=== PATIENT | female | born 1975 | race Caucasian/White ===

== ENCOUNTER 2022-10-21 07:23 | Outpatient (OUT) | payer BC, SELFPAY ==
--- NOTE | 2022-10-21 07:26 | MM_ITS ---
Patient: FATMATA SCHULTZ Exam Date: 10/21/2022 : 1975 Gender:F Ordering : DIANELYS Soto . Admission #: [id number] Family : Non-Staff Physician Order #: [id number] CLICK HERE TO VIEW EXAM RADIOLOGY REPORT PROCEDURE: MM TOMOSYNTHESIS SCREENING BI COMPARISON: MG STEREO CORE NDL W CLIP LT, 07/26/2020. INDICATIONS: Screening Calculator Name NCI Breast Cancer Risk Assessment Tool 5 Year Breast Cancer Risk 2.00% Lifetime Breast Cancer Risk 14.30% Personal Breast Cancer No Personal Ovarian Cancer No Treatments None Family Cancers None LOCATION: [facility] BREAST COMPOSITION: Heterogeneously dense,which may obscure small masses. FINDINGS: DIAGNOSTIC CATEGORY 2--BENIGN FINDING. NO CHANGE FROM COMPARISON. Scattered benign-appearing calcifications are present. This exam includes additional mammographic views for implant evaluation and shows no visible implant abnormality. RIGHT BREAST: No significant suspicious finding. LEFT BREAST: No significant suspicious finding. RECOMMENDATIONS: ROUTINE MAMMOGRAM AND CLINICAL EVALUATION IN 12 MONTHS. PLEASE NOTE: A NORMAL MAMMOGRAM DOES NOT EXCLUDE THE POSSIBILITY OF BREAST CANCER. A CLINICALLY SUSPICIOUS PALPABLE LUMP SHOULD BE BIOPSIED. Dictated by: El Whitfield MD on 10/21/2022 at 08:54 Approved by: El Whitfield MD on 10/21/2022 at 08:55
== END 2022-10-21 07:24 | disposition home or self-care (01) ==
LOC: MAMMO 07:23
PROVIDERS: Visit Provider Physician Assistant
DX: Z12.31 Encounter for screening mammogram for malignant neoplasm of breast (principal)
CPT/HCPCS: 77063; 77067

== ENCOUNTER 2023-01-16 07:39 | Outpatient (OUT) | payer BC, SELFPAY ==
[2023-01-16 08:12] LABS: Alanine Aminotransferase 21 U/L (14-59); Albumin Globulin Ratio 1.2; Albumin Level 3.7 g/dL (3.4-5.0); Alkaline Phosphatase 61 U/L (46-116); Anion Gap 12.8; Aspartate Amino Transferase 15 U/L (15-37); BUN Creatinine Ratio 24.6; Bilirubin Total 0.4 mg/dL (0.2-1.0); Calcium 8.5 mg/dL (8.5-10.1); Carbon Dioxide 26.4 mmol/L (21.0-32.0); Chloride 103 mmol/L (98-107); Chol HDL Ratio 3.1; Cholesterol 178 mg/dL (<=200); Estimated GFR (African America >60 (>=60); Estimated GFR (Non-African Ame >60 (>=60); Glucose 106 mg/dL (74-106); HDL Cholesterol 58 mg/dL (40-60); LDL Cholesterol Calculated 107.8 mg/dL; Potassium 4.2 mmol/L (3.5-5.1); Sodium 138 mmol/L (136-145); Total Protein 6.7 g/dL (6.4-8.2); Triglycerides 61 mg/dL (<=150); VLDL CHOLESTEROL 12.2 mg/dL
[2023-01-16 08:15] LABS: Basophils Percent Auto 0.8 % (0.2-2.0); Eosinophils Absolute Auto 0.2 10^3/uL (0.0-0.7); Eosinophils Percent Auto 3.5 % (0.9-7.0); Hematocrit 38.4 % (36.0-48.0); Hemoglobin 12.8 g/dL (12.0-16.0); Immature Granulocytes Abs Auto 0.01 10^3/uL (0.00-0.03); Immature Granulocytes Pct Auto 0.2 % (0.0-0.5); Lymphocytes Absolute Auto 1.8 10^3/uL (1.2-3.8); Lymphocytes Percent Auto 35.6 % (20.5-60.0); Mean Corpuscular HGB Conc 33.3 g/dL (29.9-35.2); Mean Corpuscular Volume 89.9 fL (81.0-99.0); Mean Platelet Volume 9.3 fL (9.5-13.5); Monocytes Absolute Auto 0.4 10^3/uL (0.3-0.8); Neutrophils Absolute Auto 2.7 10^3/uL (1.4-6.5); Neutrophils Percent Auto 52.9 % (43.0-75.0); Platelet Count 347 10^3/uL (150-450); Red Blood Count 4.27 10^6/uL (4.20-5.40); Red Cell Distribution Width 12.5 % (11.0-15.0); White Blood Count 5.2 10^3/uL (4.0-11.0)
[2023-01-16 08:54] LABS: Estimated Average Glucose 108 mg/dL; Glycohemoglobin A1C 5.4 % (4.5-6.2)
== END 2023-01-16 07:40 | disposition home or self-care (01) ==
LOC: LAB 07:39
PROVIDERS: Visit Provider Internal Medicine
DX: Z00.00 Encounter for general adult medical examination without abnormal findings (principal)
CPT/HCPCS: 36415; 80053; 80061; 83036; 84443; 85025

== ENCOUNTER 2023-03-12 11:34 | Outpatient (OUT) | payer BC, SELFPAY | END 2023-03-12 11:35 | disposition home or self-care (01) | LOC: PST 11:34 | PROVIDERS: Visit Provider Surgery | DX: Z01.818 Encounter for other preprocedural examination (principal); Z12.11 Encounter for screening for malignant neoplasm of colon ==

== ENCOUNTER 2023-03-19 06:53 | Day surgery (SDC) | payer BC, SELFPAY ==
--- NOTE | 2023-03-19 | OP_ITS ---
OPERATION DATE: 03/19/2023 PREOPERATIVE DIAGNOSIS: Colorectal screening. POSTOPERATIVE DIAGNOSIS: Normal colonoscopy to cecum. PROCEDURE: Colonoscopy to cecum. SURGEON: Claudy Schmitz M.D. ANESTHESIA: Monitored anesthesia care. ESTIMATED BLOOD LOSS: Zero. INDICATIONS AND CONSENT: Patient is a 47-year-old female presents for colorectal screening. Indications, risks, benefits, alternatives of proceeding with colonoscopy were explained extensively to the patient, including the risks of bleeding, colon perforation or anesthetic complications. All of her questions were answered. Informed consent was obtained. PROCEDURE: Patient brought to the operating room, placed in the left lateral decubitus position. Monitored anesthesia care was provided. Rectal exam was performed which showed no masses or blood. The scope was inserted into the anal canal. Under direct visualization was advanced. It was advanced to the cecum where cecal markings were clearly identified. Upon withdrawal of the scope, mucosal surfaces were carefully examined. There was noted to be a good prep. There were no mass lesions or polyps. No inflammatory changes or ulcerations. No significant diverticulosis. The scope was retroflexed in the anal canal. There was no significant hemorrhoidal disease. Scope was then withdrawn. Patient tolerated procedure well, was sent to recovery room in good condition. Follow up screening colonoscopy should be in 10 years. CC: Patient?s family physician ROULA
[2023-03-19 07:12] VITALS: BMI 29.1
[2023-03-19 07:13] LABS: HCG Qualitative NEGATIVE (NEGATIVE)
[2023-03-19 07:21] VITALS: BP 101/65; PULSE 79; RESP 16; TEMP 35.8; O2SAT 99
[2023-03-19] MEDS: LACTATED RINGER'S SOLUTION 1,000 ML 50 ML IV (07:23)
[2023-03-19 08:23] VITALS: BP 116/86; PULSE 80; RESP 16; O2SAT 99
[2023-03-19 08:41] VITALS: BP 126/69; PULSE 68; RESP 16; O2SAT 96
[2023-03-19 08:53] VITALS: BP 109/80; PULSE 77; RESP 16; O2SAT 100
== END 2023-03-19 08:53 | disposition home or self-care (01) ==
PROVIDERS: PCP Internal Medicine; Visit Provider Surgery
PROC: (CPT 811; principal; 2023-03-19 07:55)
DX: Z12.11 Encounter for screening for malignant neoplasm of colon (principal); N39.46 Mixed incontinence; E66.3 Overweight; Z68.29 Body mass index [BMI] 29.0-29.9, adult; F33.9 Major depressive disorder, recurrent, unspecified; Z98.51 Tubal ligation status
CPT/HCPCS: 45378; 36415; 84703; J2704

== ENCOUNTER 2023-07-15 21:14 | Outpatient (REF) | payer BC, SELFPAY ==
[2023-07-20 11:07] LABS: Age Gdln ACOG Testing Note (.); HPV Aptima Negative (Negative); IGP, Aptima HPV, rfx 16/18,45 Note (.)
== END 2023-07-15 21:15 | disposition home or self-care (01) ==
LOC: LAB 21:14
PROVIDERS: PCP Family Medicine; Visit Provider Physician Assistant
DX: Z01.419 Encounter for gynecological examination (general) (routine) without abnormal findings (principal)
CPT/HCPCS: 87624; G0145

== ENCOUNTER 2023-12-16 10:10 | Outpatient (OUT) | payer BC, SELFPAY ==
--- NOTE | 2023-12-16 | XR_ITS ---
The [address] [address] Patient Name: FATMATA SCHULTZ MRN: [id number] date: 1975 Sex: F Assigned Patient Location: Current Patient Location: Accession/Order Number: [id number] Exam Date: 12/16/2023 10:15 Report Date: 12/17/2023 07:15 At the request of: LADONNA MONAE Procedure: XR ankle CHANI min 3V EXAMINATION: XR ankle CHANI min 3V HISTORY: BILATERAL ANKLE PAIN COMPARISON: No relevant comparison available. FINDINGS: RIGHT FINDINGS: BONES: 3 mm corticated calcific density identified along the inferior medial malleolus, remote injury is favored. No acute fracture or dislocation. SOFT TISSUES: Negative. No visible soft tissue swelling. OTHER: Negative. LEFT FINDINGS: BONES: Corticated calcific density inferior to the lateral malleolus, a remote injury is favored SOFT TISSUES: Negative. No visible soft tissue swelling. OTHER: Negative. XR/XR ankle CHANI min 3V IMPRESSION: No acute abnormality of the ankles Electronically authenticated by: LUZ YANES Date: 12/17/2023 07:15
--- OUTSIDE RECORDS SUMMARY | 2023-12-16 10:24 | XMS_ITS | CCD ---
Author Organization [facility] Care Team Providers Care Sales Assistant Displays Name Role Phone Vicente Baum Primary Care Provider DARION HAND Admitting Unavailab DARION Jarvis Attending Unavailab VICENTE Napoles Primary Care Unavailable Harper Banda Unavailable BAUTISTA, DR ONOFRE Admitting Unavailable BALL, DR ONOFRE Attending Unavailable BALL, DR ONOFRE Consulting Unavailable BALL, DR ONOFRE Primary Care Unavailable FRAZANA, DR LUZ Dyer Attending Unavailable BALL, DR ONOFRE Primary Care Unavailable FARZANA, DR LUZ Dyer Consulting Unavailable FARZANA, DR LUZ Dyer Admitting Unavailable FARZANA, DR LUZ Dyer Admitting Unavailable BAUTISTA, DR ONOFRE Primary Care Unavailable WEST, DR LUZ Dyer Attending Unavailable WEST, DR LUZ Dyer Consulting Unavailable BALL, DR ONOFRE Primary Care Unavailable MOI, HARPER Admitting Unavailable CALVMIKE, HARPER Attending Unavailable BALL, DR ONOFRE Primary Care Unavailable MIRACLE ., CECI Consulting Unavailable MIRACLE ., CECI Admitting Unavailable MIRACLE ., CECI Attending Unavailable Vicente Baum Unavailable VICENTE BAUM Primary Care Physician Claudy SCHMITZ Attending Unavailable BAUTISTA, VICENTE Referring Unavailable Claudy SCHMITZ Attending Unavailable MIRACLE, CECI Attending Unavailable MIRACLE, CECI Attending Unavailable Allergies Allergy Classification Reported Allergen(s) Allergy Type Date of Onset Reaction(s) Facility (1 source) No Known Medication Allergies; Translations: [No Known Medication Allergies] Propensity to adverse reactions (disorder) [facility] Repository Medications Current Medications Medication Drug Class(es) Dates Sig (Normalized) Sig (Original) acetaminophen 325 mg / oxyCODONE hydrochloride 5 mg oral tablet (2 sources) Opioid Agonist Start: 12-09-2018 End: 12-14-2018 take 1 tablet by mouth every six hours as needed for pain, then take 1 tablet by mouth as needed for pain oxyCODONE-acetami nophen (PERCOCET) 5-325 MG per tablet Indications: Post-op pain Take 1 tablet by mouth every 6 hours as needed for Pain for up to 5 days. Intended supply: 5 days. Take lowest dose possible to manage pain 20 tablet 0 12/09/2018 12/14/2018 Active Start: 12-09-2018 End: 12-09-2018 oxyCODONE-acetaminophen (PER COCET) 5-325 MG per tablet 1 tablet calcium chloride 0.0014 meq/ml / potassium chloride 0.004 meq/ml / sodium chloride 0.103 meq/ml / sodium lactate 0.028 meq/ml injectable solution (1 source) Start: 12-09-2018 lactated ringers infusion cephalexin 500 mg oral capsule (1 source) Cephalosporin Antibacterial Start: 12-09-2018 End: 12-14-2018 take 1 capsule by mouth three times daily cephALEXin (KEFLEX) 500 MG capsule Take 1 capsule by mouth 3 times daily for 5 days 15 capsule 0 12/09/2018 12/14/2018 Active cyclobenzaprine hydrochloride 5 mg oral tablet (1 source) Muscle Relaxant Start: 10-28-2023 Cyclobenzaprine Active 0 PO Daily at bedtime 60 30 October 28, 2023 12:00am 5-10mg orally daily at bedtime; 2 ml fentaNYL 0.05 mg/ml injection (2 sources) Opioid Agonist Start: 12-09-2018 fentaNYL (SUBLIMAZE) injection 50 mcg Start: 12-09-2018 fentaNYL (SUBL IMAZE) injection 25 mcg FLUoxetine 20 mg oral capsule (6 sources) Serotonin Reuptake Inhibitor Start: 07-30-2023 take 1 capsule by mouth once daily Fluoxetine Active 0 .ROUTE .COMPLEX 90 July 30, 2023 2:31pm TAKE 1 CAPSULE BY MOUTH EVERY DAY FOR 90 DAYS Start: 07-30-2023 End: 07-30-2023 take 20 mg by mouth once daily Fluoxetine Discontinued 20 MG PO Daily July 30, 2023 12:00am July 30, 2023 2:31pm Start: 01-14-2023 take 1 capsule by mo [facility] once daily FLUoxetine 20 mg Cap 20 mg = 1 cap(s), Oral, Daily, Refills(s) 0 Start Date: 02/03/23 Status: Ordered 1 ml hydrALAZINE hydrochloride 20 mg/ml injection (1 source) Arteriolar Vasodilator Start: 12-09-2018 hydrALAZINE (APRESOLINE) injection 5 mg 1 ml HYDROmorphone hydrochloride 1 mg/ml cartridge (2 sources) Opioid Agonist Start: 12-09-2018 HYDROmorphone (DILAUDID) injection 0.25 mg Start: 12-09-2018 HYDROmorphone (DILAUDID) injection 0.5 mg 0.5 ml meperidine hydrochloride 50 mg/ml injection (1 source) Opioid Agonist Start: 12-09-2018 meperidine (DE MEROL) injection SOLN 12.5 mg 2 ml metoclopramide 5 mg/ml prefilled syringe (1 source) Dopamine-2 Receptor Antagonist Start: 12-09-2018 End: 12-09-2018 metoclopramide (REGLAN) injection 10 mg 2 ml midazolam 1 mg/ml injection (1 source) Benzodiazepine Start: 12-09-2018 End: 12-09-2018 midazolam (VERSED) injection 2 mg MIRENA IUD - this medication is not being screened (3 sources) Start: 02-15-2013 MIRENA IUD - t his medication is not being screened MIRENA IUD - this medication is not being screened( ) Active -Hx Entry for 0 *Reorder from [email or web address] for eRx and Interaction Alerts* Feb, Not-Taking 2 ml ondansetron 2 mg/ml injection (1 source) Serotonin-3 Receptor Antagonist Start: 12-09-2018 End: 12-09-2018 ondansetron (ZOFRAN) injection 4 mg 3 ml sodium chloride 9 mg/ml injection (3 sources) Start: 12-09-2018 sodium chlorid e flush 0.9 % injection 10 mL Start: 12-09-2018 0.9 % sodium c hloride infusion Start: 12-09-2018 sodium chlorid e flush 0.9 % injection 10 mL Completed/Discontinued Medications Medication Drug Class(es) Dates Sig (Normalized) Sig (Original) acetaminophen 325 mg / HYDROcodone bitartrate 5 mg oral tablet (1 source) Opioid Agonist Start: 07-12-2018 End: 12-01-2018 take 1 tablet by mouth every six hours as needed for pain HYDROcodone-acetam inophen (NORCO) 5-325 MG per tablet TAKE 1 TABLET BY MOUTH EVERY 6 HOURS NEEDED FOR PAIN 0 07/12/2018 12/01/2018 Discontinued (Therapy completed) azithromycin 250 mg oral tablet (1 source) Macrolide Antimicrobial Start: 09-29-2018 End: 12-01-2018 azithromycin (ZITHROMAX) 250 MG tablet TAKE 2 TABLETS BY MOUTH TODAY, THEN TAKE 1 TABLET DAILY FOR 4 DAYS 0 09/29/2018 12/01/2018 Discontinued (Therapy completed) 24 hr buPROPion hydrochloride 150 mg extended release oral tablet (5 sources) Aminoketone Start: 10-28-2023 End: 10-28-2023 take 1 tablet by mouth once daily Bupropion Hcl (Wellbutrin Xl) 150 mg tablet extended release 24 hr Discontinued 150 MG PO Daily October 28, 2023 12:00am October 28, 2023 3:17pm take 1 tablet by david th every twenty-four hours Wellbutrin XL 150 MG 1 tablet in the morning Orally Once a day Not-Taking ciprofloxacin 500 mg oral tablet (1 source) Quinolone Antimicrobial Start: 09-08-2018 End: 12-01-2018 take 1 tablet by mouth once daily ciprofloxacin (CIPRO) 500 MG tablet TAKE 1 TABLET BY MOUTH THE DAY BEFORE YOUR PROCEDURE THEN 1 TABLET AFTER YOUR PROCEDURE 0 09/08/2018 12/01/2018 Discontinued (Therapy completed) methylPREDNISolone (1 source) Corticosteroid Start: 09-29-2018 End: 12-01-2018 methylPREDNISolone (MEDROL DOSEPACK) 4 MG tablet TAKE 6 TABLETS ON DAY 1 DIRECTED ON PACKAGE AND DECREASE BY 1 TAB EACH DAY FOR A TOTAL OF 6 DAYS 0 09/29/2018 12/01/2018 Discontinued (Therapy completed) metroNIDAZOLE 500 mg oral tablet (4 sources) Nitroimidazole Antimicrobial Start: 10-28-2023 End: 10-28-2023 take 500 mg by mouth twice daily Metronidazole Discontinued 500 MG PO Twice daily October 28, 2023 12:00am October 28, 2023 3:17pm Start: 04-16-2019 take 1 tablet by david th twice daily metroNIDAZOLE 500MG metroNIDAZOLE 500MG, 1 (one) Tablet two times daily # 14, 04/16/2019, No Refill. Active Oral two times daily for 7 *Pick strength-form from [email or web address] for eRX* Apr, Not-Taking triamcinolone acetonide 40 mg/ml injectable suspension (4 sources) Corticosteroid Start: 06-27-2021 Kenalog-40 Jun, 40 mg Start: 06-27-2021 Kenalog -40 mg Jun, 40 mg Problems Active Problems Problem Classification Problem Date Documented Date Episodic/Chronic Genitourinary symptoms and ill-defined conditions (2 sources) Genuine stress incontinence; Translations: [Urge incontinence of urine] 10-15-2018 Chronic Immunizations and screening for infectious disease (1 source) Encounter for screening for human papillomavirus (HPV); Translations: [ENC SCREENING HUMAN PAPILLOMAVIRUS] Onset: 07-19-2022 Episodic Mood disorders (8 sources) Seasonal affective disorder; Translations: [Other recurrent depressive disorders] Chronic Other diseases of bladder and urethra (1 source) 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 Episodic Other nervous system disorders (1 source) Postoperative pain ; Translations: [Post-op pain] Episodic Other nutritional; endocrine; and metabolic disorders (2 sources) Overweight; Translations: [Overweight] Episodic Other nutritional; endocrine; and metabolic disorders (2 sources) Overweight; Translations: [Overweight] 02-03-2023 Episodic Other nutritional; endocrine; and metabolic disorders (1 source) Overweight in adulthood with body mass index of 25 or more but less than 30 02-11-2023 Episodic Other screening for suspected conditions (not mental disorders or infectious disease) (7 sources) Encounter for screening for malignant neoplasm of cervix; Translations: [Encounter for screening mammogram for malignant neoplasm of breast] Onset: 07-11-2022 Episodic Residual codes; unclassified (1 source) Insomnia; Translations: [Insomnia, unspecified] 10-28-2023 Episodic Residual codes; unclassified (1 source) Insomnia, unspecified; Translations: [Insomnia, unspecified] 10-28-2023 Episodic Unclassified (1 source) Finding of sensation of bladder 10-15-2018 Unclassified (1 source) Patient encounter status 02-11-2023 Past or Other Problems Problem Classification Problem Date Documented Da te Episodic/Chronic Other connective tissue disease (1 source) Lateral epicondylitis, left elbow Onset: 06-27-2021 Resolved: 06-27-2021 Episodic Other non-traumatic joint disorders (1 source) Pain in left elbow Onset: 06-27-2021 Resolved: 06-27-2021 Episodic Other non-traumatic joint disorders (4 sources) Pain in left shoulder; Translations: [PAIN IN LEFT SHOULDER] Onset: 08-10-2021 Episodic Results Test Name Value Interpretation Reference Range Facility Outside Colonoscopyon 2022 Outside Colonoscopy [id number]#1.00T IFF Normal [facility] Reminderson 03-20-2023 Reminders - From: Dolores Lee LPN To: [facility] - Clinical; Sent: 03/20/2023 08:53:50 EST Show up: 02/17/2033 07:00:00 EST Subject: colonoscopy recall Due Date/Time: 03/19/2033 07:00:00 EST Reminder/Recall Patient due for screening colonoscopy 03/19/2033. Normal [facility] Lab Reportson 03-19-2023 Lab Reports [id number]#1.00T IFF [facility] Insurance Correspondenceon 1 04-27-2022 Insurance Correspondence [id number]#1.00 TIFF [facility] Consent for Procedure/Surger yon 02-12-2023 Consent for Procedure/Surgery [id number]#1.00 TIFF [facility] Facesheeton 02-12-2023 Facesheet [id number]#1.00 TIFF [facility] Ambulatory Visit Summaryon 1 04-13-2022 Ambulatory Visit Summary GABRIELA ROSE :1975 Visit Date:02/11/2023 Ambulatory Visit Instructions Your Diagnosis Screening for malignant neoplasm of colon Your Care Team Attending Physician - LEONOR COLON, Claudy De Anda Primary Care Physician - VICENTE BAUM DO Referring Physician - VICENTE BAUM DO This Is Your Medications List Contact prescribing physician if questions or concerns fluoxetine (FLUoxetine 20 mg Cap) Procedures Performed Cystourethroscopy with dilation of urethral stricture (09/30/2018), section, section, Tonsillectomy, Tubal ligation. Discharge Vitals Heart Rate (Peripheral) 70 Respiratory Rate 16 Blood Pressure 124/80 Height 165.1 cm Height 65 in Weight 80.2 kg Weight 176.44 lb BMI 29.42 Medications What How Much When Instructions Unchanged fluoxetine (FLUoxetine 20 mg Cap) 1 Capsules By Mouth Every day Contact prescribing physician if questions or concerns Allergies No Known Allergies No Known Medication Allergies Problems Ongoing - Any problem that you are currently receiving treatment for. BMI 29.0-29.9,adult Feeling of incomplete bladder emptying Other post-traumatic urethral stricture, female Overweight Screening for malignant neoplasm of colon Seasonal affective disorder Stress incontinence Urge incontinence Patient Survey You may receive a survey via text or e-mail asking about your office visit. Please share your experience with us by completing your survey. We appreciate your feedback and thank you for choosing us for your care. Normal [facility] Physician Referralon 023 Physician Referral [id number] IFF Normal [facility] PAP ACOG PANEL 2: 30 to 65on 07-18-2022 . . Normal [facility] Comment on above: Result Comment: Perf ormed at: WB Performed By: #### [id number] #### [facility] [address] [address] [address] Chloe Wells Age Gdln ACOG Testing 30-65 Normal [facility] Comment on above: Performed By: #### [id number] #### [facility] [address] [address] [address] Chloe Wells DIAGNOSIS: Comment Normal [facility] Comment on above: Result Comment: NEGA TIVE FOR INTRAEPITHELIAL LESION OR MALIGNANCY. Performed at: WB Performed By: #### [id number] #### [facility] [address] [address] [address] Chloe Wells HPV Aptima Positive Abnormal Negative [facility] Comment on above: Result Comment: This nucleic acid amplification test detects fourteen high-risk HPV types (16,18,31,33,35,39,45,51,52,56,58,59,66,68) without differentiation. Performed at: =G Performed By: #### 4 [id number] #### [facility] [address] [address] [address] Chloe Wells HPV Genotype [address] [facility] Comment on above: Performed By: #### 4 [id number] #### [facility] [address] [address] [address] Chloe Wells HPV Genotype 18,45 Negative Normal Negative [facility] Comment on above: Performed By: #### 4 [id number] #### [facility] [address] [address] [address] Chloe Wells HPV Genotype Reflex Comment Normal [facility] Comment on above: Result Comment: Kira galicia, see HPV Genotype results. Performed at: WB Performed By: #### [id number] #### [facility] [address] [address] [address] Chloe Wells Methodology: Comment Normal [facility] Comment on above: Result Comment: This liquid based ThinPrep(R) pap test was screened with the use of an image guided system. Performed at: WB Performed By: #### [id number] #### [facility] [address] [place] [address] Dr. Chloe Wells Note: Comment Normal [facility] Comment on above: Result Comment: The Pap smear is a screening test designed to aid in the detection of premalignant and malignant conditions of the uterine cervix. It is not a diagnostic procedure and should not be used as the sole means of detecting cervical cancer. Both false-positive and false-negative reports do occur. . Performed at: WB Performed By: #### [id number] #### [facility] [address] [place] [address] Dr. Chloe Wells Performed by: Comment Normal [facility] Comment on above: Result Comment: Rozina Benitez, Predictive Maintenance Specialist (ASCP) Performed at: WB Performed By: #### 4 [id number] #### [facility] [address] [address] [address] Chloe Wells Specimen adequacy: Comment Normal [facility] Comment on above: Result Comment: Sati sfactory for evaluation. Endocervical and/or squamous metaplastic cells (endocervical component) are present. Performed at: WB Performed By: #### [id number] #### [facility] [address] [place] [address] Dr. Chloe Wells CBC AUTO DIFFon 12-19-2021 BASO # 0.0 103/ul Normal 0.0-0.1 [facility] Comment on above: Performed By: #### C BC #### [facility] [address] [place] [address] Dr. Chloe Wells Basophils/100 WBC (Bld) 0.3 % Normal 0.2-2.0 [facility] Comment on above: Performed By: #### C BC #### [facility] [address] [place] [address] Dr. Chloe Wells EO # 0.2 103/ul Normal 0.0-0.7 [facility] Comment on above: Performed By: #### C BC #### [facility] [address] [place] [address] Dr. Chloe Wells Eosinophils/100 WBC (Bld) 2.9 % Normal 0.9-7.0 [facility] Comment on above: Performed By: #### C BC #### [facility] [address] [place] [address] Dr. Chloe Wells Erythrocyte distribution width (RBC) [Ratio] 12.4 % Normal 11.0-15.0 [facility] Comment on above: Performed By: #### C BC #### [facility] [address] [place] [address] Dr. Chloe Wells Hematocrit (Bld) [Volume fraction] 38.8 % Normal 36.0-48.0 [facility] Comment on above: Performed By: #### C BC #### [facility] [address] [place] [address] Dr. Chloe Wells Hemoglobin (Bld) [Mass/Vol] 13.0 g/dL Normal 12.0-16.0 [facility] Comment on above: Performed By: #### C BC #### [facility] [address] [place] [address] Dr. Chloe Wells IG # 0.01 10e3/ul Normal 0.00-0.03 [facility] Comment on above: Performed By: #### C BC #### [facility] [address] [place] [address] Dr. Chloe Wells IG % 0.2 % Normal 0.0-0.5 [facility] Comment on above: Performed By: #### C BC #### [facility] [address] [place] [address] Dr. Chloe Wells LYMPH # 2.0 103/ul Normal 1.2-3.8 [facility] Comment on above: Performed By: #### C BC #### [facility] [address] [place] [address] Dr. Chloe Wells Lymphocytes/100 WBC (Bld) 33.4 % Normal 20.5-60.0 [facility] Comment on above: Performed By: #### C BC #### [facility] [address] [place] [address] Dr. Chloe Wells MANUAL DIFF REQ NO Normal [facility] Comment on above: Performed By: #### C BC #### [facility] [address] [place] [address] Dr. Chloe Wells MCH (RBC) [Entitic mass] 30.2 pg Normal 26.7-34.0 [facility] Comment on above: Performed By: #### C BC #### [facility] [address] [place] [address] Dr. Chloe Wells MCHC (RBC) [Mass/Vol] 33.5 g/dL Normal 29.9-35.2 [facility] Comment on above: Performed By: #### C BC #### [facility] [address] [place] [address] Dr. Chleo Wells MCV (RBC) [Entitic vol] 90.0 fL Normal 81.0-99.0 [facility] Comment on above: Performed By: #### C BC #### [facility] [address] [place] [address] Dr. Chloe Wells MONO # 0.5 103/ul Normal 0.3-0.8 [facility] Comment on above: Performed By: #### C BC #### [facility] [address] [place] [address] Dr. Chloe Wells Monocytes/100 WBC (Bld) 8.0 % Normal 1.7-12.0 [facility] Comment on above: Performed By: #### C BC #### [facility] [address] [place] [address] Dr. Chloe Wells NEUT # 3.2 103/ul Normal 1.4-6.5 [facility] Comment on above: Performed By: #### C BC #### [facility] [address] [place] [address] Dr. Chloe Wells Neutrophils/100 WBC (Bld) 55.2 % Normal 43.0-75.0 [facility] Comment on above: Performed By: #### C BC #### [facility] [address] [place] [address] Dr. Chloe Wells Platelet mean volume (Bld) [Entitic vol] 8.9 fL Critically low 9.5-13.5 [facility] Comment on above: Performed By: #### C BC #### [facility] [address] [place] [address] Dr. Chloe Wells PLT 327 103/ul Normal 150-450 [facility] Comment on above: Performed By: #### C BC #### [facility] [address] [place] [address] Dr. Chloe Wells RBC 4.31 106/ul Normal 4.20-5.40 [facility] Comment on above: Performed By: #### C BC #### [facility] [address] [place] [address] Dr. Chloe Wells WBC 5.9 103/ul Normal 4.0-11.0 [facility] Comment on above: Performed By: #### C BC #### [facility] [address] [place] [address] Dr. Chloe Wells GLYCOHEMOGLOBIN A1Con 2021 ADA RECOMMENDATION SEE BELOW Normal [facility] Comment on above: Result Comment: ADA RECOMMENDED LIMIT 4.0 - 6.0 ADA THERAPEUTIC TARGET < 7.0 ACTION SUGGESTED > 7.0 Performed By: #### A 1C #### [facility] [address] [place] [address] Dr. Chloe Wells Glucose [Mass/Vol] 105 mg/dL Normal [facility] Comment on above: Performed By: #### A 1C #### [facility] [address] [address] [address] Chloe Wells HbA1c (Bld) [Mass fraction] 5.3 % Normal 4.5-6.2 [facility] Comment on above: Performed By: #### A 1C #### [facility] [address] [address] [address] Chloe Wells LIPID PROFILEon 12-19-2021 CHOL-HDL RATIO NORM SEE BELOW Normal [facility] Comment on above: Result Comment: 3.3 - 4.4 LOW RISK 4.4 - 7.1 AVERAGE RISK 7.1 - 11.0 MODERATE RISK >11.0 HIGH RISK Performed By: #### C MP, TSH, LIPID #### [facility] [address] [address] [address] Chloe Wells Cholesterol [Mass/Vol] 171 mg/dL Normal <=200 [facility] Comment on above: Performed By: #### C MP, TSH, LIPID #### [facility] [address] [address] [address] Chloe Wells Cholesterol in HDL [Mass/Vol] 63 mg/dL Critically high 40-60 [facility] Comment on above: Performed By: #### C MP, TSH, LIPID #### [facility] [address] [address] [address] Chloe Wells Cholesterol in LDL [Mass/Vol] 99.2 mg/dL Normal [facility] Comment on above: Performed By: #### C MP, TSH, LIPID #### [facility] [address] [address] [address] Chloe Wells Cholesterol.total/Ch olesterol in HDL [Mass ratio] 2.7 {ratio} Normal [facility] Comment on above: Performed By: #### C MP, TSH, LIPID #### [facility] [address] [address] [address] Chloe Wells HDL NORMAL > or = 60 mg/dl - LO W CARDIOVASCULAR RISK <40 mg/dl - HIGH CARDIOVASCULAR RISK Normal [facility] Comment on above: Performed By: #### C MP, TSH, LIPID #### [facility] [address] [address] [address] Chloe Wells LDL CALC NORMAL SEE BELOW Normal [facility] Comment on above: Result Comment: <100 mg/dl OPTIMAL 100 - 129 mg/dl NEAR OR ABOVE OPTIMAL 130 - 159 mg/dl BORDERLINE HIGH 160 - 189 mg/dl HIGH >190 mg/dl VERY HIGH Performed By: #### C MP, TSH, LIPID #### [facility] [address] [address] [address] Chloe Wells Triglyceride [Mass/Vol] 44 mg/dL Normal <=150 [facility] Comment on above: Performed By: #### C MP, TSH, LIPID #### [facility] [address] [address] [address] Chloe Wells VLDL CALC 8.8 mg/dL Normal [facility] Comment on above: Performed By: #### C MP, TSH, LIPID #### [facility] [address] [address] [address] Chloe Wells PROF 14(COMP METB)on 022 Albumin [Mass/Vol] 3.8 g/dL Normal 3.4-5.0 [facility] Comment on above: Performed By: #### C MP, TSH, LIPID #### [facility] [address] [address] [address] Chloe Wells Albumin/Globulin [Mass ratio] 1.3 {ratio} Normal [facility] Comment on above: Performed By: #### C MP, TSH, LIPID #### [facility] [address] [address] [address] Chloe Wells ALP [Catalytic activity/Vol] 54 U/L Normal 46-116 [facility] Comment on above: Performed By: #### C MP, TSH, LIPID #### [facility] [address] [address] [address] Chloe Wells ALT [Catalytic activity/Vol] 20 U/L Normal 14-59 [facility] Comment on above: Performed By: #### C MP, TSH, LIPID #### [facility] [address] [address] [address] Chloe Wells Anion gap [Moles/Vol] 9.9 mmol/L Normal [facility] Comment on above: Performed By: #### C MP, TSH, LIPID #### [facility] [address] [address] [address] Chloe Wells AST [Catalytic activity/Vol] 14 U/L Critically low 15-37 [facility] Comment on above: Performed By: #### C MP, TSH, LIPID #### [facility] [address] [address] [address] Chloe Wells Bilirubin [Mass/Vol] 0.6 mg/dL Normal 0.2-1.0 [facility] Comment on above: Performed By: #### C MP, TSH, LIPID #### [facility] [address] [address] [address] Chloe Wells Calcium [Mass/Vol] 8.5 mg/dL Normal 8.5-10.1 [facility] Comment on above: Performed By: #### C MP, TSH, LIPID #### [facility] [address] [address] [address] Chloe Wells Chloride [Moles/Vol] 104 mmol/L Normal 98-107 [facility] Comment on above: Performed By: #### C MP, TSH, LIPID #### [facility] [address] [address] [address] Chloe Wells CO2 [Moles/Vol] 27.3 mmol/L Normal 21.0-32.0 [facility] Comment on above: Performed By: #### C MP, TSH, LIPID #### [facility] [address] [address] [address] Chloe Wells Creatinine [Mass/Vol] 0.74 mg/dL Normal 0.55-1.02 [facility] Comment on above: Performed By: #### C MP, TSH, LIPID #### [facility] [address] [address] [address] Chloe Wells EGFR-AF CHADIAN >60 Normal >=60 [facility] Comment on above: Performed By: #### C MP, TSH, LIPID #### [facility] [address] [place] [address] Dr. Chloe Wells EGFR-NON AF CHADIAN >60 Normal >=60 [facility] Comment on above: Performed By: #### C MP, TSH, LIPID #### [facility] [address] [place] [address] Dr. Chloe Wells Globulin (S) [Mass/Vol] 2.9 g/dL Normal [facility] Comment on above: Performed By: #### C MP, TSH, LIPID #### [facility] [address] [place] [address] Dr. Chloe Wells Glucose [Mass/Vol] 110 mg/dL Critically high 74-106 [facility] Comment on above: Performed By: #### C MP, TSH, LIPID #### [facility] [address] [place] [address] Dr. Chloe Wells Potassium [Moles/Vol] 4.2 mmol/L Normal 3.5-5.1 [facility] Comment on above: Performed By: #### C MP, TSH, LIPID #### [facility] [address] [place] [address] Dr. Chloe Wells Protein [Mass/Vol] 6.7 g/dL Normal 6.4-8.2 [facility] Comment on above: Performed By: #### C MP, TSH, LIPID #### [facility] [address] [place] [address] Dr. Chloe Wells Sodium [Moles/Vol] 137 mmol/L Normal 136-145 [facility] Comment on above: Performed By: #### C MP, TSH, LIPID #### [facility] [address] [place] [address] Dr. Chloe Wells Urea nitrogen [Mass/Vol] 18.0 mg/dL Normal 7.0-18.0 [facility] Comment on above: Performed By: #### C MP, TSH, LIPID #### [facility] [address] [place] [address] Dr. Chloe Wells Urea nitrogen/Creatinine [Mass ratio] 24.3 mg/mg Normal [facility] Comment on above: Performed By: #### C MP, TSH, LIPID #### [facility] [address] [place], [place] [address] Dr. Chloe Wells TSHon 12-19-2021 TSH 1.733 uIU/mL Normal 0.358-3.740 [facility] Comment on above: Performed By: #### C MP, TSH, LIPID #### [facility] [address] [place], [place] [address] Dr. Chloe Wells SURGICAL PATH REPORTon 07-[address] [facility] Department of Pathology [address] [place] [id number] Name: GABRIELA ROSE : 1975 Financial [id number] Number: Gender: Female Location: [facility] Admit 45 years Attending JAMAL SWAN Age: Provider: Ordering MICHAEL HERNÁNDEZ Provider: Consulting: Surgical Pathology Report ACCESSION: COLLECTED DATE/TIME: RECEIVED DATE/TIME: PATHOLOGIST: [id number] 07/26/2020 11:13 EDT 07/26/2020 14:42 EDT KENDELL COLON, BRANT WEBER Final Diagnosis Report for [facility] [place], [place] LEFT BREAST, UPPER OUTER QUADRANT, MICROCALCIFICATIONS, STEREOTACTIC BIOPSY: - FIBROCYSTIC CHANGE AND ADENOSIS WITH ASSOCIATED MICROCALCIFICATIONS. - NEGATIVE FOR MALIGNANCY. COMMENT: Multiple deeper sections are examined. Intradepartmental consultation obtained by Cole Whyte M.D. with diagnostic concurrence. Fixative Information: Time of Removal: 11:13 a.m. Time Fixation Added: 11:24 a.m. Fixative: Formalin Time to Fixation: 11 minutes Duration of Fixation: 30.75 hours BRANT RDZ PATHOLOGIST (Electronic Signature) Date Verified 07/31/2020 TS Clinical Data PRE-OP DIAGNOSIS: Not specified POST-OP DIAGNOSIS: Breast microcalcifications PROCEDURES: Stereotactic breast biopsy SPECIMEN: Left breast upper outer quad microcalcifications / outpatient services ____ Print Date07/31/2020 14:04 EDT Number: Time: [facility] Department of Pathology [address] [place] [id number] Name: GABRIELA ROSE : 1975 [facility] [id number] Number: Gender: Female Location: [facility] Admit 45 years Attending JAMAL SWAN Age: Provider: Ordering MICHAEL HERNÁNDEZ Provider: Consulting: Surgical Pathology Report ACCESSION: COLLECTED DATE/TIME: RECEIVED DATE/TIME: PATHOLOGIST: [id number] 07/26/2020 11:13 EDT 07/26/2020 14:42 EDT KENDELL COLON, BRANT WEBER Gross Description Labeled left breast UOQ calcifications. Received in formalin in a collection apparatus are multiple cylindrical segments of pink white to yellow soft tissue. These measure in aggregate 2.4 x 1.7 x 0.6 cm. The specimen is entirely submitted in two cassettes. Specimen surgically removed at 11:13 and placed in formalin at 11:24. This case will be processed on the large tissue processor. MP:saul 07/26/2020 Tissue pathology report for: [facility], [address] [place] [address]; PATHOLOGY SERVICES PROVIDED BY [facility] (CLIA #[id number]) in cooperation with [facility] at [address] [place] [id number] (CLIA #[id number]) Codes CPT CODE: 65571 ____ Print Date07/31/2020 14:04 EDT Number: Time: Normal [facility] Comment on above: Performed By: #### [id number] #### [facility] [address] [place] [address] Optical Instrument Inspector: Jim Treadwell MD OPERATIVE REPORTon 9 OPERATIVE REPORT [address] [address] OPERATIVE REPORT PATIENT NAME: GABRIELA ROSE : 1975 MED REC NO: [id number] ROOM: ACCOUNT NO: [id number] ADMIT DATE: 12/09/2018 PROVIDER: Darion Hand DATE OF PROCEDURE: 12/09/2018 PREOPERATIVE DIAGNOSIS: 22-mm forehead mass. POSTOPERATIVE DIAGNOSIS: 22-mm forehead mass. PROCEDURE: Excision 25-mm subgaleal forehead lipoma. SURGEON: Darion Hand MD ANESTHESIA: General. INDICATIONS: A 43-year-old with an enlarging mass just below the central hairline. She was scheduled for removal. FINDINGS: This was a subgaleal lipoma with no component of it superficial to the galea. DESCRIPTION OF PROCEDURE: With the patient supine, general anesthesia was induced via posterior pharyngeal LMA intubation. The patient's face was prepped and draped in sterile fashion, injected 0.5% Marcaine, 1:200,000 epinephrine local. After appropriate prep and drape, transverse incision overlying the central 70% of this mass was performed with dissection carried down through skin, subcutaneous tissue, and galea. The mass was identified, circumferentially dissected, and removed off the periosteum. Multilayer closure using 4-0 Monocryl was performed, including intracuticular 4-0 Monocryl closure and Steri-Strip application. Estimated blood loss was 5 mL. There was no complication. Needle and sponge counts correct. DARION HAND JERMAINE/[id number] Doc#: [id number] CC: Normal [facility] Surgical Pathologyon 019 Surgical Pathology (NOTE) [id number] [facility] CONS[facility]ING PATHOLOGISTS [facility] ANATOMIC PATHOLOGY [address] [place] [id number] SURGICAL PATHOLOGY CONSULTATION Patient Name: GABRIELA ROSE [facility] Rec: [id number] Path Number: [id number] Collected: 12/09/2018 Received: 12/09/2018 Reported: 12/10/2018 13:49 -- Diagnosis -- FOREHEAD, SUBGALEAL MASS, EXCISION: - BENIGN LIPOMA. Nino Guzman, Electronically Signed Out sls/12/10/2018 Clinical Information Pre-op Diagnosis: MASS FOREHEAD Operative Findings: FOREHEAD SUBGALEAL MASS Operation Performed: HEAD LESION EXCISION MASS FOREHEAD Source of Specimen 1: FOREHEAD SUBGALEAL MASS Gross Description GABRIELA ROSE, MASS FOREHEAD Two fibrofatty fragments 1.3 x 0.5 x 0.3 cm. and 1.3 x 0.8 x 0.4 cm. Intact. 1cs dw Microscopic Description The specimen consists of benign, mature adipose tissue with a component of fibrous tissue around its periphery, consistent with a benign lipoma. Normal [facility] Comment on above: Performed By: #### P PPVDP #### [employer] [address] [place] [address] Supervisor Rework: Chris Michaels MD Vital Signs Date Time Vital Sign Value Performing Clinician Facility 10-28-2023 15:18040 Body height 165.1 cm [facility] 10-28-2023 15:18-0400 Body mass index (BMI) [Ratio] 29.1 kg/m2 [facility] 10-28-2023 15:18040 Body weight 79.49 kg [facility] 10-28-2023 15:18-0400 Diastolic blood pressure 86 mm[Hg] [facility] 10-28-2023 15:18-0400 Heart rate 78 /min [facility] 10-28-2023 15:18-0400 Respiratory rate 12 /min [facility] 10-28-2023 15:18-0400 Systolic blood pressure 124 mm[Hg] [facility] 02-11-2023 14:18-0500 Blood Pressure Location Claudy NILL [facility] [place] 02-11-2023 14:18-0500 Diastolic blood pressure 80 mm[Hg] Claudy NILL [facility] [place] 02-11-2023 14:18-0500 Heart rate 70 /min Claudy NILL [facility] [place] 02-11-2023 14:18-0500 Respiratory rate 16 /min Claudy NILL [facility] [place] 02-11-2023 14:18-0500 Systolic blood pressure 124 mm[Hg] Claudy NILL [facility] [place] 01-14-2023 14:30-0400 Body height 165.1 cm Vicente Ball [facility] [employer] Other 01-14-2023 14:30-0400 Body mass index (BMI) [Ratio] 29.88 kg/m2 Vicente Ball [facility] [employer] Other 01-14-2023 14:30-0400 Body weight 81.47 kg Vicente Ball Other [employer] Other 01-14-2023 14:30-0400 Diastolic blood pressure 79 mm[Hg] Vicente Ball Other [employer] Other 01-14-2023 14:30-0400 Respiratory rate 12 /min Vicente Ball [facility] [employer] Other 01-14-2023 14:30-0400 Systolic blood pressure 111 mm[Hg] Vicente Ball [facility] [employer] Other 06-27-2021 14:00-0400 Body height 165.1 cm Harper Banda Other [employer] Other 06-27-2021 14:00-0400 Body mass index (BMI) [Ratio] 26.62 kg/m2 Harper Banda Other [employer] Other 06-27-2021 14:00-0400 Body weight 72.58 kg Harper Banda Other [employer] Other 12-09-2018 08:41-0400 Body Temperature 97.3 [degF] Darion [employer] [place] 12-09-2018 08:41-0400 BP Diastolic 76 mm[Hg] Darion [employer] [place] 12-09-2018 08:41-0400 BP Systolic 117 mm[Hg] Darion [employer] [place] 12-09-2018 08:41-0400 Pulse (Heart Rate) 72 /min Darion [place] 12-09-2018 08:41-0400 Pulse Oximetry 99 % Darion [employer] [place] 12-09-2018 08:41-0400 Respiratory Rate 14 /min Darion [employer] 12-09-2018 06:14-0400 BMI (Body Mass Index) 30.35 kg/m2 Darion [employer] [place] 12-09-2018 06:14-0400 Body weight 82.72 kg Darion [employer] [place] 12-09-2018 06:14-0400 Height 165.1 cm [place] Encounters Encounter Date Encounter Type Care Provider Facility Start: 10-28-2023 End: 10-28-2023 ambulatory [facility] Work Phone: Start: 10-28-2023 End: 10-28-2023 Patient encounter procedure [facility] Work Phone: Start: 08-14-2023 End: 08-14-2023 ambulatory CECI RAUSCH Not Available Start: 07-30-2023 Non-patient / Non-visit [facility] Work Phone: Start: 07-15-2023 End: 07-15-2023 ambulatory CECI RAUSCH Not Available Start: 03-19-2023 End: 03-20-2023 ambulatory Claudy R SANDROL Facility:CD:[id number] Start: 02-11-2023 End: 02-12-2023 ambulatory Claudy R NILL Facility: [facility] Start: 02-11-2023 End: 02-11-2023 Patient encounter procedure Claudy R SANDROL [facility] Start: 02-05-2023 End: 02-05-2023 ambulatory Vicente Baum [facility] [employer] Other Start: 02-05-2023 Telephone encounter Vicente CHAO [facility] Start: 01-17-2023 End: 01-17-2023 ambulatory Vicente Baum [facility] [employer] Other Start: 01-17-2023 Telephone encounter [facility]ente [facility] Start: 01-16-2023 ambulatory Claudy SANDROKeith Facility:[facility] Start: 01-14-2023 End: 01-14-2023 ambulatory Vicente Baum [facility] [employer] Other Start: 01-14-2023 Encounter for genera l adult medical examination without abnormal findings Vicente Baum [facility] Start: 01-14-2023 Periodic preventive med est patient 40-64yrs Vicente Baum [facility] Start: 07-11-2022 End: 07-11-[address] VICENTE BAUM Facility:[facility] Start: 06-28-[address] LUZ Tello y:[facility] Start: 12-23-2021 Encounter for genera l adult medical examination without abnormal findings DR VICENTE BAUM [facility] Start: 12-19-2021 End: 12-20-[address] VICENTE BAUM Facility:[facility] Start: 12-19-2021 End: 12-20-2021 Encounter for general adult medical examination without abnormal findings DR VICENTE BAUM Facility:[facility] Start: 10-18-2021 End: 04-26-[address] LUZ YANES Facility:[facility] Start: 08-10-2021 End: 08-25-[address] VICENTE BAUM Facility:[facility] Start: 06-27-2021 End: 06-27-2021 ambulatory Harper Banda [facility] [employer] Other Start: 06-27-2021 Office outpatient ne w 30 minutes Harper Banda [facility] Start: 12-09-2018 End: 12-09-2018 Patient encounter procedure DARION HAND [facility] Start: 12-09-2018 End: 12-09-2018 Subsequent hospital visit by physician Darion Hand Work Phone: [facility] [place] Comment on above: Post-op pain (Primar y Dx) Procedures Date Procedure Procedure Detail Performing Clinician Start: 12-09-2018 DISCHARGE PATIENT DARION HAND Start: 12-09-2018 Level iv surg pathol ogy gross&microscopic exam DARION HAND Start: 12-09-2018 Continuous pulse oximetry DARION HAND Start: 12-09-2018 BEDREST DARION De Anda Start: 12-09-2018 ENCOURAGE DEEP BREAT GISELE AND COUGHING DARION HAND Start: 12-09-2018 INITIATE OXYGEN THER APY PROTOCOL DARION HAND Start: 12-09-2018 NOTIFY PHYSICIAN (SPECIFY) DARION HAND Start: 12-09-2018 NURSING COMMUNICATION C ARIEL HAND Start: 12-09-2018 VITAL SIGNS DARION De Anda Start: 12-09-2018 Gluc bld gluc mntr d ev cleared fda spec home use DARION HAND Start: 12-09-2018 Urine test visual color cmprsn meths DARION HAND Start: 12-09-2018 VITAL SIGNS DARION De Anda Start: 09-30-2018 Cystourethroscopy wi th dilation of urethral stricture Claudy SCHMITZ section Claudy Parker Ligation of fallopian tube Chelsie tsai LEONOR Tonsillectomy Claudy JOKeith Plan of Treatment Date Care Activity Detail Author Start: 12-16-2018 End: 12-16-2018 Office Visit 12/16/2018 Office Visit Plastic Surgery Darion Hand MD [address] [id number] [facility] Start: 12-06-2018 Influenza vaccination Flu vaccine (# 1) [place], [place] Start: 2016 Diabetes screen Diabetes screen [place], [place] Start: 2016 Lipid screen Lipid screen [place], [place] Start: 1997 Cervical cancer screen Cervical canc er screen [place], [place] Start: 06-09-1995 DTaP/Tdap/Td vaccine (1 - Tdap) DTaP/Tdap/Td vaccine (1 - Tdap) [place], [place] Start: 06-09-1991 HIV screen HIV screen [place], [place] End: 12-09-2018 Blood glucose - POCT Blood glucose - POCT Point of Care Testing Routine One Time for 1 Occurrences starting 12/09/2018 until 12/09/2018 [place], [place] Comment on above: One Time for 1 Occur rences starting 12/09/2018 until 12/09/2018 Initiate Oxygen Ther apy Protocol Initiate Oxygen Therapy Protocol Respiratory Care Routine Daily until discontinued starting 12/09/2018 [place], [place] Comment on above: Daily until disconti nued starting 12/09/2018 Phase I & II - meter ed glucose Phase I & II - metered glucose Point of Care Testing Routine As Needed until discontinued starting 12/09/2018 [place], [place] Comment on above: As Needed until disc ontinued starting 12/09/2018 End: 12-09-2018 , urine POCT , urine POCT Point of Care Testing Routine One Time for 1 Occurrences starting 12/09/2018 until 12/09/2018 [place], [place] Comment on above: One Time for 1 Occur rences starting 12/09/2018 until 12/09/2018 Surgical Pathology Surgical Path ology Lab Routine ONE TIME for 1 Occurrences starting 12/09/2018 [facility] [place] Comment on above: ONE TIME for 1 Occur rences starting 12/09/2018 Immunizations Immunization Date Immunization Notes Care Provider Jorge ch 01-05-2023 influenza virus vaccine, unspecified formulation Claudy JOKeith [facility] [place] 01-26-2021 SARS-CoV-2 (COVID-19 ) mRNA-1273 vaccine Claudy JOL [facility] [place] 05-10-2020 SARS-CoV-2 (COVID-19 ) mRNA-1273 vaccine Claudy JOL [facility] [place] 04-11-2020 SARS-CoV-2 (COVID-19 ) mRNA-1273 vaccine Claudy SCHMITZ [facility] [place] Payers Date Payer Category Payer Unknown [id number] 2019 Unknown [id number] 2018 Unknown [employer] [address] xxxxxxxxx 2018-Present [phone] [address] [place] [address] xxxxxxxxx [id number] 2018 Unknown [id number] 1975 Unknown [id number] 1975 Unknown [id number] 1975 Unknown [id number] 1975 Unknown [id number] 1975 Unknown [id number] 1975 Unknown [id number] 1975 Unknown [id number] 1975 Unknown [id number] 1975 Unknown [id number] 1975 Unknown [id number] 1958 Self-pay [id number] Social History Date Type Detail Facility Start: 12-09-2018 End: 02-11-2023 Tobacco smoking status NHIS Never smoker [facility] [place] Start: 12-09-2018 Alcohol intake Yes [facility] Start: 12-01-2018 Alcohol Comment weekend [email or web address] Sex Assigned At Not on file Mixgar Tobacco smoking status Never [facility] Start: 1975 Sex Assigned At Female F [facility] Functional Status Date Assessment Result Facility 02-11-2023 Functional Status N/A [facility] Clinical Notes 06-27-2021 to 02-11-2023 Note Date & Type Note Facility 02-11-2023 Note Chief Complaint consultation for screening colonoscopy HPI Staff 47 year old female presents on consultation from Dr. Baum for screening colonoscopy. Denies abdominal or rectal pain. No rectal bleeding or change in bowel habits. Denies nausea or vomiting. No unexplained weight loss. Never had colonoscopy in the past. No known family history of colon cancer. History of Present Illness 47 yo female referred for colorectal screening; denies change in bms or blood in stools; no abdominal complaints; denies asa or NSAID use, no SBE prophylaxis; abdominal operations significant for tubal ligation and x 2; no previous colonoscopy; no fmhx of GI malignancy or IBD; no tobacco use. Review of Systems PHQ Score Initial Depression Screen Score: 0 ROS - Provider Constitutional: no fever, no sweats, no weight loss. Eyes: no glasses, no blurred vision, no visual loss. ENMT: no dentures, no hoarseness, no swallowing difficulties, no hearing loss, no ear infection(s), no nose bleeds. Cardiovascular: normal blood pressure, no chest pain, regular heartbeat, no heart murmur. Respiratory: no shortness of breath, no cough, no asthma, no wheezing. Gastrointestinal: no nausea, no vomiting, no diarrhea, no constipation, no blood in stool, no change in bowel habits, no abdominal pain, no hepatitis. Genitourinary: no kidney stones, no urine infection, no dysuria. Musculoskeletal: no pain, no weakness. Skin: no changing moles, no rash, no skin lumps. Neurologic: no seizures, no epilepsy, no headache. Psychiatric: no emotional or psychiatric problem. Heme/Lymph: no bleeding problems, no anemia, no blood clots, no transfusions. Allergy/Immunologic: no swollen lymph nodes/glands, no IV drug abuse. Other: Additional ROS info: Except as noted in the above Review of Systems and in the History of Present Illness, all other systems have been reviewed and are negative or noncontributory. Physical Exam Vitals & Measurements HR: 70(Peripheral) RR: 16 BP: 124/80 HT: 65 in HT: 165.1 cm WT: 80.2 kg WT: 176.44 lb BMI: 29.42 HEENT: normal conjunctiva, sclera clear, no scleral icterus, EOM intact, PERRLA, oral mucosa moist without lesions. Neck: trachea midline, no mass, symmetric, no thyromegaly or nodules, no adenopathy Respiratory: lungs CTA, respirations non labored. Cardiovascular: regular rate and rhythm, no murmur, no pedal edema or varicosities. Gastrointestinal: soft, non distended, no tenderness, no masses, no palpable hernias, diastasis recti no, no hepatosplenomegaly; normal bs Lymphatic: no cervical adenopathy, no axillary adenopathy, no inguinal adenopathy. Musculoskeletal: normal gait, digits and nails without infection, nodes, cyanosis, clubbing. Skin: no rashes, no lesions, no ulcers, no subcutaneous nodules, induration. Psychiatric/Neuro: oriented to time, place, person, judgement normal, affect appropriate for age, insight intact, no focal deficits. Tests: review of old records completed , Discussed surgical options, risks, and possible complications with patient. Assessment/Plan 1. Screening for malignant neoplasm of colon (Z12.11: Encounter for screening for malignant neoplasm of colon) plan colonoscopy under anesthesia, informed consent obtained. Follow-up No qualifying data available Problem List/Past Medical History Ongoing BMI 29.0-29.9,adult Feeling of incomplete bladder emptying Other post-traumatic urethral stricture, female Overweight Screening for malignant neoplasm of colon Seasonal affective disorder Stress incontinence Urge incontinence Historical No qualifying data Procedure/Surgical History Cystourethroscopy with dilation of urethral stricture (09/30/2018), section, section, Tonsillectomy, Tubal ligation. Medications FLUoxetine 20 mg Cap, 20 mg= 1 cap(s), Oral, Daily Allergies No Known Allergies No Known Medication Allergies Social History Alcohol - Low Risk, 11/10/2018 Current, 1-2 times per week, 02/11/2023 Substance Abuse - Denies Substance Abuse, 02/11/2023 Tobacco - Denies Tobacco Use, 11/10/2018 Never (less than 100 in lifetime) Tobacco Use:. Never Smokeless Tobacco Use:., 02/11/2023 Family History Alzheimer's disease: Father. Immunizations Vaccine Date Status influenza virus vaccine, inactivated 01/2023 Recorded SARS-CoV-2 (COVID-19) mRNA-1273 vaccine 01/26/2021 Recorded SARS-CoV-2 (COVID-19) mRNA-1273 vaccine 05/10/2020 Recorded SARS-CoV-2 (COVID-19) mRNA-1273 vaccine 04/11/2020 Recorded [facility] Comment on above: Result Comment: Elec tronically Signed By: LEONOR OCLON, Claudy Mireles\Date and Time Signed: 02/11/23 14:43 EST 02-05-2023 Evaluation note Encounter Date Diagnosis Assessment Notes Feb, Seasonal affective disorder (ICD-10 - F33.8) [employer] Other 10-10-2023 Evaluation note* Encounter Date Diagnosis Assessment Notes Treatment Notes Treatment Clinical Notes Jan, Wellness examination (ICD-10 - Z00.00) Healthy diet and exercise. Reviewed age-appropriate preventive testing recommended. Jan, Seasonal affective disorder (ICD-10 - F33.8) Healthy diet, exercise and keep active. Initiate Fluoxetine (preferred to avoid weight gain w/ SSRI) Jan, Overweight (ICD-10 - E66.3) This patient has been instructed on a low-fat, high-fiber diet. They are instructed to reduce calories, portion sizes and snacks. It is recommended that they exercise for 30 minutes, 3-5 times weekly. 10 Jan, 2023 Screening mammogram for breast cancer (ICD-10 - Z12.31) Instructed patient on monthly SBE and yearly mammograms. 10 Jan, 2023 Screening for colon cancer (ICD-10 - Z12.11) Due for screening colonoscopy. Refer to General Surgery to schedule exam. She is an asymptomatic, low risk patient [employer] Templates Other 03-23-2022 Evaluation note* Encounter Date Diagnosis Assessment Notes Treatment Notes Treatment Clinical Notes Jun, Lateral epicondylitis, left elbow (ICD-10 - M77.12) Options discussed with patient to include the use of elbow strap as needed with activity, the use of heat/ice, use of oral and topical NSAIDs, occupational therapy, and cortisone injection. If pain persistent, consider MRI. Patient would like to try cortisone injection. Left elbow lateral epicondyle injected with cortisone under sterile technique, patient tolerated well. Patient also instructed on the use of topical Voltaren Gel Jun, Left elbow pain (ICD-10 - M25.522) [employer] Tem[employer] Other Evaluation + Plan note No data available for this section General Surgery [place] Evaluation noteNo InformationNort [employer] Other Evaluation note* Diagnosis Onset Date Resolution Status Insomnia acute Overweight acute Seasonal affective disorder [facility] Work Phone: History general Narrative - Reported* Type Description Date Medical History Seasonal Affective Disorder Surgical History x 2 Surgical History tonsilectomy Surgical History tubal ligation Hospitalization History see surgeries Molecular Templates Other Hospital Discharge instructions No data available for this section General [facility] [place] Progress note No data available for this section [facility] [place] Reason for referral (narrative)* Reason Referral for screeni ng colonoscopy Diagnosis 1 Screening for colon cancer (Z12.11) Referral Organization [facility] Amelia abrams Referring Provider First Name Vicente Referring Provider Last Name Bautista Referring Provider Specialty Internal Me dicine Referred Organization [facility] Referred Provider Claudy Schmitz Referred Address [address] [place] [phone] Referred Provider Specialty Surgery Referral Priority Routine General Notes Asymptomatic, low ri sk patient. She denies change in appetite, weight or bowel habits. She denies heartburn or dysphagia. She denies abdominal pain, melena or hematochezia. Molecular Templates Other Discharge Instructions * Instructions* Brittney Batista RN - 12/09/2018 Dr. Hand Discharge Instructions -May shower tomorrow-avoid getting water on incision/steri strips. -If steri strips get wet,pat area dry with a towel -Leave the steri strips on incision - Have someone snip ends of steri strips if unable to push into place. -Women should not put any lotion or make up on incision Anesthesia Instructions Activity You have had anesthesia today Do not drive, operate heavy equipment, consume alcoholic beverages, or make any important decisionsfor 24 hours If you are taking pain medication: Do not drive or consume alcohol. Take your time changing positions today. You may feel light headed or dizzy if you move too quickly. Continue your home medications as ordered by your physician. Diet You can eat your normal diet when you feel well. You should start off with bland foods like chickensoup, toast, or yogurt. Then advance as tolerated. Drink plenty of fluids (unless your doctor tells you not to). Your urine should be very lightly colored without a strong odor. documented in this encounter History of Present Illness * Sulaiman Tyler - 12/09/2018 8:48 AM EDT CLINICAL PHARMACY NOTE: MEDS TO [facility] Patient?: No Total # of Prescriptions Filled: 2 The following medications were delivered to the patient: cephalexin norco Total # of Interventions Completed: 1 Time Spent (min): 0 Additional Documentation: * Jamal Garcia RN - 12/09/2018 6:34 AM EDT Urine test results-negative * Ranjit Zendejas, RN - 12/01/2018 1:26 PM EDT DAY OF SURGERY/PROCEDURE GUIDELINES As a patient at the [facility], you can expect quality medical and nursing care that is centered on your individual needs. It is our goal to make your surgical experience as comfortable and excellent as possible. Please arrive at 0600 with an empty stomach. No jewelry or piercings on. Must have a lumber stacker driver home and in the waiting room. The following instructions are general guidelines, if any information on this sheet is different from what your doctor has instructed you to do, please follow your doctor's instructions. Please arrive on time or your procedure ay be rescheduled Enter through entrance C. Check in at registration desk straight ahead. Upon arrival you will be taken to the pre-operative area to get ready for surgery, your family willstay in the waiting room and visit with you once you are ready for surgery. Due to special limitations please limit visitation to 1-2 members of your family at a time. When it is time for surgery your family will return to the waiting room. You will be given a specific time when you will NOT be able to eat, drink, smoke, suck or chew ANYTHING (no water, gum, mints, cigarettes, cigars, pipes, snuff, chewing tobacco, etc.) or your surgerymay be canceled. This will occur during your PAT appointment or by phone 1-2 days before surgery Take a shower or bath on the morning of your surgery/procedure (Hibiclens if directed) [place] your teeth, but do not swallow any water IN CASE OF ILLNESS - If you have a cold or flu symptoms (high fever, runny nose, sore throat, cough, etc.) rash, nausea, vomiting, loose stools, and/or recent contact with someone who has a contagious disease (chick pox, measles, etc.) please call your doctor before coming to the surgery center Take a small sip of water with heart, blood pressure, and/or seizure medication the morning of surgery. (DO NOT take blood pressure medications that contain a diuretic) If applicable bring your: Inhaler (s) Hearing aid(s) Eyeglasses and Case (If you wear contacts they have to be removed before surgery, bring case and solution) Any paperwork given to you by your doctor Any X-rays you were told to bring A copy of your Living Will or Durable Power of General Ophthalmologist DO NOT take anticoagulants (blood thinners, aspirin or aspirin-containing products) two weeks priorto your surgery. You may start taking again 2 days post-operatively, unless otherwise directed by your doctor. DO NOT take any diabetic pills or insulin. Please bring your sliding scale instructions and sick day plan with you. If you have a low blood sugar reaction after midnight, drink 4 ounces of apple juice or regular pop. Wear loose, comfortable clothing that is easy to put on and take off. They will remain in post-op with the nurse. You will be returning home the same day as your surgery, you will need to have a responsible adult (18 years of age or older) present to drive you home. You will need someone stay with you at home for the first 24 hours following your surgery. This is due to the anesthesia and the medication given to you during surgery and recovery. Your doctor may talk with your family immediately following your procedure. Depending on your needs, you will stay in the recovery room between 30 minutes to 2 hours. While you are recovering, the surgery family waiting room retail leasing agent can answer many of your family's questions. All medically related questions will be answered by a medical professional. If you had outpatient surgery, you will meet your family for discharge instructions before leaving. Surgical Site Infection A surgical site infection can occur after surgery. It happens in the part of the body where the surgery took place. Most patients who have surgery do not develop an infection. SYMPTOMS Redness and pain around the surgical site. Drainage of cloudy fluid from the wound. Fever. PREVENTION Before the procedure: Tell your caregiver about any medical problems you may have. Health problems such as allergies, diabetes, and obesity could affect your surgery and treatment. Quit smoking. Patients who smoke get more infections. Talk to your caregiver about how you can quitbefore your surgery. Do not shave near the area where you will have surgery. Shaving with a razor can irritate your skinand make it easier to get an infection. Your caregiver may use an electric clipper to remove some of your hair immediately before surgery. Ask if you will get antibiotic medicine. In most cases, you should get antibiotics within 60 minutes before surgery. Antibiotics should be stopped within 24 hours after surgery. Your caregivers will clean their hands and arms up to their elbows with an antiseptic agent just before the surgery. Your caregivers will also clean their hands with soap and water or an alcohol-based hand rub before and after caring for each patient. Your caregivers will wear hair covers, masks, gowns, and gloves during surgery to keep the surgery area clean. Your caregivers will clean the skin at the surgery site with a soap that kills germs. After the procedure: Make sure your caregivers clean their hands before examining you. They may use soap and water or analcohol-based hand rub. If you do not see your caregivers clean their hands, ask them to do so. Make sure family and friends who visit you do not touch the surgical wound or dressings. Ask family and friends to clean their hands with soap and water or an alcohol- based hand rub beforeand after visiting you. Make sure you know how to care for your wound before you leave the hospital. Your caregiver will tell you how to take care of your wound. Make sure you know whom to contact if you have questions or problems after you get home. TREATMENT Most surgical site infections can be treated with antibiotics. Sometimes, patients need another surgery to treat the infection. HOME CARE INSTRUCTIONS Always clean your hands before and after caring for your wound. SEEK IMMEDIATE MEDICAL CARE IF: You have any symptoms of an infection, such as drainage, fever, or redness and pain at the surgery site. . 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 Advance Directives and Living Will Power of General Ophthalmologist Advance Directive Response Recorded Date/ Time Advance Directives No October 27 2:50pm Summary Purpose Family History Relationship Condition Age at Onset Recorded Date/T mirna father Unknown Chief Complaint and Reason for Visit Chief Complaint Amb Documentation difficulty sleeping Reason for Visit Insomnia Overweight Seasonal affective disorder Additional Source Comments Reason for Visit (unrecogniz ed section and content) Status Reason Specialty Diagnoses / Procedures Referre d By Contact Referred To Contact Diagnoses Localized swelling, mass and lump, unspecified MASS FOREHEAD Procedures VA EXCISION TUMOR SOFT TISS FACE/SCALP SUBQ 2+CM VA EXC SKIN MALIG 2.1-3CM FACE,FACIAL VA EXC SKIN BENIG 2.1-3CM FACE,FACIAL VA ADJ TISS XFER HEAD,FAC,HAND <10SQCM HEAD LESION EXCISION Darion Hand MD [address] [place] [address] [facility] INFORMATION SOURCE (unrecogn ized section and content) DATE CREATED AUTHOR 12/15/2018 [facility] DATE CREATED AUTHOR AUTHOR'S ORGANIZ ATION 08/18/2020 [facility] DATE CREATED AUTHOR AUTHOR'S ORGANIZ ATION 07/20/2022 [facility] DATE CREATED AUTHOR AUTHOR'S ORGANIZ ATION 03/25/2023 [facility] DATE CREATED AUTHOR AUTHOR'S ORGANIZ ATION 08/16/2023 [facility] EPIC Patient Care team informatio n (unrecognized section and content) Team Status: Active Member Role Status Dates Vicente Baum DO Primary Care Provider Active Team Status: Active Member Role Status Dates Vicente Baum DO Primary Care Provider Active Start: July 30, 2023 STEPHEN Rod Attending Provider Active Start : July 30, 2023 Team Status: Inactive Member Role Status Dates Vicente Baum DO Primary Care Provide r, Attending Provider Active Start: October 28, 2023 End: October 28, 2023 Goals (unrecognized section and content) Goals may be documented in a n alternate section FOR RECORDS PERTAINING TO PATIENTS WHO ARE OR HAVE BEEN ENROLLED IN A CHEMICAL DEPENDENCY/SUBSTANCEABUSE PROGRAM, SOME INFORMATION MAY BE OMITTED. This clinical summary was aggregated from multiple sources. Caution should be exercised in using it in the provision of clinical care. This summary normalizes information from multiple sources, and as a consequence, information in this document may materially change the coding, format and clinical context of patient data. In addition, data may be omitted in some cases. CLINICAL DECISIONS SHOULD BE BASED ON THE PRIMARY CLINICAL RECORDS. [facility] [employer] [facility]. provides no warranty or guarantee of the accuracy or completeness of information in this document.
== END 2023-12-16 10:11 | disposition home or self-care (01) ==
LOC: EC 10:10
PROVIDERS: PCP Family Medicine; Visit Provider Podiatrist Foot & Ankle Surgery
DX: M25.572 Pain in left ankle and joints of left foot (principal); M25.571 Pain in right ankle and joints of right foot
CPT/HCPCS: 73610

== ENCOUNTER 2023-12-23 15:14 | Outpatient (RCR) | payer BC, SELFPAY | END 2024-01-07 13:45 | disposition home or self-care (01) | LOC: PT 15:14 | PROVIDERS: PCP Family Medicine; Visit Provider Podiatrist Foot & Ankle Surgery | DX: M76.62 Achilles tendinitis, left leg (principal); M76.61 Achilles tendinitis, right leg | CPT/HCPCS: 20561; 97033; 97140; 97161 ==

== ENCOUNTER 2024-02-24 07:20 | Outpatient (OUT) | payer BC, SELFPAY ==
--- OUTSIDE RECORDS SUMMARY | 2024-02-24 07:23 | XMS_ITS | CCD ---
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 Touching Machine Operator Name Role Phone Vicente Baum Primary Care Provider [phone] DARION HAND Admitting Unavailab DARION Jarvis Attending Unavailab VICENTE Napoles Primary Care Unavailable Harper Banda Unavailable BAUTISTA, DR ONOFRE Admitting Unavailable BALL, DR ONOFRE Attending Unavailable BALL, DR ONOFRE Consulting Unavailable BALL, DR ONOFRE Primary Care Unavailable WEST, DR LUZ Dyer Attending Unavailable BALL, DR ONOFRE Primary Care Unavailable FARZANA, DR LUZ Dyer Consulting Unavailable FARZANA, DR LUZ Dyer Admitting Unavailable WEST, DR LUZ Dyer Admitting Unavailable BAUTISTA, DR [...] Baum Unavailable VICENTE BAUM Primary Care Physician [phone] Claudy SCHMTIZ Attending Unavailable BAUTISTA, VICENTE Referring Unavailable Claudy SCHMITZ Attending Unavailable MIRACLE, CECI Attending Unavailable MIRACLE, CECI Attending Unavailable Allergies Allergy Classification Reported Allergen(s) Allergy Type Date of Onset Reaction(s) Facility (1 source) No Known Medication Allergies; Translations: [No Known Medication Allergies] Propensity to adverse reactions (disorder) [facility] Repository Medications Current Medications Medication Drug Class(es) [...] Active cyclobenzaprine hydrochloride 5 mg oral tablet (2 sources) Muscle Relaxant Start: 10-28-2023 Cyclobenzaprine 5 mg tablet Active 0 PO Daily at bedtime 60 October 27, 2023 11:00pm 5-10mg orally daily at bedtime; 2 ml fentaNYL 0.05 mg/ml injection (2 sources) Opioid Agonist Start: 12-09-2018 fentaNYL (SUBLIMAZE) injection 50 mcg Start: 12-09-2018 fentaNYL (SUBL IMAZE) injection 25 mcg FLUoxetine 20 mg oral capsule (9 sources) Serotonin Reuptake Inhibitor Start: 07-30-2023 End: 01-23-2024 take 1 capsule by mouth once daily Fluoxetine 20 mg capsule Active 0 .ROUTE .COMPLEX 90 January 23, 2024 9:17am TAKE 1 CAPSULE BY MOUTH EVERY DAY FOR 90 DAYS Start: 07-30-2023 End: 07-30-2023 take 1 capsule by mouth once daily Fluoxetine 20 mg capsule Discontinued 20 MG PO Daily July 29, 2023 11:00pm July 30, 2023 1:31pm Start: 01-14-2023 take 1 capsule by mo [facility] once daily FLUoxetine 20 mg Cap 20 [...] Active -Hx Entry for 0 *Reorder from [facility] for eRx and Interaction Alerts* Feb, Not-Taking [...] hydrochloride 150 mg extended release oral tablet (6 sources) Aminoketone Start: 10-28-2023 End: 10-28-2023 take 1 tablet by mouth once daily Bupropion Hcl (Wellbutrin Xl) 150 mg tablet extended release 24 hr Discontinued 150 MG PO Daily October 27, 2023 11:00pm October 28, 2023 2:17pm take 1 tablet by david th every [...] (Therapy completed) metroNIDAZOLE 500 mg oral tablet (5 sources) Nitroimidazole Antimicrobial Start: 10-28-2023 End: 10-28-2023 take 1 tablet by mouth twice daily Metronidazole 500 mg tablet Discontinued 500 MG PO Twice daily October 27, 2023 11:00pm October 28, 2023 2:17pm Start: 04-16-2019 take 1 tablet by david th twice daily metroNIDAZOLE 500MG metroNIDAZOLE 500MG, 1 (one) Tablet two times daily # 14, 04/16/2019, No Refill. 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#1.00T IFF Normal [facility] Reminderson 03-20-2023 Reminders - From: Dolores Lee LPN To: [facility] - Clinical; Sent: 03/20/2023 08:53:50 EST Show up: 02/17/2033 07:00:00 EST Subject: colonoscopy recall Due Date/Time: 03/19/2033 07:00:00 EST Reminder/Recall Patient due for screening colonoscopy 03/19/2033. Normal [facility] Lab Reportson 03-19-2023 Lab Reports [id number] IFF [facility] Insurance Correspondenceon 1 04-27-2022 Insurance Correspondence [id number]#1.00 TIFF [facility] Consent for Procedure/Surger yon 02-12-2023 Consent for Procedure/Surgery [id number]#1.00 TIFF [facility] Facesheeton 02-12-2023 Facesheet [id number]#1.00 TIFF [facility] Ambulatory Visit Summaryon 04-13-2022 Ambulatory Visit Summary GABRIELA ROSE :1975 [...] for choosing us for your care. Normal [facility] Physician Referralon 023 Physician Referral [id number]#1.00T IFF Normal [facility] PAP ACOG PANEL 2: 30 to 65on 07-18-2022 . . Normal [facility] Comment on above: Result Comment: Perf ormed at: WB Performed By: #### [id number] #### [facility] [address] [place] [address] Dr. Chloe Wells Age Gdln ACOG Testing 30-65 Normal [facility] Comment on above: Performed By: #### [id number] #### [facility] [address] [address] [address] Chloe Wells DIAGNOSIS: Comment Normal [facility] Comment on above: Result Comment: NEGA TIVE FOR INTRAEPITHELIAL LESION OR MALIGNANCY. Performed at: WB Performed By: #### 4 [id number] #### [facility] [address] [address] [address] Chloe Wells HPV Aptima Positive Abnormal Negative [facility] Comment on above: Result Comment: This nucleic acid amplification test detects fourteen high-risk HPV types (16,18,31,33,35,39,45,51,52,56,58,59,66,68) without differentiation. Performed at: =G Performed By: #### [id number] #### [facility] [address] [address] [address] Chloe Wells HPV Genotype 16 Negative Normal Negative [facility] Comment on above: Performed By: #### 4 [id number] #### [facility] [address] [place] [address] Dr. Chloe Wells HPV Genotype 18,45 Negative Normal Negative [facility] Comment on above: Performed By: #### 4 [id number] #### [facility] [address] [place] [address] Dr. Chloe Wells HPV Genotype Reflex Comment Normal [facility] Comment on above: Result Comment: Kira galicia, see HPV Genotype results. Performed at: WB Performed By: #### 4 [id number] #### [facility] [address] [place] [address] Dr. Chloe Wells Methodology: Comment Normal [facility] Comment on above: Result Comment: This liquid based ThinPrep(R) pap test was screened with the use of an image guided system. Performed at: WB Performed By: #### 4 [id number] #### [facility] [address] [place] [address] Dr. Chloe Wells Note: Comment Normal [facility] Comment on above: Result Comment: The Pap smear is a screening test designed to aid in the detection of premalignant and malignant conditions of the uterine cervix. It is not a diagnostic procedure and should not be used as the sole means of detecting cervical cancer. Both false-positive and false-negative reports do occur. . Performed at: WB Performed By: #### 4 [id number] #### [facility] [address] [place] [address] Dr. Chloe Wells Performed by: Comment Normal [facility] Comment on above: Result Comment: Rozina Benitez, Payroll And Benefits Specialist (ASCP) Performed at: WB Performed By: #### 4 [id number] #### [facility] [address] [place] [address] Dr. Chloe Wells Specimen adequacy: Comment Normal [facility] Comment on above: Result Comment: Sati sfactory for evaluation. Endocervical and/or squamous metaplastic cells (endocervical component) are present. Performed at: WB Performed By: #### 4 [id number] #### [facility] [address] [place] [address] Dr. Chloe Wells CBC AUTO DIFFon 12-19-2021 BASO # 0.0 103/ul Normal 0.0-0.1 [facility] Comment on above: Performed By: #### C BC #### [facility] [address] [place] [address] Dr. Chloe Wells Basophils/100 WBC (Bld) 0.3 % Normal 0.2-2.0 [facility] Comment on above: Performed By: #### C BC #### [facility] [address] [place] [address] Dr. Chloe Wells EO # 0.2 103/ul Normal 0.0-0.7 [facility] Comment on above: Performed By: #### C BC #### [facility] [address] [place] [address] Dr. Chloe Wells Eosinophils/100 WBC (Bld) 2.9 % Normal 0.9-7.0 [facility] Comment on above: Performed By: #### C BC #### [facility] [address] [place] [address] Dr. Chloe Wells Erythrocyte distribution width (RBC) [Ratio] 12.4 % Normal 11.0-15.0 [facility] Comment on above: Performed By: #### C BC #### [facility] [address] [place] [address] Dr. Chloe Wells Hematocrit (Bld) [Volume fraction] 38.8 % Normal 36.0-48.0 [facility] Comment on above: Performed By: #### C BC #### [facility] [address] [place] [address] Dr. Chloe Wells Hemoglobin (Bld) [Mass/Vol] 13.0 g/dL Normal 12.0-16.0 [facility] Comment on above: Performed By: #### C BC #### [facility] [address] [place] [address] Dr. Chloe Wells IG # 0.01 10e3/ul Normal 0.00-0.03 [facility] Comment on above: Performed By: #### C BC #### [facility] [address] [address] [address] Chloe Wells IG % 0.2 % Normal 0.0-0.5 [facility] Comment on above: Performed By: #### C BC #### [facility] [address] [place] [address] Dr. Chloe Wells LYMPH # 2.0 103/ul Normal 1.2-3.8 [facility] Comment on above: Performed By: #### C BC #### [facility] [address] [place] [address] Dr. Chloe Wells Lymphocytes/100 WBC (Bld) 33.4 % Normal 20.5-60.0 [facility] Comment on above: Performed By: #### C BC #### [facility] [address] [place] [address] Dr. Chloe Wells MANUAL DIFF REQ NO Normal [facility] Comment on above: Performed By: #### C BC #### [facility] [address] [place] [address] Dr. Chloe Wells MCH (RBC) [Entitic mass] 30.2 pg Normal 26.7-34.0 [facility] Comment on above: Performed By: #### C BC #### [facility] [address] [place] [address] Dr. Chloe Wells MCHC (RBC) [Mass/Vol] 33.5 g/dL Normal 29.9-35.2 [facility] Comment on above: Performed By: #### C BC #### [facility] [address] [place] [address] Dr. Chloe Wells MCV (RBC) [Entitic vol] 90.0 fL Normal 81.0-99.0 [facility] Comment on above: Performed By: #### C BC #### [facility] [address] [place] [address] Dr. Chloe Wells MONO # 0.5 103/ul Normal 0.3-0.8 [facility] Comment on above: Performed By: #### C BC #### [facility] [address] [place] [address] Dr. Chloe Wells Monocytes/100 WBC (Bld) 8.0 % Normal 1.7-12.0 [facility] Comment on above: Performed By: #### C BC #### [facility] [address] [place] [address] Dr. Chloe Wells NEUT # 3.2 103/ul Normal 1.4-6.5 [facility] Comment on above: Performed By: #### C BC #### [facility] [address] [place] [address] Dr. Chloe Wells Neutrophils/100 WBC (Bld) 55.2 % Normal 43.0-75.0 [facility] Comment on above: Performed By: #### C BC #### [facility] [address] [place] [address] Dr. Chloe Wells Platelet mean volume (Bld) [Entitic vol] 8.9 fL Critically low 9.5-13.5 [facility] Comment on above: Performed By: #### C BC #### [facility] [address] [place] [address] Dr. Chloe Wells PLT 327 103/ul Normal 150-450 [facility] Comment on above: Performed By: #### C BC #### [facility] [address] [place] [address] Dr. Chloe Wells RBC 4.31 106/ul Normal 4.20-5.40 [facility] Comment on above: Performed By: #### C BC #### [facility] [address] [place] [address] Dr. Chloe Wells WBC 5.9 103/ul Normal 4.0-11.0 [facility] Comment on above: Performed By: #### C BC #### [facility] [address] [place] [address] Dr. Chloe Wells GLYCOHEMOGLOBIN A1Con 2021 ADA RECOMMENDATION SEE BELOW Normal [facility] Comment on above: Result Comment: ADA RECOMMENDED LIMIT 4.0 - 6.0 ADA THERAPEUTIC TARGET < 7.0 ACTION SUGGESTED > 7.0 Performed By: #### A 1C #### [facility] [address] [address] [address] Chloe Wells Glucose [Mass/Vol] 105 mg/dL Normal [facility] Comment on above: Performed By: #### A 1C #### [facility] [address] [address] [address] Chloe Wells HbA1c (Bld) [Mass fraction] 5.3 % Normal 4.5-6.2 [facility] Comment on above: Performed By: #### A 1C #### [facility] [address] [place] [address] Dr. Chloe Wells LIPID PROFILEon 12-19-2021 CHOL-HDL RATIO NORM SEE BELOW Normal [facility] Comment on above: Result Comment: 3.3 - 4.4 LOW RISK 4.4 - 7.1 AVERAGE RISK 7.1 - 11.0 MODERATE RISK >11.0 HIGH RISK Performed By: #### C MP, TSH, LIPID #### [facility] [address] [place] [address] Dr. Chloe Wells Cholesterol [Mass/Vol] 171 mg/dL Normal <=200 [facility] Comment on above: Performed By: #### C MP, TSH, LIPID #### [facility] [address] [place] [address] Dr. Chloe Wells Cholesterol in HDL [Mass/Vol] 63 mg/dL Critically high 40-60 [facility] Comment on above: Performed By: #### C MP, TSH, LIPID #### [facility] [address] [place] [address] Dr. Chloe Wells Cholesterol in LDL [Mass/Vol] 99.2 mg/dL Normal [facility] Comment on above: Performed By: #### C MP, TSH, LIPID #### [facility] [address] [place] [address] Dr. Chloe Wells Cholesterol.total/Ch olesterol in HDL [Mass ratio] 2.7 {ratio} Normal [facility] Comment on above: Performed By: #### C MP, TSH, LIPID #### [facility] [address] [place] [address] Dr. Chloe Wells HDL NORMAL > or = 60 mg/dl - LO W CARDIOVASCULAR RISK <40 mg/dl - HIGH CARDIOVASCULAR RISK Normal [facility] Comment on above: Performed By: #### C MP, TSH, LIPID #### [facility] [address] [address] [address] Chloe Wells LDL CALC NORMAL SEE BELOW Normal [facility] Comment on above: Result Comment: <100 mg/dl OPTIMAL 100 - 129 mg/dl NEAR OR ABOVE OPTIMAL 130 - 159 mg/dl BORDERLINE HIGH 160 - 189 mg/dl HIGH >190 mg/dl VERY HIGH Performed By: #### C MP, TSH, LIPID #### [facility] [address] [address] [address] Chloe Wells Triglyceride [Mass/Vol] 44 mg/dL Normal <=150 [facility] Comment on above: Performed By: #### C MP, TSH, LIPID #### [facility] [address] [address] [address] Chleo Wells VLDL CALC 8.8 mg/dL Normal [facility] Comment on above: Performed By: #### C MP, TSH, LIPID #### [facility] [address] [address] [address] Chloe Wells PROF 14(COMP METB)on 022 Albumin [Mass/Vol] 3.8 g/dL Normal 3.4-5.0 [facility] Comment on above: Performed By: #### C MP, TSH, LIPID #### [facility] [address] [address] [address] Chloe Wells Albumin/Globulin [Mass ratio] 1.3 {ratio} Normal [facility] Comment on above: Performed By: #### C MP, TSH, LIPID #### [facility] [address] [address] [address] Chloe Wells ALP [Catalytic activity/Vol] 54 U/L Normal 46-116 [facility] Comment on above: Performed By: #### C MP, TSH, LIPID #### [facility] [address] [address] [address] Chloe Wells ALT [Catalytic activity/Vol] 20 U/L Normal 14-59 [facility] Comment on above: Performed By: #### C MP, TSH, LIPID #### [facility] [address] [place] [address] Dr. Chloe Wells Anion gap [Moles/Vol] 9.9 mmol/L Normal [facility] Comment on above: Performed By: #### C MP, TSH, LIPID #### [facility] [address] [place] [address] Dr. Chloe Wells AST [Catalytic activity/Vol] 14 U/L Critically low 15-37 [facility] Comment on above: Performed By: #### C MP, TSH, LIPID #### [facility] [address] [place] [address] Dr. Chloe Wells Bilirubin [Mass/Vol] 0.6 mg/dL Normal 0.2-1.0 [facility] Comment on above: Performed By: #### C MP, TSH, LIPID #### [facility] [address] [place] [address] Dr. Chloe Wells Calcium [Mass/Vol] 8.5 mg/dL Normal 8.5-10.1 [facility] Comment on above: Performed By: #### C MP, TSH, LIPID #### [facility] [address] [place] [address] Dr. Chloe Wells Chloride [Moles/Vol] 104 mmol/L Normal 98-107 [facility] Comment on above: Performed By: #### C MP, TSH, LIPID #### [facility] [address] [place] [address] Dr. Chloe Wells CO2 [Moles/Vol] 27.3 mmol/L Normal 21.0-32.0 [facility] Comment on above: Performed By: #### C MP, TSH, LIPID #### [facility] [address] [place] [address] Dr. Chloe Wells Creatinine [Mass/Vol] 0.74 mg/dL Normal 0.55-1.02 [facility] Comment on above: Performed By: #### C MP, TSH, LIPID #### [facility] [address] [place], [place] [id number] Dr. Chloe Wells EGFR-AF LATVIAN >60 Normal >=60 [facility] Comment on above: Performed By: #### C MP, TSH, LIPID #### [facility] [address] [place] [address] Dr. Chloe Wells EGFR-NON AF LATVIAN >60 Normal >=60 [facility] Comment on above: Performed By: #### C MP, TSH, LIPID #### [facility] [address] [place] [address] Dr. Chloe Wells Globulin (S) [Mass/Vol] 2.9 g/dL Normal [facility] Comment on above: Performed By: #### C MP, TSH, LIPID #### [facility] [address] [place] [address] Dr. Chloe Wells Glucose [Mass/Vol] 110 mg/dL Critically high 74-106 [facility] Comment on above: Performed By: #### C MP, TSH, LIPID #### [facility] [address] [place] [address] Dr. Chloe Wells Potassium [Moles/Vol] 4.2 mmol/L Normal 3.5-5.1 [facility] Comment on above: Performed By: #### C MP, TSH, LIPID #### [facility] [address] [place] [address] Dr. Chloe Wells Protein [Mass/Vol] 6.7 g/dL Normal 6.4-8.2 [facility] Comment on above: Performed By: #### C MP, TSH, LIPID #### [facility] [address] [place] [address] Dr. Chloe Wells Sodium [Moles/Vol] 137 mmol/L Normal 136-145 [facility] Comment on above: Performed By: #### C MP, TSH, LIPID #### [facility] [address] [place] [address] Dr. Chloe Wells Urea nitrogen [Mass/Vol] 18.0 mg/dL Normal 7.0-18.0 [facility] Comment on above: Performed By: #### C MP, TSH, LIPID #### [facility] [address] [place], [place] [address] Dr. Chloe Wells Urea nitrogen/Creatinine [Mass ratio] 24.3 mg/mg Normal [facility] Comment on above: Performed By: #### C MP, TSH, LIPID #### [facility] [address] [place], [place] [address] Dr. Chloe Wells TSHon 12-19-2021 TSH 1.733 uIU/mL Normal 0.358-3.740 [facility] [place] [facility] Comment on above: Performed By: #### C MP, TSH, LIPID #### [facility] [address] [place], [place] [address] Dr. Chloe Wells SURGICAL PATH REPORTon 07-31 SURGICAL PATH REPORT [facility] Department of Pathology [address] [place] [id number] Name: GABRIELA ROSE : 1975 Financial [id number] Number: Gender: Female Location: [facility] Admit 45 years Attending JAMAL SWAN Age: Provider: Ordering MICHAEL HERNÁNDEZ Provider: Consulting: Surgical Pathology Report ACCESSION: COLLECTED DATE/TIME: RECEIVED DATE/TIME: PATHOLOGIST: [id number] 07/26/2020 11:13 EDT 07/26/2020 14:42 EDT KENDELL COLON, BRANT WEBER Final Diagnosis Report for [facility] [place] LEFT BREAST, UPPER OUTER QUADRANT, MICROCALCIFICATIONS, [...] quad microcalcifications / outpatient services ____ Print Date/ 07/31/2020 14:04 EDT Number: Time: [facility] Department of Pathology [address] [place] [id number] Name: GABRIELA ROSE : 1975 [facility] [id number] Number: Gender: Female Location: [facility] Admit 45 years Attending JAMAL SWAN Age: Provider: Ordering MICHAEL HERNÁNDEZ Provider: Consulting: Surgical Pathology Report ACCESSION: COLLECTED DATE/TIME: RECEIVED DATE/TIME: PATHOLOGIST: [id number] 07/26/2020 11:13 EDT 07/26/2020 14:42 EDT KENDELL [...] MP:saul 07/26/2020 Tissue pathology report for: [facility], [address] [place] [address]; PATHOLOGY SERVICES PROVIDED BY [employer] (CLIA #[id number]) in cooperation with [facility] at [address] [place] [address] (CLIA #[id number]) Codes CPT CODE: 55165 ____ Print Date07/31/2020 14:04 EDT Number: Time: Normal [facility] Comment on above: Performed By: #### [id number] #### [facility] Laboratory Services [address] [place] [address] Band Master: Jim Treadwell MD OPERATIVE REPORTon OPERATIVE REPORT [address] [phone] OPERATIVE REPORT PATIENT NAME: GABRIELA ROSE : 1975 MED REC NO: [id number] ROOM: ACCOUNT NO: [id number] ADMIT DATE: 12/09/2018 PROVIDER: Darion Hand DATE [...] Needle and sponge counts correct. DARION HAND [id number] Doc#: [id number] CC: Normal [facility] Surgical Pathologyon 019 Surgical Pathology (NOTE) [id number] CONSULTING PATHOLOGISTS [facility] ANATOMIC PATHOLOGY [address] [place] [id number] SURGICAL PATHOLOGY CONSULTATION Patient Name: GABRIELA ROSE [facility] Rec: [id number] Path Number: [id number] Collected: 12/09/2018 Received: 12/09/2018 Reported: 12/10/2018 13:49 [...] periphery, consistent with a benign lipoma. Normal [facility] Comment on above: Performed By: #### P PPVDP #### [facility] [address] [place] [address] Serger: Chris Michaels MD Vital Signs Date Time Vital Sign Value Performing Clinician Facility 02-20-2024 14: Body height 165.1 cm [facility] 02-20-2024 14:050 Body mass index (BMI) [Ratio] 29.6 kg/m2 [facility] 02-20-2024 14: Body weight 80.73 kg [facility] 02-20-2024 14:050 Diastolic blood pressure 79 mm[Hg] [facility] 02-20-2024 14:0500 Heart rate 102 /min [facility] 02-20-2024 14:21-0500 Systolic blood pressure 115 mm[Hg] [facility] 10-28-2023 15:18-0400 Body height 165.1 cm [facility] 10-28-2023 15:18-0400 Body mass index (BMI) [Ratio] 29.1 kg/m2 [facility] 10-28-2023 15:18-0400 Body weight 79.49 kg [facility] 10-28-2023 15:18-0400 Diastolic blood pressure 86 mm[Hg] [facility] 10-28-2023 15:18-0400 Heart rate 78 /min [facility] 10-28-2023 15:18-0400 Respiratory rate 12 /min [facility] 10-28-2023 15:18-0400 Systolic blood pressure 124 mm[Hg] [facility] 02-11-2023 14:18-0500 Blood Pressure Location Claudy JOL [facility] [place] 02-11-2023 14:18-0500 Diastolic blood pressure 80 mm[Hg] Claudy JOL [facility] [place] 02-11-2023 14:18-0500 Heart rate 70 /min Claudy JOL [facility] 02-11-2023 14:18-0500 Respiratory rate 16 /min Claudy JOL [facility] [place] 02-11-2023 14:18-0500 Systolic blood pressure 124 mm[Hg] Claudy JOL [facility] [place] 01-14-2023 14:30-0400 Body height 165.1 cm Vicente Ball Other [facility] Other 01-14-2023 14:30-0400 Body mass index (BMI) [Ratio] 29.88 kg/m2 Vicente Ball Other [facility] Other 01-14-2023 14:30-0400 Body weight 81.47 kg Vicente Ball Other [facility] Other 01-14-2023 14:30-0400 Diastolic blood pressure 79 mm[Hg] Vicente Ball Other [facility] Other 01-14-2023 14:30-0400 Respiratory rate 12 /min Vicente Ball Other [facility] Other 01-14-2023 14:30-0400 Systolic blood pressure 111 mm[Hg] Vicente Ball Other [facility] Other 06-27-2021 14:00-0400 Body height 165.1 cm Harper Banda Other [facility] Other 06-27-2021 14:00-0400 Body mass index (BMI) [Ratio] 26.62 kg/m2 Harper Banda Other [facility] Other 06-27-2021 14:00-0400 Body weight 72.58 kg Harper Banda Other [facility] Other 12-09-2018 08:41-0400 Body Temperature 97.3 [degF] Darion [facility] 12-09-2018 08:41-0400 BP Diastolic 76 mm[Hg] [facility] [place] 12-09-2018 08:41-0400 BP Systolic 117 mm[Hg] [facility] [place] 12-09-2018 08:41-0400 Pulse (Heart Rate) 72 /min [facility] [place] 12-09-2018 08:41-0400 Pulse Oximetry 99 % [facility] [place] 12-09-2018 08:41-0400 Respiratory Rate 14 /min Darion [facility], [place] 12-09-2018 06:14-0400 BMI (Body Mass Index) 30.35 kg/m2 Darion Hand [facility], [place] 12-09-2018 06: Body weight 82.72 kg Darion Hand [facility] [place] 12-09-2018 06: Height 165.1 cm Darion Monteirosler [facility] , [place] Encounters Encounter Date Encounter Type Care Provider Facility Start: 02-20-2024 Patient encounter status [facility] Start: 02-20-2024 End: 02-20-2024 ambulatory [facility] Work Phone: Start: 02-20-2024 End: 02-20-2024 Encounter for general adult medical examination without abnormal findings [facility] Start: 02-20-2024 End: 02-20-2024 [facility] Work Phone: Start: 10-28-2023 End: 10-28-2023 ambulatory [facility] Work Phone: Start: 10-28-2023 End: 10-28-2023 [facility] Work Phone: Start: 08-14-2023 End: 08-14-2023 ambulatory CECI RAUSCH Not Available Start: 07-30-2023 Non-patient / Non-visit [facility] Work Phone: Start: 07-15-2023 End: 07-15-2023 ambulatory CECI RAUSCH Not Available Start: 03-19-2023 End: 03-20-2023 ambulatory Claudy R LEONOR Facility:[id number] Start: 02-11-2023 End: 02-12-2023 ambulatory Claudy R LEONOR Facility:[facility] Start: 02-11-2023 End: 02-11-2023 Patient encounter procedure Claudy R SANDROL [facility] Start: 02-05-2023 End: 02-05-2023 ambulatory Vicente Baum Other [facility] Other Start: 02-05-2023 Telephone encounter Vicente CHAO [facility] Start: 01-17-2023 End: 01-17-2023 ambulatory Vicente Baum Other [facility] Other Start: 01-17-2023 Telephone encounter Vicente CHAO [facility] Start: 01-16-2023 ambulatory Claudy JOKeith Facility:[facility] Start: 01-14-2023 End: 01-14-2023 ambulatory Vicente Baum Other [facility] Other Start: 01-14-2023 Encounter for genera l adult medical examination without abnormal findings Vicente Baum [facility] Start: 01-14-2023 Periodic preventive med est patient 40-64yrs Vicente Baum [facility] Start: 07-11-2022 End: 07-11-[address] VICENTE BAUM Facility:[facility] Start: 06-28-[address] LUZ YANES Facilit y:[facility] Start: 12-23-2021 Encounter for genera l adult medical examination without abnormal findings DR VICENTE BAUM [facility] Start: 12-19-2021 End: 12-20-[address] VICENTE BAUM Facility:[facility] Start: 12-19-2021 End: 12-20-2021 Encounter for general adult medical examination without abnormal findings DR VICENTE BAUM Facility:[facility] Start: 10-18-2021 End: 04-26-[address] LUZ YANES Facility:[facility] Start: 08-10-2021 End: 08-25-[address] VICENTE BAUM Facility:[facility] Start: 06-27-2021 End: 06-27-2021 ambulatory Harper Banda Other [facility] Other Start: 06-27-2021 Office outpatient ne w 30 minutes Harper Banda [facility] Start: 12-09-2018 End: 12-09-2018 Patient encounter procedure DARION HAND [facility] Start: 12-09-2018 End: 12-09-2018 Subsequent hospital visit by physician Darion Hand Work Phone: [facility] [place] Comment on above: Post-op pain (Primar y Dx) Procedures Date Procedure Procedure Detail Performing Clinician Start: 12-09-2018 DISCHARGE PATIENT DARION MONTEIROSLER Start: 12-09-2018 Level iv surg pathol ogy gross&microscopic exam DARION HAND Start: 12-09-2018 Continuous pulse oximetry DARION HAND Start: 12-09-2018 BEDREST DARION De Anda Start: 12-09-2018 ENCOURAGE DEEP BREAT GISELE AND COUGHING DARION HAND Start: 12-09-2018 INITIATE OXYGEN THER APY PROTOCOL DARION HAND Start: 12-09-2018 NOTIFY PHYSICIAN (SPECIFY) DARION HAND Start: 12-09-2018 NURSING COMMUNICATION C ARL PEACE Start: 12-09-2018 VITAL SIGNS DARION De Anda Start: 12-09-2018 Gluc bld gluc mntr d ev cleared fda spec home use DARION HAND Start: 12-09-2018 Urine test visual color cmprsn meths DARION HAND Start: 12-09-2018 VITAL SIGNS DARION De Anda Start: 09-30-2018 Cystourethroscopy wi dilation of urethral stricture Claudy SCHMITZ section Claudy Parker Ligation of fallopian tube Chelsie quin SCHMITZ Tonsillectomy Claudy SCHMITZ Plan of Treatment Date Care Activity Detail Author Start: 12-16-2018 End: 12-16-2018 Office Visit 12/16/2018 Office Visit Plastic Surgery Darion Hand MD [address] [place], [place] [id number] [facility] Start: 12-06-2018 Influenza vaccination Flu vaccine (# 1) [place], [place] Start: 2016 Diabetes screen Diabetes screen [place], [place] Start: 2016 Lipid screen Lipid screen [place], [place] Start: 1997 Cervical cancer screen Cervical canc er screen [place], [place] Start: 06-09-1995 DTaP/Tdap/Td vaccine (1 - Tdap) DTaP/Tdap/Td vaccine (1 - Tdap) [place], [place] Start: 06-09-1991 HIV screen HIV screen [place], [place] End: 12-09-2018 Blood glucose - POCT Blood glucose - POCT Point of Care Testing Routine One Time for 1 Occurrences starting 12/09/2018 until 12/09/2018 [place], [place] Comment on above: One Time for 1 Occur rences starting 12/09/2018 until 12/09/2018 Comprehensive metabo lic 2000 panel - Serum or Plasma [facility] Initiate Oxygen Ther apy Protocol Initiate Oxygen Therapy Protocol Respiratory Care Routine Daily until discontinued starting 12/09/2018 [place], [place] Comment on above: Daily until disconti nued starting 12/09/2018 MG Breast - bilatera l Screening [facility] Phase I & II - meter ed glucose Phase I & II - metered glucose Point of Care Testing Routine As Needed until discontinued starting 12/09/2018 [place], [place] Comment on above: As Needed until disc ontinued starting 12/09/2018 End: 12-09-2018 , urine POCT , urine POCT Point of Care Testing Routine One Time for 1 Occurrences starting 12/09/2018 until 12/09/2018 [place], [place] Comment on above: One Time for 1 Occur rences starting 12/09/2018 until 12/09/2018 Surgical Pathology Surgical Path ology Lab Routine ONE TIME for 1 Occurrences starting 12/09/2018 [place], [place] Comment on above: ONE TIME for 1 Occur rences starting 12/09/2018 [facility] Immunizations Immunization Date Immunization Notes Care Provider Fa cili 01-05-2023 influenza virus vaccine, unspecified formulation Claudy SCHMITZ [facility] [place] 01-26-2021 SARS-CoV-2 (COVID-19 ) mRNA-1273 vaccine Claudy SCHMITZ [facility] [place] 05-10-2020 SARS-CoV-2 (COVID-19 ) mRNA-1273 vaccine Claudy SCHMITZ [facility] [place] 01-05-2021 SARS-CoV-2 (COVID-19 ) [id number] vaccine Claudy SCHMITZ [facility] [place] Payers Date Payer Category Payer Unknown [id number] 2019 Unknown [id number] 2018 Unknown [employer] [address] xxxxxxxxx 2018-Present [phone] [address] [place] [address] xxxxxxxxx [id number] 2018 Unknown [id number] 1975 Unknown [id number] 1975 Unknown [id number] 1975 Unknown [id number] 1975 Unknown [id number] 1975 Unknown [id number] 1975 Unknown [id number] 1975 Unknown [id number] 1975 Unknown [id number] 1975 Unknown [id number] 1975 Unknown [id number] 1958 Self-pay [id number] Social History Date Type Detail Facility Start: 12-09-2018 End: 02-11-2023 Tobacco smoking status NHIS Never smoker [facility] [place] Start: 12-09-2018 Alcohol intake Yes [facility] Start: 12-01-2018 Alcohol Comment weekend use [facility] [place] [place] Sex Assigned At Not on file Mavis [place]- [place], [place] Tobacco smoking status Never [facility] Start: 1975 Sex Assigned At Female F [facility] Work Phone: Start: 02-20-2024 Sex Female (finding) [facility] Functional Status Date Assessment Result Facility 02-11-2023 Functional Status N/A [facility] 06-27-2021 to 02-11-2023 Note Date [...] Recorded SARS-CoV-2 (COVID-19) mRNA-1273 vaccine 04/11/2020 Recorded [facility] Comment on above: Result Comment: Elec tronically Signed By: LEONOR COLON, Claudy Mireles\Date and Time Signed: 02/11/23 14:43 EST 02-05-2023 Evaluation note Encounter Date Diagnosis Assessment Notes Feb, Seasonal affective disorder (ICD-10 - F33.8) [facility] Other 10-10-2023 Evaluation note* Encounter Date Diagnosis [...] exercise for 30 minutes, 3-5 times weekly. Jan, Screening mammogram for breast cancer (ICD-10 - Z12.31) Instructed patient on monthly SBE and yearly mammograms. Jan, Screening for colon cancer (ICD-10 - Z12.11) Due for screening colonoscopy. Refer to General Surgery to schedule exam. She is an asymptomatic, low risk patient [facility] [employer] Other 03-23-2022 Evaluation note* Encounter Date Diagnosis [...] Jun, Left elbow pain (ICD-10 - M25.522) [facility] Other Evaluation + Plan note No data available for this section [facility] [place] Evaluation noteNo [employer] Other Evaluation note* Diagnosis Onset Date Resolution Status Insomnia acute Overweight acute Seasonal affective disorder acute [facility] Work Phone: Evaluation note* Diagnosis Onset Date Resolution Status Admit Date Wellness examination acute Nove mber 2023 2:07pm [facility] Work Phone: History general Narrative - Reported* Type Description Date Medical History Seasonal Affective Disorder Surgical History x 2 Surgical History tonsilectomy Surgical History tubal ligation Hospitalization History see surgeries [facility] [employer] Other Hospital Discharge instructions No data available for this section [facility] [place] [employer] Progress note No data available for this section [facility] [place] [employer] Reason for referral (narrative)* Reason Referral for screeni ng colonoscopy Diagnosis 1 Screening for colon cancer (Z12.11) Referral Organization [facility] aliza Referring Provider First Name Vicente Referring Provider Last Name Bautista Referring Provider Specialty Internal Me dicine Referred Organization [facility] Referred Provider Claudy Schmitz Referred Address [address] [facility],[place],[address] Referred Provider Specialty Surgery Referral Priority Routine General Notes Asymptomatic, low ri sk patient. She denies change in appetite, weight or bowel habits. She denies heartburn or dysphagia. She denies abdominal pain, melena or hematochezia. [facility] Other Discharge Instructions * Instructions* Brittney Batista [...] AM EDT CLINICAL PHARMACY NOTE: MEDS TO [facility] Select Patient?: No Total # of Prescriptions Filled: 2 The following medications were delivered to the patient: cephalexin norco Total # of Interventions Completed: 1 Time Spent (min): 0 Additional Documentation: * Jamal Garcia RN - 12/09/2018 6:34 AM EDT Urine test results-negative * Ranjit Zendejas RN - 12/01/2018 1:26 PM EDT DAY OF SURGERY/PROCEDURE GUIDELINES As a patient at the [facility], you can expect quality medical and nursing care that is centered on your individual needs. It is our goal to make your surgical experience as comfortable and excellent as possible. Please arrive at 0600 with an empty stomach. No jewelry or piercings on. Must have a piledriver carpenter home and in the waiting room. The [...] morning of your surgery/procedure (Hibiclens if directed) [place] your teeth, but do not swallow any [...] your Living Will or Durable Power of Color Making Supervisor DO NOT take anticoagulants (blood thinners, aspirin [...] are recovering, the surgery family waiting room concierge receptionist can answer many of your family's questions. [...] Documents on File Type Date Recorded Patient Machine Guide Base Winder Expl anation Advance Directives and Living Will Power of Color Making Supervisor Advance Directive Response Recorded Date/ Time Advance Directives No October 27 2:50pm Advance Directive Response Recorded Date/ Time Advance Directives No October 27 1:50pm Summary Purpose Family History Relationship Condition Age at Onset Recorded Date/T mirna father Unknown Chief Complaint and Reason for Visit Chief Complaint Amb Documentation difficulty sleeping Reason for Visit Insomnia Overweight Seasonal affective disorder Chief Complaint Admit Date Discuss Lab Results February 20, 2024 2:07pm Reason for Visit Admit Date Wellness examination February 20, 2024 2:07pm Additional Source Comments Reason for Visit (unrecogniz ed section and content) Status Reason Specialty Diagnoses / Procedures Referre d By Contact Referred To Contact Diagnoses Localized swelling, mass and lump, unspecified MASS FOREHEAD Procedures WA EXCISION TUMOR SOFT TISS FACE/SCALP SUBQ 2+CM WA EXC SKIN MALIG 2.1-3CM FACE,FACIAL [place] EXC SKIN BENIG 2.1-3CM FACE,FACIAL WA ADJ TISS XFER HEAD,FAC,HAND <10SQCM HEAD LESION EXCISION Darion Hand MD [address] [place] [address] [facility] INFORMATION SOURCE (unrecogn ized section and content) DATE CREATED AUTHOR 12/15/2018 [facility] DATE CREATED AUTHOR AUTHOR'S ORGANIZ ATION 08/18/2020 [facility] DATE CREATED AUTHOR AUTHOR'S ORGANIZ ATION 07/20/2022 [facility] DATE CREATED AUTHOR AUTHOR'S ORGANIZ ATION 03/25/2023 [facility] DATE CREATED AUTHOR AUTHOR'S ORGANIZ ATION 08/16/2023 [facility] EPIC Patient Care team informatio n (unrecognized section and content) Team Status: Active Member Role Status Dates Vicente Baum DO Primary Care Provider Active Team Status: Inactive Member Role Status Dates Vicente Baum DO Primary Care Provide r, Attending Provider Active Start: February 20, 2024 End: February 20, 2024 Team Status: Active Member Role Status Dates [...] October 28, 2023 End: October 28, 2023 Team Status: Inactive Member Role Status Dates Vicente Baum DO Primary Care Provide r, Attending Provider Active Start: February 20, 2024 End: February 20, 2024 Goals (unrecognized section and content) Goals may [...] BE BASED ON THE PRIMARY CLINICAL RECORDS. [facility]. provides no warranty or guarantee of the accuracy or completeness of information in this document.
[2024-02-24 07:32] LABS: Basophils Percent Auto 0.5 % (0.2-2.0); Eosinophils Absolute Auto 0.2 10^3/uL (0.0-0.7); Eosinophils Percent Auto 2.6 % (0.9-7.0); Hematocrit 40.7 % (36.0-48.0); Hemoglobin 13.5 g/dL (12.0-16.0); Immature Granulocytes Abs Auto 0.01 10^3/uL (0.00-0.03); Immature Granulocytes Pct Auto 0.2 % (0.0-0.5); Lymphocytes Absolute Auto 2.2 10^3/uL (1.2-3.8); Lymphocytes Percent Auto 37.3 % (20.5-60.0); Mean Corpuscular HGB Conc 33.2 g/dL (29.9-35.2); Mean Corpuscular Hemoglobin 29.4 pg (26.7-34.0); Mean Corpuscular Volume 88.7 fL (81.0-99.0); Monocytes Absolute Auto 0.5 10^3/uL (0.3-0.8); Monocytes Percent Auto 8.1 % (1.7-12.0); Neutrophils Percent Auto 51.3 % (43.0-75.0); Platelet Count 356 10^3/uL (150-450); Red Blood Count 4.59 10^6/uL (4.20-5.40); Red Cell Distribution Width 12.8 % (11.0-15.0); White Blood Count 5.8 10^3/uL (4.0-11.0)
--- NOTE | 2024-02-24 07:43 | XR_ITS ---
The [address] [address] Patient Name: FATMATA SCHULTZ MRN: [id number] date: 1975 Sex: F Assigned Patient Location: LAB Current Patient Location: Accession/Order Number: [id number] Exam Date: 02/24/2024 07:50 Report Date: 02/26/2024 06:00 At the request of: KINGSTON MCCLURE Procedure: XR chest 2V EXAMINATION: XR chest 2V HISTORY: Alpha 1 Antitrypsin Deficiency COMPARISON: No relevant comparison available. FINDINGS: LUNGS: No significant pulmonary parenchymal abnormalities. VASCULATURE: No increased pulmonary vasculature. PLEURA: No pneumothorax, effusion, or pleural thickening. CARDIAC: No cardiomegaly or cardiac silhouette abnormality. MEDIASTINUM: No visible mass or adenopathy. BONES: No fracture or visible bone lesion. OTHER: Negative. XR/XR chest 2V IMPRESSION: 1. Normal chest. Electronically authenticated by: MICHAEL HERNÁNDEZ Date: 02/26/2024 06:00
[2024-02-24 08:26] LABS: Alanine Aminotransferase 28 U/L (14-59); Albumin Globulin Ratio 1.1; Albumin Level 3.5 g/dL (3.4-5.0); Alkaline Phosphatase 71 U/L (46-116); Anion Gap 14.7; Aspartate Amino Transferase 16 U/L (15-37); BUN Creatinine Ratio 21.2; Bilirubin Total 0.4 mg/dL (0.2-1.0); Calcium 8.8 mg/dL (8.5-10.1); Carbon Dioxide 25.8 mmol/L (21.0-32.0); Chloride 105 mmol/L (98-107); Chol HDL Ratio 3.2; Cholesterol 206 mg/dL (<=200); Estimated GFR (African America >60 (>=60 mL/min/1.73m^2); Estimated GFR (Non-African Ame >60 (>=60 mL/min/1.73m^2); Globulin 3.2 g/dL; Glucose 115 mg/dL (74-106); HDL Cholesterol 64 mg/dL (40-60); Potassium 4.5 mmol/L (3.5-5.1); Sodium 141 mmol/L (136-145); Thyroid Stimulating Hormone 2.051 uIU/mL (0.358-3.740); Total Protein 6.7 g/dL (6.4-8.2); Triglycerides 59 mg/dL (<=150); VLDL CHOLESTEROL 11.8 mg/dL
[2024-02-24 10:10] LABS: Estimated Average Glucose 105 mg/dL; Glycohemoglobin A1C 5.3 % (4.5-6.2)
== END 2024-02-24 07:21 | disposition home or self-care (01) ==
LOC: LAB 07:20
PROVIDERS: PCP Family Medicine; Visit Provider Internal Medicine
DX: Z00.00 Encounter for general adult medical examination without abnormal findings (principal); E88.01 Alpha-1-antitrypsin deficiency
CPT/HCPCS: 36415; 71046; 80053; 80061; 83036; 84443; 85025

== ENCOUNTER 2024-02-26 11:30 | Outpatient (OUT) | payer BC, SELFPAY ==
--- OUTSIDE RECORDS SUMMARY | 2024-02-26 11:51 | XMS_ITS | CCD ---
Author Organization [facility] Care Team Providers Care Land Le[employer] Information Clerk Name Role Phone Vicente Baum Primary Care Provider [phone] DARION HAND Admitting Unavailab DARION Jarvis Attending Unavailab VICENTE Napoles Primary Care Unavailable Harper Banda Unavailable BAUTISTA, DR ONOFRE Admitting Unavailable BALL, DR ONOFRE Attending Unavailable BALL, DR ONOFRE Consulting Unavailable BALL, DR ONOFRE Primary Care Unavailable WEST, DR LUZ Dyer Attending Unavailable BALL, DR ONOFRE Primary Care Unavailable FARZANA, DR LUZ Dyer Consulting Unavailable FARZANA, DR LUZ Dyer Admitting Unavailable WEST, DR LZU Dyer Admitting Unavailable BAUTISTA, DR ONOFRE Primary [...] Medication Allergies] Propensity to adverse reactions (disorder) [facility] Repository Medications Current Medications Medication [...] Start: 01-14-2023 take 1 capsule by mo [facility] once daily FLUoxetine 20 mg Cap 20 [...] Active -Hx Entry for 0 *Reorder from [employer] for eRx and Interaction Alerts* Feb, Not-Taking [...] times daily for 7 *Pick strength-form from [employer] for eRX* 10 Apr, 2019 Not-Taking triamcinolone [...] Outside Colonoscopyon 2022 Outside Colonoscopy [id number]#1.00T IFF Normal [facility] Reminderson 03-20-2023 Reminders - From: Dolores Lee LPN To: [facility] - Clinical; Sent: 03/20/2023 08:53:50 EST Show up: 02/17/2033 07:00:00 EST Subject: colonoscopy recall Due Date/Time: 03/19/2033 07:00:00 EST Reminder/Recall Patient due for screening colonoscopy 03/19/2033. Normal [facility] Lab Reportson 03-19-2023 Lab Reports [id number]#1.00T IFF [facility] Insurance Correspondenceon 1 04-27-2022 Insurance Correspondence [id number] TIFF [facility] Consent for Procedure/Surger yon 02-12-2023 Consent for Procedure/Surgery [id number]#1.00 TIFF [facility] Facesheeton 02-12-2023 Facesheet [id number]#1.00 TIFF [facility] Ambulatory Visit Summaryon 04-13-2022 Ambulatory Visit Summary [...] for choosing us for your care. Normal [facility] Physician Referralon 023 Physician Referral [id number]#1.00T IFF Normal [facility] PAP ACOG PANEL 2: 30 to 65on 07-18-2022 . . Normal [facility] Comment on above: Result Comment: Perf ormed at: WB Performed By: #### [id number] #### [facility] [address] [place] [address] Dr. Chloe Wells Age Gdln ACOG Testing 30-65 Normal [facility] Comment on above: Performed By: #### 4 [id number] #### [facility] [address] [address] [address] Chloe Wells DIAGNOSIS: Comment Normal [facility] Comment on above: Result Comment: NEGA TIVE FOR INTRAEPITHELIAL LESION OR MALIGNANCY. Performed at: WB Performed By: #### 4 [id number] #### [facility] [address] [address] [address] Chloe Wells HPV Aptima Positive Abnormal Negative [facility] Comment on above: Result Comment: This nucleic acid amplification test detects fourteen high-risk HPV types (16,18,31,33,35,39,45,51,52,56,58,59,66,68) without differentiation. Performed at: =G Performed By: #### 4 [id number] #### [facility] [address] [address] [address] Chloe Wells HPV Genotype 16 Negative Normal Negative [facility] Comment on above: Performed By: #### 4 [id number] #### [facility] [address] [place] [address] Dr. Chloe Wells HPV Genotype 18,45 Negative Normal Negative [facility] Comment on above: Performed By: #### 4 [id number] #### [facility] [address] [place] [address] Dr. Chloe Wells HPV Genotype Reflex Comment Normal [facility] Comment on above: Result Comment: Kira galicia, see HPV Genotype results. Performed at: WB Performed By: #### 4 [id number] #### [facility] [address] [place] [address] Dr. Chloe Wells Methodology: Comment Normal [facility] Comment on above: Result Comment: This liquid based ThinPrep(R) pap test was screened with the use of an image guided system. Performed at: WB Performed By: #### 4 [id number] #### [facility] [address] [place] [address] Dr. Chloe Wells Note: Comment Normal [facility] Comment on above: Result Comment: The Pap smear is a screening test designed to aid in the detection of premalignant and malignant conditions of the uterine cervix. It is not a diagnostic procedure and should not be used as the sole means of detecting cervical cancer. Both false-positive and false-negative reports do occur. . Performed at: WB Performed By: #### 4 [id number] #### [facility] [address] [place] [address] Dr. Chloe Wells Performed by: Comment Normal [facility] Comment on above: Result Comment: Rozina Benitez, Cashier Host/Hostess (ASCP) Performed at: WB Performed By: #### 4 [id number] #### [facility] [address] [place] [address] Dr. Chloe Wells Specimen adequacy: Comment Normal [facility] Comment on above: Result Comment: Sati sfactory for evaluation. Endocervical and/or squamous metaplastic cells (endocervical component) are present. Performed at: WB Performed By: #### 4 [id number] #### [facility] [address] [place] [address] Dr. Chloe Wells CBC AUTO DIFFon 12-19-2021 BASO # 0.0 103/ul Normal 0.0-0.1 [facility] Comment on above: Performed By: #### C BC #### [facility] [address] [place] [address] Dr. Chloe Wells Basophils/100 WBC (Bld) 0.3 % Normal 0.2-2.0 [facility] Comment on above: Performed By: #### C BC #### [facility] [address] [place] [address] Dr. Chloe Wells EO # 0.2 103/ul Normal 0.0-0.7 [facility] Comment on above: Performed By: #### C BC #### [facility] [address] [place] [address] Dr. Chloe Wells Eosinophils/100 WBC (Bld) 2.9 % Normal 0.9-7.0 [facility] Comment on above: Performed By: #### C BC #### [facility] [address] [place] [address] Dr. Chloe Wells Erythrocyte distribution width (RBC) [Ratio] 12.4 % Normal 11.0-15.0 [facility] Comment on above: Performed By: #### C BC #### [facility] [address] [place] [address] Dr. Chloe Wells Hematocrit (Bld) [Volume fraction] 38.8 % Normal 36.0-48.0 [facility] Comment on above: Performed By: #### C BC #### [facility] [address] [place] [address] Dr. Chloe Wells Hemoglobin (Bld) [Mass/Vol] 13.0 g/dL Normal 12.0-16.0 [facility] Comment on above: Performed By: #### C BC #### [facility] [address] [place] [address] Dr. Chloe Wells IG # 0.01 10e3/ul Normal 0.00-0.03 [facility] Comment on above: Performed By: #### C BC #### [facility] [address] [address] [address] Chloe Wells IG % 0.2 % Normal 0.0-0.5 [facility] Comment on above: Performed By: #### C BC #### [facility] [address] [place] [address] Dr. Chloe Wells LYMPH # 2.0 103/ul Normal 1.2-3.8 [facility] Comment on above: Performed By: #### C BC #### [facility] [address] [place] [address] Dr. Chloe Wells Lymphocytes/100 WBC (Bld) 33.4 % Normal 20.5-60.0 [facility] Comment on above: Performed By: #### C BC #### [facility] [address] [place] [address] Dr. Chloe Wells MANUAL DIFF REQ NO Normal [facility] Comment on above: Performed By: #### C BC #### [facility] [address] [place] [address] Dr. Chloe Wells MCH (RBC) [Entitic mass] 30.2 pg Normal 26.7-34.0 [facility] Comment on above: Performed By: #### C BC #### [facility] [address] [place] [address] Dr. Chloe Wells MCHC (RBC) [Mass/Vol] 33.5 g/dL Normal 29.9-35.2 [facility] Comment on above: Performed By: #### C BC #### [facility] [address] [place] [address] Dr. Chloe Wells MCV (RBC) [Entitic vol] 90.0 fL Normal 81.0-99.0 [facility] Comment on above: Performed By: #### C BC #### [facility] [address] [place] [address] Dr. Chloe Wells MONO # 0.5 103/ul Normal 0.3-0.8 [facility] Comment on above: Performed By: #### C BC #### [facility] [address] [place] [address] Dr. Chloe Wells Monocytes/100 WBC (Bld) 8.0 % Normal 1.7-12.0 [facility] Comment on above: Performed By: #### C BC #### [facility] [address] [place] [address] Dr. Chloe Wells NEUT # 3.2 103/ul Normal 1.4-6.5 [facility] Comment on above: Performed By: #### C BC #### [facility] [address] [place] [address] Dr. Chloe Wells Neutrophils/100 WBC (Bld) 55.2 % Normal 43.0-75.0 [facility] Comment on above: Performed By: #### C BC #### [facility] [address] [place] [address] Dr. Chloe Wells Platelet mean volume (Bld) [Entitic vol] 8.9 fL Critically low 9.5-13.5 [facility] Comment on above: Performed By: #### C BC #### [facility] [address] [place] [address] Dr. Chloe Wells PLT 327 103/ul Normal 150-450 [facility] Comment on above: Performed By: #### C BC #### [facility] [address] [place] [address] Dr. Chloe Wells RBC 4.31 106/ul Normal 4.20-5.40 [facility] Comment on above: Performed By: #### C BC #### [facility] [address] [place] [address] Dr. Chloe Wells WBC 5.9 103/ul Normal 4.0-11.0 [facility] Comment on above: Performed By: #### C BC #### [facility] [address] [place] [address] Dr. Chloe Wells GLYCOHEMOGLOBIN A1Con 2021 ADA RECOMMENDATION SEE BELOW Normal [facility] Comment on above: Result Comment: ADA RECOMMENDED LIMIT 4.0 - 6.0 ADA THERAPEUTIC TARGET < 7.0 ACTION SUGGESTED > 7.0 Performed By: #### A 1C #### [facility] [address] [address] [address] Chloe Wells Glucose [Mass/Vol] 105 mg/dL Normal [facility] Comment on above: Performed By: #### A 1C #### [facility] [address] [address] [address] Chloe Wells HbA1c (Bld) [Mass fraction] 5.3 % Normal 4.5-6.2 [facility] Comment on above: Performed By: #### A 1C #### [facility] [address] [place] [address] Dr. Chloe Wells LIPID PROFILEon 12-19-2021 CHOL-HDL RATIO NORM SEE BELOW Normal [facility] Comment on above: Result Comment: 3.3 - 4.4 LOW RISK 4.4 - 7.1 AVERAGE RISK 7.1 - 11.0 MODERATE RISK >11.0 HIGH RISK Performed By: #### C MP, TSH, LIPID #### [facility] [address] [place] [address] Dr. Chloe Wells Cholesterol [Mass/Vol] 171 mg/dL Normal <=200 [facility] Comment on above: Performed By: #### C MP, TSH, LIPID #### [facility] [address] [place] [address] Dr. Chloe Wells Cholesterol in HDL [Mass/Vol] 63 mg/dL Critically high 40-60 [facility] Comment on above: Performed By: #### C MP, TSH, LIPID #### [facility] [address] [place] [address] Dr. Chloe Wells Cholesterol in LDL [Mass/Vol] 99.2 mg/dL Normal [facility] Comment on above: Performed By: #### C MP, TSH, LIPID #### [facility] [address] [place] [address] Dr. Chloe Wells Cholesterol.total/Ch olesterol in HDL [Mass ratio] 2.7 {ratio} Normal [facility] Comment on above: Performed By: #### C MP, TSH, LIPID #### [facility] [address] [place] [address] Dr. Chloe Wells HDL NORMAL > or = 60 mg/dl - LO W CARDIOVASCULAR RISK <40 mg/dl - HIGH CARDIOVASCULAR RISK Normal [facility] Comment on above: Performed By: #### C MP, TSH, LIPID #### [facility] [address] [address] [address] Chloe Wells LDL CALC NORMAL SEE BELOW Normal [facility] Comment on above: Result Comment: <100 mg/dl OPTIMAL 100 - 129 mg/dl NEAR OR ABOVE OPTIMAL 130 - 159 mg/dl BORDERLINE HIGH 160 - 189 mg/dl HIGH >190 mg/dl VERY HIGH Performed By: #### C MP, TSH, LIPID #### [facility] [address] [address] [address] Chloe Wells Triglyceride [Mass/Vol] 44 mg/dL Normal <=150 [facility] Comment on above: Performed By: #### C MP, TSH, LIPID #### [facility] [address] [address] [address] Chloe Wells VLDL CALC 8.8 mg/dL Normal [facility] Comment on above: Performed By: #### C MP, TSH, LIPID #### [facility] [address] [address] [address] Chloe Wells PROF 14(COMP METB)on 022 Albumin [Mass/Vol] 3.8 g/dL Normal 3.4-5.0 [facility] Comment on above: Performed By: #### C MP, TSH, LIPID #### [facility] [address] [address] [address] Chloe Wells Albumin/Globulin [Mass ratio] 1.3 {ratio} Normal [facility] Comment on above: Performed By: #### C MP, TSH, LIPID #### [facility] [address] [address] [address] Chloe Wells ALP [Catalytic activity/Vol] 54 U/L Normal 46-116 [facility] Comment on above: Performed By: #### C MP, TSH, LIPID #### [facility] [address] [address] [address] Chloe Wells ALT [Catalytic activity/Vol] 20 U/L Normal 14-59 [facility] Comment on above: Performed By: #### C MP, TSH, LIPID #### [facility] [address] [place] [address] Dr. Chloe Wells Anion gap [Moles/Vol] 9.9 mmol/L Normal [facility] Comment on above: Performed By: #### C MP, TSH, LIPID #### [facility] [address] [place] [address] Dr. Chloe Wells AST [Catalytic activity/Vol] 14 U/L Critically low 15-37 [facility] Comment on above: Performed By: #### C MP, TSH, LIPID #### [facility] [address] [place] [address] Dr. Chloe Wells Bilirubin [Mass/Vol] 0.6 mg/dL Normal 0.2-1.0 [facility] Comment on above: Performed By: #### C MP, TSH, LIPID #### [facility] [address] [place] [address] Dr. Chloe Wells Calcium [Mass/Vol] 8.5 mg/dL Normal 8.5-10.1 [facility] Comment on above: Performed By: #### C MP, TSH, LIPID #### [facility] [address] [place] [address] Dr. Chloe Wells Chloride [Moles/Vol] 104 mmol/L Normal 98-107 [facility] Comment on above: Performed By: #### C MP, TSH, LIPID #### [facility] [address] [place] [address] Dr. Chloe Wells CO2 [Moles/Vol] 27.3 mmol/L Normal 21.0-32.0 [facility] Comment on above: Performed By: #### C MP, TSH, LIPID #### [facility] [address] [place] [address] Dr. Chloe Wells Creatinine [Mass/Vol] 0.74 mg/dL Normal 0.55-1.02 [facility] Comment on above: Performed By: #### C MP, TSH, LIPID #### [facility] [address] [place], [place] [id number] Dr. Chloe Wells EGFR-AF [place] >60 Normal >=60 [facility] Comment on above: Performed By: #### C MP, TSH, LIPID #### [facility] [address] [place] [address] Dr. Chloe Wells EGFR-NON AF [place] >60 Normal >=60 [facility] Comment on above: Performed By: #### C MP, TSH, LIPID #### [facility] [address] [place] [address] Dr. Chloe Wells Globulin (S) [Mass/Vol] 2.9 g/dL Normal [facility] Comment on above: Performed By: #### C MP, TSH, LIPID #### [facility] [address] [place] [address] Dr. Chloe Wells Glucose [Mass/Vol] 110 mg/dL Critically high 74-106 [facility] Comment on above: Performed By: #### C MP, TSH, LIPID #### [facility] [address] [place] [address] Dr. Chloe Wells Potassium [Moles/Vol] 4.2 mmol/L Normal 3.5-5.1 [facility] Comment on above: Performed By: #### C MP, TSH, LIPID #### [facility] [address] [place] [address] Dr. Chloe eWlls Protein [Mass/Vol] 6.7 g/dL Normal 6.4-8.[address] [facility] Comment on above: Performed By: #### C MP, TSH, LIPID #### [facility] [address] [place] [address] Dr. Chloe Wells Sodium [Moles/Vol] 137 mmol/L Normal 136-[address] [facility] Comment on above: Performed By: #### C MP, TSH, LIPID #### [facility] [address] [place] [address] Dr. Chloe Wells Urea nitrogen [Mass/Vol] 18.0 mg/dL Normal 7.0-18.0 [facility] Comment on above: Performed By: #### C MP, TSH, LIPID #### [facility] [address] [place], [place] [address] Dr. Chloe Wells Urea nitrogen/Creatinine [Mass ratio] 24.3 mg/mg Normal [facility] Comment on above: Performed By: #### C MP, TSH, LIPID #### [facility] [address] [place], [place] [address] Dr. Chole Wells TSHon 12-19-2021 TSH 1.733 uIU/mL Normal 0.358-3.740 [facility] Comment on above: Performed By: #### C MP, TSH, LIPID #### [facility] [address] [place], [place] [address] Dr. Chloe Wells SURGICAL PATH REPORTon 07-31 SURGICAL PATH REPORT [facility] Department of Pathology [address] [place] [id number] Name: GABRIELA ROSE : 1975 [employer] [id number] Number: Gender: Female Location: [facility] Admit 45 years Attending JAMAL SWAN Age: Provider: Ordering MICHAEL HERNÁNDEZ Provider: Consulting: Surgical Pathology Report ACCESSION: COLLECTED DATE/TIME: RECEIVED DATE/TIME: PATHOLOGIST: [id number] 07/26/2020 11:13 EDT 07/26/2020 14:42 EDT KENDELL COLON, BRANT WEBER Final Diagnosis Report for THE SELMA, [place] LEFT BREAST, UPPER OUTER QUADRANT, MICROCALCIFICATIONS, [...] Print Date/ 07/31/2020 14:04 EDT Number: Time: [facility] Department of Pathology [address] [place] [phone] Name: GABRIELA ROSE : 1975 [facility] [id number] Number: Gender: Female Location: [facility] Admit 45 years Attending JAMAL SWAN Age: Provider: Ordering MICHAEL HERNÁNDEZ Provider: Consulting: Surgical Pathology Report ACCESSION: COLLECTED DATE/TIME: RECEIVED DATE/TIME: PATHOLOGIST: [id number] 07/26/2020 11:13 EDT 07/26/2020 14:42 EDT KENDELL [...] MP:saul 07/26/2020 Tissue pathology report for: [facility], [address] [place] [address]; PATHOLOGY SERVICES PROVIDED BY [employer] (CLIA #[id number]) in cooperation with [facility] at [address] [place] [address] (CLIA #[id number]) Codes CPT CODE: 09304 ____ Print Date07/31/2020 14:04 EDT Number: Time: Normal [facility] Comment on above: Performed By: #### [id number] #### [facility] Laboratory Services [address] [place] [address] Sole Layer Hand: Jim Treadwell MD OPERATIVE REPORTon OPERATIVE REPORT [address] [address] OPERATIVE REPORT PATIENT NAME: GABRIELA ROSE : 1975 MED REC NO: [id number] ROOM: ACCOUNT NO: [id number] ADMIT DATE: 12/09/2018 PROVIDER: Darion Hand DATE [...] sponge counts correct. DARION HAND [id number] Doc#: [id number] CC: Normal [facility] Surgical Pathologyon 019 Surgical Pathology (NOTE) [id number] [employer] (MM) CONSULTING PATHOLOGISTS [facility] ANATOMIC PATHOLOGY [address] [place] [phone] SURGICAL PATHOLOGY CONSULTATION Patient Name: GABRIELA ROSE [facility] Rec: [id number] Path Number: [id number] Collected: 12/09/2018 Received: 12/09/2018 Reported: 12/10/2018 13:49 [...] periphery, consistent with a benign lipoma. Normal [facility] Comment on above: Performed By: #### P PPVDP #### [employer] [address] [place] [id number] [employer] Connector: Chris Michaels MD Vital Signs Date Time Vital Sign Value Performing Clinician Facility 02-20-2024 14: Body height 165.[address] [facility] 02-20-2024 14:050 Body mass index (BMI) [Ratio] 29.6 kg/m2 [facility] 02-20-2024 14: Body weight 80.[address] [facility] 02-20-2024 14:050 Diastolic blood pressure 79 mm[Hg] [facility] 02-20-2024 14:0500 Heart rate 102 /min [facility] 02-20-2024 14:21-0500 Systolic blood pressure 115 mm[Hg] [facility] 10-28-2023 15:18-0400 Body height 165.[address] [facility] 10-28-2023 15:18-0400 Body mass index (BMI) [Ratio] 29.1 kg/m2 [facility] 10-28-2023 15:18-0400 Body weight 79.[address] [facility] 10-28-2023 15:18-0400 Diastolic blood pressure 86 mm[Hg] [facility] 10-28-2023 15:18-0400 Heart rate 78 /min [facility] 10-28-2023 15:18-0400 Respiratory rate 12 /min [facility] 10-28-2023 15:18-0400 Systolic blood pressure 124 mm[Hg] [facility] 02-11-2023 14:18-0500 Blood Pressure Location [facility] [place] 02-11-2023 14:18-0500 Diastolic blood pressure 80 mm[Hg] [facility] [place] 02-11-2023 14:18-0500 Heart rate 70 /min [facility] 02-11-2023 14:18-0500 Respiratory rate 16 /min [facility] [facility] [place] 02-11-2023 14:18-0500 Systolic blood pressure 124 mm[Hg] Claudy JOL [facility] [place] 01-14-2023 14:30-0400 Body height 165.1 cm Vicente Ball Other [facility] Other 01-14-2023 14:30-0400 Body mass index (BMI) [Ratio] 29.88 kg/m2 Vicente Ball Other [facility] Other 01-14-2023 14:30-0400 Body weight 81.47 kg Vicente Ball Other [facility] Other 01-14-2023 14:30-0400 Diastolic blood pressure 79 mm[Hg] Vicente Ball Other [facility] Other 01-14-2023 14:30-0400 Respiratory rate 12 /min Vicente Ball Other [facility] Other 01-14-2023 14:30-0400 Systolic blood pressure 111 mm[Hg] Vicente Ball Other [facility] Other 06-27-2021 14:00-0400 Body height 165.1 cm Harper Banda Other [facility] Other 06-27-2021 14:00-0400 Body mass index (BMI) [Ratio] 26.62 kg/m2 Harper Banda Other [facility] Other 06-27-2021 14:00-0400 Body weight 72.58 kg Harper Banda Other [facility] Other 12-09-2018 08:41-0400 Body Temperature 97.3 [degF] [place]ion [employer] 12-09-2018 08:41-0400 BP Diastolic 76 mm[Hg] [facility] [place] 12-09-2018 08:41-0400 BP Systolic 117 mm[Hg] [facility] [place] 12-09-2018 08:41-0400 Pulse (Heart Rate) 72 /min [facility] [place] 12-09-2018 08:41-0400 Pulse Oximetry 99 % [facility] [place] 12-09-2018 08:41-0400 Respiratory Rate 14 /min Darion [employer] [facility] 12-09-2018 06:14-0400 BMI (Body Mass Index) 30.35 kg/m2 Darion Hand [facility] [place] 12-09-2018 06: Body weight 82.[address] [facility] [place] 12-09-2018 06: Height 165.[address] [facility] [place] Encounters Encounter Date Encounter Type Care Provider Facility Start: 02-20-2024 Patient encounter status [facility] Start: 02-20-2024 End: 02-20-2024 ambulatory [facility] Work Phone: Start: 02-20-2024 End: 02-20-2024 Encounter for general adult medical examination without abnormal findings [facility] Start: 02-20-2024 End: 02-20-2024 Patient encounter procedure [facility] Work Phone: Start: 10-28-2023 End: 10-28-2023 ambulatory [facility] Work Phone: Start: 10-28-2023 End: 10-28-2023 Patient encounter procedure [facility] Work Phone: Start: 08-14-2023 End: 08-14-2023 ambulatory CECI RAUSCH Not Available Start: 07-30-2023 Non-patient / Non-visit [facility] Work Phone: Start: 07-15-2023 End: 07-15-2023 ambulatory CECI RAUSCH Not Available Start: 03-19-2023 End: 03-20-2023 ambulatory Claudy R LEONOR Facility:CD:[id number] Start: 02-11-2023 End: 02-12-2023 ambulatory Claudy R LEONOR Facility:[facility] Start: 02-11-2023 End: 02-11-2023 Patient encounter procedure Claudy R SANDROL [facility] Start: 02-05-2023 End: 02-05-2023 ambulatory Vicente Baum Other [facility] Other Start: 02-05-2023 Telephone encounter Vicente CHAO [facility] Start: 01-17-2023 End: 01-17-2023 ambulatory Vicente Baum Other [facility] Other Start: 01-17-2023 Telephone encounter Vicente CHAO [facility] Start: 01-16-2023 ambulatory Claudy JOKeith Facility:[facility] Start: 01-14-2023 End: 01-14-2023 ambulatory Vicente Baum Other [facility] Other Start: 01-14-2023 Encounter for genera l adult medical examination without abnormal findings Vicente Baum [place] Start: 01-14-2023 Periodic preventive med est patient 40-64yrs Vicente Baum [place] Start: 07-11-2022 End: 07-11-[address] VICENTE BAUM Facility:[facility] Start: 06-28-[address] LUZ YANES Facilit y:[facility] Start: 12-23-2021 Encounter for genera l adult medical examination without abnormal findings DR VICENTE BAUM [facility] Start: 12-19-2021 End: 12-20-[address] VICENTE BAUM Facility:[facility] Start: 12-19-2021 End: 12-20-2021 Encounter for general adult medical examination without abnormal findings DR VICENTE BAUM Facility:[facility] Start: 10-18-2021 End: 04-26-[address] LUZ YANES Facility:[facility] Start: 08-10-2021 End: 08-25-[address] VICENTE BAUM Facility:[facility] Start: 06-27-2021 End: 06-27-2021 ambulatory Harper Banda Other [facility] Other Start: 06-27-2021 Office outpatient ne w 30 minutes Harper Banda [facility] Start: 12-09-2018 End: 12-09-2018 Patient encounter procedure DARION HAND [facility] Start: 12-09-2018 End: 12-09-2018 Subsequent hospital visit by physician Darion Hand Work Phone: [facility] [place] Comment on above: Post-op pain [...] Visit Plastic Surgery Darion Hand MD [address] [place], [place] [id number] [facility] Start: 12-06-2018 Influenza vaccination Flu vaccine (# 1) [place], [place] Start: 2016 Diabetes screen Diabetes screen [place], [place] Start: 2016 Lipid screen Lipid screen [place], [place] Start: 1997 Cervical cancer screen Cervical canc er screen [place], [place] Start: 06-09-1995 DTaP/Tdap/Td vaccine (1 - Tdap) DTaP/Tdap/Td vaccine (1 - Tdap) [place], [place] Start: 06-09-1991 HIV screen HIV screen [place], [place] End: 12-09-2018 Blood glucose - POCT Blood glucose - POCT Point of Care Testing Routine One Time for 1 Occurrences starting 12/09/2018 until 12/09/2018 [place], [place] Comment on above: One Time for 1 Occur rences starting 12/09/2018 until 12/09/2018 Comprehensive metabo lic 2000 panel - Serum or Plasma [facility] Initiate Oxygen Ther apy Protocol Initiate Oxygen Therapy Protocol Respiratory Care Routine Daily until discontinued starting 12/09/2018 [place], [place] Comment on above: Daily until disconti nued starting 12/09/2018 MG Breast - bilatera l Screening [facility] Phase I & II - meter ed glucose Phase I & II - metered glucose Point of Care Testing Routine As Needed until discontinued starting 12/09/2018 [place], [place] Comment on above: As Needed until disc ontinued starting 12/09/2018 End: 12-09-2018 , urine POCT , urine POCT Point of Care Testing Routine One Time for 1 Occurrences starting 12/09/2018 until 12/09/2018 [place], [place] Comment on above: One Time for 1 Occur rences starting 12/09/2018 until 12/09/2018 Surgical Pathology Surgical Path ology Lab Routine ONE TIME for 1 Occurrences starting 12/09/2018 [place], [place] Comment on above: ONE TIME for 1 Occur rences starting 12/09/2018 [facility] Immunizations Immunization Date Immunization Notes Care Provider Fa cili 01-05-2023 influenza virus vaccine, unspecified formulation Claudy SCHMITZ [facility] [place] 01-26-2021 SARS-CoV-2 (COVID-19 ) mRNA-1273 vaccine Claudy SCHMITZ [facility] [place] 05-10-2020 SARS-CoV-2 (COVID-19 ) mRNA-1273 vaccine Claudy SCHMITZ [facility] [place] 01-05-2021 SARS-CoV-2 (COVID-19 ) [id number] vaccine Claudy SCHMITZ [facility] [place] Payers Date Payer Category Payer Unknown [id number] 2019 Unknown [id number] 2018 Unknown [employer] [address] xxxxxxxxx 2018-Present [phone] [address] [place] [address] xxxxxxxxx [id number] 2018 Unknown [id number] 1976 Unknown [id number] 1975 Unknown [id number] 1975 Unknown [id number] 1976 Unknown [id number] 1975 Unknown [id number] 1976 Unknown [id number] 1975 Unknown [id number] 1975 Unknown [id number] 1975 Unknown [id number] 1975 Unknown [id number] 1958 Self-pay [id number] Social History Date Type Detail Facility Start: 12-09-2018 End: 02-11-2023 Tobacco smoking status NHIS Never smoker [facility] [place] Start: 12-09-2018 Alcohol intake Yes [facility] Start: 12-01-2018 Alcohol Comment weekend use [facility] [place] [place] Sex Assigned At Not on file Mavis [place]- [place], [place] Tobacco smoking status Never [facility] Start: 1975 Sex Assigned At Female F [facility] Work Phone: Start: 02-20-2024 Sex Female (finding) [facility] Functional Status Date Assessment Result Facility 02-11-2023 Functional Status N/A [facility] 06-27-2021 to 02-11-2023 Note Date [...] Recorded SARS-CoV-2 (COVID-19) mRNA-1273 vaccine 04/11/2020 Recorded [facility] Comment on above: Result Comment: Elec tronically Signed By: LEONOR COLON, Claudy Mireles\Date and Time Signed: 02/11/23 14:43 EST 02-05-2023 Evaluation note Encounter Date Diagnosis Assessment Notes Feb, Seasonal affective disorder (ICD-10 - F33.8) [facility] Other 10-10-2023 Evaluation note* Encounter Date Diagnosis [...] She is an asymptomatic, low risk patient [facility] [employer] Other 03-23-2022 Evaluation note* Encounter Date Diagnosis [...] Jun, Left elbow pain (ICD-10 - M25.522) [facility] Other Evaluation + Plan note No data available for this section [facility] [place] Evaluation noteNo InformationNort [employer] Other Evaluation note* Diagnosis Onset Date Resolution Status Insomnia acute Overweight acute Seasonal affective disorder acute [facility] Work Phone: Evaluation note* Diagnosis Onset Date Resolution Status Admit Date Wellness examination acute Nove mber 2023 2:07pm [facility] Work Phone: History general Narrative - Reported* Type Description Date Medical History Seasonal Affective Disorder Surgical History x 2 Surgical History tonsilectomy Surgical History tubal ligation Hospitalization History see surgeries [facility] [employer] Other Hospital Discharge instructions No data available for this section [facility] [place] [employer] Progress note No data available for this section [facility] [place] [employer] Reason for referral (narrative)* Reason Referral for screeni ng colonoscopy Diagnosis 1 Screening for colon cancer (Z12.11) Referral Organization [facility] Referring Provider First Name Vicente Referring Provider Last Name Bautista Referring Provider Specialty Internal Me dicine Referred Organization [facility] Referred Provider Claudy Schmitz Referred Address [address] [facility],[place],[address] Referred Provider Specialty Surgery Referral Priority Routine General Notes Asymptomatic, low ri sk patient. She denies change in appetite, weight or bowel habits. She denies heartburn or dysphagia. She denies abdominal pain, melena or hematochezia. [facility] Other Discharge Instructions * Instructions* Brittney Batista [...] AM EDT CLINICAL PHARMACY NOTE: MEDS TO [facility] Patient?: No Total # of Prescriptions Filled: 2 The following medications were delivered to the patient: cephalexin norco Total # of Interventions Completed: 1 Time Spent (min): 0 Additional Documentation: * Jamal Garcia RN - 12/09/2018 6:34 AM EDT Urine test results-negative * Ranjit Zendejas RN - 12/01/2018 1:26 PM EDT DAY OF SURGERY/PROCEDURE GUIDELINES As a patient at the [facility], you can expect quality medical and nursing care that is centered on your individual needs. It is our goal to make your surgical experience as comfortable and excellent as possible. Please arrive at 0600 with an empty stomach. No jewelry or piercings on. Must have a transporter driver home and in the waiting room. [...] morning of your surgery/procedure (Hibiclens if directed) [place] your teeth, but do not swallow any [...] your Living Will or Durable Power of Invasive Cardiovascular Technologist DO NOT take anticoagulants (blood thinners, aspirin [...] are recovering, the surgery family waiting room hotel receptionist can answer many of your family's [...] Documents on File Type Date Recorded Patient Patient Registration Rep Expl anation Advance Directives and Living Will Power of Invasive Cardiovascular Technologist Advance Directive Response Recorded Date/ Time Advance [...] mass and lump, unspecified MASS FOREHEAD Procedures [place] EXCISION TUMOR SOFT TISS FACE/SCALP SUBQ 2+CM [place] EXC SKIN MALIG 2.1-3CM FACE,FACIAL [place] EXC SKIN BENIG 2.1-3CM FACE,FACIAL [place] ADJ TISS XFER HEAD,FAC,HAND <10SQCM HEAD LESION EXCISION Darion Hand MD [address] [place] [address] [facility] INFORMATION SOURCE (unrecogn ized section and content) DATE CREATED AUTHOR 12/15/2018 [facility] DATE CREATED AUTHOR AUTHOR'S ORGANIZ ATION 08/18/2020 [facility] DATE CREATED AUTHOR AUTHOR'S ORGANIZ ATION 07/20/2022 [facility] DATE CREATED AUTHOR AUTHOR'S ORGANIZ ATION 03/25/2023 [facility] DATE CREATED AUTHOR AUTHOR'S ORGANIZ ATION 08/16/2023 [facility] EPIC Patient Care team informatio [...] Team Status: Inactive Member Role Status Dates Vicnete Baum DO Primary Care Provide r, Attending [...] BE BASED ON THE PRIMARY CLINICAL RECORDS. [facility]. provides no warranty or guarantee of the accuracy or completeness of information in this document.
== END 2024-02-26 11:31 | disposition home or self-care (01) ==
LOC: CARD 11:31
PROVIDERS: PCP Family Medicine; Visit Provider Internal Medicine
DX: E88.01 Alpha-1-antitrypsin deficiency (principal)
CPT/HCPCS: 94010; 94726; 94729

== ENCOUNTER 2024-03-02 13:14 | Outpatient (OUT) | payer BC, SELFPAY ==
--- NOTE | 2024-03-02 13:16 | MM_ITS ---
Patient Name: FATMATA SCHULTZ MR#: [id number] : 1975 Exam Date: 03/02/2024 Ordering Doctor: DR Vicente Baum D.O. RADIOLOGY REPORT PROCEDURE: MM TOMOSYNTHESIS SCREENING BI COMPARISON: MM TOMOSYNTHESIS SCREENING BI, 10/21/2022. MG STEREO CORE NDL W CLIP LT, 07/26/2020. MG MAMM LT DIAG FU, 06/23/2020. MG MAMM CHANI SCRN W CAD DIG, 01/28/2008. INDICATIONS: Screening Calculator Name NCI Breast Cancer Risk Assessment Tool 5 Year Breast Cancer Risk 1.90% Lifetime Breast Cancer Risk 14.00% Personal Breast Cancer No Personal Ovarian Cancer No Treatments None Family Cancers None LOCATION: [facility] BREAST COMPOSITION: The breasts are heterogeneously dense,which may obscure small masses. FINDINGS: DIAGNOSTIC CATEGORY 2--BENIGN FINDING: RIGHT BREAST: No significant suspicious finding. This exam includes additional mammographic views for implant evaluation and shows no visible implant abnormality. No significant change has occurred. LEFT BREAST: No significant suspicious finding. This exam includes additional mammographic views for implant evaluation and shows no visible implant abnormality. No significant change has occurred. RECOMMENDATIONS: ROUTINE MAMMOGRAM AND CLINICAL EVALUATION IN 12 MONTHS. PLEASE NOTE: A NORMAL MAMMOGRAM DOES NOT EXCLUDE THE POSSIBILITY OF BREAST CANCER. A CLINICALLY SUSPICIOUS PALPABLE LUMP SHOULD BE BIOPSIED. Dictated by: Mo Wilkerson M.D. on 03/02/2024 at 15:33 Approved by: Mo Wilkerson M.D. on 03/02/2024 at 15:35
== END 2024-03-02 13:15 | disposition home or self-care (01) ==
LOC: MAMMO 13:14
PROVIDERS: PCP Family Medicine; Visit Provider Internal Medicine
DX: Z12.31 Encounter for screening mammogram for malignant neoplasm of breast (principal)
CPT/HCPCS: 77063; 77067

== ENCOUNTER 2024-07-12 09:23 | Outpatient (OUT) | payer BC, SELFPAY ==
--- NOTE | 2024-07-12 | XR_ITS ---
[place] [id number] Patient Name: FATMATA SCHULTZ MRN: [id number] date: 1975 Sex: F Assigned Patient Location: Current Patient Location: Accession/Order Number: [id number] Exam Date: 07/12/2024 10:07 Report Date: 07/12/2024 10:08 At the request of: MIHCAEL CALLEJAS MD Procedure: XR hand LT min 3V 3 views left hand plain film COMPARISON: None HISTORY: Left hand pain. Fell 2 days ago. ACUTE FINDINGS: Oblique fracture of the distal portion of the fifth metacarpal. No dislocation. Adjacent soft tissue swelling. DEGENERATIVE CHANGE: Unremarkable SOFT TISSUE FINDINGS: Unremarkable JOINT EFFUSION: None POSTOP CHANGES: None BONY MINERALIZATION: Adequate XR/XR hand LT min 3V IMPRESSION: Distal fifth metacarpal fracture. Impression dictated by: Morgan Day M.D.07/12/2024 10:08 AM Dictation Location: [employer] Electronically authenticated by: [id number] Y Date: 07/12/2024 10:08
--- OUTSIDE RECORDS SUMMARY | 2024-07-12 09:38 | XMS_ITS | CCD ---
Author Organization [facility] Care Team Providers Care Business Applications Specialist Name Role Phone Vicente Baum Primary Care Provider [phone] DARION HAND Admitting Unavailab DARION Jarvis Attending [...] Baum Unavailable VICENTE BAUM Primary Care Physician [phone] Claudy SCHMITZ Attending Unavailable BAUTISTA, VICENTE Referring Unavailable Claudy SCHMITZ Attending Unavailable MIRACLE, CECI Attending Unavailable MIRACLE, CECI Attending Unavailable Allergies Allergy Classification Reported Allergen(s) Allergy Type Date of Onset Reaction(s) Facility (1 source) No Known Medication Allergies; Translations: [No Known Medication Allergies] Propensity to adverse reactions (disorder) [facility] Repository Medications Current Medications Medication Drug Class(es) [...] Start: 01-14-2023 take 1 capsule by mo [facility] once daily FLUoxetine 20 mg Cap 20 [...] Active -Hx Entry for 0 *Reorder from [employer] for eRx and Interaction Alerts* Feb, Not-Taking [...] times daily for 7 *Pick strength-form from [employer] for eRX* 10 Apr, 2019 Not-Taking triamcinolone [...] Outside Colonoscopyon 2022 Outside Colonoscopy [id number]#1.00T IFF Normal [facility] Reminderson 03-20-2023 Reminders - From: Dolores Lee LPN To: [facility] - Clinical; Sent: 03/20/2023 08:53:50 EST Show up: 02/17/2033 07:00:00 EST Subject: colonoscopy recall Due Date/Time: 03/19/2033 07:00:00 EST Reminder/Recall Patient due for screening colonoscopy 03/19/2033. Normal [facility] Lab Reportson 03-19-2023 Lab Reports [id number] IFF [facility] Insurance Correspondenceon 1 04-27-2022 Insurance Correspondence [id number]#1.00 TIFF [facility] Consent for Procedure/Surger yon 02-12-2023 Consent for Procedure/Surgery [id number]#1.00 TIFF [facility] Facesheeton 02-12-2023 Facesheet [id number]#1.00 TIFF [facility] Ambulatory Visit Summaryon 04-13-2022 Ambulatory Visit [...] for choosing us for your care. Normal [facility] Physician Referralon 023 Physician Referral [id number]#1.00T IFF Normal [facility] PAP ACOG PANEL 2: 30 to 65on 07-18-2022 . . Normal [facility] Comment on above: Result Comment: Perf ormed at: WB Performed By: #### [id number] #### [facility] [address] [place] [address] Dr. Chloe Wells Age Gdln ACOG Testing 30-65 Normal [facility] Comment on above: Performed By: #### 4 [id number] #### [facility] [address] [address] [address] Chloe Wells DIAGNOSIS: Comment Normal [facility] Comment on above: Result Comment: NEGA TIVE FOR INTRAEPITHELIAL LESION OR MALIGNANCY. Performed at: WB Performed By: #### 4 [id number] #### [facility] [address] [address] [address] Chloe Wells HPV Aptima Positive Abnormal Negative [facility] Comment on above: Result Comment: This nucleic acid amplification test detects fourteen high-risk HPV types (16,18,31,33,35,39,45,51,52,56,58,59,66,68) without differentiation. Performed at: =G Performed By: #### 4 [id number] #### [facility] [address] [address] [address] Chloe Wells HPV Genotype 16 Negative Normal Negative [facility] Comment on above: Performed By: #### 4 [id number] #### [facility] [address] [place] [address] Dr. Chloe Wells HPV Genotype 18,45 Negative Normal Negative [facility] Comment on above: Performed By: #### 4 [id number] #### [facility] [address] [place] [address] Dr. Chloe Wells HPV Genotype Reflex Comment Normal [facility] Comment on above: Result Comment: Kira galicia, see HPV Genotype results. Performed at: WB Performed By: #### 4 [id number] #### [facility] [address] [place] [address] Dr. Chloe Wells Methodology: Comment Normal [facility] Comment on above: Result Comment: This liquid based ThinPrep(R) pap test was screened with the use of an image guided system. Performed at: WB Performed By: #### 4 [id number] #### [facility] [address] [place] [address] Dr. Chloe Wells Note: Comment Normal [facility] Comment on above: Result Comment: The Pap smear is a screening test designed to aid in the detection of premalignant and malignant conditions of the uterine cervix. It is not a diagnostic procedure and should not be used as the sole means of detecting cervical cancer. Both false-positive and false-negative reports do occur. . Performed at: WB Performed By: #### 4 [id number] #### [facility] [address] [place] [address] Dr. Chloe Wells Performed by: Comment Normal [facility] Comment on above: Result Comment: Rozina Benitez, Health Occupations Instructor (ASCP) Performed at: WB Performed By: #### 4 [id number] #### [facility] [address] [place] [address] Dr. Chloe Wells Specimen adequacy: Comment Normal [facility] Comment on above: Result Comment: Sati sfactory for evaluation. Endocervical and/or squamous metaplastic cells (endocervical component) are present. Performed at: WB Performed By: #### 4 [id number] #### [facility] [address] [place] [address] Dr. Chloe Wells CBC AUTO DIFFon 12-19-2021 BASO # 0.0 103/ul Normal 0.0-0.1 [facility] Comment on above: Performed By: #### C BC #### [facility] [address] [place] [address] Dr. Chloe Wells Basophils/100 WBC (Bld) 0.3 % Normal 0.2-2.0 [facility] Comment on above: Performed By: #### C BC #### [facility] [address] [place] [address] Dr. Chloe Wells EO # 0.2 103/ul Normal 0.0-0.7 [facility] Comment on above: Performed By: #### C BC #### [facility] [address] [place] [address] Dr. Chloe Wells Eosinophils/100 WBC (Bld) 2.9 % Normal 0.9-7.0 [facility] Comment on above: Performed By: #### C BC #### [facility] [address] [place] [address] Dr. Chloe Wells Erythrocyte distribution width (RBC) [Ratio] 12.4 % Normal 11.0-15.0 [facility] Comment on above: Performed By: #### C BC #### [facility] [address] [place] [address] Dr. Chloe Wells Hematocrit (Bld) [Volume fraction] 38.8 % Normal 36.0-48.0 [facility] Comment on above: Performed By: #### C BC #### [facility] [address] [place] [address] Dr. Chloe Wells Hemoglobin (Bld) [Mass/Vol] 13.0 g/dL Normal 12.0-16.0 [facility] Comment on above: Performed By: #### C BC #### [facility] [address] [place] [address] Dr. Chloe Wells IG # 0.01 10e3/ul Normal 0.00-0.03 [facility] Comment on above: Performed By: #### C BC #### [facility] [address] [address] [address] Chloe Wells IG % 0.2 % Normal 0.0-0.5 [facility] Comment on above: Performed By: #### C BC #### [facility] [address] [place] [address] Dr. Chloe Wells LYMPH # 2.0 103/ul Normal 1.2-3.8 [facility] Comment on above: Performed By: #### C BC #### [facility] [address] [place] [address] Dr. Chloe Wells Lymphocytes/100 WBC (Bld) 33.4 % Normal 20.5-60.0 [facility] Comment on above: Performed By: #### C BC #### [facility] [address] [place] [address] Dr. Chloe Wells MANUAL DIFF REQ NO Normal [facility] Comment on above: Performed By: #### C BC #### [facility] [address] [place] [address] Dr. Chloe Wells MCH (RBC) [Entitic mass] 30.2 pg Normal 26.7-34.0 [facility] Comment on above: Performed By: #### C BC #### [facility] [address] [place] [address] Dr. Chloe Wells MCHC (RBC) [Mass/Vol] 33.5 g/dL Normal 29.9-35.2 [facility] Comment on above: Performed By: #### C BC #### [facility] [address] [place] [address] Dr. Chloe Wells MCV (RBC) [Entitic vol] 90.0 fL Normal 81.0-99.0 [facility] Comment on above: Performed By: #### C BC #### [facility] [address] [place] [address] Dr. Chloe Wells MONO # 0.5 103/ul Normal 0.3-0.8 [facility] Comment on above: Performed By: #### C BC #### [facility] [address] [place] [address] Dr. Chloe Wells Monocytes/100 WBC (Bld) 8.0 % Normal 1.7-12.0 [facility] Comment on above: Performed By: #### C BC #### [facility] [address] [place] [address] Dr. Chloe Wells NEUT # 3.2 103/ul Normal 1.4-6.5 [facility] Comment on above: Performed By: #### C BC #### [facility] [address] [place] [address] Dr. Chloe Wells Neutrophils/100 WBC (Bld) 55.2 % Normal 43.0-75.0 [facility] Comment on above: Performed By: #### C BC #### [facility] [address] [place] [address] Dr. Chloe Wells Platelet mean volume (Bld) [Entitic vol] 8.9 fL Critically low 9.5-13.5 [facility] Comment on above: Performed By: #### C BC #### [facility] [address] [place] [address] Dr. Chloe Wells PLT 327 103/ul Normal 150-450 [facility] Comment on above: Performed By: #### C BC #### [facility] [address] [place] [address] Dr. Chloe Wells RBC 4.31 106/ul Normal 4.20-5.40 [facility] Comment on above: Performed By: #### C BC #### [facility] [address] [place] [address] Dr. Chloe Wells WBC 5.9 103/ul Normal 4.0-11.0 [facility] Comment on above: Performed By: #### C BC #### [facility] [address] [place] [address] Dr. Chloe Wells GLYCOHEMOGLOBIN A1Con 2021 ADA RECOMMENDATION SEE BELOW Normal [facility] Comment on above: Result Comment: ADA RECOMMENDED LIMIT 4.0 - 6.0 ADA THERAPEUTIC TARGET < 7.0 ACTION SUGGESTED > 7.0 Performed By: #### A 1C #### [facility] [address] [address] [address] Chloe Wells Glucose [Mass/Vol] 105 mg/dL Normal [facility] Comment on above: Performed By: #### A 1C #### [facility] [address] [address] [address] Chloe Wells HbA1c (Bld) [Mass fraction] 5.3 % Normal 4.5-6.2 [facility] Comment on above: Performed By: #### A 1C #### [facility] [address] [place] [address] Dr. Chloe Wells LIPID PROFILEon 12-19-2021 CHOL-HDL RATIO NORM SEE BELOW Normal [facility] Comment on above: Result Comment: 3.3 - 4.4 LOW RISK 4.4 - 7.1 AVERAGE RISK 7.1 - 11.0 MODERATE RISK >11.0 HIGH RISK Performed By: #### C MP, TSH, LIPID #### [facility] [address] [place] [address] Dr. Chloe Wells Cholesterol [Mass/Vol] 171 mg/dL Normal <=200 [facility] Comment on above: Performed By: #### C MP, TSH, LIPID #### [facility] [address] [place] [address] Dr. Chloe Wells Cholesterol in HDL [Mass/Vol] 63 mg/dL Critically high 40-60 [facility] Comment on above: Performed By: #### C MP, TSH, LIPID #### [facility] [address] [place] [address] Dr. Chloe Wells Cholesterol in LDL [Mass/Vol] 99.2 mg/dL Normal [facility] Comment on above: Performed By: #### C MP, TSH, LIPID #### [facility] [address] [place] [address] Dr. Chloe Wells Cholesterol.total/Ch olesterol in HDL [Mass ratio] 2.7 {ratio} Normal [facility] Comment on above: Performed By: #### C MP, TSH, LIPID #### [facility] [address] [place] [address] Dr. Chloe Wells HDL NORMAL > or = 60 mg/dl - LO W CARDIOVASCULAR RISK <40 mg/dl - HIGH CARDIOVASCULAR RISK Normal [facility] Comment on above: Performed By: #### C MP, TSH, LIPID #### [facility] [address] [address] [address] Chloe Wells LDL CALC NORMAL SEE BELOW Normal [facility] Comment on above: Result Comment: <100 mg/dl OPTIMAL 100 - 129 mg/dl NEAR OR ABOVE OPTIMAL 130 - 159 mg/dl BORDERLINE HIGH 160 - 189 mg/dl HIGH >190 mg/dl VERY HIGH Performed By: #### C MP, TSH, LIPID #### [facility] [address] [address] [address] Chloe Wells Triglyceride [Mass/Vol] 44 mg/dL Normal <=150 [facility] Comment on above: Performed By: #### C MP, TSH, LIPID #### [facility] [address] [address] [address] Chloe Wells VLDL CALC 8.8 mg/dL Normal [facility] Comment on above: Performed By: #### C MP, TSH, LIPID #### [facility] [address] [address] [address] Chloe Wells PROF 14(COMP METB)on 022 Albumin [Mass/Vol] 3.8 g/dL Normal 3.4-5.0 [facility] Comment on above: Performed By: #### C MP, TSH, LIPID #### [facility] [address] [address] [address] Chloe Wells Albumin/Globulin [Mass ratio] 1.3 {ratio} Normal [facility] Comment on above: Performed By: #### C MP, TSH, LIPID #### [facility] [address] [address] [address] Chloe Wells ALP [Catalytic activity/Vol] 54 U/L Normal 46-116 [facility] Comment on above: Performed By: #### C MP, TSH, LIPID #### [facility] [address] [address] [address] Chloe Wells ALT [Catalytic activity/Vol] 20 U/L Normal 14-59 [facility] Comment on above: Performed By: #### C MP, TSH, LIPID #### [facility] [address] [place] [address] Dr. Chloe Wells Anion gap [Moles/Vol] 9.9 mmol/L Normal [facility] Comment on above: Performed By: #### C MP, TSH, LIPID #### [facility] [address] [place] [address] Dr. Chloe Wells AST [Catalytic activity/Vol] 14 U/L Critically low 15-37 [facility] Comment on above: Performed By: #### C MP, TSH, LIPID #### [facility] [address] [place] [address] Dr. Chloe Wells Bilirubin [Mass/Vol] 0.6 mg/dL Normal 0.2-1.0 [facility] Comment on above: Performed By: #### C MP, TSH, LIPID #### [facility] [address] [place] [address] Dr. Chloe Wells Calcium [Mass/Vol] 8.5 mg/dL Normal 8.5-10.1 [facility] Comment on above: Performed By: #### C MP, TSH, LIPID #### [facility] [address] [place] [address] Dr. Chloe Wells Chloride [Moles/Vol] 104 mmol/L Normal 98-107 [facility] Comment on above: Performed By: #### C MP, TSH, LIPID #### [facility] [address] [place] [address] Dr. Chloe Wells CO2 [Moles/Vol] 27.3 mmol/L Normal 21.0-32.0 [facility] Comment on above: Performed By: #### C MP, TSH, LIPID #### [facility] [address] [place] [address] Dr. Chloe Wells Creatinine [Mass/Vol] 0.74 mg/dL Normal 0.55-1.02 [facility] Comment on above: Performed By: #### C MP, TSH, LIPID #### [facility] [address] [place], [place] [address] Dr. Chloe Wells EGFR-AF TURKS AND CAICOS ISLANDER >60 Normal >=60 [facility] Comment on above: Performed By: #### C MP, TSH, LIPID #### [facility] [address] [place] [address] Dr. Chloe Wells EGFR-NON AF TURKS AND CAICOS ISLANDER >60 Normal >=60 [facility] Comment on above: Performed By: #### C MP, TSH, LIPID #### [facility] [address] [place] [address] Dr. Chloe Wells Globulin (S) [Mass/Vol] 2.9 g/dL Normal [facility] Comment on above: Performed By: #### C MP, TSH, LIPID #### [facility] [address] [place] [address] Dr. Chloe Wells Glucose [Mass/Vol] 110 mg/dL Critically high 74-106 [facility] Comment on above: Performed By: #### C MP, TSH, LIPID #### [facility] [address] [place] [address] Dr. Chloe Wells Potassium [Moles/Vol] 4.2 mmol/L Normal 3.5-5.1 [facility] Comment on above: Performed By: #### C MP, TSH, LIPID #### [facility] [address] [place] [address] Dr. Chloe Wells Protein [Mass/Vol] 6.7 g/dL Normal 6.4-8.2 [facility] Comment on above: Performed By: #### C MP, TSH, LIPID #### [facility] [address] [place] [address] Dr. Chloe Wells Sodium [Moles/Vol] 137 mmol/L Normal 136-145 [facility] Comment on above: Performed By: #### C MP, TSH, LIPID #### [facility] [address] [place] [address] Dr. Chloe Wells Urea nitrogen [Mass/Vol] 18.0 mg/dL Normal 7.0-18.0 [facility] Comment on above: Performed By: #### C MP, TSH, LIPID #### [facility] [address] [place], [place] [address] Dr. Chloe Wells Urea nitrogen/Creatinine [Mass ratio] 24.3 mg/mg Normal [facility] Comment on above: Performed By: #### C MP, TSH, LIPID #### [facility] [address] [place], [place] [address] Dr. Chloe Wells TSHon 12-19-2021 TSH 1.733 uIU/mL Normal 0.358-3.740 [facility] Comment on above: Performed By: #### C MP, TSH, LIPID #### [facility] [address] [place], [place] [address] Dr. Chloe Wells SURGICAL PATH REPORTon 07-31 SURGICAL PATH REPORT [facility] Department of Pathology [address] [place] [id number] Name: GABRIELA ROSE : 1975 Financial [id number] Number: Gender: Female Location: [facility] Admit 45 years Attending JAMAL SWAN Age: Provider: Ordering MICHAEL HERNÁNDEZ Provider: Consulting: Surgical Pathology Report ACCESSION: COLLECTED DATE/TIME: RECEIVED DATE/TIME: PATHOLOGIST: [id number] 07/26/2020 11:13 EDT 07/26/2020 14:42 EDT KENDELL COLON, BRANT WEBER Final Diagnosis Report for [facility] [place] LEFT BREAST, UPPER OUTER QUADRANT, MICROCALCIFICATIONS, [...] Print Date/ 07/31/2020 14:04 EDT Number: Time: [facility] Department of Pathology [address] [place] [id number] Name: GABRIELA ROSE : 1975 [facility] [id number] Number: Gender: Female Location: [facility] Admit 45 years Attending JAMAL SWAN Age: Provider: Ordering MICHAEL HERNÁNDEZ Provider: Consulting: Surgical Pathology Report ACCESSION: COLLECTED DATE/TIME: RECEIVED DATE/TIME: PATHOLOGIST: [id number] 07/26/2020 11:13 EDT 07/26/2020 14:42 EDT KENDELL [...] MP:saul 07/26/2020 Tissue pathology report for: [facility], [address] [place] [address]; PATHOLOGY SERVICES PROVIDED BY [facility] (CLIA #[id number]) in cooperation with [facility] at [address] [place] [address] (CLIA #[id number]) Codes CPT CODE: 75124 ____ Print Date07/31/2020 14:04 EDT Number: Time: Normal [facility] Comment on above: Performed By: #### [id number] #### [facility] Laboratory Services [address] [place] [address] Technology Strategist: Jim Treadwell MD OPERATIVE REPORTon OPERATIVE REPORT [address] [address] OPERATIVE REPORT PATIENT NAME: GABRIELA ROSE : 1975 MED REC NO: [id number] ROOM: ACCOUNT NO: [id number] ADMIT DATE: 12/09/2018 PROVIDER: Darion Hand DATE [...] sponge counts correct. DARION HAND [id number] Doc#: [id number] CC: Normal [facility] Surgical Pathologyon 019 Surgical Pathology (NOTE) [id number] [employer] CONSULTING PATHOLOGISTS [facility] ANATOM[facility] PATH[facility] [address] [place] [id number] SURGICAL PATHOLOGY CONSULTATION Patient Name: GABRIELA ROSE [facility] Rec: [id number] Path Number: [id number] Collected: 12/09/2018 Received: 12/09/2018 Reported: 12/10/2018 13:49 [...] periphery, consistent with a benign lipoma. Normal [facility] Comment on above: Performed By: #### P PPVDP #### [employer] [address] [place] [id number] Chief Technical Officer: Chris Michaels MD Vital Signs Date Time Vital Sign Value Performing Clinician Facility 02-20-2024 14: Body height 165.1 cm [facility] 02-20-2024 14:050 Body mass index (BMI) [Ratio] 29.6 kg/m2 [facility] 02-20-2024 14: Body weight 80.73 kg [facility] 02-20-2024 14:050 Diastolic blood pressure 79 mm[Hg] [facility] 02-20-2024 14:0500 Heart rate 102 /min [facility] 02-20-2024 14:21-0500 Systolic blood pressure 115 mm[Hg] [facility] 10-28-2023 15:18-0400 Body height 165.1 cm [facility] 10-28-2023 15:18-0400 Body mass index (BMI) [Ratio] 29.1 kg/m2 [facility] 10-28-2023 15:18-0400 Body weight 79.49 kg [facility] 10-28-2023 15:18-0400 Diastolic blood pressure 86 mm[Hg] [facility] 10-28-2023 15:18-0400 Heart rate 78 /min [facility] 10-28-2023 15:18-0400 Respiratory rate 12 /min [facility] 10-28-2023 15:18-0400 Systolic blood pressure 124 mm[Hg] [facility] 02-11-2023 14:18-0500 Blood Pressure Location Claudy JOL [facility] 02-11-2023 14:18-0500 Diastolic blood pressure 80 mm[Hg] Claudy JOL [facility] 02-11-2023 14:18-0500 Heart rate 70 /min Claudy JOL [facility] 02-11-2023 14:18-0500 Respiratory rate 16 /min Claudy JOL [facility] 02-11-2023 14:18-0500 Systolic blood pressure 124 mm[Hg] Claudy JOL [facility] 01-14-2023 14:30-0400 Body height 165.1 cm Vicente Ball Other [facility] 01-14-2023 14:30-0400 Body mass index (BMI) [Ratio] 29.88 kg/m2 Vicente Ball Other [facility] 01-14-2023 14:30-0400 Body weight 81.47 kg Vicente Ball Other [facility] Other 01-14-2023 14:30-0400 Diastolic blood pressure 79 mm[Hg] Vicente Ball Other [facility] Other 01-14-2023 14:30-0400 Respiratory rate 12 /min Vicente Ball Other [facility] Other 01-14-2023 14:30-0400 Systolic blood pressure 111 mm[Hg] Vicente Ball Other [facility] Other 06-27-2021 14:00-0400 Body height 165.1 cm Harper Banda Other [facility] Other 06-27-2021 14:00-0400 Body mass index (BMI) [Ratio] 26.62 kg/m2 Harper Banda Other [facility] Other 06-27-2021 14:00-0400 Body weight 72.58 kg Harper Banda Other [facility] Other 12-09-2018 08:41-0400 Body Temperature 97.3 [degF] Darion [employer] 12-09-2018 08:41-0400 BP Diastolic 76 mm[Hg] [facility] [place] 12-09-2018 08:41-0400 BP Systolic 117 mm[Hg] [facility] [place] 12-09-2018 08:41-0400 Pulse (Heart Rate) 72 /min [facility] [place] 12-09-2018 08:41-0400 Pulse Oximetry 99 % [facility] [place] 12-09-2018 08:41-0400 Respiratory Rate 14 /min Darion [employer] [facility], [place] 12-09-2018 06:14-0400 BMI (Body Mass Index) 30.35 kg/m2 Darion Hand [facility], [place] 12-09-2018 06: Body weight 82.72 kg Darion Hand [facility] , [place] 12-09-2018 06: Height 165.1 cm Darion Monteirosler [facility] , [place] Encounters Encounter Date Encounter Type Care Provider Facility Start: 02-20-2024 Patient encounter status [facility] Start: 02-20-2024 End: 02-20-[address] [facility] Work Phone: Start: 02-20-2024 End: 02-20-2024 Encounter for general adult medical examination without abnormal findings [facility] Start: 02-20-2024 End: 02-20-2024 Patient encounter procedure [facility] Work Phone: Start: 10-28-2023 End: 10-28-[address] [facility] Work Phone: Start: 10-28-2023 End: 10-28-2023 Patient encounter procedure [facility] Physician [facility] Work Phone: Start: 08-14-2023 End: 08-14-2023 ambulatory CECI RAUSCH Not Available Start: 07-30-2023 Non-patient / Non-visit [facility] Work Phone: Start: 07-15-2023 End: 07-15-2023 ambulatory CECI RAUSCH Not Available Start: 03-19-2023 End: 03-20-2023 ambulatory Claudy R LEONOR Facility:[id number] Start: 02-11-2023 End: 02-12-2023 ambulatory Claudy R LEONOR Facility:[facility] Start: 02-11-2023 End: 02-11-2023 Patient encounter procedure Claudy R SANDROL [facility] Start: 02-05-2023 End: 02-05-2023 ambulatory Vicente Baum Other [employer] Other Start: 02-05-2023 Telephone encounter Vicente CHAO [facility] Start: 01-17-2023 End: 01-17-2023 ambulatory Vicente Baum Other [employer] Other Start: 01-17-2023 Telephone encounter Vicente CHAO [facility] Start: 01-16-2023 ambulatory Claudy JOKeith Facility:[facility] Start: 01-14-2023 End: 01-14-2023 ambulatory Vicente Baum Other [employer] Other Start: 01-14-2023 Encounter for genera l adult medical examination without abnormal findings Vicente Baum [facility] Start: 01-14-2023 Periodic preventive med est patient 40-64yrs Vicente Baum [facility] Start: 07-11-2022 End: 07-11-[address] VICENTE BAUM Facility:[facility] Start: 06-28-[address] LUZ YAENS Facilit y:[facility] Start: 12-23-2021 Encounter for genera l adult medical examination without abnormal findings DR VICENTE BAUM [facility] Start: 12-19-2021 End: 12-20-[address] VICENTE BAUM Facility:[facility] Start: 12-19-2021 End: 12-20-2021 Encounter for general adult medical examination without abnormal findings DR VICENTE BAUM Facility:[facility] Start: 10-18-2021 End: 04-26-[address] LUZ YANES Facility:[facility] Start: 08-10-2021 End: 08-25-[address] VICENTE BAUM Facility:[facility] Start: 06-27-2021 End: 06-27-2021 ambulatory Harper Banda Other [employer] Other Start: 06-27-2021 Office outpatient ne w 30 minutes Harper Banda [facility] Start: 12-09-2018 End: 12-09-2018 Patient encounter procedure DARION HAND [facility] Start: 12-09-2018 End: 12-09-2018 Subsequent hospital visit by physician Darion Hand Work Phone: [facility] [place] Comment on above: Post-op pain [...] Visit Plastic Surgery Darion Hand MD [address], [place] [id number] [facility] Start: 12-06-2018 Influenza vaccination Flu vaccine (# 1) [place], [place] Start: 2016 Diabetes screen Diabetes screen [place], [place] Start: 2016 Lipid screen Lipid screen [place], [place] Start: 1997 Cervical cancer screen Cervical canc er screen [place], [place] Start: 06-09-1995 DTaP/Tdap/Td vaccine (1 - Tdap) DTaP/Tdap/Td vaccine (1 - Tdap) [place], [place] Start: 06-09-1991 HIV screen HIV screen [place], [place] End: 12-09-2018 Blood glucose - POCT Blood glucose - POCT Point of Care Testing Routine One Time for 1 Occurrences starting 12/09/2018 until 12/09/2018 [place], [place] Comment on above: One Time for 1 Occur rences starting 12/09/2018 until 12/09/2018 Comprehensive metabo lic 2000 panel - Serum or Plasma [facility] Initiate Oxygen Ther apy Protocol Initiate Oxygen Therapy Protocol Respiratory Care Routine Daily until discontinued starting 12/09/2018 [place], [place] Comment on above: Daily until disconti nued starting 12/09/2018 MG Breast - bilatera l Screening [facility] Phase I & II - meter ed glucose Phase I & II - metered glucose Point of Care Testing Routine As Needed until discontinued starting 12/09/2018 [place], [place] Comment on above: As Needed until disc ontinued starting 12/09/2018 End: 12-09-2018 , urine POCT , urine POCT Point of Care Testing Routine One Time for 1 Occurrences starting 12/09/2018 until 12/09/2018 [place], [place] Comment on above: One Time for 1 Occur rences starting 12/09/2018 until 12/09/2018 Surgical Pathology Surgical Path ology Lab Routine ONE TIME for 1 Occurrences starting 12/09/2018 [place], [place] Comment on above: ONE TIME for 1 Occur rences starting 12/09/2018 [facility] Immunizations Immunization Date Immunization Notes Care Provider Fa cili 01-05-2023 influenza virus vaccine, unspecified formulation Claudy SCHMITZ [facility] 01-26-2021 SARS-CoV-2 (COVID-19 ) mRNA-1273 vaccine Claudy SCHMITZ [facility] 05-10-2020 SARS-CoV-2 (COVID-19 ) mRNA-1273 vaccine Claudy SCHMITZ [facility] 01-05-2021 SARS-CoV-2 (COVID-19 ) [id number]-[id number] vaccine Claudy SCHMITZ [facility] Payers Date Payer Category Payer Unknown [id number] 2019 Unknown [id number] 2018 Unknown [employer] [address] xxxxxxxxx 2018-Present [phone] [address] [place] [address] xxxxxxxxx [id number] 2018 Unknown [id number] 1976 Unknown [id number] 1976 Unknown [id number] 1976 Unknown [id number] 1976 Unknown [id number] 1976 Unknown [id number] 1976 Unknown [id number] 1976 Unknown [id number] 1976 Unknown [id number] 1976 Unknown [id number] 1976 Unknown [id number] 1958 Self-pay [id number] Social History Date Type Detail Facility Start: 12-09-2018 End: 02-11-2023 Tobacco smoking status NHIS Never smoker [facility] Start: 12-09-2018 Alcohol intake Yes [facility] Start: 12-01-2018 Alcohol Comment weekend use [facility] [place] [place] Sex Assigned At Not on file Mavis [place]- [place], [place] Tobacco smoking status Never [facility] Start: 1975 Sex Assigned At Female F [facility] Work Phone: Start: 02-20-2024 Sex Female (finding) [facility] Functional Status Date Assessment Result Facility 02-11-2023 Functional Status N/A [facility] 06-27-2021 to 02-11-2023 Note [...] Recorded SARS-CoV-2 (COVID-19) mRNA-1273 vaccine 04/11/2020 Recorded [facility] Comment on above: Result Comment: Elec tronically Signed By: LEONOR COLON, Claudy Mireles\Date and Time Signed: 02/11/23 14:43 EST 02-05-2023 Evaluation note Encounter Date Diagnosis Assessment Notes Feb, Seasonal affective disorder (ICD-10 - F33.8) [employer] Other 10-10-2023 Evaluation note* Encounter Date Diagnosis [...] She is an asymptomatic, low risk patient [facility] Other 03-23-2022 Evaluation note* Encounter Date Diagnosis [...] Jun, Left elbow pain (ICD-10 - M25.522) [employer] Other Evaluation + Plan note No data available for this section [facility] Evaluation noteNo InformationNort [employer] Other Evaluation note* Diagnosis Onset Date Resolution Status Insomnia acute Overweight acute Seasonal affective disorder acute [facility] Work Phone: Evaluation note* Diagnosis Onset Date Resolution Status Admit Date Wellness examination acute Nove mber 2023 2:07pm [facility] Work Phone: History general Narrative - Reported* Type Description Date Medical History Seasonal Affective Disorder Surgical History x 2 Surgical History tonsilectomy Surgical History tubal ligation Hospitalization History see surgeries [facility] Other Hospital Discharge instructions No data available for this section [facility] [employer] Progress note No data available for this section [facility] [employer] Reason for referral (narrative)* Reason Referral for screeni ng colonoscopy Diagnosis 1 Screening for colon cancer (Z12.11) Referral Organization [facility] aliza Referring Provider First Name Vicente Referring Provider Last Name Bautista Referring Provider Specialty Internal Me dicine Referred Organization [facility] Referred Provider Claudy Schmitz Referred Address [address] [facility],[address] Referred Provider Specialty Surgery Referral Priority Routine General Notes Asymptomatic, low ri sk patient. She denies change in appetite, weight or bowel habits. She denies heartburn or dysphagia. She denies abdominal pain, melena or hematochezia. [facility] Other Discharge Instructions * Instructions* Brittney Batista [...] AM EDT CLINICAL PHARMACY NOTE: MEDS TO [facility] Select Patient?: No Total # of Prescriptions Filled: 2 The following medications were delivered to the patient: cephalexin norco Total # of Interventions Completed: 1 Time Spent (min): 0 Additional Documentation: * Jamal Garcia RN - 12/09/2018 6:34 AM EDT Urine test results-negative * Ranjit Zendejas RN - 12/01/2018 1:26 PM EDT DAY OF SURGERY/PROCEDURE GUIDELINES As a patient at the [facility], you can expect quality medical and nursing care that is centered on your individual needs. It is our goal to make your surgical experience as comfortable and excellent as possible. Please arrive at 0600 with an empty stomach. No jewelry or piercings on. Must have a driver/sales workers home and in the waiting room. The [...] morning of your surgery/procedure (Hibiclens if directed) [place]ing your teeth, but do not swallow any [...] your Living Will or Durable Power of [employer] Curator DO NOT take anticoagulants (blood thinners, aspirin [...] are recovering, the surgery family waiting room complementary health therapists can answer many of your family's questions. [...] Documents on File Type Date Recorded Patient Recovery Coordinator Expl anation Advance Directives and Living Will Power of [employer] Curator Advance Directive Response Recorded Date/ Time Advance [...] mass and lump, unspecified MASS FOREHEAD Procedures SD EXCISION TUMOR SOFT TISS FACE/SCALP SUBQ 2+CM SD EXC SKIN MALIG 2.1-3CM FACE,FACIAL SD EXC SKIN BENIG 2.1-3CM FACE,FACIAL SD ADJ TISS XFER HEAD,FAC,HAND <10SQCM HEAD LESION EXCISION Darion Hand MD [address] [place] [address] [facility] INFORMATION SOURCE (unrecogn ized section and content) DATE CREATED AUTHOR 12/15/2018 [facility] DATE CREATED AUTHOR AUTHOR'S ORGANIZ ATION 08/18/2020 [facility] DATE CREATED AUTHOR AUTHOR'S ORGANIZ ATION 07/20/2022 [facility] DATE CREATED AUTHOR AUTHOR'S ORGANIZ ATION 03/25/2023 [facility] DATE CREATED AUTHOR AUTHOR'S ORGANIZ ATION 08/16/2023 [facility] EPIC Patient Care team informatio [...] BE BASED ON THE PRIMARY CLINICAL RECORDS. [facility]. provides no warranty or guarantee of the accuracy or completeness of information in this document.
== END 2024-07-12 09:24 | disposition home or self-care (01) ==
LOC: EC 09:24
PROVIDERS: PCP Family Medicine; Visit Provider Orthopaedic Surgery
DX: M79.642 Pain in left hand (principal); S62.397A Other fracture of fifth metacarpal bone, left hand, initial encounter for closed fracture
CPT/HCPCS: 73130

== ENCOUNTER 2024-07-19 07:38 | Outpatient (OUT) | payer BC, SELFPAY ==
--- NOTE | 2024-07-19 | XR_ITS ---
The [address] [address] Patient Name: FATMATA SCHULTZ MRN: [id number] date: 1975 Sex: F Assigned Patient Location: Current Patient Location: Accession/Order Number: [id number] Exam Date: 07/19/2024 09:57 Report Date: 07/19/2024 09:59 At the request of: MICHAEL CALLEJAS MD Procedure: XR hand LT min 3V LEFT HAND - 3 views CLINICAL DATA: Follow-up fifth metacarpal fracture COMPARISON: 07/12/2024 AP, lateral and oblique views were obtained in a cast which somewhat obscures fine bone detail. An oblique fracture is again visualized at the distal fifth metacarpal extending from the lateral distal shaft to the medial aspect of the metacarpal head at the margin of the articular surface. There is still mild displacement and overriding of fracture fragments. There is no new fracture or dislocation. There are no significant soft tissue abnormalities. XR/XR hand LT min 3V IMPRESSION: STABLE FIFTH METACARPAL FRACTURE Impression dictated by: Gwen Marquez M.D.07/19/2024 9:59 AM Dictation Location: [place] [address] Electronically authenticated by: [id number] Date: 07/19/2024 09:59
--- OUTSIDE RECORDS SUMMARY | 2024-07-19 07:41 | XMS_ITS | CCD ---
Author Organization 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#1.00T IFF Normal [facility] Reminderson 03-20-2023 Reminders - From: Dolores Lee LPN To: [facility] - Clinical; Sent: 03/20/2023 08:53:50 EST Show up: 02/17/2033 07:00:00 EST Subject: colonoscopy recall Due Date/Time: 03/19/2033 07:00:00 EST Reminder/Recall Patient due for screening colonoscopy 03/19/2033. Normal [facility] Lab Reportson 03-19-2023 Lab Reports [id number]#1.00T IFF [facility] Insurance Correspondenceon 1 04-27-2022 Insurance Correspondence [id number]#1.00 TIFF [facility] Consent for Procedure/Surger yon 02-12-2023 Consent for Procedure/Surgery [id number]#1.00 TIFF [facility] Facesheeton 02-12-2023 Facesheet [id number]#1.00 TIFF [facility] Ambulatory Visit Summaryon 04-13-2022 Ambulatory Visit [...] for choosing us for your care. Normal [facility] Physician Referralon 023 Physician Referral [id number]#1.00T IFF Normal [facility] PAP ACOG PANEL 2: 30 to 65on 07-18-2022 . . Normal [facility] Comment on above: Result Comment: Perf ormed at: WB Performed By: #### [id number] #### [facility] [address] [place] [address] Dr. Chloe Wells Age Gdln ACOG Testing 30-65 Normal [facility] Comment on above: Performed By: #### 4 [id number] #### [facility] [address] [address] [address] Chloe Wells DIAGNOSIS: Comment Normal [facility] Comment on above: Result Comment: NEGA TIVE FOR INTRAEPITHELIAL LESION OR MALIGNANCY. Performed at: WB Performed By: #### 4 [id number] #### [facility] [address] [address] [address] Chloe Wells HPV Aptima Positive Abnormal Negative [facility] Comment on above: Result Comment: This nucleic acid amplification test detects fourteen high-risk HPV types (16,18,31,33,35,39,45,51,52,56,58,59,66,68) without differentiation. Performed at: =G Performed By: #### 4 [id number] #### [facility] [address] [address] [address] Chloe Wells HPV Genotype 16 Negative Normal Negative [facility] Comment on above: Performed By: #### 4 [id number] #### [facility] [address] [place] [address] Dr. Chloe Wells HPV Genotype 18,45 Negative Normal Negative [facility] Comment on above: Performed By: #### 4 [id number] #### [facility] [address] [place] [address] Dr. Chloe Wells HPV Genotype Reflex Comment Normal [facility] Comment on above: Result Comment: Kira galicia, see HPV Genotype results. Performed at: WB Performed By: #### 4 [id number] #### [facility] [address] [place] [address] Dr. Chloe Wells Methodology: Comment Normal [facility] Comment on above: Result Comment: This liquid based ThinPrep(R) pap test was screened with the use of an image guided system. Performed at: WB Performed By: #### [id number] #### [facility] [address] [place] [address] Dr. Chloe Wells Note: Comment Normal [facility] Comment on above: Result Comment: The Pap smear is a screening test designed to aid in the detection of premalignant and malignant conditions of the uterine cervix. It is not a diagnostic procedure and should not be used as the sole means of detecting cervical cancer. Both false-positive and false-negative reports do occur. . Performed at: WB Performed By: #### 4 [id number] #### [facility] [address] [place] [address] Dr. Chloe Wells Performed by: Comment Normal [facility] Comment on above: Result Comment: Rozina Benitez, Nutrition Tech (ASCP) Performed at: WB Performed By: #### 4 [id number] #### [facility] [address] [place] [address] Dr. Chloe Wells Specimen adequacy: Comment Normal [facility] Comment on above: Result Comment: Sati sfactory for evaluation. Endocervical and/or squamous metaplastic cells (endocervical component) are present. Performed at: WB Performed By: #### 4 [id number] #### [facility] [address] [place] [address] Dr. Chloe Wells CBC AUTO DIFFon 12-19-2021 BASO # 0.0 103/ul Normal 0.0-0.1 [facility] Comment on above: Performed By: #### C BC #### [facility] [address] [place] [address] Dr. Chloe Wells Basophils/100 WBC (Bld) 0.3 % Normal 0.2-2.0 [facility] Comment on above: Performed By: #### C BC #### [facility] [address] [place] [address] Dr. Chloe Wells EO # 0.2 103/ul Normal 0.0-0.7 [facility] Comment on above: Performed By: #### C BC #### [facility] [address] [place] [address] Dr. Chloe Wells Eosinophils/100 WBC (Bld) 2.9 % Normal 0.9-7.0 [facility] Comment on above: Performed By: #### C BC #### [facility] [address] [place] [address] Dr. Chloe Wells Erythrocyte distribution width (RBC) [Ratio] 12.4 % Normal 11.0-15.0 [facility] Comment on above: Performed By: #### C BC #### [facility] [address] [place] [address] Dr. Chloe Wells Hematocrit (Bld) [Volume fraction] 38.8 % Normal 36.0-48.0 [facility] Comment on above: Performed By: #### C BC #### [facility] [address] [place] [address] Dr. Chloe Wells Hemoglobin (Bld) [Mass/Vol] 13.0 g/dL Normal 12.0-16.0 [facility] Comment on above: Performed By: #### C BC #### [facility] [address] [place] [address] Dr. Chloe Wells IG # 0.01 10e3/ul Normal 0.00-0.03 [facility] Comment on above: Performed By: #### C BC #### [facility] [address] [address] [address] Chloe Wells IG % 0.2 % Normal 0.0-0.5 [facility] Comment on above: Performed By: #### C BC #### [facility] [address] [place] [address] Dr. Chloe Wells LYMPH # 2.0 103/ul Normal 1.2-3.8 [facility] Comment on above: Performed By: #### C BC #### [facility] [address] [place] [address] Dr. Chloe Wells Lymphocytes/100 WBC (Bld) 33.4 % Normal 20.5-60.0 [facility] Comment on above: Performed By: #### C BC #### [facility] [address] [place] [address] Dr. Chloe Wells MANUAL DIFF REQ NO Normal [facility] Comment on above: Performed By: #### C BC #### [facility] [address] [place] [address] Dr. Chloe Wells MCH (RBC) [Entitic mass] 30.2 pg Normal 26.7-34.0 [facility] Comment on above: Performed By: #### C BC #### [facility] [address] [place] [address] Dr. Chloe Wells MCHC (RBC) [Mass/Vol] 33.5 g/dL Normal 29.9-35.2 [facility] Comment on above: Performed By: #### C BC #### [facility] [address] [place] [address] Dr. Chloe Wells MCV (RBC) [Entitic vol] 90.0 fL Normal 81.0-99.0 [facility] Comment on above: Performed By: #### C BC #### [facility] [address] [place] [address] Dr. Chloe Wells MONO # 0.5 103/ul Normal 0.3-0.8 [facility] Comment on above: Performed By: #### C BC #### [facility] [address] [place] [address] Dr. Chloe Wells Monocytes/100 WBC (Bld) 8.0 % Normal 1.7-12.0 [facility] Comment on above: Performed By: #### C BC #### [facility] [address] [place] [address] Dr. Chloe Wells NEUT # 3.2 103/ul Normal 1.4-6.5 [facility] Comment on above: Performed By: #### C BC #### [facility] [address] [place] [address] Dr. Chloe Wells Neutrophils/100 WBC (Bld) 55.2 % Normal 43.0-75.0 [facility] Comment on above: Performed By: #### C BC #### [facility] [address] [place] [address] Dr. Chloe Wells Platelet mean volume (Bld) [Entitic vol] 8.9 fL Critically low 9.5-13.5 [facility] Comment on above: Performed By: #### C BC #### [facility] [address] [place] [address] Dr. Chloe Wells PLT 327 103/ul Normal 150-450 [facility] Comment on above: Performed By: #### C BC #### [facility] [address] [place] [address] Dr. Chloe Wells RBC 4.31 106/ul Normal 4.20-5.40 [facility] Comment on above: Performed By: #### C BC #### [facility] [address] [place] [address] Dr. Chloe Wells WBC 5.9 103/ul Normal 4.0-11.0 [facility] Comment on above: Performed By: #### C BC #### [facility] [address] [place] [address] Dr. Chloe Wells GLYCOHEMOGLOBIN A1Con 2021 ADA RECOMMENDATION SEE BELOW Normal [facility] Comment on above: Result Comment: ADA RECOMMENDED LIMIT 4.0 - 6.0 ADA THERAPEUTIC TARGET < 7.0 ACTION SUGGESTED > 7.0 Performed By: #### A 1C #### [facility] [address] [address] [address] Chloe Wells Glucose [Mass/Vol] 105 mg/dL Normal [facility] Comment on above: Performed By: #### A 1C #### [facility] [address] [address] [address] Chloe Wells HbA1c (Bld) [Mass fraction] 5.3 % Normal 4.5-6.2 [facility] Comment on above: Performed By: #### A 1C #### [facility] [address] [place] [address] Dr. Chloe Wells LIPID PROFILEon 12-19-2021 CHOL-HDL RATIO NORM SEE BELOW Normal [facility] Comment on above: Result Comment: 3.3 - 4.4 LOW RISK 4.4 - 7.1 AVERAGE RISK 7.1 - 11.0 MODERATE RISK >11.0 HIGH RISK Performed By: #### C MP, TSH, LIPID #### [facility] [address] [place] [address] Dr. Chloe Wells Cholesterol [Mass/Vol] 171 mg/dL Normal <=200 [facility] Comment on above: Performed By: #### C MP, TSH, LIPID #### [facility] [address] [place] [address] Dr. Chloe Wells Cholesterol in HDL [Mass/Vol] 63 mg/dL Critically high 40-60 [facility] Comment on above: Performed By: #### C MP, TSH, LIPID #### [facility] [address] [place] [address] Dr. Chloe Wells Cholesterol in LDL [Mass/Vol] 99.2 mg/dL Normal [facility] Comment on above: Performed By: #### C MP, TSH, LIPID #### [facility] [address] [place] [address] Dr. Chloe Wells Cholesterol.total/Ch olesterol in HDL [Mass ratio] 2.7 {ratio} Normal [facility] Comment on above: Performed By: #### C MP, TSH, LIPID #### [facility] [address] [place] [address] Dr. Chloe Wells HDL NORMAL > or = 60 mg/dl - LO W CARDIOVASCULAR RISK <40 mg/dl - HIGH CARDIOVASCULAR RISK Normal [facility] Comment on above: Performed By: #### C MP, TSH, LIPID #### [facility] [address] [address] [address] Chloe Wells LDL CALC NORMAL SEE BELOW Normal [facility] Comment on above: Result Comment: <100 mg/dl OPTIMAL 100 - 129 mg/dl NEAR OR ABOVE OPTIMAL 130 - 159 mg/dl BORDERLINE HIGH 160 - 189 mg/dl HIGH >190 mg/dl VERY HIGH Performed By: #### C MP, TSH, LIPID #### [facility] [address] [address] [address] Chloe Wells Triglyceride [Mass/Vol] 44 mg/dL Normal <=150 [facility] Comment on above: Performed By: #### C MP, TSH, LIPID #### [facility] [address] [address] [address] Chloe Wells VLDL CALC 8.8 mg/dL Normal [facility] Comment on above: Performed By: #### C MP, TSH, LIPID #### [facility] [address] [address] [address] Chloe Wells PROF 14(COMP METB)on 022 Albumin [Mass/Vol] 3.8 g/dL Normal 3.4-5.0 [facility] Comment on above: Performed By: #### C MP, TSH, LIPID #### [facility] [address] [address] [address] Chloe Wells Albumin/Globulin [Mass ratio] 1.3 {ratio} Normal [facility] Comment on above: Performed By: #### C MP, TSH, LIPID #### [facility] [address] [address] [address] Chloe Wells ALP [Catalytic activity/Vol] 54 U/L Normal 46-116 [facility] Comment on above: Performed By: #### C MP, TSH, LIPID #### [facility] [address] [address] [address] Chloe Wells ALT [Catalytic activity/Vol] 20 U/L Normal 14-59 [facility] Comment on above: Performed By: #### C MP, TSH, LIPID #### [facility] [address] [place] [address] Dr. Chloe Wells Anion gap [Moles/Vol] 9.9 mmol/L Normal [facility] Comment on above: Performed By: #### C MP, TSH, LIPID #### [facility] [address] [place] [address] Dr. Chloe Wells AST [Catalytic activity/Vol] 14 U/L Critically low 15-37 [facility] Comment on above: Performed By: #### C MP, TSH, LIPID #### [facility] [address] [place] [address] Dr. Chloe Wells Bilirubin [Mass/Vol] 0.6 mg/dL Normal 0.2-1.0 [facility] Comment on above: Performed By: #### C MP, TSH, LIPID #### [facility] [address] [place] [address] Dr. Chloe Wells Calcium [Mass/Vol] 8.5 mg/dL Normal 8.5-10.1 [facility] Comment on above: Performed By: #### C MP, TSH, LIPID #### [facility] [address] [place] [address] Dr. Chloe Wells Chloride [Moles/Vol] 104 mmol/L Normal 98-107 [facility] Comment on above: Performed By: #### C MP, TSH, LIPID #### [facility] [address] [place] [address] Dr. Chloe Wells CO2 [Moles/Vol] 27.3 mmol/L Normal 21.0-32.0 [facility] Comment on above: Performed By: #### C MP, TSH, LIPID #### [facility] [address] [place] [address] Dr. Chloe Wells Creatinine [Mass/Vol] 0.74 mg/dL Normal 0.55-1.02 [facility] Comment on above: Performed By: #### C MP, TSH, LIPID #### [facility] [address] [place], [place] [id number] Dr. Chloe Wells EGFR-AF ITALIAN >60 Normal >=60 [facility] Comment on above: Performed By: #### C MP, TSH, LIPID #### [facility] [address] [place] [address] Dr. Clhoe Wells EGFR-NON AF ITALIAN >60 Normal >=60 [facility] Comment on above: Performed By: #### C MP, TSH, LIPID #### [facility] [address] [place] [address] Dr. Chloe Wells Globulin (S) [Mass/Vol] 2.9 g/dL Normal [facility] Comment on above: Performed By: #### C MP, TSH, LIPID #### [facility] [address] [place] [address] Dr. Chloe Wells Glucose [Mass/Vol] 110 mg/dL Critically high 74-106 [facility] Comment on above: Performed By: #### C MP, TSH, LIPID #### [facility] [address] [place] [address] Dr. Chloe Wells Potassium [Moles/Vol] 4.2 mmol/L Normal 3.5-5.1 [facility] Comment on above: Performed By: #### C MP, TSH, LIPID #### [facility] [address] [place] [address] Dr. Chloe Wells Protein [Mass/Vol] 6.7 g/dL Normal 6.4-8.2 [facility] Comment on above: Performed By: #### C MP, TSH, LIPID #### [facility] [address] [place] [address] Dr. Chloe Wells Sodium [Moles/Vol] 137 mmol/L Normal 136-145 [facility] Comment on above: Performed By: #### C MP, TSH, LIPID #### [facility] [address] [place] [address] Dr. Chloe Wells Urea nitrogen [Mass/Vol] 18.0 mg/dL Normal 7.0-18.0 [facility] Comment on above: Performed By: #### C MP, TSH, LIPID #### [facility] [address] [place], [place] [address] Dr. Chloe Wells Urea nitrogen/Creatinine [Mass ratio] 24.3 mg/mg Normal [facility] Comment on above: Performed By: #### C MP, TSH, LIPID #### [facility] [address] [place], [place] [address] Dr. Chloe Wells TSHon 12-19-2021 TSH 1.733 uIU/mL Normal 0.358-3.740 [facility] Comment on above: Performed By: #### C MP, TSH, LIPID #### [facility] [address] [place], [place] [address] Dr. Chloe Wells SURGICAL PATH REPORTon 07-31 SURGICAL PATH REPORT [facility] Department of Pathology [address] [place] [id number] Name: GABRIELA ROSE : 1975 [employer] [id number] Number: Gender: Female Location: [facility] Admit 45 years Attending JAMAL SWAN Age: Provider: Ordering MICHAEL HERNÁNDEZ Provider: Consulting: Surgical Pathology Report ACCESSION: COLLECTED DATE/TIME: RECEIVED DATE/TIME: PATHOLOGIST: [id number] 07/26/2020 11:13 EDT 07/26/2020 14:42 EDT KENDELL COLON, BRANT WEBER Final Diagnosis Report for [facility] [place] [place] LEFT BREAST, UPPER OUTER QUADRANT, MICROCALCIFICATIONS, [...] Print Date/ 07/31/2020 14:04 EDT Number: Time: [facility] Department of Pathology [address] [place] [id number] Name: GABRIELA ROSE : 1975 [facility] [id number] Number: Gender: Female Location: [facility] Admit 45 years Attending JAMAL SWAN Age: Provider: Ordering MICHAEL HERNÁNDEZ Provider: Consulting: Surgical Pathology Report ACCESSION: COLLECTED DATE/TIME: RECEIVED DATE/TIME: PATHOLOGIST: [id number] 07/26/2020 11:13 EDT 07/26/2020 14:42 EDT KENDELL [...] MP:saul 07/26/2020 Tissue pathology report for: [facility], [address] [place] [address]; PATHOLOGY SERVICES PROVIDED BY [employer] (CLIA #[id number]) in cooperation with [facility] at [address] [place] [address] (CLIA #[id number]) Codes CPT CODE: 71111 ____ Print Date07/31/2020 14:04 EDT Number: Time: Normal [facility] Comment on above: Performed By: #### 9 [id number] #### [facility] [address] [place] [address] [employer] Fabricator: Jim Treadwell MD OPERATIVE REPORTon OPERATIVE REPORT [address] [phone] OPERATIVE REPORT PATIENT NAME: GABRIELA ROSE : 1975 MED REC NO: [id number] ROOM: ACCOUNT NO: [id number] ADMIT DATE: 12/09/2018 PROVIDER: Darion Hand DATE [...] sponge counts correct. DARION HAND [id number] Doc#: [id number] CC: Normal [facility] Surgical Pathologyon 019 Surgical Pathology (NOTE) [id number] CONSULTING PATHOLOGISTS [facility] [address] [place] [id number] SURGICAL PATHOLOGY CONSULTATION Patient Name: GABRIELA ROSE [facility] Rec: [id number] Path Number: [id number] Collected: 12/09/2018 Received: 12/09/2018 Reported: 12/10/2018 13:49 [...] periphery, consistent with a benign lipoma. Normal [facility] Comment on above: Performed By: #### P PPVDP #### [employer] [address] [place] [id number] [employer] Library Librarian: Chris Michaels MD Vital Signs Date Time Vital Sign Value Performing Clinician Facility 02-20-2024 14: Body height 165.[address] [facility] 02-20-2024 14:050 Body mass index (BMI) [Ratio] 29.6 kg/m2 [facility] 02-20-2024 14: Body weight 80.[address] [facility] 02-20-2024 14:050 Diastolic blood pressure 79 mm[Hg] [facility] 02-20-2024 14:0500 Heart rate 102 /min [facility] 02-20-2024 14:21-0500 Systolic blood pressure 115 mm[Hg] [facility] 10-28-2023 15:18-0400 Body height 165.[address] [facility] 10-28-2023 15:18-0400 Body mass index (BMI) [Ratio] 29.1 kg/m2 [facility] 10-28-2023 15:18-0400 Body weight 79.[address] [facility] 10-28-2023 15:18-0400 Diastolic blood pressure 86 mm[Hg] [facility] 10-28-2023 15:18-0400 Heart rate 78 /min [facility] 10-28-2023 15:18-0400 Respiratory rate 12 /min [facility] 10-28-2023 15:18-0400 Systolic blood pressure 124 mm[Hg] [facility] 02-11-2023 14:18-0500 Blood Pressure Location Claudy JOL [facility] [place] 02-11-2023 14:18-0500 Diastolic blood pressure 80 mm[Hg] Claudy JOL [facility] [place] 02-11-2023 14:18-0500 Heart rate 70 /min Claudy [facility] 02-11-2023 14:18-0500 Respiratory rate 16 /min Claudy JOL [facility] [place] 02-11-2023 14:18-0500 Systolic blood pressure 124 mm[Hg] Claudy JOL [facility] [place] 01-14-2023 14:30-0400 Body height 165.1 cm Vicente Ball Other [facility] Other 01-14-2023 14:30-0400 Body mass index (BMI) [Ratio] 29.88 kg/m2 Vicente Ball Other [facility] Other 01-14-2023 14:30-0400 Body weight 81.47 kg Vicente Ball Other [facility] Other 01-14-2023 14:30-0400 Diastolic blood pressure 79 mm[Hg] Vicente Ball Other [facility] Other 01-14-2023 14:30-0400 Respiratory rate 12 /min Vicente Ball Other [facility] Other 01-14-2023 14:30-0400 Systolic blood pressure 111 mm[Hg] Vicente Ball Other [facility] Other 06-27-2021 14:00-0400 Body height 165.1 cm Harper Banda Other [facility] Other 06-27-2021 14:00-0400 Body mass index (BMI) [Ratio] 26.62 kg/m2 Harper Banda Other [facility] Other 06-27-2021 14:00-0400 Body weight 72.58 kg Harper Banda Other [facility] Other 12-09-2018 08:41-0400 Body Temperature 97.3 [degF] Darion [employer] [facility], [place] 12-09-2018 08:41-0400 BP Diastolic 76 mm[Hg] [facility] [place] 12-09-2018 08:41-0400 BP Systolic 117 mm[Hg] [facility] [place] 12-09-2018 08:41-0400 Pulse (Heart Rate) 72 /min [facility] [place] 12-09-2018 08:41-0400 Pulse Oximetry 99 % [facility] [place] 12-09-2018 08:41-0400 Respiratory Rate 14 /min Darion [employer] [facility], [place] 12-09-2018 06:14-0400 BMI (Body Mass Index) 30.35 kg/m2 Darion Hand [facility] [place] 12-09-2018 06: Body weight 82.72 kg Darion Hand [facility] [place] 12-09-2018 06: Height 165.1 cm Darion Monteirosler [facility] [place] Encounters Encounter Date Encounter Type Care Provider Facility Start: 02-20-[address] [facility] Start: 02-20-2024 End: 02-20-2024 ambulatory [facility] Work Phone: Start: 02-20-2024 End: 02-20-2024 Encounter for general adult medical examination without abnormal findings [facility] Start: 02-20-2024 End: 02-20-2024 Patient encounter procedure [facility] Work Phone: Start: 10-28-2023 End: 10-28-2023 ambulatory [facility] Work Phone: Start: 10-28-2023 End: 10-28-2023 Patient encounter procedure [facility] Work Phone: Start: 08-14-2023 End: 08-14-2023 ambulatory CECI RAUSCH Not Available Start: 07-30-2023 Non-patient / Non-visit [facility] Work Phone: Start: 07-15-2023 End: 07-15-2023 ambulatory CECI RAUSCH Not Available Start: 03-19-2023 End: 03-20-2023 ambulatory Claudy R LEONOR Facility:CD:[id number] Start: 02-11-2023 End: 02-12-2023 ambulatory Claudy R LEONOR Facility:[facility] Start: 02-11-2023 End: 02-11-2023 Patient encounter procedure Claudy R SANDROL General Surgery [facility] Start: 02-05-2023 End: 02-05-2023 ambulatory Vicente Baum Other [facility] Other Start: 02-05-2023 Telephone encounter Vicente CHAO [facility] Start: 01-17-2023 End: 01-17-2023 ambulatory Vicente Baum Other [facility] Other Start: 01-17-2023 Telephone encounter Vicente CHAO [facility] Start: 01-16-2023 ambulatory Claudy JOKeith Facility:[facility] Start: 01-14-2023 End: 01-14-2023 ambulatory Vicente Baum Other [facility] Other Start: 01-14-2023 Encounter for genera l adult medical examination without abnormal findings Vicente Baum [facility] Start: 01-14-2023 Periodic preventive med est patient 40-64yrs Vicente Baum [facility] Start: 07-11-2022 End: 07-11-[address] VICENTE BAUM Facility:[facility] Start: 06-28-[address] LUZ YANES Facilit y:[facility] Start: 12-23-2021 Encounter for genera l adult medical examination without abnormal findings DR VICENTE BAUM [facility] Start: 12-19-2021 End: 12-20-[address] VICENTE BAUM Facility:[facility] Start: 12-19-2021 End: 12-20-2021 Encounter for general adult medical examination without abnormal findings DR VICENTE BAUM Facility:[facility] Start: 10-18-2021 End: 04-26-[address] LUZ YANES Facility:[facility] Start: 08-10-2021 End: 08-25-[address] VICENTE BAUM Facility:[facility] Start: 06-27-2021 End: 06-27-2021 ambulatory Harper Banda Other [facility] Other Start: 06-27-2021 Office outpatient ne w 30 minutes Harper Banda [facility] Start: 12-09-2018 End: 12-09-2018 Patient encounter procedure DARION HAND [facility] Start: 12-09-2018 End: 12-09-2018 Subsequent hospital visit by physician Darion Hand Work Phone: [facility] [place] Comment on above: Post-op pain [...] Visit Plastic Surgery Darion Hand MD [address], [place] [id number] [employer] Start: 12-06-2018 Influenza vaccination Flu vaccine (# 1) [place], [place] Start: 2016 Diabetes screen Diabetes screen [place], [place] Start: 2016 Lipid screen Lipid screen [place], [place] Start: 1997 Cervical cancer screen Cervical canc er screen [place], [place] Start: 06-09-1995 DTaP/Tdap/Td vaccine (1 - Tdap) DTaP/Tdap/Td vaccine (1 - Tdap) [place], [place] Start: 06-09-1991 HIV screen HIV screen [place], [place] End: 12-09-2018 Blood glucose - POCT Blood glucose - POCT Point of Care Testing Routine One Time for 1 Occurrences starting 12/09/2018 until 12/09/2018 [place] Comment on above: One Time for 1 Occur rences starting 12/09/2018 until 12/09/2018 Comprehensive metabo lic 2000 panel - Serum or Plasma [facility] Initiate Oxygen Ther apy Protocol Initiate Oxygen Therapy Protocol Respiratory Care Routine Daily until discontinued starting 12/09/2018 [place] Comment on above: Daily until disconti nued starting 12/09/2018 MG Breast - bilatera l Screening [facility] Phase I & II - meter ed glucose Phase I & II - metered glucose Point of Care Testing Routine As Needed until discontinued starting 12/09/2018 [place] Comment on above: As Needed until disc ontinued starting 12/09/2018 End: 12-09-2018 , urine POCT , urine POCT Point of Care Testing Routine One Time for 1 Occurrences starting 12/09/2018 until 12/09/2018 [place] Comment on above: One Time for 1 Occur rences starting 12/09/2018 until 12/09/2018 Surgical Pathology Surgical Path ology Lab Routine ONE TIME for 1 Occurrences starting 12/09/2018 [place] Comment on above: ONE TIME for 1 Occur rences starting 12/09/2018 [facility] Immunizations Immunization Date Immunization Notes Care Provider Fa cili 01-05-2023 influenza virus vaccine, unspecified formulation Claudy SCHMITZ [facility] [place] 01-26-2021 SARS-CoV-2 (COVID-19 ) mRNA-1273 vaccine Claudy SCHMITZ [facility] [place] 05-10-2020 SARS-CoV-2 (COVID-19 ) mRNA-1273 vaccine Claudy SCHMITZ [facility] [place] 01-05-2021 SARS-CoV-2 (COVID-19 ) [id number] vaccine Claudy SCHMITZ [facility] [place] Payers Date Payer Category Payer Unknown [id number] 2019 Unknown [id number] 2018 Unknown [employer] [address] xxxxxxxxx 2018-Present [phone] [address] [place] [address] xxxxxxxxx [id number] 2018 Unknown [id number] 1976 Unknown [id number] 1976 Unknown [id number] 1976 Unknown [id number] 1976 Unknown [id number] 1976 Unknown [id number] 1976 Unknown [id number] 1976 Unknown [id number] 1976 Unknown [id number] 1976 Unknown [id number] 1976 Unknown [id number] 1959 Self-pay [id number] Social History Date Type Detail Facility Start: 12-09-2018 End: 02-11-2023 Tobacco smoking status NHIS Never smoker [facility] Start: 12-09-2018 Alcohol intake Yes [facility] Start: 12-01-2018 Alcohol Comment weekend use [facility] [place] [place] Sex Assigned At Not on file Mavis Bar[place]- [place], [place] Tobacco smoking status Never [facility] [place] Start: 1975 Sex Assigned At Female [facility] Work Phone: Start: 02-20-2024 Sex Female (finding) [facility] Functional Status Date Assessment Result Facility 02-11-2023 Functional Status N/A [facility] 06-27-2021 to 02-11-2023 Note [...] Recorded SARS-CoV-2 (COVID-19) mRNA-1273 vaccine 04/11/2020 Recorded [facility] Comment on above: Result Comment: Elec tronically Signed By: LEONOR COLON, Claudy Mireles\Date and Time Signed: 02/11/23 14:43 EST 02-05-2023 Evaluation note Encounter Date Diagnosis Assessment Notes Feb, Seasonal affective disorder (ICD-10 - F33.8) [facility] Other 10-10-2023 Evaluation note* Encounter Date Diagnosis [...] She is an asymptomatic, low risk patient Yi Chang Ou [employer] [facility] [employer] Other 03-23-2022 Evaluation note* Encounter Date Diagnosis [...] Jun, Left elbow pain (ICD-10 - M25.522) [facility] Other Evaluation + Plan note No data available for this section [facility] [place] Evaluation noteNo InformationNort Pan[employer] Other Evaluation note* Diagnosis Onset Date Resolution Status Insomnia acute Overweight acute Seasonal affective disorder acute [facility] Work Phone: Evaluation note* Diagnosis Onset Date Resolution Status Admit Date Wellness examination acute Nove mber 2023 2:07pm [facility] Work Phone: History general Narrative - Reported* Type Description Date Medical History Seasonal Affective Disorder Surgical History x 2 Surgical History tonsilectomy Surgical History tubal ligation Hospitalization History see surgeries [employer]i [employer] [facility] [employer] Other Hospital Discharge instructions No data available for this section [facility] [place] [employer] Progress note No data available for this section [facility] [place] [employer] Reason for referral (narrative)* Reason Referral for screeni ng colonoscopy Diagnosis 1 Screening for colon cancer (Z12.11) Referral Organization [facility] aliza Referring Provider First Name Vicente Referring Provider Last Name Bautista Referring Provider Specialty Internal Me dicine Referred Organization [facility] Referred Provider Claudy Schmitz Referred Address [address],[place],[address] Referred Provider Specialty Surgery Referral Priority Routine General Notes Asymptomatic, low ri sk patient. She denies change in appetite, weight or bowel habits. She denies heartburn or dysphagia. She denies abdominal pain, melena or hematochezia. [facility] Other Discharge Instructions * Instructions* Brittney Batista [...] AM EDT CLINICAL PHARMACY NOTE: MEDS TO [facility] Patient?: No Total # of Prescriptions Filled: 2 The following medications were delivered to the patient: cephalexin norco Total # of Interventions Completed: 1 Time Spent (min): 0 Additional Documentation: * Jamal Garcia RN - 12/09/2018 6:34 AM EDT Urine test results-negative * Ranjit Zendejas RN - 12/01/2018 1:26 PM EDT DAY OF SURGERY/PROCEDURE GUIDELINES As a patient at the [facility], you can expect quality medical and nursing care that is centered on your individual needs. It is our goal to make your surgical experience as comfortable and excellent as possible. Please arrive at 0600 with an empty stomach. No jewelry or piercings on. Must have a truck driver flatbed home and in the waiting room. The [...] morning of your surgery/procedure (Hibiclens if directed) [place] your teeth, but do not swallow any [...] your Living Will or Durable Power of Physician Assistant Primary Care DO NOT take anticoagulants (blood thinners, aspirin [...] are recovering, the surgery family waiting room pipeline operator can answer many of your family's questions. [...] Documents on File Type Date Recorded Patient Biometrics Technician Expl anation Advance Directives and Living Will Power of Physician Assistant Primary Care Advance Directive Response Recorded Date/ Time Advance [...] mass and lump, unspecified MASS FOREHEAD Procedures [place] EXCISION TUMOR SOFT TISS FACE/SCALP SUBQ 2+CM [place] EXC SKIN MALIG 2.1-3CM FACE,FACIAL [place] EXC SKIN BENIG 2.1-3CM FACE,FACIAL [place] ADJ TISS XFER HEAD,FAC,HAND <10SQCM HEAD LESION EXCISION Darion Hand MD [address] [place] [address] [facility] INFORMATION SOURCE (unrecogn ized section and content) DATE CREATED AUTHOR 12/15/2018 [facility] DATE CREATED AUTHOR AUTHOR'S ORGANIZ ATION 08/18/2020 [facility] DATE CREATED AUTHOR AUTHOR'S ORGANIZ ATION 07/20/2022 [facility] DATE CREATED AUTHOR AUTHOR'S ORGANIZ ATION 03/25/2023 [facility] DATE CREATED AUTHOR AUTHOR'S ORGANIZ ATION 08/16/2023 [facility] dical Specialists EPIC Patient Care team [...] BE BASED ON THE PRIMARY CLINICAL RECORDS. [facility]. provides no warranty or guarantee of the accuracy or completeness of information in this document.
== END 2024-07-19 07:39 | disposition home or self-care (01) ==
LOC: EC 07:39
PROVIDERS: PCP Family Medicine; Visit Provider Orthopaedic Surgery
DX: S62.397D Other fracture of fifth metacarpal bone, left hand, subsequent encounter for fracture with routine healing (principal)
CPT/HCPCS: 73130

== ENCOUNTER 2024-07-20 15:39 | Outpatient (REF) | payer BC, SELFPAY ==
[2024-07-23 14:08] LABS: Age Gdln ACOG Testing Note (.); HPV Aptima Negative (Negative); IGP, Aptima HPV, rfx 16/18,45 Note (.)
== END 2024-07-20 15:40 | disposition home or self-care (01) ==
LOC: LAB 15:39
PROVIDERS: PCP Family Medicine; Visit Provider Physician Assistant
DX: Z01.419 Encounter for gynecological examination (general) (routine) without abnormal findings (principal)
CPT/HCPCS: 87624; 88175

== ENCOUNTER 2024-07-21 06:48 | Outpatient (OUT) | payer BC, SELFPAY ==
--- OUTSIDE RECORDS SUMMARY | 2024-07-21 06:52 | XMS_ITS | CCD ---
Author Organization [facility] Care Team Providers Care Administration Vice President Name Role Phone Vicente Baum Primary Care Provider DARION HAND Admitting Unavailab blaise HAND, DARION MANCILLA Attending Unavailab VICENTE Napoles Primary Care Unavailable Harper Banda Unavailable BAUTISTA, DR ONOFRE Admitting Unavailable BAUTISTA, DR ONOFRE Attending Unavailable BALL, DR ONOFRE Consulting Unavailable BAUTISTA, DR ONOFRE Primary Care Unavailable FARZANA, DR LUZ Dyer Attending Unavailable BAUTISTA, DR ONOFRE Primary Care Unavailable FARZANA, DR LUZ Dyer Consulting Unavailable FARZANA, DR LUZ Dyer Admitting Unavailable FARZANA, DR LUZ Dyer Admitting Unavailable BAUTISTA, DR ONOFRE Primary Care Unavailable WEST, DR LUZ Dyer Attending Unavailable WEST, DR LUZ Dyer Consulting Unavailable BAUTISTA, DR ONOFRE Primary Care Unavailable HARPER BANDA Admitting Unavailable HARPER BANDA Attending Unavailable BAUTISTA, DR ONOFRE Primary Care Unavailable MIRACLE ., ZAYDA Consulting Unavailable MIRACLE ., ZAYDA Admitting Unavailable MIRACLE ., ZAYDA Attending Unavailable Vicente Baum Unavailable VICENTE BAUM Primary Care Physician [phone] Claudy SCHMITZ Attending Unavailable VICENTE BAUM Referring Unavailable Claudy SCHMITZ Attending Unavailable MIRACLE, ZAYDA Attending Unavailable MIRACLE, ZAYDA Attending Unavailable Unavailable Primary Care Provider Unavailabl e Allergies Allergy Classification Reported Allergen(s) Allergy Type Date of Onset Reaction(s) Facility (1 source) No Known Medication Allergies; Translations: [No Known Medication Allergies] Propensity to adverse reactions (disorder) [facility] Repository Medications Current Medications Medication Drug Class(es) [...] PO Daily at bedtime 60 30 October 27, 2023 11:00pm 5-10mg orally daily at bedtime; 2 ml fentaNYL 0.05 mg/ml injection (2 sources) Opioid Agonist Start: 12-09-2018 fentaNYL (SUBLIMAZE) injection 50 mcg Start: 12-09-2018 fentaNYL (SUBL IMAZE) injection 25 mcg FLUoxetine 20 mg oral capsule (12 sources) Serotonin Reuptake Inhibitor Start: 07-30-2023 End: 01-23-2024 take 1 capsule by mouth once daily Fluoxetine 20 mg capsule Active 0 .ROUTE .COMPLEX January 23, 2024 9:17am TAKE 1 CAPSULE BY MOUTH EVERY DAY FOR 90 DAYS Start: 01-14-2023 End: 07-30-2023 take 1 capsule by mouth once daily Fluoxetine 20 mg capsule Discontinued 20 MG PO Daily July 29, 2023 11:00pm July 30, 2023 1:31pm 1 ml hydrALAZINE hydrochloride 20 mg/ml injection (1 source) Arteriolar Vasodilator Start: 12-09-2018 hydrALAZINE (APRESOLINE) injection 5 mg 1 ml HYDROmorphone hydrochloride 1 mg/ml cartridge (2 sources) Opioid Agonist Start: 12-09-2018 HYDROmorphone (DILAUDID) injection 0.25 mg Start: 12-09-2018 HYDROmorphone (DILAUDID) injection 0.5 mg levonorgestrel 0.938201 mg/hr intrauterine system (3 sources) Progestin, Progestin-containing Intrauterine Device Levonorgestrel (Mirena, 52 MG,) 20 MCG/DAY intrauterine device 52 mg by Intrauterine route if needed (when due) Active 0.5 ml meperidine hydrochloride 50 mg/ml injection (1 source) Opioid Agonist Start: 2018 meperidine (DEMEROL) injection SOLN 12.5 mg 2 ml metoclopramide 5 mg/ml prefilled syringe (1 source) Dopamine-2 Receptor Antagonist Start: 2018 End: 2018 metoclopramide (REGLAN) injection 10 mg 2 ml midazolam 1 mg/ml injection (1 source) Benzodiazepine Start: 2018 End: 2018 midazolam (VERSED) injection 2 mg MIRENA IUD - this medication is not being screened (3 sources) Start: 2012 MIRENA IUD - this medication is not being screened MIRENA IUD - this medication is not being screened( ) Active -Hx Entry for 0 *Reorder from [employer] for eRx and Interaction Alerts* Feb, Not-Taking 2 ml ondansetron 2 mg/ml injection (1 source) Serotonin-3 Receptor Antagonist Start: 2018 End: 2018 ondansetron (ZOFRAN) injection 4 mg phentermine hydrochloride 37.5 mg oral tablet (6 sources) Sympathomimetic Amine Anorectic Start: 2023 End: 2024 take 1 tablet by mouth before mealtime phentermine (Adipex-P) 37.5 MG tablet Indications: Encounter for weight management Take 1 tablet (37.5 mg) by mouth in the morning. Take before meals. 90 tablet 08/14/2023 07/20/2024 Discontinued 3 ml sodium chloride 9 mg/ml injection (3 sources) Start: 2018 sodium chloride flush 0.9 % injection 10 mL Start: [...] times daily for 7 *Pick strength-form from [employer] for eRX* 10 Apr, 2019 Not-Taking triamcinolone acetonide 40 mg/ml injectable suspension (4 sources) Corticosteroid Start: 06-27-2021 Kenalog-40 Jun, 40 mg Start: 06-27-2021 Kenalog -40 mg Jun, 40 mg Problems Active Problems Problem Classification Problem Date Documented Date Episodic/Chronic Genitourinary symptoms and ill-defined conditions (4 sources) Genuine stress incontinence; Translations: [Urge incontinence of urine] 10-15-2018 Chronic Immunizations and screening for infectious disease (1 source) Encounter for screening for human papillomavirus (HPV); Translations: [ENC SCREENING HUMAN PAPILLOMAVIRUS] Onset: 07-19-2022 Episodic Mood disorders (9 sources) Seasonal affective disorder; Translations: [Other recurrent depressive disorders] Chronic Other diseases of bladder and urethra (1 source) 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 Episodic Other endocrine disorders (2 sources) Disorder of endocrine system; Translations: [Endocrine disorder, unspecified] 07-20-2024 Episodic Other nervous system disorders (1 source) [...] conditions (not mental disorders or infectious disease) (9 sources) Encounter for screening for malignant neoplasm of cervix; Translations: [Encounter for screening mammogram for malignant neoplasm of breast] Onset: 07-11-2022 Episodic Residual codes; unclassified (2 sources) Insomnia; Translations: [Insomnia, unspecified] 10-28-2023 Episodic Residual codes; unclassified (1 source) Insomnia, unspecified; Translations: [Insomnia, unspecified] 10-28-2023 Episodic Residual codes; unclassified (2 sources) Generalized aches and pains; Translations: [Pain, unspecified] 07-20-2024 Episodic Unclassified (1 source) Finding of sensation [...] Outside Colonoscopyon 2022 Outside Colonoscopy [id number]#1.00T IFF Normal [facility] Reminderson 03-20-2023 Reminders - From: Dolores Lee LPN To: N - Clinical; Sent: 03/20/2023 08:53:50 EST Show up: 02/17/2033 07:00:00 EST Subject: colonoscopy recall Due Date/Time: 03/19/2033 07:00:00 EST Reminder/Recall Patient due for screening colonoscopy 03/19/2033. Normal [facility] Lab Reportson 03-19-2023 Lab Reports [id number]#1.00T IFF Normal [facility] Insurance Correspondenceon 1 04-27-2022 Insurance Correspondence [id number]#1.00 TIFF Normal [facility] Consent for Procedure/Surger yon 02-12-2023 Consent for Procedure/Surgery [id number]#1.00 TIFF Normal [facility] Facesheeton 02-12-2023 Facesheet [id number]#1.00 TIFF Normal [facility] Ambulatory Visit Summaryon 1 04-13-2022 Ambulatory Visit Summary GABRIELA ROSE :1975 Visit Date:02/11/2023 Ambulatory Visit Instructions Your Diagnosis Screening for malignant neoplasm of colon Your Care Team Attending Physician - Claudy SCHMITZ MD Primary Care Physician - VICENTE BAUM DO [...] for choosing us for your care. Normal [facility] Physician Referralon 023 Physician Referral [id number] IFF Normal [facility] PAP ACOG PANEL 2: 30 to 65on 07-18-2022 . . Normal [facility] Comment on above: Result Comment: Perf ormed at: WB Performed By: #### [id number] #### [facility] [address] [address] [address] Chloe Wells Age Gdln ACOG Testing 30-65 [facility] Comment on above: Performed By: #### [id number] #### [facility] [address] [address] [address] Chloe Wells DIAGNOSIS: Comment Normal [facility] Comment on above: Result Comment: NEGA TIVE FOR INTRAEPITHELIAL LESION OR MALIGNANCY. Performed at: WB Performed By: #### [id number] #### [facility] [address] [address] [address] Chole Wells HPV Aptima Positive Abnormal Negative [facility] Comment on above: Result Comment: This nucleic acid amplification test detects fourteen high-risk HPV types (16,18,31,33,35,39,45,51,52,56,58,59,66,68) without differentiation. Performed at: =G Performed By: #### [id number] #### [facility] [address] [address] [address] Chloe Wells HPV Genotype 16 Negative Normal Negative [facility] Comment on above: Performed By: #### [id number] #### [facility] [address] [address] [address] Chloe Wells HPV Genotype 18,45 Negative Normal Negative [facility] Comment on above: Performed By: #### [id number] #### [facility] [address] [address] [address] Chloe Wells HPV Genotype Reflex Comment Normal [facility] Comment on above: Result Comment: Kira galicia, see HPV Genotype results. Performed at: WB Performed By: #### [id number] #### [facility] [address] [place] [address] Dr. Chloe Wells Methodology: Comment Normal [facility] Comment on above: Result Comment: This liquid based ThinPrep(R) pap test was screened with the use of an image guided system. Performed at: WB Performed By: #### 4 [id number] #### [facility] [address] [address] [address] Chloe Wells Note: Comment Normal [facility] Comment on above: Result Comment: The Pap smear is a screening test designed to aid in the detection of premalignant and malignant conditions of the uterine cervix. It is not a diagnostic procedure and should not be used as the sole means of detecting cervical cancer. Both false-positive and false-negative reports do occur. . Performed at: WB Performed By: #### [id number] #### [facility] [address] [place] [address] Dr. Chloe Wells Performed by: Comment Normal [facility] Comment on above: Result Comment: Rozina Benitez, [employer] (ASCP) Performed at: WB Performed By: #### [id number] #### [facility] [address] [place] [address] Dr. Chloe Wells Specimen adequacy: Comment Normal [facility] Comment on above: Result Comment: Sati sfactory for evaluation. Endocervical and/or squamous metaplastic cells (endocervical component) are present. Performed at: WB Performed By: #### [id number] #### [facility] [address] [place] [address] Dr. Chloe Wells CBC AUTO DIFFon 12-19-2021 BASO # 0.0 103/ul Normal 0.0-0.1 [facility] Comment on above: Performed By: #### C BC #### [facility] [address] [place] [address] Dr. Chloe Wells Basophils/100 WBC (Bld) 0.3 % Normal 0.2-2.0 [facility] Comment on above: Performed By: #### C BC #### [facility] [address] [place] [address] Dr. Chloe Wells EO # 0.2 103/ul Normal 0.0-0.7 [facility] Comment on above: Performed By: #### C BC #### [facility] [address] [place] [address] Dr. Chloe Wells Eosinophils/100 WBC (Bld) 2.9 % Normal 0.9-7.0 [facility] Comment on above: Performed By: #### C BC #### [facility] [address] [place] [address] Dr. Chloe Wells Erythrocyte distribution width (RBC) [Ratio] 12.4 % Normal 11.0-15.0 [facility] Comment on above: Performed By: #### C BC #### [facility] [address] [place] [address] Dr. Chloe Wells Hematocrit (Bld) [Volume fraction] 38.8 % Normal 36.0-48.0 [facility] Comment on above: Performed By: #### C BC #### [facility] [address] [place] [address] Dr. Chloe Wells Hemoglobin (Bld) [Mass/Vol] 13.0 g/dL Normal 12.0-16.0 [facility] Comment on above: Performed By: #### C BC #### [facility] [address] [place] [address] Dr. Chloe Wells IG # 0.01 10e3/ul Normal 0.00-0.03 [facility] Comment on above: Performed By: #### C BC #### [facility] [address] [place] [address] Dr. Chloe Wells IG % 0.2 % Normal 0.0-0.5 [facility] Comment on above: Performed By: #### C BC #### [facility] [address] [place] [address] Dr. Chloe Wells LYMPH # 2.0 103/ul Normal 1.2-3.8 [facility] Comment on above: Performed By: #### C BC #### [facility] [address] [place] [address] Dr. Chloe Wells Lymphocytes/100 WBC (Bld) 33.4 % Normal 20.5-60.0 [facility] Comment on above: Performed By: #### C BC #### [facility] [address] [place] [address] Dr. Chloe Wells MANUAL DIFF REQ NO Normal [facility] Comment on above: Performed By: #### C BC #### [facility] [address] [place] [address] Dr. Chloe Wells MCH (RBC) [Entitic mass] 30.2 pg Normal 26.7-34.0 [facility] Comment on above: Performed By: #### C BC #### [facility] [address] [place], [place] [id number] Dr. Chloe Wells MCHC (RBC) [Mass/Vol] 33.5 g/dL Normal 29.9-35.2 [facility] Comment on above: Performed By: #### C BC #### [facility] [address] [place] [address] Dr. Chloe Wells MCV (RBC) [Entitic vol] 90.0 fL Normal 81.0-99.0 [facility] Comment on above: Performed By: #### C BC #### [facility] [address] [place] [address] Dr. Chloe Wells MONO # 0.5 103/ul Normal 0.3-0.8 [facility] Comment on above: Performed By: #### C BC #### [facility] [address] [place] [address] Dr. Chloe Wells Monocytes/100 WBC (Bld) 8.0 % Normal 1.7-12.0 [facility] Comment on above: Performed By: #### C BC #### [facility] [address] [place] [address] Dr. Chloe Wells NEUT # 3.2 103/ul Normal 1.4-6.5 [facility] Comment on above: Performed By: #### C BC #### [facility] [address] [place] [address] Dr. Chloe Wells Neutrophils/100 WBC (Bld) 55.2 % Normal 43.0-75.0 [facility] Comment on above: Performed By: #### C BC #### [facility] [address] [place] [address] Dr. Chloe Wells Platelet mean volume (Bld) [Entitic vol] 8.9 fL Critically low 9.5-13.5 [facility] Comment on above: Performed By: #### C BC #### [facility] [address] [place] [address] Dr. Chloe Wells PLT 327 103/ul Normal 150-450 [facility] Comment on above: Performed By: #### C BC #### [facility] [address] [place] [address] Dr. Chloe Wells RBC 4.31 106/ul Normal 4.20-5.40 [facility] Comment on above: Performed By: #### C BC #### [facility] [address] [place] [address] Dr. Chloe Wells WBC 5.9 103/ul Normal 4.0-11.0 [facility] Comment on above: Performed By: #### C BC #### [facility] [address] [place] [address] Dr. Chloe Wells GLYCOHEMOGLOBIN A1Con 2021 ADA RECOMMENDATION SEE BELOW Normal [facility] Comment on above: Result Comment: ADA RECOMMENDED LIMIT 4.0 - 6.0 ADA THERAPEUTIC TARGET < 7.0 ACTION SUGGESTED > 7.0 Performed By: #### A 1C #### [facility] [address] [place] [address] Dr. Chloe Wells Glucose [Mass/Vol] 105 mg/dL Normal [facility] Comment on above: Performed By: #### A 1C #### [facility] [address] [place] [address] Dr. Chloe Wells HbA1c (Bld) [Mass fraction] 5.3 % Normal 4.5-6.2 [facility] Comment on above: Performed By: #### A 1C #### [facility] [address] [place] [address] Dr. Chloe Wells LIPID PROFILEon 12-19-2021 CHOL-HDL RATIO NORM SEE BELOW Normal [facility] Comment on above: Result Comment: 3.3 - 4.4 LOW RISK 4.4 - 7.1 AVERAGE RISK 7.1 - 11.0 MODERATE RISK >11.0 HIGH RISK Performed By: #### C MP, TSH, LIPID #### [facility] [address] [place] [address] Dr. Chloe Wells Cholesterol [Mass/Vol] 171 mg/dL Normal <=200 [facility] Comment on above: Performed By: #### C MP, TSH, LIPID #### [facility] [address] [place] [address] Dr. Chloe Wells Cholesterol in HDL [Mass/Vol] 63 mg/dL Critically high 40-60 [facility] Comment on above: Performed By: #### C MP, TSH, LIPID #### [facility] [address] [address] [address] Chloe Wells Cholesterol in LDL [Mass/Vol] 99.2 mg/dL Normal [facility] Comment on above: Performed By: #### C MP, TSH, LIPID #### [facility] [address] [address] [address] Chloe Wells Cholesterol.total/Ch olesterol in HDL [Mass ratio] 2.7 {ratio} Normal [facility] Comment on above: Performed By: #### C MP, TSH, LIPID #### [facility] [address] [place] [address] Dr. Chloe Wells HDL NORMAL > or = 60 mg/dl - LO W CARDIOVASCULAR RISK <40 mg/dl - HIGH CARDIOVASCULAR RISK Normal [facility] Comment on above: Performed By: #### C MP, TSH, LIPID #### [facility] [address] [place] [address] Dr. Chloe Wells LDL CALC NORMAL SEE BELOW Normal [facility] Comment on above: Result Comment: <100 mg/dl OPTIMAL 100 - 129 mg/dl NEAR OR ABOVE OPTIMAL 130 - 159 mg/dl BORDERLINE HIGH 160 - 189 mg/dl HIGH >190 mg/dl VERY HIGH Performed By: #### C MP, TSH, LIPID #### [facility] [address] [address] [address] Chloe Wells Triglyceride [Mass/Vol] 44 mg/dL Normal <=150 [facility] Comment on above: Performed By: #### C MP, TSH, LIPID #### [facility] [address] [place] [address] Dr. Chloe Wells VLDL CALC 8.8 mg/dL Normal [facility] Comment on above: Performed By: #### C MP, TSH, LIPID #### [facility] [address] [address] [address] Chloe Wells PROF 14(COMP METB)on 022 Albumin [Mass/Vol] 3.8 g/dL Normal 3.4-5.0 [facility] Comment on above: Performed By: #### C MP, TSH, LIPID #### [facility] [address] [address] [address] Chloe Wells Albumin/Globulin [Mass ratio] 1.3 {ratio} Normal [facility] Comment on above: Performed By: #### C MP, TSH, LIPID #### [facility] [address] [address] [address] Chloe Wells ALP [Catalytic activity/Vol] 54 U/L Normal 46-116 [facility] Comment on above: Performed By: #### C MP, TSH, LIPID #### [facility] [address] [address] [address] Chloe Wells ALT [Catalytic activity/Vol] 20 U/L Normal 14-59 [facility] Comment on above: Performed By: #### C MP, TSH, LIPID #### [facility] [address] [address] [address] Chloe Wells Anion gap [Moles/Vol] 9.9 mmol/L Normal [facility] Comment on above: Performed By: #### C MP, TSH, LIPID #### [facility] [address] [address] [address] Chloe Wells AST [Catalytic activity/Vol] 14 U/L Critically low 15-37 [facility] Comment on above: Performed By: #### C MP, TSH, LIPID #### [facility] [address] [address] [address] Chloe Wells Bilirubin [Mass/Vol] 0.6 mg/dL Normal 0.2-1.0 [facility] Comment on above: Performed By: #### C MP, TSH, LIPID #### [facility] [address] [address] [address] Chloe Wells Calcium [Mass/Vol] 8.5 mg/dL Normal 8.5-10.1 [facility] Comment on above: Performed By: #### C MP, TSH, LIPID #### [facility] [address] [address] [address] Chloe Wells Chloride [Moles/Vol] 104 mmol/L Normal 98-107 [facility] Comment on above: Performed By: #### C MP, TSH, LIPID #### [facility] [address] [place] [address] Dr. Chloe Wells CO2 [Moles/Vol] 27.3 mmol/L Normal 21.0-32.0 [facility] Comment on above: Performed By: #### C MP, TSH, LIPID #### [facility] [address] [place] [address] Dr. Chloe Wells Creatinine [Mass/Vol] 0.74 mg/dL Normal 0.55-1.02 [facility] Comment on above: Performed By: #### C MP, TSH, LIPID #### [facility] [address] [place] [address] Dr. Chloe Wells EGFR-AF BAHRAINI >60 Normal >=60 [facility] Comment on above: Performed By: #### C MP, TSH, LIPID #### [facility] [address] [place] [address] Dr. Chloe Wells EGFR-NON AF BAHRAINI >60 Normal >=60 [facility] Comment on above: Performed By: #### C MP, TSH, LIPID #### [facility] [address] [place] [address] Dr. Chloe Wells Globulin (S) [Mass/Vol] 2.9 g/dL Normal [facility] Comment on above: Performed By: #### C MP, TSH, LIPID #### [facility] [address] [place] [address] Dr. Chloe Wells Glucose [Mass/Vol] 110 mg/dL Critically high 74-[address] [facility] Comment on above: Performed By: #### C MP, TSH, LIPID #### [facility] [address] [place] [address] Dr. Chloe Wells Potassium [Moles/Vol] 4.2 mmol/L Normal 3.5-5.1 [facility] Comment on above: Performed By: #### C MP, TSH, LIPID #### [facility] [address] [place] [address] Dr. Chloe Wells Protein [Mass/Vol] 6.7 g/dL Normal 6.4-8.2 [facility] Comment on above: Performed By: #### C MP, TSH, LIPID #### [facility] [address] [address] [address] Chloe Wells Sodium [Moles/Vol] 137 mmol/L Normal 136-145 [facility] Comment on above: Performed By: #### C MP, TSH, LIPID #### [facility] [address] [address] [address] Chloe Wells Urea nitrogen [Mass/Vol] 18.0 mg/dL Normal 7.0-18.0 [facility] Comment on above: Performed By: #### C MP, TSH, LIPID #### [facility] [address] [place] [address] Dr. Chloe Wells Urea nitrogen/Creatinine [Mass ratio] 24.3 mg/mg Normal [facility] Comment on above: Performed By: #### C MP, TSH, LIPID #### [facility] [address] [place] [address] Dr. Chloe Wells TSHon 12-19-2021 TSH 1.733 uIU/mL Normal 0.358-3.740 [facility] Comment on above: Performed By: #### C MP, TSH, LIPID #### [facility] [address] [place] [address] Dr. Chloe Wells SURGICAL PATH REPORTon 07-31 SURGICAL PATH REPORT [facility] Department of Pathology [address] [place] [id number] Name: GABRIELA ROSE : 1975 [facility] [id number] Number: Gender: Female Location: [facility] Admit 45 years Attending JAMAL SWAN Age: Provider: Ordering MICHAEL HERNÁNDEZ Provider: Consulting: Surgical Pathology Report ACCESSION: COLLECTED DATE/TIME: RECEIVED DATE/TIME: PATHOLOGIST: [id number] 07/26/2020 11:13 EDT 07/26/2020 14:42 EDT KENDELL COLON, BRANT WEBER Final Diagnosis Report for [facility], [place], [place] LEFT BREAST, UPPER OUTER QUADRANT, MICROCALCIFICATIONS, [...] Print Date/ 07/31/2020 14:04 EDT Number: Time: [facility] [facility] Department of Pathology [address] [place], [place] [id number] Name: GABRIELA ROSE : 1975 [facility] [id number] Number: Gender: Female Location: [facility] Admit 45 years Attending JAMAL SWAN Age: Provider: Ordering MICHAEL HERNÁNDEZ Provider: Consulting: Surgical Pathology Report ACCESSION: COLLECTED DATE/TIME: RECEIVED DATE/TIME: PATHOLOGIST: [id number] 07/26/2020 11:13 EDT 07/26/2020 14:42 EDT KENDELL [...] be processed on the large tissue processor. MP:ts 07/26/2020 Tissue pathology report for: [facility], [address] [place] [address]; PATHOLOGY SERVICES PROVIDED BY [employer] (CLIA #[id number]) in cooperation with [facility] at [address] [place] [address] (CLIA #[id number]) Codes CPT CODE: 15003 ____ Print Date/ 07/31/2020 14:04 EDT Number: Time: Normal [facility] Comment on above: Performed By: #### [id number] #### [facility] Services [address] [place] [address] Extrusion Press Operator: Jim Treadwell MD OPERATIVE REPORTon OPERATIVE REPORT [address] [address] OPERATIVE REPORT PATIENT NAME: GABRIELA ROSE : 1975 MED REC NO: [id number] ROOM: ACCOUNT NO: [id number] ADMIT DATE: 12/09/2018 PROVIDER: Darion Hand DATE [...] Needle and sponge counts correct. DARION HAND JERMAINE/[email or web address] Doc#: [id number] CC: Normal [facility] Surgical Pathologyon 019 Surgical Pathology (NOTE) [id number] [facility] ANATOMIC PATHOLOGY [address] [place] [id number] SURGICAL PATHOLOGY CONSULTATION Patient Name: GABRIELA ROSE [facility] Rec: [id number] Path Number: [id number] Collected: 12/09/2018 Received: 12/09/2018 Reported: 12/10/2018 13:49 [...] periphery, consistent with a benign lipoma. Normal [facility] Comment on above: Performed By: #### P PPVDP #### [employer] [address] [place] [address] Screener Operator: Chris Michaels MD Vital Signs Date Time Vital Sign Value Performing Clinician Facility 07-20-2024 09:17-0400 Body mass index (BMI) [Ratio] 30.49 kg/m2 Zayda IVORY Work Phone: [facility] 07-20-2024 09:17-0400 Body weight 83.12 kg Zayda IVORY Work Phone: [facility] 07-20-2024 09:17-0400 Diastolic blood pressure 84 mm[Hg] Zayda IVORY Work Phone: [facility] 07-20-2024 09:17-0400 Systolic blood pressure 108 mm[Hg] Zayda IVORY Work Phone: [facility] 02-20-2024 14:21-0500 Body height 165.1 cm [facility] 02-20-2024 14:21-0500 Body mass index (BMI) [Ratio] 29.6 kg/m2 [facility] 02-20-2024 14:21-0500 Body weight 80.73 kg [facility] 02-20-2024 14:21-0500 Diastolic blood pressure 79 mm[Hg] [facility] 02-20-2024 14:21-0500 Heart rate 102 /min [facility] 02-20-2024 14:21-0500 Systolic blood pressure 115 mm[Hg] [facility] 10-28-2023 15:18-0400 Body height 165.1 cm [facility] 10-28-2023 15:18-0400 Body mass index (BMI) [Ratio] 29.1 kg/m2 [facility] 10-28-2023 15:18-0400 Body weight 79.49 kg [facility] 10-28-2023 15:18-0400 Diastolic blood pressure 86 mm[Hg] [facility] 10-28-2023 15:18-0400 Heart rate 78 /min [facility] 10-28-2023 15:18-0400 Respiratory rate 12 /min [facility] 10-28-2023 15:18-0400 Systolic blood pressure 124 mm[Hg] [facility] 02-11-2023 14:18-0500 Blood Pressure Location Claudy NILL [facility] [place] 02-11-2023 14:18-0500 Diastolic blood pressure 80 mm[Hg] Claudy NILL [facility] [place] 02-11-2023 14:18-0500 Heart rate 70 /min Claudy NILL [facility] [place] 02-11-2023 14:18-0500 Respiratory rate 16 /min Claudy NILL [facility] [place] 02-11-2023 14:18-0500 Systolic blood pressure 124 mm[Hg] Claudy NILL [facility] [place] 01-14-2023 14:30-0400 Body height 165.1 cm Vicente Ball Other [facility] Other 01-14-2023 14:30-0400 Body mass index (BMI) [Ratio] 29.88 kg/m2 Vicente Ball Other [facility] Other 01-14-2023 14:30-0400 Body weight 81.47 kg Vicente Ball Other [facility] Other 01-14-2023 14:30-0400 Diastolic blood pressure 79 mm[Hg] Vicente Ball Other [facility] Other 01-14-2023 14:30-0400 Respiratory rate 12 /min Vicente Ball Other [facility] Other 01-14-2023 14:30-0400 Systolic blood pressure 111 mm[Hg] Vicente Ball Other [facility] Other 06-27-2021 14:00-0400 Body height 165.1 cm Harper Banda Other [facility] Other 06-27-2021 14:00-0400 Body mass index (BMI) [Ratio] 26.62 kg/m2 Harper Banda Other [facility] Other 06-27-2021 14:00-0400 Body weight 72.58 kg Harper Banda Other [facility] Other 12-09-2018 08:41-0400 Body Temperature 97.3 [degF] [place] 12-09-2018 08:41-0400 BP Diastolic 76 mm[Hg] [place]ion [place] 12-09-2018 08:41-0400 BP Systolic 117 mm[Hg] Darion [place] 12-09-2018 08:41-0400 Pulse (Heart Rate) 72 /min Draion [place] 12-09-2018 08:41-0400 Pulse Oximetry 99 % Darion [place] 12-09-2018 08:41-0400 Respiratory Rate 14 /min [place]ion [place] 12-09-2018 06:14-0400 BMI (Body Mass Index) 30.35 kg/m2 [place]ion [place] 12-09-2018 06:14-0400 Body weight 82.72 kg Darion [place] 12-09-2018 06:14-0400 Height 165.1 cm Darion [place] Encounters Encounter Date Encounter Type Care Provider Facility Start: 07-20-2024 End: 07-20-2024 Bamboo flowsadal IVORY Work Phone: [facility] Start: 07-20-2024 End: 07-20-2024 Bamboo flowsadal IVORY Work Phone: [facility] Start: 07-20-2024 End: 07-20-2024 Patient encounter procedure Zayda IVORY Work Phone: [facility] Start: 07-20-2024 End: 07-20-2024 Periodic preventive med est patient 40-64yrs Zayda IVORY Work Phone: [facility] Comment on above: Well woman exam with routine gynecological exam; Encounter for screening mammogram for malignant neoplasm of breast; Hormone disorder; Stress incontinence; Generalized body aches Start: 02-20-2024 Patient encounter status [facility] Start: 02-20-2024 End: 02-20-2024 ambulatory [facility] Work Phone: Start: 02-20-2024 End: 02-20-2024 Encounter for general adult medical examination without abnormal findings [facility] Start: 02-20-2024 End: 02-20-2024 Patient encounter procedure [facility] Physician [facility] Work Phone: Start: 10-28-2023 End: 10-28-2023 ambulatory [facility] Work Phone: Start: 10-28-2023 End: 10-28-2023 Patient encounter procedure [facility] Work Phone: Start: 08-14-2023 End: 08-14-2023 ambulatory ZAYDA MIRACLE Not Available Start: 07-30-2023 Non-patient / Non-visit [facility] Work Phone: Start: 07-15-2023 End: 07-15-2023 ambulatory ZAYDA RAUSCH Not Available Start: 03-19-2023 End: 03-20-2023 ambulatory Claudy SCHMITZ Facility:[id number] Start: 02-11-2023 End: 02-12-2023 ambulatory Claudy SCHMITZ Facility:[facility] Start: 02-11-2023 End: 02-11-2023 Patient encounter procedure Claudy SCHMITZ [facility] Start: 02-05-2023 End: 02-05-2023 ambulatory Vicente Baum Other [facility] Other Start: 02-05-2023 Telephone encounter Vicente Baum [facility] Start: 01-17-2023 End: 01-17-2023 ambulatory Vicente Baum Other [facility] Other Start: 01-17-2023 Telephone encounter Vicente Baum [facility] Start: 01-16-2023 ambulatory Claudy SCHMITZ Facility:[facility] Start: 01-14-2023 End: 01-14-2023 ambulatory Vicente Baum Other [facility] Other Start: 01-14-2023 Encounter for genera l adult medical examination without abnormal findings Vicente Baum [facility] Start: 01-14-2023 Periodic preventive med est patient 40-64yrs Vicente Baum [facility] Start: 07-11-2022 End: 07-11-[address] VICENTE BAUM Facility:[facility] Start: 06-28-[address] LUZ YANES Facilit y:[facility] Start: 12-23-2021 Encounter for genera l adult medical examination without abnormal findings DR VICENTE BAUM [facility] Start: 12-19-2021 End: 12-20-[address] VICENTE BAUM Facility:[facility] Start: 12-19-2021 End: 12-20-2021 Encounter for general adult medical examination without abnormal findings DR VICENTE BAUM Facility:[facility] Start: 10-18-2021 End: 04-26-[address] LUZ YANES Facility:[facility] Start: 08-10-2021 End: 08-25-[address] VICENTE BAUM Facility:[facility] Start: 06-27-2021 End: 06-27-2021 ambulatory Harper Banda Other [facility] Other Start: 06-27-2021 Office outpatient ne w 30 minutes Harper Banda [facility] Start: 12-09-2018 End: 12-09-2018 Patient encounter procedure DARION HAND [facility] Start: 12-09-2018 End: 12-09-2018 Subsequent hospital visit by physician Darion Hand Work Phone: [facility] [place] Comment on above: Post-op pain (Primar y Dx) Procedures Date Procedure Procedure Detail Performing Clinician Start: 07-11-2022 Microscopic observat ion [Identifier] in Cervix by Cyto stain Zayda IVORY Work Phone: Start: 12-09-2018 DISCHARGE PATIENT DARION HAND Start: 12-09-2018 Level iv surg pathol ogy gross&microscopic exam DARION HAND Start: 12-09-2018 Continuous pulse oximetry DARION HAND Start: 12-09-2018 BEDREST DARION De Anda Start: 12-09-2018 ENCOURAGE DEEP BREAT GISELE AND COUGHING DARION HAND Start: 12-09-2018 INITIATE OXYGEN THER APY PROTOCOL DARION HAND Start: 12-09-2018 NOTIFY PHYSICIAN (SPECIFY) DARION HAND Start: 12-09-2018 NURSING COMMUNICATION C ARL FELICE Start: 12-09-2018 VITAL SIGNS DARION De Anda [...] Treatment Date Care Activity Detail Author Start: 07-12-2027 Screening for malign ant neoplasm of cervix [facility] Start: 07-28-2025 End: 07-28-2025 Patient encounter procedure 07/28/2025 8:30 AM EDT Office Visit [facility] [address] [place] [address] Lucius Castellano, DO [address] [place] [address] [facility] Start: 12-06-2024 Influenza vaccination Influenz a Vaccine (Season Ended) [facility] Start: 07-20-2024 End: 07-20-2025 C-peptide C-peptide Lab Routine Hormone disorder Expected: 07/20/2024, Expires: 07/20/2025 [facility] Comment on above: Expected: 07/20/2024 , Expires: 07/20/2025 Start: 07-20-2024 End: 07-20-2025 Cortisol free Cortisol, free Lab Routine Hormone disorder Expected: 07/20/2024, Expires: 07/20/2025 [facility] Comment on above: Expected: 07/20/2024 , Expires: 07/20/2025 Start: 07-20-2024 End: 07-20-2025 DHEA-sulfate DHEA-sulfate Lab Routine Hormone disorder Expected: 07/20/2024 (Approximate), Expires: 07/20/2025 [facility] Comment on above: Expected: 07/20/2024 (Approximate), Expires: 07/20/2025 Start: 07-20-2024 End: 07-20-2025 Estradiol Estradiol Lab Routine Hormone disorder Expected: 07/20/2024 (Approximate), Expires: 07/20/2025 [facility] Comment on above: Expected: 07/20/2024 (Approximate), Expires: 07/20/2025 Start: 07-20-2024 End: 07-20-2025 Estrone Estrone Lab Routine Hormone disorder Expected: 07/20/2024 (Approximate), Expires: 07/20/2025 [facility] Comment on above: Expected: 07/20/2024 (Approximate), Expires: 07/20/2025 Start: 07-20-2024 End: 07-20-2025 Ferritin [Mass/volume] in Serum or Plasma Ferritin Lab Routine Hormone disorder Expected: 07/20/2024 (Approximate), Expires: 07/20/2025 [facility] Comment on above: Expected: 07/20/2024 (Approximate), Expires: 07/20/2025 Start: 07-20-2024 End: 07-20-2025 Glucose [Mass/volume] in Serum or Plasma Glucose, random Lab Routine Hormone disorder Expected: 07/20/2024, Expires: 07/20/2025 [facility] Comment on above: Expected: 07/20/2024 , Expires: 07/20/2025 Start: 07-20-2024 End: 07-20-2025 Hemoglobin A1c/Hemoglobin.total in Blood Hemoglobin A1c Lab Routine Hormone disorder Expected: 07/20/2024 (Approximate), Expires: 07/20/2025 [facility] Comment on above: Expected: 07/20/2024 (Approximate), Expires: 07/20/2025 Start: 07-20-2024 End: 07-20-2025 Insulin, total Insulin, total Lab Routine Hormone disorder Expected: 07/20/2024, Expires: 07/20/2025 [facility] Comment on above: Expected: 07/20/2024 , Expires: 07/20/2025 Start: 07-20-2024 End: 09-19-2025 MG Breast - bilateral Screening Bilateral screening mammogram Imaging Routine Encounter for screening mammogram for malignant neoplasm of breast Expected: 07/20/2024 (Approximate), Expires: 09/19/2025 [facility] Work Phone: Comment on above: Expected: 07/20/2024 (Approximate), Expires: 09/19/2025 Start: 07-20-2024 End: 07-20-2025 Progesterone Progesterone Lab Routine Hormone disorder Expected: 07/20/2024 (Approximate), Expires: 07/20/2025 [facility] Comment on above: Expected: 07/20/2024 (Approximate), Expires: 07/20/2025 Start: 07-20-2024 End: 07-20-2025 Serotonin serum Serotonin serum Lab Routine Hormone disorder Expected: 07/20/2024, Expires: 07/20/2025 [facility] Comment on above: Expected: 07/20/2024 , Expires: 07/20/2025 Start: 07-20-2024 End: 07-20-2025 Sex hormone binding globulin Sex hormone binding globulin Lab Routine Hormone disorder Expected: 07/20/2024 (Approximate), Expires: 07/20/2025 [facility] Comment on above: Expected: 07/20/2024 (Approximate), Expires: 07/20/2025 Start: 07-20-2024 End: 07-20-2025 T3, reverse T3, reverse Lab Routine Hormone disorder Expected: 07/20/2024 (Approximate), Expires: 07/20/2025 [facility] Comment on above: Expected: 07/20/2024 (Approximate), Expires: 07/20/2025 Start: 07-20-2024 End: 07-20-2025 TESTOSTERONE, FREE TESTOSTERONE, FREE Lab Routine Hormone disorder Expected: 07/20/2024 (Approximate), Expires: 07/20/2025 [facility] Comment on above: Expected: 07/20/2024 (Approximate), Expires: 07/20/2025 Start: 07-20-2024 End: 07-20-2025 Testosterone, free, total Testosterone, free, total Lab Routine Hormone disorder Expected: 07/20/2024 (Approximate), Expires: 07/20/2025 [facility] Comment on above: Expected: 07/20/2024 (Approximate), Expires: 07/20/2025 Start: 07-20-2024 End: 07-20-2025 Thyroglobulin Thyroglobulin Lab Routine Hormone disorder Expected: 07/20/2024, Expires: 07/20/2025 [facility] Comment on above: Expected: 07/20/2024 , Expires: 07/20/2025 Start: 07-20-2024 End: 07-20-2025 Thyroglobulin Antibody Thyroglobulin Antibody Lab Routine Hormone disorder Expected: 07/20/2024, Expires: 07/20/2025 [facility] Comment on above: Expected: 07/20/2024 , Expires: 07/20/2025 Start: 07-20-2024 End: 07-20-2025 Thyroid peroxidase antibody Thyroid peroxidase antibody Lab Routine Hormone disorder Expected: 07/20/2024 (Approximate), Expires: 07/20/2025 [facility] Comment on above: Expected: 07/20/2024 (Approximate), Expires: 07/20/2025 Start: 07-20-2024 End: 07-20-2025 Thyrotropin [Units/volume] in Serum or Plasma [facility] Comment on above: Expected: 07/20/2024 (Approximate), Expires: 07/20/2025 Expected: 07/20/2024 , Expires: 07/20/2025 Start: 07-20-2024 End: 07-20-2025 Thyroxine (T4) free [Mass/volume] in Serum or Plasma T4, free Lab Routine Hormone disorder Expected: 07/20/2024 (Approximate), Expires: 07/20/2025 [facility] Comment on above: Expected: 07/20/2024 (Approximate), Expires: 07/20/2025 Start: 07-20-2024 End: 07-20-2025 Triiodothyronine (T3) Free [Mass/volume] in Serum or Plasma T3, free Lab Routine Hormone disorder Expected: 07/20/2024 (Approximate), Expires: 07/20/2025 [facility] Comment on above: Expected: 07/20/2024 (Approximate), Expires: 07/20/2025 Start: 07-20-2024 End: 07-20-2025 Vitamin D 1,25 dihydroxy Vitamin D 1,25 dihydroxy Lab Routine Hormone disorder Expected: 07/20/2024 (Approximate), Expires: 07/20/2025 [facility] Comment on above: Expected: 07/20/2024 (Approximate), Expires: 07/20/2025 Start: 07-20-2024 End: 07-20-2024 Patient encounter procedure 07/20/2024 9:00 AM EDT Office Visit [facility] [address] [place] [id number] Zayda Rausch PA [address] [place] [address] Arrived [facility] Comment on above: Arrived Start: 12-16-2018 End: 12-16-2018 Office Visit 12/16/2018 Office Visit Plastic Surgery Darion Hand MD [address] [place] [address] [phone] [facility] Start: 12-06-2018 Influenza vaccination Flu vaccine (# 1) [facility] [place] Start: 2016 Diabetes screen Diabetes screen [place], [place] Start: 2016 Lipid screen Lipid screen [place], [place] Start: 2016 Screening for malign ant neoplasm of breast Mammogram [facility] Start: 1997 Cervical cancer screen Cervical canc er screen [place], [place] Start: 06-09-1995 DTaP/Tdap/Td vaccine (1 - Tdap) DTaP/Tdap/Td vaccine ( - Tdap) [place], [place] Start: 06-09-1991 HIV screen HIV screen [place], [place] Start: 1975 Screening for malign ant neoplasm of colon [facility] End: 12-09-2018 Blood glucose - POCT Blood glucose - POCT Point of Care Testing Routine One Time for 1 Occurrences starting 12/09/2018 until 12/09/2018 [place] Comment on above: One Time for 1 Occur rences starting 12/09/2018 until 12/09/2018 Comprehensive metabo lic 2000 panel - Serum or Plasma [facility] Initiate Oxygen Ther apy Protocol Initiate Oxygen Therapy Protocol Respiratory Care Routine Daily until discontinued starting 12/09/2018 [place] Comment on above: Daily until disconti nued starting 12/09/2018 MG Breast - bilatera l Screening [facility] Phase I & II - meter ed glucose Phase I & II - metered glucose Point of Care Testing Routine As Needed until discontinued starting 12/09/2018 [place] Comment on above: As Needed until disc ontinued starting 12/09/2018 End: 12-09-2018 , urine POCT , urine POCT Point of Care Testing Routine One Time for 1 Occurrences starting 12/09/2018 until 12/09/2018 [place] Comment on above: One Time for 1 Occur rences starting 12/09/2018 until 12/09/2018 Surgical Pathology Surgical Path ology Lab Routine ONE TIME for 1 Occurrences starting 12/09/2018 [place] Comment on above: ONE TIME for 1 Occur rences starting 12/09/2018 THIN PREP TIS PAP AN D HR HPV DNA THIN PREP TIS PAP AND HR HPV DNA Pathology and Cytology Routine Well woman exam with routine gynecological exam Ordered: 07/20/2024 [facility] Comment on above: Ordered: 07/20/2024 [facility] Immunizations Immunization Date Immunization Notes Care Provider Fa cility 01-07-2024 influenza virus vaccine, unspecified formulation Zayda IVORY Work Phone: [facility] 01-05-2023 influenza virus vaccine, unspecified formulation Claudy SCHMITZ [facility] [place] 01-26-2021 SARS-CoV-2 (COVID-19 ) mRNA-1273 vaccine Claudy NILL [facility] [place] 05-10-2020 SARS-CoV-2 (COVID-19 ) mRNA-1273 vaccine Claudy NILL [facility] [place] 04-11-2020 SARS-CoV-2 (COVID-19 ) mRNA-1273 vaccine Claudy LEONOR [facility] [place] Payers Date Payer Category [id number] 2022 Unknown [id number] 2019 Unknown [id number] 2018 Unknown [employer] [address] xxxxxxxxx 2018-Present [phone] [address] [place] [address] xxxxxxxxx [id number] 2018 Unknown [id number] 1975 Unknown [id number] [id number]. 175 1975 Unknown [id number] 2.16.840.1.509295.3.579.2. 593 1975 Unknown [id number] 2.16.840.1.414975.3.579.2. 593 1975 Unknown [id number] 2.16.840.1.321532.3.579.2. 593 1975 Unknown [id number] 2.16.840.1.201437.3.579.2. 593 1975 Unknown [id number] 2.16.840.1.101022.3.579.2. 593 1975 Unknown [id number] [id number]. 727 1975 Unknown [id number] 2.16.840.1.516680.3.579.2. 727 1975 Unknown [id number] 2.16.840.1.496997.3.579.2. 1259 1975 Unknown [id number] [id number]. 1259 1958 Self-pay [id number] Social History Date Type Detail Facility Start: 12-09-2018 End: 02-11-2023 Tobacco smoking status NHIS Never smoker [facility] Start: 12-09-2018 Alcohol intake Yes [facility] Start: 12-01-2018 Alcohol Comment [facility] [place] Start: 1975 Sex Assigned At Not on file M [facility] [place] Tobacco smoking status Never [facility] [place] Start: 1975 Sex Assigned At Female F [facility] Tobacco smoking stat [facility] Unknown if ever smoked [facility] Start: 02-20-2024 Sex Female (finding) [facility] Functional Status Date Assessment Result Facility 02-11-2023 Functional Status N/A [facility] [place] Clinical Notes 06-27-2021 to 07-20-2024 DIANELYS Bravo - 07/20/2024 9:00 AM EDT Note Date & Type Note Facility 07-20-2024 History of Present illness Narrative Reason for Appointment: Patient ID: Gabriela Rose is a 49 y.o. female who presents for Well Women Visit Patient presents today for Annual Exam. MEDICATIONS Current Outpatient Medications Medication Instructions FLUoxetine (PROZAC) 20 mg, Oral, Daily Mirena (52 MG) 52 mg, Intrauterine, As needed ALLERGIES No Known Allergies PROBLEMS Active Ambulatory Problems Diagnosis Date Noted No Active Ambulatory Problems Resolved Ambulatory Problems Diagnosis Date Noted No Resolved Ambulatory Problems Past Medical History: Diagnosis Date Left hand fracture 07/10/2024 HISTORY PAST MEDICAL HISTORY SOCIAL HISTORY Past Medical History: Diagnosis Date Left hand fracture 07/10/2024 broken metacarpal Social History Tobacco Use Smoking status: Not on file Smokeless tobacco: Not on file Substance Use Topics Alcohol use: Not on file Drug use: Not on file FAMILY HISTORY No family history on file. SURGICAL HISTORY Past Surgical History: Procedure Laterality Date SECTION, LOW TRANSVERSE TONSILLECTOMY TUBAL LIGATION REVIEW OF SYSTEMS Review of Systems: Review of Systems Constitutional: Negative. HENT: Negative. Eyes: Negative. Respiratory: Negative. Cardiovascular: Negative. Gastrointestinal: Negative. Genitourinary: Negative. Musculoskeletal: Negative. Skin: Negative. Neurological: Negative. All other systems reviewed and are negative. Hematological: Negative. Endocrine: Negative. Allergic/Immunologic: Negative. OBJECTIVE Objective: Physical Exam Constitutional: Appearance: Normal appearance. She is well-developed. Genitourinary: Vulva normal. Right Adnexa: not tender and no mass present. Left Adnexa: not tender and no mass present. No cervical discharge. IUD strings visualized. Breasts: Breasts are soft. Right: Normal. Left: Normal. HENT: Head: Normocephalic. Nose: Nose normal. Mouth/Throat: Mouth: Mucous membranes are moist. Cardiovascular: Rate and Rhythm: Normal rate and regular rhythm. Pulmonary: Effort: Pulmonary effort is normal. Breath sounds: Normal breath sounds. Abdominal: General: Bowel sounds are normal. There is no distension. Palpations: Abdomen is soft. Tenderness: There is no abdominal tenderness. There is no guarding or rebound. Musculoskeletal: General: No swelling. Normal range of motion. Cervical back: Normal range of motion. Right lower leg: No edema. Left lower leg: No edema. Neurological: General: No focal deficit present. Mental Status: She is alert and oriented to person, place, and time. Skin: General: Skin is warm and dry. Psychiatric: Mood and Affect: Mood normal. Behavior: Behavior normal. Vitals and nursing note reviewed. Exam conducted with a web engineer present. Vitals: Estimated body mass index is 30.49 kg/m as calculated from the following: Height as of 07/15/23: 5' 5 . Weight as of this encounter: 183 lb 4 oz. BP: 108/84 No LMP recorded. Patient has had an implant. ASSESSMENT & PLAN ICD-10-CM 1. Well woman exam with routine gynecological exam Z01.419 THIN PREP TIS PAP AND HR HPV DNA 2. Encounter for screening mammogram for malignant neoplasm of breast Z12.31 Bilateral screening mammogram Bilateral screening mammogram Annual: Patient presents today for an annual exam. Patient states she is doing well and has complaints possible hormonal changes/body aches/fatigue/insomnia/increase d cholesterol levels/incontinence. Patient has done some research in regards to her symptoms & brought [facility] packet to office to discuss. Pap was obtained without difficulty and patient given mammogram order to have scheduled/obtained. Discussed patients current symptoms and once [employer] Packet is returned to office and all lab results obtained then packet and labs will be sent to [facility]. Patient also desires to start GLP therapy and prescription will be sent to [facility] as well. Discussed vaginal estrogen if needed in the future and patient will see if symptoms improve with current plan of care. Discussed compounded Semaglutide with Methyl B12 and Niacinamide added for better absorption. Patient prefers to have Methyl B12 and Niacinamide added to Semaglutide by injection for better absorption. Prescription will be sent to [facility] to be compounded and dispensed to patient. Patient is aware that she will need to have follow up labs drawn every 3 months in order to be compliant with medication therapy. Discussed IUD removal as patient has had Mirena in for at least 7-8 years. Orders Placed This Encounter Procedures Bilateral screening mammogram Follow Up: Patient is to return in one year for annual unless needed otherwise. Documented by Haylee Morales LPN on behalf of: DIANELYS Bravo documented in this encounter [facility] 02-11-2023 Note Chief Complaint consultation for screening [...] Recorded SARS-CoV-2 (COVID-19) mRNA-1273 vaccine 04/11/2020 Recorded [facility] Comment on above: Result Comment: Elec tronically Signed By: LEONOR COLON, Claudy Mireles\Date and Time Signed: 02/11/23 14:43 EST 02-05-2023 Evaluation note Encounter Date Diagnosis Assessment Notes Feb, Seasonal affective disorder (ICD-10 - F33.8) [facility] Other 10-10-2023 Evaluation note* Encounter Date Diagnosis [...] She is an asymptomatic, low risk patient [facility] Other 03-23-2022 Evaluation note* Encounter Date Diagnosis [...] Jun, Left elbow pain (ICD-10 - M25.522) [facility] Other Evaluation + Plan note No data available for this section General Surgery [place] Evaluation noteNo InformationNort [employer] Other Evaluation note* Diagnosis Onset Date Resolution Status Insomnia acute Overweight acute Seasonal affective disorder acute [facility] Work Phone: Evaluation note* Diagnosis Onset Date Resolution Status Admit Date Wellness examination acute Novreuben mber 2023 2:07pm [facility] Work Phone: Evaluation note* Diagnosis Well woman exam with routine gynecological exam Routine gynecological examination Encounter for screening mammogram for malignant neoplasm of breast Hormone disorder Unspecified endocrine disorder Stress incontinence Female stress incontinence Generalized body aches documented in this encounter [facility] N[facility]ative - Reported* Type Description Date Medical History Seasonal Affective Disorder Surgical History x 2 Surgical History tonsilectomy Surgical History tubal ligation Hospitalization History see surgeries [facility] [facility] [employer] Other Hospital Discharge instructions No data available for this section General Surgery [place] Kno Progress note No data available for this section General Surgery [place] [facility]no Reason for referral (narrative)* Reason Referral for screeni ng colonoscopy Diagnosis 1 Screening for colon cancer (Z12.11) Referral Organization [facility] aliza Referring Provider First Name Vicente Referring Provider Last Name Bautista Referring Provider Specialty Internal Me dicine Referred Organization [facility] Referred Provider Claudy Schmitz Referred Address [address], [place],[address] Referred Provider Specialty Surgery Referral Priority Routine General Notes Asymptomatic, low ri sk patient. She denies change in appetite, weight or bowel habits. She denies heartburn or dysphagia. She denies abdominal pain, melena or hematochezia. [facility] Other Discharge Instructions * Instructions* Brittney Batista [...] AM EDT CLINICAL PHARMACY NOTE: MEDS TO [facility] Patient?: No Total # of Prescriptions Filled: 2 The following medications were delivered to the patient: cephalexin norco Total # of Interventions Completed: 1 Time Spent (min): 0 Additional Documentation: * Jamal Garcia, RAMYOND - 12/09/2018 6:34 AM EDT Urine test results-negative * Ranjit Zendejas, RAYMOND - 12/01/2018 1:26 PM EDT DAY OF SURGERY/PROCEDURE GUIDELINES As a patient at the [facility], you can expect quality medical and nursing care that is centered on your individual needs. It is our goal to make your surgical experience as comfortable and excellent as possible. Please arrive at 0600 with an empty stomach. No jewelry or piercings on. Must have a race car driver home and in the waiting room. [...] morning of your surgery/procedure (Hibiclens if directed) [place] your teeth, but do not swallow any [...] your Living Will or Durable Power of Site Administrator DO NOT take anticoagulants (blood thinners, aspirin [...] are recovering, the surgery family waiting room clinical rehabilitation aide can answer many of your family's questions. [...] Documents on File Type Date Recorded Patient Community Associate Expl anation Advance Directives and Living Will Power of Site Administrator Advance Directive Response Recorded Date/ Time Advance [...] mass and lump, unspecified MASS FOREHEAD Procedures ND EXCISION TUMOR SOFT TISS FACE/SCALP SUBQ 2+CM ND EXC SKIN MALIG 2.1-3CM FACE,FACIAL ND EXC SKIN BENIG 2.1-3CM FACE,FACIAL ND ADJ TISS XFER HEAD,FAC,HAND <10SQCM HEAD LESION EXCISION Darion Hand MD [address] [place] [address] [facility] Reason Comments Well Women Visit INFORMATION SOURCE (unrecogn ized section and content) DATE CREATED AUTHOR 12/15/2018 [facility] DATE CREATED AUTHOR AUTHOR'S ORGANIZ ATION 08/18/2020 [facility] DATE CREATED AUTHOR AUTHOR'S ORGANIZ ATION 07/20/2022 [facility] DATE CREATED AUTHOR AUTHOR'S ORGANIZ ATION 03/25/2023 [facility] DATE CREATED AUTHOR AUTHOR'S ORGANIZ ATION 08/16/2023 [facility] EPIC Patient Care team informatio n [...] BE BASED ON THE PRIMARY CLINICAL RECORDS. [employer] provides no warranty or guarantee of the accuracy or completeness of information in this document.
[2024-07-21 08:14] LABS: Estimated Average Glucose 108 mg/dL; Glycohemoglobin A1C 5.4 % (4.5-6.2)
[2024-07-21 08:26] LABS: Free T3 2.85 pg/mL (2.18-3.98); Glucose 113 mg/dL (74-106); Thyroid Stimulating Hormone 2.403 uIU/mL (0.358-3.740)
[2024-07-22 04:07] LABS: C-Peptide, Serum 2.6 ng/mL (1.1-4.4); DHEA-Sulfate 81.2 ug/dL (41.2-243.7); Insulin 12.5 uIU/mL (2.6-24.9); Progesterone 0.3 ng/mL (.); Sex Horm Binding Glob, Serum 41.8 nmol/L (24.6-122.0)
[2024-07-23 08:09] LABS: Thyroglobulin Antibody <1.0 IU/mL (0.0-0.9); Thyroid Peroxidase (TPO) Ab 15 IU/mL (0-34)
[2024-07-24 17:09] LABS: Free Testosterone(Direct) 0.8 pg/mL (0.0-4.2); Testosterone 11 ng/dL (4-50)
[2024-07-26 12:08] LABS: Calcitriol(1,25 di-OH Vit D) 32.7 pg/mL (24.8-81.5)
[2024-07-26 18:08] LABS: Reverse T3, Serum 10.5 ng/dL (9.2-24.1)
== END 2024-07-21 06:49 | disposition home or self-care (01) ==
LOC: LAB 06:51
PROVIDERS: PCP Family Medicine; Visit Provider Physician Assistant
DX: E34.9 Endocrine disorder, unspecified (principal)
CPT/HCPCS: 36415; 82530; 82627; 82652; 82670; 82679; 82728; 82947; 83036; 83525; 84144; 84260; 84270; 84402; 84403; 84432; 84436; 84439; 84443; 84481; 84482; 84681; 86376; 86800

== ENCOUNTER 2024-07-26 08:11 | Outpatient (OUT) | payer BC, SELFPAY ==
--- NOTE | 2024-07-26 | XR_ITS ---
[address] [address] Patient Name: FATMATA SCHULTZ MRN: [id number] date: 1975 Sex: F Assigned Patient Location: Current Patient Location: Accession/Order Number: [id number] Exam Date: 07/26/2024 10:11 Report Date: 07/26/2024 10:17 At the request of: MICHAEL CALLEJAS MD Procedure: XR hand LT min 3V 3 views left hand plain film COMPARISON: 07/19/2024 HISTORY: Follow-up left hand fracture ACUTE FINDINGS: Stable alignment with interval healing of fifth metacarpal fracture. DEGENERATIVE CHANGE: Unremarkable SOFT TISSUE FINDINGS: Unremarkable JOINT EFFUSION: None POSTOP CHANGES: None BONY MINERALIZATION: Adequate XR/XR hand LT min 3V IMPRESSION: Healing fracture with stable alignment Impression dictated by: Morgan Day M.D.07/26/2024 10:17 AM Dictation Location: [place] [address] Electronically authenticated by: [id number] Y Date: 07/26/2024 10:17
--- OUTSIDE RECORDS SUMMARY | 2024-07-26 08:22 | XMS_ITS | CCD ---
Author Organization [facility] Care Team Providers Care Child Support Agent Name Role Phone Vicente Baum Primary Care Provider DARION HAND Admitting Unavailab blaise HAND, DARION MANCILLA Attending Unavailab VICENTE Napoles Primary Care Unavailable Harper Banda Unavailable BAUTISTA, DR ONOFRE Admitting Unavailable BAUTISTA, DR ONOFRE Attending Unavailable BAUTISTA, DR ONOFRE Consulting Unavailable BAUTISTA, DR ONOFRE Primary Care Unavailable FARZANA, DR LUZ Dyer Attending Unavailable BAUTISTA, DR ONOFRE Primary Care Unavailable FARZANA, DR LUZ Dyer Consulting Unavailable FARZANA, DR LUZ Dyer Admitting Unavailable FARZANA, DR LUZ Dyer Admitting Unavailable BAUTISTA, DR ONOFRE Primary Care Unavailable FARZANA, DR LUZ Dyer Attending Unavailable WEST, DR LUZ Dyer Consulting Unavailable BAUTISTA, DR ONOFRE Primary Care Unavailable HARPER BANDA Admitting Unavailable HARPER BANDA Attending Unavailable BAUTISTA, DR ONOFRE Primary Care Unavailable MIRACLE .ZAYDA Consulting Unavailable MIRACLE ., ZAYDA Admitting Unavailable MIRACLE .ZAYDA Attending Unavailable Vicente Baum Unavailable VICENTE BAUM Primary Care Physician [phone] Claudy SCHMITZ Attending Unavailable VICENTE BAUM Referring Unavailable Claudy SCHMITZ Attending Unavailable Unavailable Primary Care Provider UnavailZAYDA Doherty Attending Unavailable MIRACLE, ZAYDA Attending Unavailable Allergies Allergy Classification Reported Allergen(s) Allergy Type Date of Onset Reaction(s) Facility (1 source) No Known Medication Allergies; Translations: [No Known Medication Allergies] Propensity to adverse reactions (disorder) [facility] Repository Medications Current Medications Medication Drug [...] 25 mcg FLUoxetine 20 mg oral capsule (14 sources) Serotonin Reuptake Inhibitor Start: 07-30-2023 End: [...] 12-09-2018 HYDROmorphone (DILAUDID) injection 0.5 mg levonorgestrel 0.486411 mg/hr intrauterine system (5 sources) Progestin, Progestin-containing Intrauterine Device Levonorgestrel (Mirena, [...] Active -Hx Entry for 0 *Reorder from [employer] for eRx and Interaction Alerts* Feb, Not-Taking [...] times daily for 7 *Pick strength-form from [employer] for eRX* 10 Apr, 2019 Not-Taking triamcinolone [...] Test Name Value Interpretation Reference Range Facility IGP,APTIMA HPV,AGE GDLNon AGE GDLN ACOG TESTING Note . [facility] Comment on above: TESTS RESULT FLAG UN ITS REF RANGE LAB Clinician Provided Cytology Information Source.............Cervix;Endocervix No. of containers..01 ThinPrep Vial Age Algo ACOG Celina... 30-65 01 FLAG LEGEND: L-Low Normal,H-High Normal,LL-Alert Low,HH-Alert High <-Panic Low,>-Panic High,A-Abnormal,AA-Critical Abnormal Performed at: 01 =G [address] [place] [address] Charisse Merchant MD, HPV APTIMA Negative Negative [facility] Comment on above: This nucleic acid am plification test detects fourteen high- risk HPV types (16,18,31,33,35,39,45,51,52,56,58,59,66,68) without differentiation. Performed at: =[address], [place] [id number] Reel And Rewinder Operator: Charisse Merchant MD, Phone: [phone] Performed at: [facility] [id number] [place] [id number] Reel And Rewinder Operator: Brian Spencer MD, Phone: [phone] IGP, APTIMA HPV, RFX 16/18,45 Note . [facility] Comment on above: TESTS RESULT FLAG UN ITS REF RANGE LAB DIAGNOSIS: 02 NEGATIVE FOR INTRAEPITHELIAL LESION OR MALIGNANCY. Specimen adequacy: 02 Satisfactory for evaluation. No endocervical component is identified. Performed by: Bear Rivera, Shellfish Meat Separator Operator (ASCP) . 02 Note: Note 03 The Pap smear is a screening test designed to aid in the detection of premalignant and malignant conditions of the uterine cervix. It is not a diagnostic procedure and should not be used as the sole means of detecting cervical cancer. Both false-positive and false-negative reports do occur. Test Methodology: Note 03 This liquid based ThinPrep(R) pap test was screened with the use of an image guided system. HPV Genotype Reflex Note 02 Criteria not met, HPV Genotype not performed. FLAG LEGEND: L-Low Normal,H-High Normal,LL-Alert Low,HH-Alert High <-Panic Low,>-Panic High,A-Abnormal,AA-Critical Abnormal Performed at: 02 [facility] [address] [place] [address] Brian Spencer MD, 03 WB [facility] [address] [address] Charisse Merchant MD, BRUSH-SPATULA [facility] HEMOGLOBIN A1Con 025 Glucose [Mass/Vol] 108 mg/dL [facility] HbA1c (Bld) [Mass fraction] 5.4 % 4.5 - 6.2 % [facility] Comment on above: ADA RECOMMENDED LIMI T 4.0 - 6.0 ADA THERAPEUTIC TARGET < 7.0 ACTION SUGGESTED > 7.0 [facility] Outside Colonoscopy [id number]#1.00T IFF Normal [facility] Reminderson 03-20-2023 Reminders - From: Dolores Lee LPN To: GSN - Clinical; Sent: 03/20/2023 08:53:50 EST Show up: 02/17/2033 07:00:00 EST Subject: colonoscopy recall Due Date/Time: 03/19/2033 07:00:00 EST Reminder/Recall Patient due for screening colonoscopy 03/19/2033. Normal [facility] Lab Reportson 03-19-2023 Lab Reports [id number]#1.00T IFF Normal [facility] Insurance Correspondenceon 04-27-2022 Insurance Correspondence [id number]#1.[address] [facility] Consent for Procedure/Surger yon 02-12-2023 Consent for Procedure/Surgery [id number]#1.[address] [facility] Facesheeton 02-12-2023 Facesheet [id number]#1.[address] [facility] Ambulatory Visit Summaryon 1 04-13-2022 Ambulatory Visit Summary GABRIELA ROSE :1975 Visit Date:02/11/2023 Ambulatory Visit Instructions Your Diagnosis Screening for malignant neoplasm of colon Your Care Team Attending Physician - LEONOR COLON, Claudy De Anda Primary Care Physician - BAUTISTA VASQUEZ, VICENTE Referring Physician - VICENTE BAUM DO This [...] for choosing us for your care. Normal [facility] Physician Referralon 023 Physician Referral [id number]#1.00T IFF Normal [facility] PAP ACOG PANEL 2: 30 to 65on 07-18-2022 . . Normal [facility] Comment on above: Result Comment: Perf ormed at: WB Performed By: #### 4 [id number] #### [facility] [address] [address] [address] Chloe Wells Age Gdln ACOG Testing 30-65 Normal [facility] Comment on above: Performed By: #### 4 [id number] #### [facility] [address] [address] [address] Chloe Wells DIAGNOSIS: Comment Normal [facility] Comment on above: Result Comment: NEGA TIVE FOR INTRAEPITHELIAL LESION OR MALIGNANCY. Performed at: WB Performed By: #### 4 [id number] #### [facility] [address] [address] [address] Chloe Wells HPV Aptima Positive Abnormal Negative [facility] Comment on above: Result Comment: This nucleic acid amplification test detects fourteen high-risk HPV types (16,18,31,33,35,39,45,51,52,56,58,59,66,68) without differentiation. Performed at: =G Performed By: #### 4 [id number] #### [facility] [address] [place] [address] Dr. Chloe Wells HPV Genotype 16 Negative Normal Negative [facility] Comment on above: Performed By: #### 4 [id number] #### [facility] [address] [place] [address] Dr. Chloe Wells HPV Genotype 18,45 Negative Normal Negative [facility] Comment on above: Performed By: #### 4 [id number] #### [facility] [address] [address] [address] Chloe Wells HPV Genotype Reflex Comment Normal [facility] Comment on above: Result Comment: Kira galicia, see HPV Genotype results. Performed at: WB Performed By: #### 4 [id number] #### [facility] [address] [place] [address] Dr. Chloe Wells Methodology: Comment Normal [facility] Comment on above: Result Comment: This liquid based ThinPrep(R) pap test was screened with the use of an image guided system. Performed at: WB Performed By: #### 4 [id number] #### [facility] [address] [place] [address] Dr. Chloe Wells Note: Comment Normal [facility] Comment on above: Result Comment: The Pap smear is a screening test designed to aid in the detection of premalignant and malignant conditions of the uterine cervix. It is not a diagnostic procedure and should not be used as the sole means of detecting cervical cancer. Both false-positive and false-negative reports do occur. . Performed at: WB Performed By: #### 4 [id number] #### [facility] [address] [place] [address] Dr. Chloe Wells Performed by: Comment Normal [facility] Comment on above: Result Comment: Rozina Benitez, Shellfish Meat Separator Operator (ASCP) Performed at: WB Performed By: #### 4 [id number] #### [facility] [address] [place] [address] Dr. Chloe Wells Specimen adequacy: Comment Normal [facility] Comment on above: Result Comment: Sati sfactory for evaluation. Endocervical and/or squamous metaplastic cells (endocervical component) are present. Performed at: WB Performed By: #### 4 [id number] #### [facility] [address] [place] [address] Dr. Chloe Wells CBC AUTO DIFFon 12-19-2021 BASO # 0.0 103/ul Normal 0.0-0.1 [facility] Comment on above: Performed By: #### C BC #### [facility] [address] [place] [address] Dr. Chloe Wells Basophils/100 WBC (Bld) 0.3 % Normal 0.2-2.0 [facility] Comment on above: Performed By: #### C BC #### [facility] [address] [place] [address] Dr. Chloe Wells EO # 0.2 103/ul Normal 0.0-0.7 [facility] Comment on above: Performed By: #### C BC #### [facility] [address] [place] [address] Dr. Chloe Wells Eosinophils/100 WBC (Bld) 2.9 % Normal 0.9-7.0 [facility] Comment on above: Performed By: #### C BC #### [facility] [address] [place] [address] Dr. Chloe Wells Erythrocyte distribution width (RBC) [Ratio] 12.4 % Normal 11.0-15.0 [facility] Comment on above: Performed By: #### C BC #### [facility] [address] [place] [address] Dr. Chloe Wells Hematocrit (Bld) [Volume fraction] 38.8 % Normal 36.0-48.0 [facility] Comment on above: Performed By: #### C BC #### [facility] [address] [place] [address] Dr. Chloe Wells Hemoglobin (Bld) [Mass/Vol] 13.0 g/dL Normal 12.0-16.0 [facility] Comment on above: Performed By: #### C BC #### [facility] [address] [place] [address] Dr. Chloe Wells IG # 0.01 10e3/ul Normal 0.00-0.03 [facility] Comment on above: Performed By: #### C BC #### [facility] [address] [place] [address] Dr. Chloe Wells IG % 0.2 % Normal 0.0-0.5 [facility] Comment on above: Performed By: #### C BC #### [facility] [address] [place] [address] Dr. Chloe Wells LYMPH # 2.0 103/ul Normal 1.2-3.8 [facility] Comment on above: Performed By: #### C BC #### [facility] [address] [place] [address] Dr. Chloe Wells Lymphocytes/100 WBC (Bld) 33.4 % Normal 20.5-60.0 [facility] Comment on above: Performed By: #### C BC #### [facility] [address] [place] [address] Dr. Chloe Wells MANUAL DIFF REQ NO Normal [facility] Comment on above: Performed By: #### C BC #### [facility] [address] [place] [address] Dr. Chloe Wells MCH (RBC) [Entitic mass] 30.2 pg Normal 26.7-34.0 [facility] Comment on above: Performed By: #### C BC #### [facility] [address] [place] [address] Dr. Chloe Wells MCHC (RBC) [Mass/Vol] 33.5 g/dL Normal 29.9-35.2 [facility] Comment on above: Performed By: #### C BC #### [facility] [address] [place] [address] Dr. Chloe Wells MCV (RBC) [Entitic vol] 90.0 fL Normal 81.0-99.0 [facility] Comment on above: Performed By: #### C BC #### [facility] [address] [place] [address] Dr. Chloe Wells MONO # 0.5 103/ul Normal 0.3-0.8 [facility] Comment on above: Performed By: #### C BC #### [facility] [address] [place] [address] Dr. Chloe Wells Monocytes/100 WBC (Bld) 8.0 % Normal 1.7-12.0 [facility] Comment on above: Performed By: #### C BC #### [facility] [address] [place] [address] Dr. Chloe Wells NEUT # 3.2 103/ul Normal 1.4-6.5 [facility] Comment on above: Performed By: #### C BC #### [facility] [address] [place] [address] Dr. Chloe Wells Neutrophils/100 WBC (Bld) 55.2 % Normal 43.0-75.0 [facility] Comment on above: Performed By: #### C BC #### [facility] [address] [place] [address] Dr. Chloe Wells Platelet mean volume (Bld) [Entitic vol] 8.9 fL Critically low 9.5-13.5 [facility] Comment on above: Performed By: #### C BC #### [facility] [address] [place] [address] Dr. Chloe Wells PLT 327 103/ul Normal 150-450 [facility] Comment on above: Performed By: #### C BC #### [facility] [address] [place] [address] Dr. Chloe Wells RBC 4.31 106/ul Normal 4.20-5.40 [facility] Comment on above: Performed By: #### C BC #### [facility] [address] [place] [address] Dr. Chloe Wells WBC 5.9 103/ul Normal 4.0-11.0 [facility] Comment on above: Performed By: #### C BC #### [facility] [address] [place] [address] Dr. Chloe Wells GLYCOHEMOGLOBIN A1Con 2021 ADA RECOMMENDATION SEE BELOW Normal [facility] Comment on above: Result Comment: ADA RECOMMENDED LIMIT 4.0 - 6.0 ADA THERAPEUTIC TARGET < 7.0 ACTION SUGGESTED > 7.0 Performed By: #### A 1C #### [facility] [address] [place] [address] Dr. Chloe Wells Glucose [Mass/Vol] 105 mg/dL Normal [facility] Comment on above: Performed By: #### A 1C #### [facility] [address] [place] [address] Dr. Chloe Wells HbA1c (Bld) [Mass fraction] 5.3 % Normal 4.5-6.2 [facility] Comment on above: Performed By: #### A 1C #### [facility] [address] [place] [address] Dr. Chloe Wells LIPID PROFILEon 12-19-2021 CHOL-HDL RATIO NORM SEE BELOW Normal [facility] Comment on above: Result Comment: 3.3 - 4.4 LOW RISK 4.4 - 7.1 AVERAGE RISK 7.1 - 11.0 MODERATE RISK >11.0 HIGH RISK Performed By: #### C MP, TSH, LIPID #### [facility] [address] [place] [address] Dr. Chloe Wells Cholesterol [Mass/Vol] 171 mg/dL Normal <=200 [facility] Comment on above: Performed By: #### C MP, TSH, LIPID #### [facility] [address] [address] [address] Chloe Wells Cholesterol in HDL [Mass/Vol] 63 mg/dL Critically high 40-60 [facility] Comment on above: Performed By: #### C MP, TSH, LIPID #### [facility] [address] [address] [address] Chloe Wells Cholesterol in LDL [Mass/Vol] 99.2 mg/dL Normal [facility] Comment on above: Performed By: #### C MP, TSH, LIPID #### [facility] [address] [address] [address] Chloe Wells Cholesterol.total/Ch olesterol in HDL [Mass ratio] 2.7 {ratio} Normal [facility] Comment on above: Performed By: #### C MP, TSH, LIPID #### [facility] [address] [address] [address] Chloe Wells HDL NORMAL > or = 60 mg/dl - LO W CARDIOVASCULAR RISK <40 mg/dl - HIGH CARDIOVASCULAR RISK Normal [facility] Comment on above: Performed By: #### C MP, TSH, LIPID #### [facility] [address] [address] [address] Chloe Wells LDL CALC NORMAL SEE BELOW Normal [facility] Comment on above: Result Comment: <100 mg/dl OPTIMAL 100 - 129 mg/dl NEAR OR ABOVE OPTIMAL 130 - 159 mg/dl BORDERLINE HIGH 160 - 189 mg/dl HIGH >190 mg/dl VERY HIGH Performed By: #### C MP, TSH, LIPID #### [facility] [address] [address] [address] Chloe Wells Triglyceride [Mass/Vol] 44 mg/dL Normal <=150 [facility] Comment on above: Performed By: #### C MP, TSH, LIPID #### [facility] [address] [address] [address] Chloe Wells VLDL CALC 8.8 mg/dL Normal [facility] Comment on above: Performed By: #### C MP, TSH, LIPID #### [facility] [address] [address] [address] Chloe Wells PROF 14(COMP METB)on 022 Albumin [Mass/Vol] 3.8 g/dL Normal 3.4-5.0 [facility] Comment on above: Performed By: #### C MP, TSH, LIPID #### [facility] [address] [place] [address] Dr. Chloe Wells Albumin/Globulin [Mass ratio] 1.3 {ratio} Normal [facility] Comment on above: Performed By: #### C MP, TSH, LIPID #### [facility] [address] [place] [address] Dr. Chloe Wells ALP [Catalytic activity/Vol] 54 U/L Normal 46-116 [facility] Comment on above: Performed By: #### C MP, TSH, LIPID #### [facility] [address] [place] [address] Dr. Chloe Wells ALT [Catalytic activity/Vol] 20 U/L Normal 14-59 [facility] Comment on above: Performed By: #### C MP, TSH, LIPID #### [facility] [address] [place] [address] Dr. Chloe Wells Anion gap [Moles/Vol] 9.9 mmol/L Normal [facility] Comment on above: Performed By: #### C MP, TSH, LIPID #### [facility] [address] [place] [address] Dr. Chloe Wells AST [Catalytic activity/Vol] 14 U/L Critically low 15-37 [facility] Comment on above: Performed By: #### C MP, TSH, LIPID #### [facility] [address] [place] [address] Dr. Chloe Wells Bilirubin [Mass/Vol] 0.6 mg/dL Normal 0.2-1.0 [facility] Comment on above: Performed By: #### C MP, TSH, LIPID #### [facility] [address] [place] [address] Dr. Chloe Wells Calcium [Mass/Vol] 8.5 mg/dL Normal 8.5-10.1 [facility] Comment on above: Performed By: #### C MP, TSH, LIPID #### [facility] [address] [address] [address] Chloe Wells Chloride [Moles/Vol] 104 mmol/L Normal 98-107 [facility] Comment on above: Performed By: #### C MP, TSH, LIPID #### [facility] [address] [address] [address] Chloe Wells CO2 [Moles/Vol] 27.3 mmol/L Normal 21.0-32.0 [facility] Comment on above: Performed By: #### C MP, TSH, LIPID #### [facility] [address] [place] [address] Dr. Chloe Wells Creatinine [Mass/Vol] 0.74 mg/dL Normal 0.55-1.02 [facility] Comment on above: Performed By: #### C MP, TSH, LIPID #### [facility] [address] [place] [address] Dr. Chloe Wells EGFR-AF URUGUAYAN >60 Normal >=60 [facility] Comment on above: Performed By: #### C MP, TSH, LIPID #### [facility] [address] [place] [address] Dr. Chloe Wells EGFR-NON AF URUGUAYAN >60 Normal >=60 [facility] Comment on above: Performed By: #### C MP, TSH, LIPID #### [facility] [address] [place] [address] Dr. Chloe Wells Globulin (S) [Mass/Vol] 2.9 g/dL Normal [facility] Comment on above: Performed By: #### C MP, TSH, LIPID #### [facility] [address] [place] [address] Dr. Chloe Wells Glucose [Mass/Vol] 110 mg/dL Critically high 74-[address] [facility] Comment on above: Performed By: #### C MP, TSH, LIPID #### [facility] [address] [place] [address] Dr. Chloe Wells Potassium [Moles/Vol] 4.2 mmol/L Normal 3.5-5.1 [facility] Comment on above: Performed By: #### C MP, TSH, LIPID #### [facility] [address] [address] [address] Chloe Wells Protein [Mass/Vol] 6.7 g/dL Normal 6.4-8.2 [facility] Comment on above: Performed By: #### C MP, TSH, LIPID #### [facility] [address] [address] [address] Chloe Wells Sodium [Moles/Vol] 137 mmol/L Normal 136-145 [facility] Comment on above: Performed By: #### C MP, TSH, LIPID #### [facility] [address] [place] [address] Dr. Chloe Wells Urea nitrogen [Mass/Vol] 18.0 mg/dL Normal 7.0-18.0 [facility] Comment on above: Performed By: #### C MP, TSH, LIPID #### [facility] [address] [place] [address] Dr. Chloe Wells Urea nitrogen/Creatinine [Mass ratio] 24.3 mg/mg Normal [facility] Comment on above: Performed By: #### C MP, TSH, LIPID #### [facility] [address] [place] [address] Dr. Chloe Wells TSHon 12-19-2021 TSH 1.733 uIU/mL Normal 0.358-3.[address] [facility] Comment on above: Performed By: #### C MP, TSH, LIPID #### [facility] [address] [place] [address] Dr. Chloe Wells SURGICAL PATH REPORTon 07-31 SURGICAL PATH REPORT [facility] Department of Pathology [address] [place] [id number] Name: GABRIELA ROSE : 1975 Financial [id number] Number: Gender: Female Location: [facility] Admit 45 years Attending JAMAL SWAN Age: Provider: Ordering MICHAEL HERNÁNDEZ Provider: Consulting: Surgical Pathology Report ACCESSION: COLLECTED DATE/TIME: RECEIVED DATE/TIME: PATHOLOGIST: [id number] 07/26/2020 11:13 EDT 07/26/2020 14:42 EDT KENDELL COLON, BRANT WEBER Final Diagnosis Report for [facility], [place], [place] LEFT BREAST, UPPER OUTER QUADRANT, MICROCALCIFICATIONS, [...] Print Date/ 07/31/2020 14:04 EDT Number: Time: [facility] Department of Pathology [address] [place] [id number] Name: GABRIELA ROSE : 1975 [facility] [id number] Number: Gender: Female Location: [facility] [facility] Admit 45 years Attending JAMAL SWAN Age: Provider: Ordering MICHAEL HERNÁNDEZ Provider: Consulting: Surgical Pathology Report ACCESSION: COLLECTED DATE/TIME: RECEIVED DATE/TIME: PATHOLOGIST: [id number] 07/26/2020 11:13 EDT 07/26/2020 14:42 EDT KENDELL [...] MP:ts 07/26/2020 Tissue pathology report for: [facility], [address] [place] [address]; PATHOLOGY SERVICES PROVIDED BY [employer], [facility] (CLIA #[id number]) in cooperation with [facility] at [address] [place] [address] (CLIA #[id number]) Codes CPT CODE: 15942 ____ Print Date/ 07/31/2020 14:04 EDT Number: Time: Normal [facility] Comment on above: Performed By: #### [id number] #### [facility] Laboratory Services [address] [place] [address] Production Corrugator: Jim Treadwell MD OPERATIVE REPORTon 9 OPERATIVE REPORT [address] [id number] OPERATIVE REPORT PATIENT NAME: GABRIELA ROSE Shiela : 1975 MED REC NO: [id number] ROOM: ACCOUNT NO: [id number] ADMIT DATE: 12/09/2018 PROVIDER: Darion Hand DATE [...] sponge counts correct. DARION HAND [id number] Doc#: [id number] CC: Normal [facility] Surgical Pathologyon 019 Surgical Pathology (NOTE) [id number] [facility] ANATOMIC PATHOLOGY [address] [place] [phone] SURGICAL PATHOLOGY CONSULTATION Patient Name: GABRIELA ROSE [facility] Rec: [id number] Path Number: [id number] Collected: 12/09/2018 Received: 12/09/2018 Reported: 12/10/2018 13:49 [...] periphery, consistent with a benign lipoma. Normal [facility] Comment on above: Performed By: #### P PPVDP #### [facility] [employer] [address] [place] [address] Reel And Rewinder Operator: Chris Michaels MD Vital Signs Date Time Vital Sign Value Performing Clinician Facility 07-20-2024 09:17-0400 Body mass index (BMI) [Ratio] 30.49 kg/m2 Zayda IVORY Work Phone: [facility] 07-20-2024 09:17-0400 Body weight 83.12 kg Zayda IVORY Work Phone: [facility] 07-20-2024 09:17-0400 Diastolic blood pressure 84 mm[Hg] Zayda IVORY Work Phone: [facility] 07-20-2024 09:17-0400 Systolic blood pressure 108 mm[Hg] Zayda IVORY Work Phone: [facility] 02-20-2024 14:21-0500 Body height 165.1 cm [facility] 02-20-2024 14:21-0500 Body mass index (BMI) [Ratio] 29.6 kg/m2 [facility] 02-20-2024 14:21-0500 Body weight 80.73 kg [facility] 02-20-2024 14:21-0500 Diastolic blood pressure 79 mm[Hg] [facility] 02-20-2024 14:21-0500 Heart rate 102 /min [facility] 02-20-2024 14:21-0500 Systolic blood pressure 115 mm[Hg] [facility] 10-28-2023 15:18-0400 Body height 165.1 cm [facility] 10-28-2023 15:18-0400 Body mass index (BMI) [Ratio] 29.1 kg/m2 [facility] 10-28-2023 15:18-0400 Body weight 79.49 kg [facility] 10-28-2023 15:18-0400 Diastolic blood pressure 86 mm[Hg] [facility] 10-28-2023 15:18-0400 Heart rate 78 /min [facility] 10-28-2023 15:18-0400 Respiratory rate 12 /min [facility] 10-28-2023 15:18-0400 Systolic blood pressure 124 mm[Hg] [facility] 02-11-2023 14:18-0500 Blood Pressure Location [facility] [place] 02-11-2023 14:18-0500 Diastolic blood pressure 80 mm[Hg] [employer] [facility] [place] 02-11-2023 14:18-0500 Heart rate 70 /min Claudy [employer] [facility] [place] 02-11-2023 14:18-0500 Respiratory rate 16 /min [facility] [place] 02-11-2023 14:18-0500 Systolic blood pressure 124 mm[Hg] [employer] [facility] 01-14-2023 14:30-0400 Body height 165.1 cm Vicente [employer] Other [employer] Other 01-14-2023 14:30-0400 Body mass index (BMI) [Ratio] 29.88 kg/m2 Vicente Ball Other [employer] Other 01-14-2023 14:30-0400 Body weight 81.47 kg Vicente Ball Other [employer] Other 01-14-2023 14:30-0400 Diastolic blood pressure 79 mm[Hg] Vicente Ball Other [employer] [facility] [employer] Other 01-14-2023 14:30-0400 Respiratory rate 12 /min Vicente Ball Other [employer] Other 01-14-2023 14:30-0400 Systolic blood pressure 111 mm[Hg] Vicente Ball Other [employer] Other 06-27-2021 14:00-0400 Body height 165.1 cm Harper Banda Other [employer] Other 06-27-2021 14:00-0400 Body mass index (BMI) [Ratio] 26.62 kg/m2 Harper Banda Other [employer] Other 06-27-2021 14:00-0400 Body weight 72.58 kg Harper Banda Other [employer] Other 12-09-2018 08:41-0400 Body Temperature 97.3 [degF] Darion [employer] [place] 12-09-2018 08:41-0400 BP Diastolic 76 mm[Hg] [facility]ion [employer] [place] 12-09-2018 08:41-0400 BP Systolic 117 mm[Hg] [facility]ion [employer] [place] 12-09-2018 08:41-0400 Pulse (Heart Rate) 72 /min [place]ion [employer] [place] 12-09-2018 08:41-0400 Pulse Oximetry 99 % [facility]ion [employer] [place] 12-09-2018 08:41-0400 Respiratory Rate 14 /min Darion [employer] [place] 12-09-2018 06:14-0400 BMI (Body Mass Index) 30.35 kg/m2 [facility]ion [employer] [place] 12-09-2018 06:14-0400 Body weight 82.72 kg [facility]ion [employer] [place] 12-09-2018 06:14-0400 Height 165.1 cm [place]ion [employer] [place] Encounters Encounter Date Encounter Type Care Provider Facility Start: 07-21-2024 End: 07-21-2024 Clinisync Result Encounter Zayda IVORY Work Phone: [facility] External [facility] Unsolicited Start: 07-21-2024 End: 07-21-2024 Clinisync Result Encounter Zayda IVORY Work Phone: [facility] External [facility] Unsolicited Start: 07-20-2024 End: 07-20-2024 Bamboo flowsheet Zayda IVORY Work Phone: [facility] Start: 07-20-2024 End: 07-23-2024 Bamboo flowsheet Zayda IVORY Work Phone: [facility] Start: 07-20-2024 End: 07-23-2024 Clinisync Result Encounter Zayda IVORY Work Phone: [facility] External Department Unsolicited Start: 07-20-2024 End: 07-20-2024 Patient encounter procedure Zayda IVORY Work Phone: [facility] Start: 07-20-2024 End: 07-20-2024 Periodic preventive med est patient 40-64yrs Zayda IVORY Work Phone: [facility] Comment on above: Well woman exam with routine gynecological exam; Encounter for screening mammogram for malignant neoplasm of breast; Hormone disorder; Stress incontinence; Generalized body aches Start: 07-20-2024 End: 07-20-2024 ambulatory ZAYDA RAUSCH Not Available Start: 02-20-2024 Patient encounter status [facility] Start: 02-20-2024 End: 02-20-2024 ambulatory [facility] Work Phone: Start: 02-20-2024 End: 02-20-2024 Encounter for general adult medical examination without abnormal findings [facility] Start: 02-20-2024 End: 02-20-2024 Patient encounter procedure [facility] Work Phone: Start: 10-28-2023 End: 10-28-2023 ambulatory [facility] Work Phone: Start: 10-28-2023 End: 10-28-2023 Patient encounter procedure [facility] Work Phone: Start: 08-14-2023 End: 08-14-2023 ambulatory ZAYDA RAUSCH Not Available Start: 07-30-2023 Non-patient / Non-visit [facility] Work Phone: Start: 03-19-2023 End: 03-20-2023 ambulatory Claudy De Anda NILL Facility:[id number] Start: 02-11-2023 End: 02-12-2023 ambulatory Claudy R NILL Facility: [place] Start: 02-11-2023 End: 02-11-2023 Patient encounter procedure Claudy De Anda NILL General [facility] Nill/Said [facility] Start: 02-05-2023 End: 02-05-2023 ambulatory Vicente Baum Other [employer] Other Start: 02-05-2023 Telephone encounter Vicente CHAO [facility] Start: 01-17-2023 End: 01-17-2023 ambulatory Vicente Baum Other [employer] Other Start: 01-17-2023 Telephone encounter Vicente CHAO [facility] Start: 01-16-2023 ambulatory Claudy NILL Facility:[facility] Start: 01-14-2023 End: 01-14-2023 ambulatory Vicente Baum Other [facility] Other Start: 01-14-2023 Encounter for genera l adult medical examination without abnormal findings Vicente Baum [facility] Start: 01-14-2023 Periodic preventive med est patient 40-64yrs Vicente Baum [facility] Start: 07-11-2022 End: 07-11-[address] VICENTE BAUM Facility:[facility]1 Start: 06-28-[address] LUZ Tello y:[facility]1 Start: 12-23-2021 Encounter for genera l adult medical examination without abnormal findings DR VICENTE BAUM [facility] Start: 12-19-2021 End: 12-20-[address] VICENTE BAUM Facility:[facility] Start: 12-19-2021 End: 12-20-2021 Encounter for general adult medical examination without abnormal findings DR VICENTE BAUM Facility:[facility] Start: 10-18-2021 End: 04-26-[address] LUZ YANES Facility:[facility] Start: 08-10-2021 End: 08-25-[address] VICENTE BAUM Facility:[facility] Start: 06-27-2021 End: 06-27-2021 ambulatory Harper Banda Other [employer] Other Start: 06-27-2021 Office outpatient ne w 30 minutes Harper Banda [facility] Start: 12-09-2018 End: 12-09-2018 Patient encounter procedure DARION HAND [facility] Start: 12-09-2018 End: 12-09-2018 Subsequent hospital visit by physician Darion Hand Work Phone: [facility] [place] Comment on above: Post-op pain (Primar y Dx) Procedures Date Procedure Procedure Detail Performing Clinician Start: 07-21-2024 MLR HEMOGLOBIN A1C Zayda IVORY Work Phone: Start: 07-20-2024 IGP,APTIMA HPV,AGE GDLN Zayda IVORY Work Phone: Start: 07-11-2022 Microscopic observat ion [Identifier] in [...] wi th dilation of urethral stricture Claudy LEONOR section Claudy JO Keith Ligation of fallopian tube Chelsie SCHMITZ Tonsillectomy Claudy SCHMITZ Plan of Treatment Date Care Activity Detail Author Start: 07-12-2027 Screening for malign ant neoplasm of cervix [facility] Start: 07-28-2025 End: 07-28-2025 Patient encounter procedure 07/28/2025 8:30 AM EDT Office Visit [facility] [address] [place] [id number] Lucius Castellano, DO [address] [place] [address] [facility] Start: 12-06-2024 Influenza vaccination Influenz a Vaccine (Season Ended) [facility] Start: 07-20-2024 End: 07-20-2025 C-peptide C-peptide Lab Routine Hormone disorder Expected: 07/20/2024, Expires: 07/20/2025 [facility] Comment on above: Expected: 07/20/2024 , Expires: 07/20/2025 Start: 07-20-2024 End: 07-20-2025 Cortisol free Cortisol, free Lab Routine Hormone disorder Expected: 07/20/2024, Expires: 07/20/2025 [facility] Comment on above: Expected: 07/20/2024 , Expires: 07/20/2025 Start: 07-20-2024 End: 07-20-2025 DHEA-sulfate DHEA-sulfate Lab Routine Hormone disorder Expected: 07/20/2024 (Approximate), Expires: 07/20/2025 [facility] Comment on above: Expected: 07/20/2024 (Approximate), Expires: 07/20/2025 Start: 07-20-2024 End: 07-20-2025 Estradiol Estradiol Lab Routine Hormone disorder Expected: 07/20/2024 (Approximate), Expires: 07/20/2025 [facility] Comment on above: Expected: 07/20/2024 (Approximate), Expires: 07/20/2025 Start: 07-20-2024 End: 07-20-2025 Estrone Estrone Lab Routine Hormone disorder Expected: 07/20/2024 (Approximate), Expires: 07/20/2025 [facility] Comment on above: Expected: 07/20/2024 (Approximate), Expires: 07/20/2025 Start: 07-20-2024 End: 07-20-2025 Ferritin [Mass/volume] in Serum or Plasma Ferritin Lab Routine Hormone disorder Expected: 07/20/2024 (Approximate), Expires: 07/20/2025 [facility] Comment on above: Expected: 07/20/2024 (Approximate), Expires: 07/20/2025 Start: 07-20-2024 End: 07-20-2025 Glucose [Mass/volume] in Serum or Plasma Glucose, random Lab Routine Hormone disorder Expected: 07/20/2024, Expires: 07/20/2025 [facility] Comment on above: Expected: 07/20/2024 , Expires: 07/20/2025 Start: 07-20-2024 End: 07-20-2025 Hemoglobin A1c/Hemoglobin.total in Blood Hemoglobin A1c Lab Routine Hormone disorder Expected: 07/20/2024 (Approximate), Expires: 07/20/2025 [facility] Comment on above: Expected: 07/20/2024 (Approximate), Expires: 07/20/2025 Start: 07-20-2024 End: 07-20-2025 Insulin, total Insulin, total Lab Routine Hormone disorder Expected: 07/20/2024, Expires: 07/20/2025 [facility] Comment on above: Expected: 07/20/2024 , Expires: 07/20/2025 Start: 07-20-2024 End: 09-19-2025 MG Breast - bilateral Screening Bilateral screening mammogram Imaging Routine Encounter for screening mammogram for malignant neoplasm of breast Expected: 07/20/2024 (Approximate), Expires: 09/19/2025 [facility] Work Phone: Comment on above: Expected: 07/20/2024 (Approximate), Expires: 09/19/2025 Start: 07-20-2024 End: 07-20-2025 Progesterone Progesterone Lab Routine Hormone disorder Expected: 07/20/2024 (Approximate), Expires: 07/20/2025 [facility] Comment on above: Expected: 07/20/2024 (Approximate), Expires: 07/20/2025 Start: 07-20-2024 End: 07-20-2025 Serotonin serum Serotonin serum Lab Routine Hormone disorder Expected: 07/20/2024, Expires: 07/20/2025 [facility] Comment on above: Expected: 07/20/2024 , Expires: 07/20/2025 Start: 07-20-2024 End: 07-20-2025 Sex hormone binding globulin Sex hormone binding globulin Lab Routine Hormone disorder Expected: 07/20/2024 (Approximate), Expires: 07/20/2025 [facility] Comment on above: Expected: 07/20/2024 (Approximate), Expires: 07/20/2025 Start: 07-20-2024 End: 07-20-2025 T3, reverse T3, reverse Lab Routine Hormone disorder Expected: 07/20/2024 (Approximate), Expires: 07/20/2025 [facility] Comment on above: Expected: 07/20/2024 (Approximate), Expires: 07/20/2025 Start: 07-20-2024 End: 07-20-2025 TESTOSTERONE, FREE TESTOSTERONE, FREE Lab Routine Hormone disorder Expected: 07/20/2024 (Approximate), Expires: 07/20/2025 [facility] Comment on above: Expected: 07/20/2024 (Approximate), Expires: 07/20/2025 Start: 07-20-2024 End: 07-20-2025 Testosterone, free, total Testosterone, free, total Lab Routine Hormone disorder Expected: 07/20/2024 (Approximate), Expires: 07/20/2025 [facility] Comment on above: Expected: 07/20/2024 (Approximate), Expires: 07/20/2025 Start: 07-20-2024 End: 07-20-2025 Thyroglobulin Thyroglobulin Lab Routine Hormone disorder Expected: 07/20/2024, Expires: 07/20/2025 [facility] Comment on above: Expected: 07/20/2024 , Expires: 07/20/2025 Start: 07-20-2024 End: 07-20-2025 Thyroglobulin Antibody Thyroglobulin Antibody Lab Routine Hormone disorder Expected: 07/20/2024, Expires: 07/20/2025 [facility] Comment on above: Expected: 07/20/2024 , Expires: 07/20/2025 Start: 07-20-2024 End: 07-20-2025 Thyroid peroxidase antibody Thyroid peroxidase antibody Lab Routine Hormone disorder Expected: 07/20/2024 (Approximate), Expires: 07/20/2025 [facility] Comment on above: Expected: 07/20/2024 (Approximate), Expires: 07/20/2025 Start: 07-20-2024 End: 07-20-2025 Thyrotropin [Units/volume] in Serum or Plasma [facility] Comment on above: Expected: 07/20/2024 (Approximate), Expires: 07/20/2025 Expected: 07/20/2024 , Expires: 07/20/2025 Start: 07-20-2024 End: 07-20-2025 Thyroxine (T4) free [Mass/volume] in Serum or Plasma T4, free Lab Routine Hormone disorder Expected: 07/20/2024 (Approximate), Expires: 07/20/2025 [facility] Comment on above: Expected: 07/20/2024 (Approximate), Expires: 07/20/2025 Start: 07-20-2024 End: 07-20-2025 Triiodothyronine (T3) Free [Mass/volume] in Serum or Plasma T3, free Lab Routine Hormone disorder Expected: 07/20/2024 (Approximate), Expires: 07/20/2025 [facility] Comment on above: Expected: 07/20/2024 (Approximate), Expires: 07/20/2025 Start: 07-20-2024 End: 07-20-2025 Vitamin D 1,25 dihydroxy Vitamin D 1,25 dihydroxy Lab Routine Hormone disorder Expected: 07/20/2024 (Approximate), Expires: 07/20/2025 [facility] Comment on above: Expected: 07/20/2024 (Approximate), Expires: 07/20/2025 Start: 07-20-2024 End: 07-20-2024 Patient encounter procedure 07/20/2024 9:00 AM EDT Office Visit [facility] [address] [place] [phone] Zayda Rausch PA [address] [place] [address] Arrived [facility] Comment on above: Arrived Start: 12-16-2018 End: 12-16-2018 Office Visit 12/16/2018 Office Visit Plastic Surgery Darion Hand MD [address] [place] [address] [phone] [facility] Start: 12-06-2018 Influenza vaccination Flu vaccine (# 1) [place], [place] Start: 2016 Diabetes screen Diabetes screen [place], [place] Start: 2016 Lipid screen Lipid screen [place], [place] Start: 2016 Screening for malign ant neoplasm of breast Mammogram [facility] Start: 1997 Cervical cancer screen Cervical canc er screen [place], [place] Start: 06-09-1995 DTaP/Tdap/Td vaccine (1 - Tdap) DTaP/Tdap/Td vaccine (1 - Tdap) [place], [place] Start: 06-09-1991 HIV screen HIV screen [place], [place] Start: 1976 Screening for malign ant neoplasm of colon [facility] End: 12-09-2018 Blood glucose - POCT Blood glucose - POCT Point of Care Testing Routine One Time for 1 Occurrences starting 12/09/2018 until 12/09/2018 [place], [place] Comment on above: One Time for 1 Occur rences starting 12/09/2018 until 12/09/2018 Comprehensive metabo lic 2000 panel - Serum or Plasma [facility] Initiate Oxygen Ther apy Protocol Initiate Oxygen Therapy Protocol Respiratory Care Routine Daily until discontinued starting 12/09/2018 [facility] Comment on above: Daily until disconti nued starting 12/09/2018 MG Breast - bilatera l Screening [facility] Phase I & II - meter ed glucose Phase I & II - metered glucose Point of Care Testing Routine As Needed until discontinued starting 12/09/2018 [facility] Comment on above: As Needed until disc ontinued starting 12/09/2018 End: 12-09-2018 , urine POCT , urine POCT Point of Care Testing Routine One Time for 1 Occurrences starting 12/09/2018 until 12/09/2018 [facility] Comment on above: One Time for 1 Occur rences starting 12/09/2018 until 12/09/2018 Surgical Pathology Surgical Path ology Lab Routine ONE TIME for 1 Occurrences starting 12/09/2018 [facility] Comment on above: ONE TIME for 1 Occur rences starting 12/09/2018 THIN PREP TIS PAP AN D HR HPV DNA THIN PREP TIS PAP AND HR HPV DNA Pathology and Cytology Routine Well woman exam with routine gynecological exam Ordered: 07/20/2024 [facility] Comment on above: Ordered: 07/20/2024 [facility] Immunizations Immunization Date Immunization Notes Care Provider Jorge ch 01-07-2024 influenza virus vaccine, unspecified formulation Zayda IVORY Work Phone: [facility] 01-05-2023 influenza virus vaccine, unspecified formulation Claudy SCHMITZ [facility] [place] 01-26-2021 SARS-CoV-2 (COVID-19 ) mRNA-1273 vaccine Claudy NILL [facility] [place] 05-10-2020 SARS-CoV-2 (COVID-19 ) mRNA-1273 vaccine Claudy SCHMITZ [facility] [place] 04-11-2020 SARS-CoV-2 (COVID-19 ) mRNA-1273 vaccine Claudy SCHMITZ [facility] [place] Payers Date Payer Category Payer [facility] BC[employer] [id number] 2022 Unknown [id number] 2019 Unknown [id number] 2018 Unknown [employer] [address] xxxxxxxxx 2018-Present [phone] [address] [place] [address] xxxxxxxxx [id number] 2018 Unknown [id number] 1975 Unknown [id number] [id number]. 175 1975 Unknown [id number] [id number]. 593 1975 Unknown [id number] [id number]. 593 1975 Unknown [id number] [id number]. 593 1975 Unknown [id number] [id number]. 593 1975 Unknown [id number] 2.16.840.1.394468.3.579.2. 593 1975 Unknown [id number] [id number]. 727 1975 Unknown [id number] 2.16.840.1.405927.3.579.2. 727 1975 Unknown [id number] [id number]. 1259 1975 Unknown [id number]. 1259 1958 Self-pay [id number] Social History Date Type Detail Facility Start: 12-09-2018 End: 02-11-2023 Tobacco smoking status NHIS Never smoker [facility] [place] Start: 12-09-2018 Alcohol intake Yes [facility] Start: 12-01-2018 Alcohol Comment weekend use [facility] [place] [place] Start: 1975 Sex Assigned At Not on file M [facility] [employer] Tobacco smoking status Never [facility] [place] Start: 1975 Sex Assigned At Female F [facility] Tobacco smoking stat [facility] Unknown if ever smoked [facility] Start: 02-20-2024 Sex Female (finding) [facility] Functional Status Date Assessment Result Facility 02-11-2023 Functional Status N/A [facility] [place] Clinical Notes 06-27-2021 to 07-20-2024 DIANELYS Bravo [...] nursing note reviewed. Exam conducted with a orthotist present. Vitals: Estimated body mass index is [...] in regards to her symptoms & brought [email or web address] packet to office to discuss. Pap was obtained without difficulty and patient given mammogram order to have scheduled/obtained. Discussed patients current symptoms and once [employer] Packet is returned to office and all lab results obtained then packet and labs will be sent to [facility]. Patient also desires to start GLP therapy and prescription will be sent to [facility] as well. Discussed vaginal estrogen if needed in the future and patient will see if symptoms improve with current plan of care. Discussed compounded Semaglutide with Methyl B12 and Niacinamide added for better absorption. Patient prefers to have Methyl B12 and Niacinamide added to Semaglutide by injection for better absorption. Prescription will be sent to [email or web address] to be compounded and dispensed to patient. [...] of: DIANELYS Bravo documented in this encounter [facility] 02-11-2023 Note Chief Complaint consultation [...] Recorded SARS-CoV-2 (COVID-19) mRNA-1273 vaccine 04/11/[address] [facility] Comment on above: Result Comment: Elec tronically Signed By: LEONOR COLON, Claudy De Anda\dena\Date and Time Signed: 02/11/23 14:43 EST 02-05-2023 Evaluation note Encounter Date Diagnosis Assessment Notes Feb, Seasonal affective disorder (ICD-10 - F33.8) [employer] Other 10-10-2023 Evaluation note* Encounter Date Diagnosis [...] She is an asymptomatic, low risk patient [employer] Other 03-23-2022 Evaluation note* Encounter Date Diagnosis [...] Jun, Left elbow pain (ICD-10 - M25.522) [facility] [employer] Other Evaluation + Plan note No data available for this section General Surgery [facility] Evaluation noteNo [facility] [employer] Other Evaluation note* Diagnosis Onset Date Resolution Status Insomnia acute Overweight acute Seasonal affective disorder acute [facility] Work Phone: Evaluation note* Diagnosis Onset Date Resolution Status Admit Date Wellness examination acute Nove mber 2023 2:07pm [facility] Work Phone: Evaluation note* Diagnosis Well [...] History tubal ligation Hospitalization History see surgeries [facility] Discharge instructions No data available for this section General Surgery [place] Progress note No data available for this section General [facility] [place] Reason for referral (narrative)* Reason Referral for screeni ng colonoscopy Diagnosis 1 Screening for colon cancer (Z12.11) Referral Organization [facility] Henny abrams Referring Provider First Name Vicente Referring Provider Last Name Bautista Referring Provider Specialty Internal Me dicine Referred Organization [facility] Referred Provider Claudy Schmitz Referred Address [address] [place], [place],[address] Referred Provider Specialty Surgery Referral Priority Routine General Notes Asymptomatic, low ri sk patient. She denies change in appetite, weight or bowel habits. She denies heartburn or dysphagia. She denies abdominal pain, melena or hematochezia. [facility] Other Discharge Instructions * Instructions* Brittney Batista [...] AM EDT CLINICAL PHARMACY NOTE: MEDS TO [facility] Select Patient?: No Total # of Prescriptions Filled: 2 The following medications were delivered to the patient: cephalexin norco Total # of Interventions Completed: 1 Time Spent (min): 0 Additional Documentation: * Jamal Garcia, RAYMOND - 12/09/2018 6:34 AM EDT Urine test results-negative * Ranjit Zendejas RN - 12/01/2018 1:26 PM EDT DAY OF SURGERY/PROCEDURE GUIDELINES As a patient at the [facility], you can expect quality medical and nursing care that is centered on your individual needs. It is our goal to make your surgical experience as comfortable and excellent as possible. Please arrive at 0600 with an empty stomach. No jewelry or piercings on. 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 Advance Directives and Living Will Power of Department Assistant Advance Directive Response Recorded Date/ Time Advance [...] mass and lump, unspecified MASS FOREHEAD Procedures MI EXCISION TUMOR SOFT TISS FACE/SCALP SUBQ 2+CM MI EXC SKIN MALIG 2.1-3CM FACE,FACIAL MI EXC SKIN BENIG 2.1-3CM FACE,FACIAL MI ADJ TISS XFER HEAD,FAC,HAND <10SQCM HEAD LESION EXCISION Darion Hand MD [address] [place] [address] [facility] Reason Comments [facility] Women Visit INFORMATION SOURCE (unrecogn ized section and content) DATE CREATED AUTHOR 12/15/2018 [facility] DATE CREATED AUTHOR AUTHOR'S ORGANIZ ATION 08/18/2020 [facility] DATE CREATED AUTHOR AUTHOR'S ORGANIZ ATION 07/20/2022 [facility] DATE CREATED AUTHOR AUTHOR'S ORGANIZ ATION 03/25/2023 [facility] DATE CREATED AUTHOR AUTHOR'S ORGANIZ ATION 07/21/2024 [facility] EPIC Patient Care team [...] BE BASED ON THE PRIMARY CLINICAL RECORDS. [facility]. provides no warranty or guarantee of the accuracy or completeness of information in this document.
== END 2024-07-26 08:12 | disposition home or self-care (01) ==
PROVIDERS: PCP Family Medicine; Visit Provider Orthopaedic Surgery
DX: S62.397D Other fracture of fifth metacarpal bone, left hand, subsequent encounter for fracture with routine healing (principal)
CPT/HCPCS: 73130

== ENCOUNTER 2024-11-03 07:37 | Outpatient (OUT) | payer BC, SELFPAY ==
--- OUTSIDE RECORDS SUMMARY | 2023-12-16 06:00 | XMS_ITS ---
Author Organization The [facility] in [place] Address [address] [place] [address] Care Team Providers Care Survey Project Manager Name Role Phone Vicente Baum DO Primary Care Provider Gustavo Cantu Unavailable [phone] Allergies No Known Allergies Reason For Referral Reason evaluation and treat ment -- see attached order Diagnosis 1 Achilles tendinitis, left leg (M76.62) Referral Organization [facility] Referring Provider First Name Gustavo Referring Provider Last Name Patrice Referring Provider Speciality Podiatry Referred Provider [facility], Physical Therap y Referred Provider Specialty Physical Med icine and Rehabilitation Referral Priority Routine REASON FOR VISIT bilateral achilles pain, last seen 2018 Medications Medication SIG (Take, Route, Frequency, Duration) Notes Start Date End Date Status dexAMETHasone Sodium Phosphate 4 MG/ML 1.5ml-2.5ml topically up to 3 times weekly with physical therapy for 30 days 12/17/2023 Active PROzac 20 MG 1 capsule Orally Onc e a day Active Meloxicam 15 MG 1 tablet Orally Once a day for 30 day(s) 12/16/2023 Active Social History Tobacco Use: Social History Observation Description Date Details (start date - stop date) Never Smoker NA - NA Tobacco Control (Standard) Question Answer Notes Tobacco use: Nonsmoker Vital Signs Weight 170 lbs 12/16/2023 Height 64 in 12/16/2023 Temperature 97.5 degrees Fahrenheit 12/16/19 24 Heart Rate 68 /min 12/16/2023 BMI 29.18 kg/m2 12/16/2023 Oximetry 99 % 12/16/2023 Encounters Encounter Location Date Provider Diagnosis [facility] [address] [place] [address] [place] [address] 12/16/2023 Gustavo Ibrahim Left ankle pain M25.572 ; Achilles tendinitis, left leg M76.62 ; Achilles tendinitis, right leg M76.61 and Right ankle pain M25.571 Assessments Encounter Date Diagnosis (ICD Code) Assessment Notes Treatment Notes Treatment Clinical Notes Section Notes 12/16/2023 Left ankle pain (ICD-10 - M25.572) 12/16/2023 Achilles tendinitis, left leg (ICD-10 - M76.62) Patient seen and evaluated. Patient education provided and all questions were answered to her satisfaction. She has had bilateral equal and symmetric Achilles pain for several months. She is very active playing recreational sports and training for half marathon. I do agree that dry needling may help her and this was prescribed with physical therapy as well as I included iontophoresis. Prescription for topical dexamethasone was provided. I prescribed meloxicam 15 mg 1 p.o. daily as needed with 2 refills. We discussed shoe and activity modification as well as home stretching program. I discussed the potential utility of heel cups. She may follow-up in 6 to 8 weeks or as needed pending on how her symptoms persist or resolve 12/16/2023 Achilles tendinitis, right leg (ICD-10 - M76.61) 12/16/2023 Right ankle pain (ICD-10 - M25.571) Plan Of Treatment Medication Medication Name Sig Start Date Stop Date Notes dexAMETHasone Sodium Phospha te 4 MG/ML 1.5ml-2.5ml topically up to 3 times weekly with physical therapy for 30 days 12/17/2023 Meloxicam 15 MG 1 tablet Orally Once a day for 30 day(s) 12/16/2023 Treatment Notes Assessment Notes Achilles tendinitis, left leg Patient se en and evaluated. Patient education provided and all questions were answered to her satisfaction. She has had bilateral equal and symmetric Achilles pain for several months. She is very active playing recreational sports and training for half marathon. I do agree that dry needling may help her and this was prescribed with physical therapy as well as I included iontophoresis. Prescription for topical dexamethasone was provided. I prescribed meloxicam 15 mg 1 p.o. daily as needed with 2 refills. We discussed shoe and activity modification as well as home stretching program. I discussed the potential utility of heel cups. She may follow-up in 6 to 8 weeks or as needed pending on how her symptoms persist or resolve Pending Test Test Name Order Date XR Ankle LT (3 views) * (164) 12/16/2023 XR Ankle RT (3 views) * (161) 12/16/2023 Referrals Referral Date Details 12/16/2023 12/16/2023, evaluati on and treatment -- see attached order, Physical Therapy [facility] Progress Notes * Savage ROSEOB:[birth year] (48 yo F)Acc No.[id number]:12/16/2023 New Patient Patient: Gabriela VALENCIA Provider: Cele Ibrahim DPM, MS :1975 A ge:48 Y S ex:Female Date:12/16/2023 Address:[address] [place], [place] [id number] Pcp:Unknown or None Check In:10:06 AM ESTCheck O ut:11:01 AM EST Subjective: * Chief Complaints: * B ilateral achilles pain, last seen 2018 * HPI: G eneral: Patient returns to office, last seen 2018. States has bilateral Achilles, lower leg since spring 2023. Pain increases with intentional walking. Cannot keep up pace with active walking, have been limiting speed and duration due to this. Both sides hurt equally. No NSAIDs. Interested in dry needling. Ice feels good. * ROS: G eneral/Constitutional: Chills d enies. F ever d enies. W eight gain?denies. W eight loss d enies. S kin: Skin Ulcers d enies. S kin lesion(s) d enies. ? C ardiovascular: Difficulty breathing on exertion d enies. L eg cramps?denies. E maine d enies. C hest pain d enies. R espiratory: Difficulty breathing d enies. D yspnea d enies.?Cough d enies. G astrointestinal: Diarrhea d enies. N ausea d enies. V omiting?denies. M usculoskeletal: Bone/Joint Symptoms d enies. C jorge Pain d enies.?Leg cramps d enies. N eurologic: Numbness d enies. T ingling d enies . G ait abnormality d enies. ? H ematology: Anemia D enies. E asy bruising d enies. ? A ll Other Systems: Review of Systems (ROS) S ee HPI for details,All others negative except those mentioned in HPI. * Active Problem List M25.572 Left ankle pain Modified On:12/16/2023W/U Status:confirmed M25.571 Right ankle pain Modified On:12/16/2023W/U Status:confirmed * Medical History: * Surgical History: c -section x2 tubal ligation tonsillectomy and adenoidectomy * Hospitalization/Major Diagno stic Procedure: * Family History: F ather: , Alzheimers. * Social History: T obacco Use: T obacco Control (Standard) T obacco use: N onsmoker * Medications: T akingPROzac(FLUoxetine HCl) 20 MG Capsule 1 capsule Orally Once a day Medication List reviewed and reconciled with the patientTaking PROzac(FLUoxetine HCl) 20 MG Capsule 1 capsule Orally Once a day Medication List reviewed and reconciled with the patient * Allergies: N .K.D.A.no[Allergies Verified] Objective: * Vitals: W t:170lbs, Ht: 64 in, Temp:97.5F, HR:68/min, BMI:29.18Index, Pain scale:01-10, Oxygen sat %:99%, Ht-cm: 162.56 cm, Wt-k.11 kg. * Examination: P odiatry Examination: SKIN: s kin intact, n o sign of infection. MUSCULOSKELETAL: P OP proximal aspect of the Achilles tendon and over the gastroc aponeurosis. Ankle joint dorsiflexion is to neutral but not past. Achilles tendon bilateral is without defect or palpable dell. No significant thickening of either Achilles tendon. NEUROLOGICAL: l ight touch sensation intact, n egative tinel's sign. VASCULAR: P edal pulses palpable, C apillaryrefill is brisk to toe, D igitalhair intact. X -rays: x-rays were obtained & reviewed in my office. There is slight hypertrophic bone on the posterior calcaneus bilaterally but no evidence of fracture or stress fracture and bone quality appears to be within normal limits. Mega's deformity is noted. Assessment: * Assessment: 1. A chilles tendinitis, left leg - M76.62 (Primary) 2 . L eft ankle pain - M25.572?3. A chilles tendinitis, right leg - M76.61 4 . R ight ankle pain - M25.571 Plan: * Treatment: 2. L eft ankle pain I maging: XR Ankle LT (3 views) * (164) 3. R ight ankle pain I maging: XR Ankle RT (3 views) * (161) * Procedure Codes: * * Sign off status: Completed Visit Status: Henny [place] (Check Out) true * Provider: Cele Ibrahim DPM, MS Date: 12/16/2023 Generated for Carola monroe/Shantal/Juan on: 11/03/2024 07:40 AM EDT History and Physical Notes * Examination Category Sub-Category Detail Notes Category Not es Podiatry Examination SKIN: skin intact, no sign of infection X-rays: x-rays were obtained & reviewed in my office. There is slight hypertrophic bone on the posterior calcaneus bilaterally but no evidence of fracture or stress fracture and bone quality appears to be within normal limits. Mega's deformity is noted MUSCULOSKELETAL: POP proximal aspect of the Achilles tendon and over the gastroc aponeurosis. Ankle joint dorsiflexion is to neutral but not past. Achilles tendon bilateral is without defect or palpable dell. No significant thickening of either Achilles tendon NEUROLOGICAL: light touch sensatio n intact, negative tinel's sign VASCULAR: Pedal pulses palpable, Capillary refill is brisk to toe, Digital hair intact Consultation Request Notes Referral Date Referring Provider Referred Provider Not 12/16/2023 Gustavo Ibrahim [facility], Physical Therapy e valuation and treatment -- see attached order
--- OUTSIDE RECORDS SUMMARY | 2023-12-18 06:03 | XMS_ITS ---
Author Organization [facility] in [place] Address [address] [place] [address] Care Team Providers Care Talent Director Name Role Phone Vicente Baum DO Primary Care Provider Gustavo Cantu [phone] REASON FOR VISIT medications Medications Medication SIG (Take, Route, Frequency, Duration) Notes Start Date End Date Status dexAMETHasone Sodium Phosphate 4 MG/ML 1.5ml-2.5ml topically up to 3 times weekly with physical therapy for 30 days 12/17/2023 Active Encounters Encounter Location Date Provider Diagnosis [facility] (PODIATRY) [address] [place] [address] [place] [address] 12/18/2023 Gustavo Ibrahim Achilles tendinitis, left leg [...] * Savage ROSEOB:[birth year] (48 yo F)Acc No.[id number]:12/18/2023 Patient: Gabriela VALENCIA :1975 A ge:48 Y S ex:Female Address:[address] [place], [place] [address], [address] * Refills Refill dexAMETHasone Sodium Phosphate Solution, 4 MG/ML, topically, 30 milliliters, 1.5ml-2.5ml, up to 3 times weekly with physical therapy, 30 days, Refills=1 * true * Date: Generated for Carola monroe/Shantal/Conyitting on: 0 11/03/2024 07:40 AM EDT
--- OUTSIDE RECORDS SUMMARY | 2023-12-31 04:49 | XMS_ITS ---
Author Organization [facility] [place] Address [address] [place] [address] Care Team Providers Care Pediatric Audiologist Name Role Phone Vicente Baum DO Primary Care Provider Flasha Lee Panda [phone] REASON FOR VISIT AAT Result Encounters Encounter Location Date Provider Diagnosis Pulmonary Medicine [place] [address] [place] [address] 12/31/2023 Lee Li Plan Of Treatment No Information Progress Notes * Gabriela ROSEDOB:1975 (48 yo F)Acc No.[id number]:12/31/2023 Patient: Micheline Gabriela PRITCHETT :1975 A ge:48 Y S ex:Female Phone: Address:[address] [place] [address] [place], [address] * true * Date: Generated for Printi ng/Faadelaideg/eTransmitting on: 0 11/03/2024 07:39 AM EDT
--- OUTSIDE RECORDS SUMMARY | 2024-11-03 07:40 | XMS_ITS | Encounter Summary ---
Author Organization [facility] Address [address] [place] [address] Care Team Providers Care Optical Brightener Maker Helper Name Role Phone Unavailable Primary Care Provider Unavailabl e Encounter Details Date Type Department Care Team (Late st Contact Info) Description 07/30/2024 Abstract [facility] [address] [place] [address] Haylee Morales LPN [...] 8:30 AM EDT Office Visit [facility] [place] [address] Lucius Castellano DO [address] [place] [place], [place] [id number] documented as of this encounter Visit Diagnoses Not on filedocumented in this encounter
--- OUTSIDE RECORDS SUMMARY | 2024-11-03 07:40 | XMS_ITS | Encounter Summary ---
Author Organization [facility] Address [address] [place] [address] Care Team Providers Care City Clerk Name Role Phone Unavailable Primary Care Provider Unavailabl e Encounter Details Date Type Department Care Team (Late st Contact Info) Description 08/17/2024 Abstract [facility] [address] [place] [address] Haylee Morales LPN Social History Tobacco [...] 8:30 AM EDT Office Visit [facility] [place] [address] Lucius Castellano DO [address] [place], [place] [phone] documented as of this encounter Visit Diagnoses Not on filedocumented in this encounter
--- OUTSIDE RECORDS SUMMARY | 2024-11-03 07:40 | XMS_ITS | Clinical Summary ---
Author Organization [employer] [facility] Address [facility] [address] [place] [address] Care Team Providers Care Brusher Operator Name Role Phone Unavailable Primary Care [...]
--- OUTSIDE RECORDS SUMMARY | 2024-11-03 07:40 | XMS_ITS | Encounter Summary ---
Author Organization [facility] Address [address] [place] [address] Care Team Providers Care Readers' Advisory Service Librarian Name Role Phone Unavailable Primary Care Provider Unavailabl e Encounter Details Date Type Department Care Team (Late st Contact Info) Description 09/02/2024 Abstract [facility] [place] [address] Lucius Castellano DO [address] [place], [facility] Social History Tobacco Use Types Packs/Day [...] 8:30 AM EDT Office Visit [facility] [place] [address] Lucius Castellano DO [address] [place] [place], [facility] documented as of this encounter Visit Diagnoses Not on filedocumented in this encounter
--- OUTSIDE RECORDS SUMMARY | 2024-11-03 07:40 | XMS_ITS | Clinical Summary ---
Author Organization [facility] Address [address] [facility] [address], [address] [place] [address] Care Team Providers Care Machine Group Leader Name Role Phone Vicente Baum DO Primary Care Provider [phone] Allergies Active Allergy Reactions Criticality Noted Date [...] on file Insurance [employer] Care Teams Machine Group Leader Relationship Specialty Start Date End Date Vicente Baum DO PCP - General Internal Medicine 10/13/18
--- OUTSIDE RECORDS SUMMARY | 2024-11-03 07:40 | XMS_ITS | Encounter Summary ---
Author Organization [facility] Address [address] [place] [address] Care Team Providers Care Law Tutor Name Role Phone Unavailable Primary Care Provider Unavailabl e Encounter Details Date Type Department Care Team (Late st Contact Info) Description 08/20/2024 Abstract [facility] [address] [place] [address] Winnie Quick MA Social History Tobacco Use Types Packs/Day Years [...] 8:30 AM EDT Office Visit [facility] [address] [place] [address] Lucius Castellano DO [address] [place], [place] [id number] documented as of this encounter Visit Diagnoses Not on filedocumented in this encounter
--- OUTSIDE RECORDS SUMMARY | 2024-11-03 07:40 | XMS_ITS | Encounter Summary ---
Author Organization [facility] Address [address] [place] [address] Care Team Providers Care Silk Brusher Name Role Phone Unavailable Primary Care Provider Unavailabl e Encounter Details Date Type Department Care Team (Late st Contact Info) Description 09/10/2024 Abstract [facility] [place] [address] Lucius Castellano DO [address] [place], [facility] Social History Tobacco Use Types Packs/Day [...] FRY [facility] [place] [address] Lucius Castellano DO [address] [place] [place], [facility] documented as of this encounter Visit Diagnoses Not on filedocumented in this encounter
--- OUTSIDE RECORDS SUMMARY | 2024-11-03 07:40 | XMS_ITS | Clinical Summary ---
Author Organization [facility] Address [address] [facility] [place] [address] Care Team Providers Care Assistant Manager Airside Operations Name Role Phone Unavailable Primary Care Provider Unavailabl e Allergies No known active allergies Medications FLUoxetine (PROzac) 20 MG capsule Take 20 mg by mouth Daily Active Levonorgestrel (Mirena, 52 MG,) 20 MCG/DAY intrauterine device 52 mg by Intrauterine route if needed (when due) Active Encounters Date Type Department Care Team Description 11/02/2024 Telephone [facility] [address] [place] [address] Lucius Castellano DO 10/05/2024 Abstract [facility] [address] [facility] [place] [address] Haylee Morales LPN 10/05/2024 [place] [address] Zayda Soto PA Encounter for long-term (current) use of medications 09/10/2024 Abstract [facility] [address] [place] [address] Lucius Castellano, 09/07/2024 Abstract [facility] [address] [place] [address] Haylee Morales LPN 09/07/2024 Telephone [facility] [address] [place] [address] Haylee Morales, EMBEDDED SOFTWARE TEST ENGINEER 09/06/2024 10:30 AM EDT Procedure Visit [facility] [address] [facility] [place] [address] Lucius Castellano, Encounter for IUD removal 09/06/2024 Telephone [facility] [address] [facility] [place] [address] Haylee Morales, EMBEDDED SOFTWARE TEST ENGINEER 09/02/2024 Abstract [facility] [address] [facility] [place] [address] Lucius Castellano, 08/20/2024 Abstract [facility] [address] [facility] [place] [address] AbdelrahmanScott, MA 08/20/2024 Telephone [facility] [address] [facility] [place] [address] Abdelrahman Dol[place], [place] 08/17/2024 Abstract [facility] [address] [place] [address] [place] [address] Haylee Morales, [facility] 08/17/2024 Telephone [facility] [address] [facility] [place] [address] Zayda Soto PA from Last 3 [...] EDT Office Visit [facility] [address] [facility] [place] [address] Lucius Castellano DO [address] [facility] [place] [address] Health Maintenance Due Date Last Done Comments [...] * IUD Removal (09/06/2024 11:24 AM EDT) Narrative Haylee Morales LPN - 09/06/2024 11:24 AM EDT Haylee [...] for removal: Hormone management through compound pharmacy. us Lucius Gray DO IN CLINIC/BEDSIDE ORDERABLES Fin al Result * Pap Smear (07/20/2024 12:00 AM EDT) Swab Cervical swab / Unknown us Lucius Gray DO LAB CYTOLOGY ORDERABLES Final Re sult EXTERNAL LAB from Last 3 Months or Most Recently Relevant to Health Maintenance Insurance [facility]
--- OUTSIDE RECORDS SUMMARY | 2024-11-03 07:40 | XMS_ITS | Encounter Summary ---
Author Organization [facility] Address [address] [place] [address] Care Team Providers Care Interface Developer Name Role Phone Unavailable Primary Care Provider Unavailabl e Encounter Details Date Type Department Care Team (Late st Contact Info) Description 11/02/2024 Telephone [facility] [address] [employer] [place] [address] Lucius Castellano DO [address] [place], [place] [address] Social History Tobacco Use Types Packs/Day Years Used Date Smoking Tobacco: Never Assessed Comments No Sex and Gender Information Value Date Recorded Sex Assigned at Not on file Legal Sex Female 6:51 PM EDT Gender Identity Not on file Sexual Orientation Not on file documented as of this encounter Miscellaneous Notes * Telephone Encounter - Jena Bess LPN - 11/02/2024 9:45 AM EDT I had started on some hormones from [facility] and I believe they wanted to retest me and see what the hormone levels were. But the [facility] does not have any of those orders. I am wondering if they could be sent over to the hospital. So I can to go ahead and get those drawn. Patient call was returned and she was advised these labs were ordered and sent to [facility] at this time. documented in this encounter Plan of Treatment Upcoming Encounters Date Type Department Care Team (Late st Contact Info) Description 07/28/2025 8:30 AM EDT Office Visit [facility] [address] [place] [address] Lucius Castellano DO [address] [facility] [place] [address] Scheduled Orders Name Type Priority Associated Diagnoses Orde r Schedule DHEA-sulfate Lab Routine Hormone disorder Expected: 11/02/2024 (Approximate), Expires: 11/02/2025 Testosterone, free, total Lab Routine Hormone disorder Expected: 11/02/2024 (Approximate), Expires: 11/02/2025 TESTOSTERONE, FREE Lab Routine Hormone disorder Expected: 11/02/2024 (Approximate), Expires: 11/02/2025 Estrone Lab Routine Hormone disorder Expected: 11/02/2024 (Approximate), Expires: 11/02/2025 Pregnenolone Lab Routine Hormone disorder Expected: 11/02/2024 (Approximate), Expires: 11/02/2025 Vitamin D 25 hydroxy Total Lab Routine Hormone disorder Expected: 11/02/2024 (Approximate), Expires: 11/02/2025 documented as of this encounter Visit Diagnoses Diagnosis Hormone disorder Unspecified endocrine disorder documented in this encounter
--- OUTSIDE RECORDS SUMMARY | 2024-11-03 07:40 | XMS_ITS | Encounter Summary ---
Author Organization [facility] Address [address] [facility] [place] [address] Care Team Providers Care Biometrics Head Name Role Phone Unavailable Primary Care Provider Unavailabl e Encounter Details Date Type Department Care Team (Late st Contact Info) Description 07/29/2024 Orders Only [facility] [address] [place] [address] [place] [address] Melanie Fischer [address] [place] [address] Social History Tobacco Use Types Packs/Day Years [...] 8:30 AM EDT Office Visit DARON FRY [facility] [place] [address] Lucius Castellano DO [address] [place], [place] [address] documented as of this encounter Procedures Procedure [...]
--- OUTSIDE RECORDS SUMMARY | 2024-11-03 07:40 | XMS_ITS | Patient Health Record ---
Author Organization [facility] [place] Address [address] [place] [address] Care Team Providers Care Gas Turbine Mechanic Name Role Phone Vicente Baum DO Primary Care Provider Gustavo Cantu Unavailable [phone] AlliLee Unavailable [phone] Allergies No Known Allergies Results Component Value Reference Range Notes XR ankle CHANI min 3V (Not yet reviewed by provider) Interpretation: Performing Lab: Notes/Report: Source Facility: [place] [address] XRay Report Signed Patient: GABRIELA ROSE MR#: [id number] : 1975 Acct:[id number] Age/Sex: 48 / F ADM Date: 12/16/23 Loc: EC Attending Dr: Gustavo Ibrahim D.P.M. Ordering Physician: Gustavo Ibrahim D.P.M. Date of Service: 12/16/23 Procedure(s): XR ankle CHANI min 3V Accession Number(s): [id number] cc: Rachel Kennedy M.D.; Gustavo Ibrahim D.P.M. [place] [address] Patient Name: GABRIELA ROSE MRN: [facility]:[id number] date: 1975 Sex: F Assigned Patient Location: EC Current Patient Location: Accession/Order Number: [id number] Exam Date: 12/16/2023 10:15 Report Date: 12/17/2023 [...] M.D. Signed By: 12/17/23716 DD/ 4 TD/TT: Armor Reconnaissance Vehicle Crewman: [place] [address] XRay Report Signed Patient: TOMASA ROSE MR#: [id number] : 1975 Acct:[id number] Age/Sex: 48 / F ADM Date: 12/16/23 Loc: EC Attending Dr: Gustavo Ibrahim D.P.M. Ordering Physician: Gustavo Ibrahim D.P.M. Date of Service: 12/16/23 Procedure(s): XR ank le CHANI min 3V Accession Number(s): [id number] cc: Rachel Kennedy; Gustavo Ibrahim D.P.M. The [place] [address] Patient Name: GABRIELA ROSE MRN: [id number] date: 1975 Sex: F Assigned Patient Location: Current Patient Location: Accession/Order Numb er: [id number] Exam Date: 12/16/2023 10:15 Report Date: 12/17/2023 [...] M.D. 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 Problem Arthralgia of the ankle and/or foot (829169898) Right ankle pain (M25.571) Active confirmed Problem Arthralgia of the ankle and/or foot (746721984) Left ankle pain (M25.572) Active confirmed Vital Signs Heart Rate 68 /min 12/16/2023 Temperature 97.5 degrees Fahrenheit 12/16/2023 Oximetry 99 % 12/16/2023 Height 64 in 12/16/2023 Weight 170 lbs 12/16/2023 BMI 29.18 kg/m2 12/16/2023 Encounters Encounter Location Date Provider Diagnosis [facility] [address] [place] [address] [place] [address] 12/16/2023 Gustavo Ibrahim Left ankle pain M25.572 ; Achilles tendinitis, left leg M76.62 ; Achilles tendinitis, right leg M76.61 and Right ankle pain M25.571 [facility]) [address] [place] [address] 12/15/2023 Gustavo Ibrahim [facility] [address] [place] [address] 12/18/2023 Gustavo Ibrahim Achilles tendinitis, left leg M76.62 [facility] [address] [place] [address] 12/31/2023 Lee Li Assessments Encounter Date Diagnosis [...] on how her symptoms persist or resolve 12/18/2023 Achilles tendinitis, left leg (ICD-10 - [...] Date BCBS OUT OF STATE [address] [place] [address] [phone] [id number] Gabriela Rose Self - patient is the insured Medical (General) History Surgical History Surgery Date(Month/Year) x2 tubal ligation tonsillectomy and adenoidectomy
--- OUTSIDE RECORDS SUMMARY | 2024-11-03 07:40 | XMS_ITS | Encounter Summary ---
Author Organization [facility] Address [address] [place] [address] Care Team Providers Care Automatic Mounter Name Role Phone Unavailable Primary Care Provider Unavailabl e Encounter Details Date Type Department Care Team (Late st Contact Info) Description 10/05/2024 Abstract [facility] [address] [facility] [place] [address] Haylee Morales LPN Social History Tobacco [...] 8:30 AM EDT Office Visit [facility] FR[facility] [place] [address] Lucius Castellano DO [address] [place], [place] [address] documented as of this encounter Visit Diagnoses Not on filedocumented in this encounter
--- OUTSIDE RECORDS SUMMARY | 2024-11-03 07:40 | XMS_ITS | Patient Health Record ---
Author Organization [facility] Address [address] [place] [address] Care Team Providers Care Supply Technician Name Role Phone Mo Villavicencio Unavailable [phone] [email or web address] López Unavailable Allergies No Known Allergies Results Component Value Reference Range Notes SCC- HAND 3 VIEW LEFT 76570 Reviewed date:09/07/2024 09:38:49 AM Interpretation: Performing Lab: Notes/Report: SCC- HAND 3 VIEW LEFT [id number] Reviewed date:08/16/2024 01:24:19 PM Interpretation: Performing Lab: [...] Problem Status W/U Status Risk Notes Problem [id number] Other fracture of fifth metacarpal bone, left hand, subsequent encounter for fracture with routine healing (S62.397D) Active confirmed Vital Signs Height 5'4 in 09/06/2024 Weight 170 lbs 09/06/2024 BMI 29.18 09/06/2024 Encounters Encounter Location Date Provider Diagnosis [facility] [address] [facility] [place] [address] [place] [address] 07/12/2024 Lisa Ambrocio Pain of left hand M79.642 and Closed nondisplaced fracture of other part of fifth metacarpal bone of left hand, initial encounter S62.397A [facility] [address] [facility] [place] [address] 07/19/2024 Lisa Ambrocio Other fracture of fifth metacarpal bone, left hand, subsequent encounter for fracture with routine healing S62.397D [facility] [address] [facility] [place] [address] 07/26/2024 Mo Villavicencio Other fracture of fifth metacarpal bone, left hand, subsequent encounter for fracture with routine healing S62.397D [facility] [address] [facility] [place] [address] 08/09/2024 Lisa Ambrocio Other fracture of fifth metacarpal bone, left hand, subsequent encounter for fracture with routine healing S62.397D [facility] [address] [facility] [place] [address] 09/06/2024 Mo Villavicencio Other fracture of fifth [...] will discontinue casting. 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
--- OUTSIDE RECORDS SUMMARY | 2024-11-03 07:40 | XMS_ITS | Encounter Summary ---
Author Organization [facility] Address [address] [place] [address] Care Team Providers [facility] Name Role Phone Unavailable Primary Care Provider Unavailabl e Encounter Details Date Type Department Care Team (Late st Contact Info) Description 09/07/2024 Abstract [facility] [address] [address] Haylee Morales LPN Social History Tobacco [...] D[facility] [place] [address] Lucius Castellano DO [address], [place] [id number] documented as of this encounter Visit Diagnoses Not on filedocumented in this encounter
--- OUTSIDE RECORDS SUMMARY | 2024-11-03 07:41 | XMS_ITS | CCD ---
Author Organization [facility] Care Team Providers Care Automatic Lathe Operator Name Role Phone Vicente Baum Primary [...] Medication Allergies] Propensity to adverse reactions (disorder) [facility] Repository Medications Current Medications Medication [...] 12-09-2018 HYDROmorphone (DILAUDID) injection 0.5 mg levonorgestrel 0.009551 mg/hr intrauterine system (6 sources) Progestin, Progestin-containing [...] Active -Hx Entry for 0 *Reorder from [employer] for eRx and Interaction Alerts* Feb, [...] times daily for 7 *Pick strength-form from [employer] for eRX* 10 Apr, 2019 Not-Taking [...] Interpretation Reference Range Facility IUD Removalon 09-06-2024 Halyee Morales LPN 09/06/2024 1:39 PM IUD Removal [...] for removal: Hormone management through compound pharmacy. [facility] IGP,APTIMA HPV,AGE GDLNon AGE GDLN ACOG TESTING Note . [facility] Comment on above: TESTS RESULT FLAG UN ITS REF RANGE LAB Clinician Provided Cytology Information Source.............Cervix;Endocervix No. of containers..01 ThinPrep Vial Age Mallory BOTELLO Celina... 30 FLAG LEGEND: L-Low Normal,H-High Normal,LL-Alert Low,HH-Alert High <-Panic Low,>-Panic High,A-Abnormal,AA-Critical Abnormal Performed at: 01 =[address] [address] Charisse Merchant MD, HPV APTIMA Negative Negative [facility] Comment on above: This nucleic acid am plification test detects fourteen high- risk HPV types (16,18,31,33,35,39,45,51,52,56,58,59,66,68) without differentiation. Performed at: =[address] [id number] Electronics Maintenance Technician: Charisse Merchant MD, Phone: [phone] Performed at: [facility] [address] [place] [id number] Electronics Maintenance Technician: Brian Spencer MD, Phone: [phone] IGP, APTIMA HPV, RFX 16/18,45 Note . [facility] Comment on above: TESTS RESULT FLAG UN ITS REF RANGE LAB DIAGNOSIS: 02 NEGATIVE FOR INTRAEPITHELIAL LESION OR MALIGNANCY. Specimen adequacy: 02 Satisfactory for evaluation. No endocervical component is identified. Performed by: 02 Lucia Rivera, Outside Residential Sales Professional (ASCP) . 02 Note: Note 03 The [...] High,A-Abnormal,AA-Critical Abnormal Performed at: 02 [facility] [id number] [place] [id number] Brian Spencer MD, 03 WB [facility] [address] [address] Charisse Merchant MD, BRUSH-SPATULA CERVIX ENDOCERVIX [facility] MLR HEMOGLOBIN A1Con 025 Glucose [Mass/Vol] 108 mg/dL [facility] HbA1c (Bld) [Mass fraction] 5.4 % 4.5 - 6.2 % [facility] Comment on above: ADA RECOMMENDED LIMI T 4.0 - 6.0 ADA THERAPEUTIC TARGET < 7.0 ACTION SUGGESTED > 7.[facility] Outside Colonoscopy [id number]#1.00T IFF Normal [facility] Reminderson 03-20-2023 Reminders - From: Dolores Lee LPN To: [facility] - Clinical; Sent: 03/20/2023 08:53:50 EST Show up: 02/17/2033 07:00:00 EST Subject: colonoscopy recall Due Date/Time: 03/19/2033 07:00:00 EST Reminder/Recall Patient due for screening colonoscopy 03/19/2033. Normal [facility] Lab Reportson 03-19-2023 Lab Reports [id number]#1.00T IFF [facility] Insurance Correspondenceon 1 04-27-2022 Insurance Correspondence [id number]#1.00 TIFF [facility] Consent for Procedure/Surger yon 02-12-2023 Consent for Procedure/Surgery [id number]#1.00 TIFF [facility] Facesheeton 02-12-2023 Facesheet [id number]#1.00 TIFF [facility] Ambulatory Visit Summaryon 1 04-13-2022 Ambulatory [...] for choosing us for your care. Normal [facility] Physician Referralon 023 Physician Referral [id number]#1.00T IFF Normal [facility] PAP ACOG PANEL 2: 30 to 65on 07-18-2022 . . Normal [facility] Comment on above: Result Comment: Perf ormed at: WB Performed By: #### 4 [id number] #### [facility] [address] [address] [address] Chloe Wells Age Gdln ACOG Testing 30-65 Normal [facility] Comment on above: Performed By: #### 4 [id number] #### [facility] [address] [address] [address] Chloe Wells DIAGNOSIS: Comment Normal [facility] Comment on above: Result Comment: NEGA TIVE FOR INTRAEPITHELIAL LESION OR MALIGNANCY. Performed at: WB Performed By: #### 4 [id number] #### [facility] [address] [address] [address] Chloe Wells HPV Aptima Positive Abnormal Negative [facility] Comment on above: Result Comment: This nucleic acid amplification test detects fourteen high-risk HPV types (16,18,31,33,35,39,45,51,52,56,58,59,66,68) without differentiation. Performed at: =G Performed By: #### 4 [id number] #### [facility] [address] [address] [address] Chloe Wells HPV Genotype 16 Negative Normal Negative [facility] Comment on above: Performed By: #### 4 [id number] #### [facility] [address] [address] [address] Chloe Wells HPV Genotype 18,45 Negative Normal Negative [facility] Comment on above: Performed By: #### 4 [id number] #### [facility] [address] [place] [address] Dr. Chloe Wells HPV Genotype Reflex Comment Normal [facility] Comment on above: Result Comment: Kira galicia, see HPV Genotype results. Performed at: WB Performed By: #### 4 [id number] #### [facility] [address] [place] [address] Dr. Chloe Wells Methodology: Comment Normal [facility] Comment on above: Result Comment: This liquid based ThinPrep(R) pap test was screened with the use of an image guided system. Performed at: WB Performed By: #### 4 [id number] #### [facility] [address] [place] [address] Dr. Chloe Wells Note: Comment Normal [facility] Comment on above: Result Comment: The Pap smear is a screening test designed to aid in the detection of premalignant and malignant conditions of the uterine cervix. It is not a diagnostic procedure and should not be used as the sole means of detecting cervical cancer. Both false-positive and false-negative reports do occur. . Performed at: WB Performed By: #### 4 [id number] #### [facility] [address] [place] [address] Dr. Chloe Wells Performed by: Comment Normal [facility] Comment on above: Result Comment: Rozina Benitez, Outside Residential Sales Professional (ASCP) Performed at: WB Performed By: #### 4 [id number] #### [facility] [address] [place] [address] Dr. Chloe Wells Specimen adequacy: Comment Normal [facility] Comment on above: Result Comment: Sati sfactory for evaluation. Endocervical and/or squamous metaplastic cells (endocervical component) are present. Performed at: WB Performed By: #### 4 [id number] #### [facility] [address] [place] [address] Dr. Chloe Wells CBC AUTO DIFFon 12-19-2021 BASO # 0.0 103/ul Normal 0.0-0.1 [facility] Comment on above: Performed By: #### C BC #### [facility] [address] [address] [address] Chloe Wells Basophils/100 WBC (Bld) 0.3 % Normal 0.2-2.0 [facility] Comment on above: Performed By: #### C BC #### [facility] [address] [address] [address] Chloe Wells EO # 0.2 103/ul Normal 0.0-0.7 [facility] Comment on above: Performed By: #### C BC #### [facility] [address] [place] [address] Dr. Chloe Wells Eosinophils/100 WBC (Bld) 2.9 % Normal 0.9-7.0 [facility] Comment on above: Performed By: #### C BC #### [facility] [address] [place] [address] Dr. Chloe Wells Erythrocyte distribution width (RBC) [Ratio] 12.4 % Normal 11.0-15.0 [facility] Comment on above: Performed By: #### C BC #### [facility] [address] [place] [address] Dr. Chloe Wells Hematocrit (Bld) [Volume fraction] 38.8 % Normal 36.0-48.0 [facility] Comment on above: Performed By: #### C BC #### [facility] [address] [place] [address] Dr. Chloe Wells Hemoglobin (Bld) [Mass/Vol] 13.0 g/dL Normal 12.0-16.0 [facility] Comment on above: Performed By: #### C BC #### [facility] [address] [place] [address] Dr. Chloe Wells IG # 0.01 10e3/ul Normal 0.00-0.03 [facility] Comment on above: Performed By: #### C BC #### [facility] [address] [place] [address] Dr. Chloe Wells IG % 0.2 % Normal 0.0-0.5 [facility] Comment on above: Performed By: #### C BC #### [facility] [address] [place] [address] Dr. Chloe Wells LYMPH # 2.0 103/ul Normal 1.2-3.8 [facility] Comment on above: Performed By: #### C BC #### [facility] [address] [place] [address] Dr. Chloe Wells Lymphocytes/100 WBC (Bld) 33.4 % Normal 20.5-60.0 [facility] Comment on above: Performed By: #### C BC #### [facility] [address] [place] [address] Dr. Chloe Wells MANUAL DIFF REQ NO Normal [facility] Comment on above: Performed By: #### C BC #### [facility] [address] [place] [address] Dr. Chloe Wells MCH (RBC) [Entitic mass] 30.2 pg Normal 26.7-34.0 [facility] Comment on above: Performed By: #### C BC #### [facility] [address] [place] [address] Dr. Chloe Wells MCHC (RBC) [Mass/Vol] 33.5 g/dL Normal 29.9-35.2 [facility] Comment on above: Performed By: #### C BC #### [facility] [address] [place] [address] Dr. Chloe Wells MCV (RBC) [Entitic vol] 90.0 fL Normal 81.0-99.0 [facility] Comment on above: Performed By: #### C BC #### [facility] [address] [place] [address] Dr. Chloe Wells MONO # 0.5 103/ul Normal 0.3-0.8 [facility] Comment on above: Performed By: #### C BC #### [facility] [address] [place] [address] Dr. Chloe Wells Monocytes/100 WBC (Bld) 8.0 % Normal 1.7-12.0 [facility] Comment on above: Performed By: #### C BC #### [facility] [address] [address] [address] Chloe Wells NEUT # 3.2 103/ul Normal 1.4-6.5 [facility] Comment on above: Performed By: #### C BC #### [facility] [address] [address] [address] Chloe Wells Neutrophils/100 WBC (Bld) 55.2 % Normal 43.0-75.0 [facility] Comment on above: Performed By: #### C BC #### [facility] [address] [place] [address] Dr. Chloe Wells Platelet mean volume (Bld) [Entitic vol] 8.9 fL Critically low 9.5-13.5 [facility] Comment on above: Performed By: #### C BC #### [facility] [address] [place] [address] Dr. Chloe Wells PLT 327 103/ul Normal 150-450 [facility] Comment on above: Performed By: #### C BC #### [facility] [address] [place] [address] Dr. Chloe Wells RBC 4.31 106/ul Normal 4.20-5.40 [facility] Comment on above: Performed By: #### C BC #### [facility] [address] [place] [address] Dr. Chloe Wells WBC 5.9 103/ul Normal 4.0-11.0 [facility] Comment on above: Performed By: #### C BC #### [facility] [address] [place] [address] Dr. Chloe Wells GLYCOHEMOGLOBIN A1Con 2021 ADA RECOMMENDATION SEE BELOW Normal [facility] Comment on above: Result Comment: ADA RECOMMENDED LIMIT 4.0 - 6.0 ADA THERAPEUTIC TARGET < 7.0 ACTION SUGGESTED > 7.0 Performed By: #### A 1C #### [facility] [address] [place] [address] Dr. Chloe Wells Glucose [Mass/Vol] 105 mg/dL Normal [facility] Comment on above: Performed By: #### A 1C #### [facility] [address] [address] [address] Chloe Wells HbA1c (Bld) [Mass fraction] 5.3 % Normal 4.5-6.2 [facility] Comment on above: Performed By: #### A 1C #### [facility] [address] [place] [address] Dr. Chloe Wells LIPID PROFILEon 12-19-2021 CHOL-HDL RATIO NORM SEE BELOW Normal [facility] Comment on above: Result Comment: 3.3 - 4.4 LOW RISK 4.4 - 7.1 AVERAGE RISK 7.1 - 11.0 MODERATE RISK >11.0 HIGH RISK Performed By: #### C MP, TSH, LIPID #### [facility] [address] [place] [address] Dr. Chloe Wells Cholesterol [Mass/Vol] 171 mg/dL Normal <=200 [facility] Comment on above: Performed By: #### C MP, TSH, LIPID #### [facility] [address] [address] [address] Chloe Wells Cholesterol in HDL [Mass/Vol] 63 mg/dL Critically high 40-60 [facility] Comment on above: Performed By: #### C MP, TSH, LIPID #### [facility] [address] [place] [address] Dr. Chloe Wells Cholesterol in LDL [Mass/Vol] 99.2 mg/dL Normal [facility] Comment on above: Performed By: #### C MP, TSH, LIPID #### [facility] [address] [address] [address] Chloe Wells Cholesterol.total/Ch olesterol in HDL [Mass ratio] 2.7 {ratio} Normal [facility] Comment on above: Performed By: #### C MP, TSH, LIPID #### [facility] [address] [place] [address] Dr. Chloe Wells HDL NORMAL > or = 60 mg/dl - LO W CARDIOVASCULAR RISK <40 mg/dl - HIGH CARDIOVASCULAR RISK Normal [facility] Comment on above: Performed By: #### C MP, TSH, LIPID #### [facility] [address] [address] [address] Chloe Wells LDL CALC NORMAL SEE BELOW Normal [facility] Comment on above: Result Comment: <100 mg/dl OPTIMAL 100 - 129 mg/dl NEAR OR ABOVE OPTIMAL 130 - 159 mg/dl BORDERLINE HIGH 160 - 189 mg/dl HIGH >190 mg/dl VERY HIGH Performed By: #### C MP, TSH, LIPID #### [facility] [address] [address] [address] Chloe Wells Triglyceride [Mass/Vol] 44 mg/dL Normal <=150 [facility] Comment on above: Performed By: #### C MP, TSH, LIPID #### [facility] [address] [address] [address] Chloe Wells VLDL CALC 8.8 mg/dL Normal [facility] Comment on above: Performed By: #### C MP, TSH, LIPID #### [facility] [address] [place] [address] Dr. Chloe Wells PROF 14(COMP METB)on 022 Albumin [Mass/Vol] 3.8 g/dL Normal 3.4-5.0 [facility] Comment on above: Performed By: #### C MP, TSH, LIPID #### [facility] [address] [place] [address] Dr. Chloe Wells Albumin/Globulin [Mass ratio] 1.3 {ratio} Normal [facility] Comment on above: Performed By: #### C MP, TSH, LIPID #### [facility] [address] [place] [address] Dr. Chloe Wells ALP [Catalytic activity/Vol] 54 U/L Normal 46-116 [facility] Comment on above: Performed By: #### C MP, TSH, LIPID #### [facility] [address] [place] [address] Dr. Chloe Wells ALT [Catalytic activity/Vol] 20 U/L Normal 14-59 [facility] Comment on above: Performed By: #### C MP, TSH, LIPID #### [facility] [address] [place] [address] Dr. Chloe Wells Anion gap [Moles/Vol] 9.9 mmol/L Normal [facility] Comment on above: Performed By: #### C MP, TSH, LIPID #### [facility] [address] [place] [address] Dr. Chloe Wells AST [Catalytic activity/Vol] 14 U/L Critically low 15-37 [facility] Comment on above: Performed By: #### C MP, TSH, LIPID #### [facility] [address] [place] [address] Dr. Chloe Wells Bilirubin [Mass/Vol] 0.6 mg/dL Normal 0.2-1.0 [facility] Comment on above: Performed By: #### C MP, TSH, LIPID #### [facility] [address] [place] [address] Dr. Chloe Wells Calcium [Mass/Vol] 8.5 mg/dL Normal 8.5-10.1 [facility] Comment on above: Performed By: #### C MP, TSH, LIPID #### [facility] [address] [place] [address] Dr. Chloe Wells Chloride [Moles/Vol] 104 mmol/L Normal 98-107 [facility] Comment on above: Performed By: #### C MP, TSH, LIPID #### [facility] [address] [place] [address] Dr. Chloe Welsl CO2 [Moles/Vol] 27.3 mmol/L Normal 21.0-32.0 [facility] Comment on above: Performed By: #### C MP, TSH, LIPID #### [facility] [address] [place] [address] Dr. Chloe Wells Creatinine [Mass/Vol] 0.74 mg/dL Normal 0.55-1.02 [facility] Comment on above: Performed By: #### C MP, TSH, LIPID #### [facility] [address] [place] [address] Dr. Chloe Wells EGFR-AF COLOMBIAN >60 Normal >=60 [facility] Comment on above: Performed By: #### C MP, TSH, LIPID #### [facility] [address] [address] [address] Chloe Wells EGFR-NON AF COLOMBIAN >60 Normal >=60 [facility] Comment on above: Performed By: #### C MP, TSH, LIPID #### [facility] [address] [address] [address] Chloe Wells Globulin (S) [Mass/Vol] 2.9 g/dL Normal [facility] Comment on above: Performed By: #### C MP, TSH, LIPID #### [facility] [address] [address] [address] Chloe Wells Glucose [Mass/Vol] 110 mg/dL Critically high 74-106 [facility] Comment on above: Performed By: #### C MP, TSH, LIPID #### [facility] [address] [place] [address] Dr. Chloe Wells Potassium [Moles/Vol] 4.2 mmol/L Normal 3.5-5.1 [facility] Comment on above: Performed By: #### C MP, TSH, LIPID #### [facility] [address] [place] [address] Dr. Chloe Wells Protein [Mass/Vol] 6.7 g/dL Normal 6.4-8.2 [facility] Comment on above: Performed By: #### C MP, TSH, LIPID #### [facility] [address] [place] [address] Dr. Chloe Wells Sodium [Moles/Vol] 137 mmol/L Normal 136-145 [facility] Comment on above: Performed By: #### C MP, TSH, LIPID #### [facility] [address] [place] [address] Dr. Chloe Wells Urea nitrogen [Mass/Vol] 18.0 mg/dL Normal 7.0-18.0 [facility] Comment on above: Performed By: #### C MP, TSH, LIPID #### [facility] [address] [place] [address] Dr. Chloe Wells Urea nitrogen/Creatinine [Mass ratio] 24.3 mg/mg Normal [facility] Comment on above: Performed By: #### C MP, TSH, LIPID #### [facility] [address], [place] [address] Dr. Chloe Wells TSHon 12-19-2021 TSH 1.733 uIU/mL Normal 0.358-3.740 [facility] Comment on above: Performed By: #### C MP, TSH, LIPID #### [facility] [address] [place], [place] [address] Dr. Chloe Wells SURGICAL PATH REPORTon 07-31 SURGICAL PATH REPORT [facility] Department of Pathology [address] [place], [place] [id number] Name: GABRIELA ROSE : 1975 [facility] [id number] Number: Gender: Female Location: [facility] Admit 45 years Attending JAMAL SWAN Age: Provider: Ordering MICHAEL HERNÁNDEZ Provider: Consulting: Surgical Pathology Report ACCESSION: COLLECTED DATE/TIME: RECEIVED DATE/TIME: PATHOLOGIST: [id number] 07/26/2020 11:13 EDT 07/26/2020 14:42 EDT KENDELL COLON, BARNT WEBER Final Diagnosis Report for THE [facility], [place] LEFT BREAST, UPPER OUTER QUADRANT, MICROCALCIFICATIONS, [...] Date/ 07/31/2020 14:04 EDT Number: Time: [facility] Department of Pathology [address] [place], [place] [address] Name: GABRIELA ROSE : 1975 [facility] [id number] Number: Gender: Female Location: [facility] Admit 45 years Attending JAMAL SWAN Age: Provider: Ordering MICHAEL HERNÁNDEZ Provider: Consulting: Surgical Pathology Report ACCESSION: COLLECTED DATE/TIME: RECEIVED DATE/TIME: PATHOLOGIST: [id number] 07/26/2020 11:13 EDT 07/26/2020 14:42 EDT KENDELL [...] MP:saul 07/26/2020 Tissue pathology report for: THE [facility], [address] [place] [address]; PATHOLOGY SERVICES PROVIDED BY [facility] (CLIA #[id number]) in cooperation with [facility] at [address] [place] [address] (CLIA #[id number]) Codes CPT CODE: 20010 ____ Print Date07/31/2020 14:04 EDT Number: Time: [facility] Comment on above: Performed By: #### [id number] #### [facility] [address] [place] [address] Injector Assembler: Jim Treadwell MD OPERATIVE REPORTon 9 OPERATIVE REPORT [address] [address] OPERATIVE REPORT PATIENT NAME: GABRIELA ROSE : 1975 MED REC NO: [id number] ROOM: ACCOUNT NO: [id number] ADMIT DATE: 12/09/2018 PROVIDER: Darion Hand DATE [...] sponge counts correct. DARION HAND JERMAINE/[email or web address] Doc#: [id number] CC: Normal [facility] Surgical Pathologyon 019 Surgical Pathology (NOTE) [id number] [employer] [facility] ANATOMIC PATHOLOGY [address], [place] [address] SURGICAL PATHOLOGY CONSULTATION Patient Name: GABRIELA ROSE [facility] Rec: [id number] Path Number: [id number] Collected: 12/09/2018 Received: 12/09/2018 Reported: 12/10/2018 13:49 [...] periphery, consistent with a benign lipoma. Normal [facility] Comment on above: Performed By: #### P PPVDP #### [employer] [address] [place] [id number] Electronics Maintenance Technician: Chris Michaels MD Vital Signs Date Time Vital Sign Value Performing Clinician Facility 09-06-2024 10:48-0400 Body mass index (BMI) [Ratio] 30.29 kg/m2 [employer] DO Work Phone: [facility] 09-06-2024 10:48-0400 Body weight 82.56 kg [employer] DO Work Phone: [facility] 09-06-2024 10:48-0400 Diastolic blood pressure 72 mm[Hg] [employer] DO Work Phone: [facility] 09-06-2024 10:48-0400 Systolic blood pressure 116 mm[Hg] [employer] Work Phone: [facility] 07-20-2024 09:17-0400 Body mass index (BMI) [Ratio] 30.49 kg/m2 Zayda Rausch PA Work Phone: [facility] 07-20-2024 09:17-0400 Body weight 83.12 kg Zayda Rausch PA Work Phone: [facility] 07-20-2024 09:17-0400 Diastolic blood pressure 84 mm[Hg] Zayda aRusch PA Work Phone: [facility] 07-20-2024 09:17-0400 Systolic blood pressure 108 mm[Hg] Zayda Rausch PA Work Phone: [facility] 02-20-2024 14:21-0500 Body height 165.1 cm [facility] 02-20-2024 14:21-0500 Body mass index (BMI) [Ratio] 29.6 kg/m2 [facility] 02-20-2024 14:21-0500 Body weight 80.73 kg [facility] 02-20-2024 14:21-0500 Diastolic blood pressure 79 mm[Hg] [facility] 02-20-2024 14:21-0500 Heart rate 102 /min [facility] 02-20-2024 14:21-0500 Systolic blood pressure 115 mm[Hg] [facility] 10-28-2023 15:18-0400 Body height 165.1 cm [facility] 10-28-2023 15:18-0400 Body mass index (BMI) [Ratio] 29.1 kg/m2 [facility] 10-28-2023 15:18-0400 Body weight 79.49 kg [facility] 10-28-2023 15:18-0400 Diastolic blood pressure 86 mm[Hg] [facility] 10-28-2023 15:18-0400 Heart rate 78 /min [facility] 10-28-2023 15:18-0400 Respiratory rate 12 /min [facility] 10-28-2023 15:18-0400 Systolic blood pressure 124 mm[Hg] [facility] 02-11-2023 14:18-0500 Blood Pressure Location Claudy SCHMITZ [facility] [place] 02-11-2023 14:18-0500 Diastolic blood pressure 80 mm[Hg] Claudy NILL [facility] [place] 02-11-2023 14:18-0500 Heart rate 70 /min Claudy NILL [facility] [place] 02-11-2023 14:18-0500 Respiratory rate 16 /min Claudy NILL [facility] [place] 02-11-2023 14:18-0500 Systolic blood pressure 124 mm[Hg] Claudy NILL [facility] Surgery [place] 01-14-2023 14:30-0400 Body height 165.1 cm Vicente Ball Other [employer] Other 01-14-2023 14:30-0400 Body mass index (BMI) [Ratio] 29.88 kg/m2 Vicente Ball Other [employer] Other 01-14-2023 14:30-0400 Body weight 81.47 kg Vicente Ball Other [employer] Other 01-14-2023 14:30-0400 Diastolic blood pressure 79 mm[Hg] Vicente Ball Other [employer] Other 01-14-2023 14:30-0400 Respiratory rate 12 /min Vicente Ball Other [employer] Other 01-14-2023 14:30-0400 Systolic blood pressure 111 mm[Hg] Vicente Ball Other [employer] Other 06-27-2021 14:00-0400 Body height 165.1 cm Harper Banda Other [employer] Other 06-27-2021 14:00-0400 Body mass index (BMI) [Ratio] 26.62 kg/m2 Harper Banda Other [employer] Other 06-27-2021 14:00-0400 Body weight 72.58 kg Harper Banda Other [employer] Other 12-09-2018 08:41-0400 Body Temperature 97.3 [degF] [facility] [address] [place] 12-09-2018 08:41-0400 BP Diastolic 76 mm[Hg] [facility] [employer] , [place] 12-09-2018 08:41-0400 BP Systolic 117 mm[Hg] [facility] [address] [place] , [place] 12-09-2018 08:41-0400 Pulse (Heart Rate) 72 /min [facility] [address] [place] 12-09-2018 08:41-0400 Pulse Oximetry 99 % [facility] [address] [place] , [place] 12-09-2018 08:41-0400 Respiratory Rate 14 /min [place] [employer] 12-09-2018 06:14-0400 BMI (Body Mass Index) 30.35 kg/m2 [facility] [address] [place], [place] 12-09-2018 06:14-0400 Body weight 82.72 kg [place] 12-09-2018 06:14-0400 Height 165.1 cm [place] Encounters Encounter Date Encounter Type Care [...] Not Available Start: 02-20-2024 Patient encounter status [facility] Start: 02-20-2024 End: 02-20-2024 ambulatory [facility] Work Phone: Start: 02-20-2024 End: 02-20-2024 Encounter for general adult medical examination without abnormal findings [facility] Start: 02-20-2024 End: 02-20-2024 Patient encounter procedure [facility] Work Phone: Start: 10-28-2023 End: 10-28-2023 ambulatory [facility] Work Phone: Start: 10-28-2023 End: 10-28-2023 Patient encounter procedure [facility] Work Phone: Start: 07-30-2023 Non-patient / Non-visit [facility] Work Phone: Start: 03-19-2023 End: 03-20-2023 ambulatory Claudy OJL Facility:CD:[id number] Start: 02-11-2023 End: 02-12-2023 ambulatory Claudy R NILL Facility:[facility] Start: 02-11-2023 End: 02-11-2023 Patient encounter procedure Claudy De Anda NILL General Surgery [facility] Start: 02-05-2023 End: 02-05-2023 ambulatory Vicente Baum Other [employer] Other Start: 02-05-2023 Telephone encounter Vicente CHAO [facility] Start: 01-17-2023 End: 01-17-2023 ambulatory Vicente Baum Other [employer] Other Start: 01-17-2023 Telephone encounter Vicente CHAO [facility] Start: 01-16-2023 ambulatory Claudy SCHMITZ Facility:[facility] Start: 01-14-2023 End: 01-14-2023 ambulatory Vicente Baum Other [employer] Other Start: 01-14-2023 Encounter for genera l adult medical examination without abnormal findings Vicente Baum [facility] Start: 01-14-2023 Periodic preventive med est patient 40-64yrs Vicente Baum [facility] Start: 07-11-2022 End: 07-11-[address] VICENTE BAUM Facility:[facility] Start: 06-28-[address] LUZ YANES Facilit y:[facility] Start: 12-23-2021 Encounter for genera l adult medical examination without abnormal findings DR VICENTE BAUM [facility] Start: 12-19-2021 End: 12-20-[address] VICENTE BAUM Facility:[facility] Start: 12-19-2021 End: 12-20-2021 Encounter for general adult medical examination without abnormal findings DR VICENTE BAUM Facility:[facility] Start: 10-18-2021 End: 04-26-[address] LUZ YANES Facility:[facility] Start: 08-10-2021 End: 08-25-[address] VICENTE BAUM Facility: Start: 06-27-2021 End: 06-27-2021 ambulatory Harper Banda Other [employer] Other Start: 06-27-2021 Office outpatient ne w 30 minutes Harper Banda [facility] Start: 12-09-2018 End: 12-09-2018 Patient encounter procedure DARION HAND [facility] Start: 12-09-2018 End: 12-09-2018 Subsequent hospital visit by physician Darion Hand Work Phone: [facility] [place] Comment on above: Post-op pain [...] Screening for malign ant neoplasm of cervix [facility] Start: 07-12-2027 Screening for malign ant neoplasm of cervix [facility] Start: 07-28-2025 End: 07-28-2025 Patient encounter procedure 07/28/2025 8:30 AM EDT Office Visit [facility] [address] [place] [id number] Abhi Castellano, DO [address] [place] [address] [facility] Start: 12-06-2024 Influenza vaccination Influenz a Vaccine (Season Ended) [facility] Start: 07-20-2024 End: 07-20-2025 C-peptide C-peptide Lab Routine Hormone disorder Expected: 07/20/2024, Expires: 07/20/2025 [facility] Comment on above: Expected: 07/20/2024 , Expires: 07/20/2025 Start: 07-20-2024 End: 07-20-2025 Cortisol free Cortisol, free Lab Routine Hormone disorder Expected: 07/20/2024, Expires: 07/20/2025 [facility] Comment on above: Expected: 07/20/2024 , Expires: 07/20/2025 Start: 07-20-2024 End: 07-20-2025 DHEA-sulfate DHEA-sulfate Lab Routine Hormone disorder Expected: 07/20/2024 (Approximate), Expires: 07/20/2025 [facility] Comment on above: Expected: 07/20/2024 (Approximate), Expires: 07/20/2025 Start: 07-20-2024 End: 07-20-2025 Estradiol Estradiol Lab Routine Hormone disorder Expected: 07/20/2024 (Approximate), Expires: 07/20/2025 [facility] Comment on above: Expected: 07/20/2024 (Approximate), Expires: 07/20/2025 Start: 07-20-2024 End: 07-20-2025 Estrone Estrone Lab Routine Hormone disorder Expected: 07/20/2024 (Approximate), Expires: 07/20/2025 [facility] Comment on above: Expected: 07/20/2024 (Approximate), Expires: 07/20/2025 Start: 07-20-2024 End: 07-20-2025 Ferritin [Mass/volume] in Serum or Plasma Ferritin Lab Routine Hormone disorder Expected: 07/20/2024 (Approximate), Expires: 07/20/2025 [facility] Comment on above: Expected: 07/20/2024 (Approximate), Expires: 07/20/2025 Start: 07-20-2024 End: 07-20-2025 Glucose [Mass/volume] in Serum or Plasma Glucose, random Lab Routine Hormone disorder Expected: 07/20/2024, Expires: 07/20/2025 [facility] Comment on above: Expected: 07/20/2024 , Expires: 07/20/2025 Start: 07-20-2024 End: 07-20-2025 Hemoglobin A1c/Hemoglobin.total in Blood Hemoglobin A1c Lab Routine Hormone disorder Expected: 07/20/2024 (Approximate), Expires: 07/20/2025 [facility] Comment on above: Expected: 07/20/2024 (Approximate), Expires: 07/20/2025 Start: 07-20-2024 End: 07-20-2025 Insulin, total Insulin, total Lab Routine Hormone disorder Expected: 07/20/2024, Expires: 07/20/2025 [facility] Comment on above: Expected: 07/20/2024 , Expires: 07/20/2025 Start: 07-20-2024 End: 09-19-2025 MG Breast - bilateral Screening Bilateral screening mammogram Imaging Routine Encounter for screening mammogram for malignant neoplasm of breast Expected: 07/20/2024 (Approximate), Expires: 09/19/2025 [facility] Work Phone: Comment on above: Expected: 07/20/2024 (Approximate), Expires: 09/19/2025 Start: 07-20-2024 End: 07-20-2025 Progesterone Progesterone Lab Routine Hormone disorder Expected: 07/20/2024 (Approximate), Expires: 07/20/2025 [facility] Comment on above: Expected: 07/20/2024 (Approximate), Expires: 07/20/2025 Start: 07-20-2024 End: 07-20-2025 Serotonin serum Serotonin serum Lab Routine Hormone disorder Expected: 07/20/2024, Expires: 07/20/2025 [facility] Comment on above: Expected: 07/20/2024 , Expires: 07/20/2025 Start: 07-20-2024 End: 07-20-2025 Sex hormone binding globulin Sex hormone binding globulin Lab Routine Hormone disorder Expected: 07/20/2024 (Approximate), Expires: 07/20/2025 [facility] Comment on above: Expected: 07/20/2024 (Approximate), Expires: 07/20/2025 Start: 07-20-2024 End: 07-20-2025 T3, reverse T3, reverse Lab Routine Hormone disorder Expected: 07/20/2024 (Approximate), Expires: 07/20/2025 [facility] Comment on above: Expected: 07/20/2024 (Approximate), Expires: 07/20/2025 Start: 07-20-2024 End: 07-20-2025 TESTOSTERONE, FREE TESTOSTERONE, FREE Lab Routine Hormone disorder Expected: 07/20/2024 (Approximate), Expires: 07/20/2025 [facility] Comment on above: Expected: 07/20/2024 (Approximate), Expires: 07/20/2025 Start: 07-20-2024 End: 07-20-2025 Testosterone, free, total Testosterone, free, total Lab Routine Hormone disorder Expected: 07/20/2024 (Approximate), Expires: 07/20/2025 [facility] Comment on above: Expected: 07/20/2024 (Approximate), Expires: 07/20/2025 Start: 07-20-2024 End: 07-20-2025 Thyroglobulin Thyroglobulin Lab Routine Hormone disorder Expected: 07/20/2024, Expires: 07/20/2025 [facility] Comment on above: Expected: 07/20/2024 , Expires: 07/20/2025 Start: 07-20-2024 End: 07-20-2025 Thyroglobulin Antibody Thyroglobulin Antibody Lab Routine Hormone disorder Expected: 07/20/2024, Expires: 07/20/2025 [facility] Comment on above: Expected: 07/20/2024 , Expires: 07/20/2025 Start: 07-20-2024 End: 07-20-2025 Thyroid peroxidase antibody Thyroid peroxidase antibody Lab Routine Hormone disorder Expected: 07/20/2024 (Approximate), Expires: 07/20/2025 [facility] Comment on above: Expected: 07/20/2024 (Approximate), Expires: 07/20/2025 Start: 07-20-2024 End: 07-20-2025 Thyrotropin [Units/volume] in Serum or Plasma [facility] Comment on above: Expected: 07/20/2024 (Approximate), Expires: 07/20/2025 Expected: 07/20/2024 , Expires: 07/20/2025 Start: 07-20-2024 End: 07-20-2025 Thyroxine (T4) free [Mass/volume] in Serum or Plasma T4, free Lab Routine Hormone disorder Expected: 07/20/2024 (Approximate), Expires: 07/20/2025 [facility] Comment on above: Expected: 07/20/2024 (Approximate), Expires: 07/20/2025 Start: 07-20-2024 End: 07-20-2025 Triiodothyronine (T3) Free [Mass/volume] in Serum or Plasma T3, free Lab Routine Hormone disorder Expected: 07/20/2024 (Approximate), Expires: 07/20/2025 [facility] Comment on above: Expected: 07/20/2024 (Approximate), Expires: 07/20/2025 Start: 07-20-2024 End: 07-20-2025 Vitamin D 1,25 dihydroxy Vitamin D 1,25 dihydroxy Lab Routine Hormone disorder Expected: 07/20/2024 (Approximate), Expires: 07/20/2025 [facility] Comment on above: Expected: 07/20/2024 (Approximate), Expires: 07/20/2025 Start: 07-20-2024 End: 07-20-2024 Patient encounter procedure 07/20/2024 9:00 AM EDT Office Visit [facility] [address] [place] [id number] Zayda Rausch PA [address] [place] [address] Arrived [facility] Comment on above: Arrived Start: 12-16-2018 End: 12-16-2018 Office Visit 12/16/2018 Office Visit Plastic Surgery Darion Hand MD [address] [place] [address] [phone] [facility] Start: 12-06-2018 Influenza vaccination Flu vaccine (# 1) [place], [place] Start: 2016 Diabetes screen Diabetes screen [place], [place] Start: 2016 Lipid screen Lipid screen [place], [place] Start: 2016 Screening for malign ant neoplasm of breast Mammogram [facility] Start: 1997 Cervical cancer screen Cervical canc er screen [place], [place] Start: 06-09-1995 DTaP/Tdap/Td vaccine (1 - Tdap) DTaP/Tdap/Td vaccine (1 - Tdap) [place], [place] Start: 06-09-1991 HIV screen HIV screen [place], [place] Start: 1976 Screening for malign ant neoplasm of colon [facility] End: 12-09-2018 Blood glucose - POCT Blood glucose - POCT Point of Care Testing Routine One Time for 1 Occurrences starting 12/09/2018 until 12/09/2018 [place] Comment on above: One Time for 1 Occur rences starting 12/09/2018 until 12/09/2018 Comprehensive metabo lic 2000 panel - Serum or Plasma [facility] Initiate Oxygen Ther apy Protocol Initiate Oxygen Therapy Protocol Respiratory Care Routine Daily until discontinued starting 12/09/2018 [facility] Comment on above: Daily until disconti nued starting 12/09/2018 MG Breast - bilatera l Screening [facility] Phase I & II - meter ed glucose Phase I & II - metered glucose Point of Care Testing Routine As Needed until discontinued starting 12/09/2018 [facility] Comment on above: As Needed until disc ontinued starting 12/09/2018 End: 12-09-2018 , urine POCT , urine POCT Point of Care Testing Routine One Time for 1 Occurrences starting 12/09/2018 until 12/09/2018 [facility] Comment on above: One Time for 1 Occur rences starting 12/09/2018 until 12/09/2018 Surgical Pathology Surgical Path ology Lab Routine ONE TIME for 1 Occurrences starting 12/09/2018 [facility] [place] Comment on above: ONE TIME for 1 Occur rences starting 12/09/2018 THIN PREP TIS PAP AN D HR HPV DNA THIN PREP TIS PAP AND HR HPV DNA Pathology and Cytology Routine Well woman exam with routine gynecological exam Ordered: 07/20/2024 [facility] Comment on above: Ordered: 07/20/2024 [facility] Immunizations Immunization Date Immunization Notes Care Provider Jorge wilkerson 01-07-2024 influenza virus vaccine, unspecified formulation Zayda IVORY Work Phone: [facility] 01-05-2023 influenza virus vaccine, unspecified formulation Claudy SCHMITZ [facility] [place] 01-26-2021 SARS-CoV-2 (COVID-19 ) mRNA-1273 vaccine Claudy NILL [facility] 05-10-2020 SARS-CoV-2 (COVID-19 ) mRNA-1273 vaccine Claudy NILL [facility] [place] 04-11-2020 SARS-CoV-2 (COVID-19 ) mRNA-1273 vaccine Claudy NILL [facility] [place] Payers Date P[facility] Category [facility] [id number] 2022 Unknown [id number] 2019 Unknown [id number] 2018 Unknown [employer] [address] xxxxxxxxx 2018-Present [phone] [address] [place] [address] xxxxxxxxx [id number] 2018 Unknown [id number] 1976 Unknown [id number]. 175 1976 Unknown [id number]. 593 1976 Unknown [id number]. 593 1976 Unknown [id number]. 593 1976 Unknown [id number]. 593 1976 Unknown [id number] [id number]. 593 1976 Unknown [id number]. 727 1976 Unknown [id number] [id number]. 727 1976 Unknown [id number] [id number]. 1259 1976 Unknown [id number]. 1259 1959 Self-pay [id number] Social History Date Type Detail Facility Start: 12-09-2018 End: 02-11-2023 Tobacco smoking status NHIS Never smoker [facility] [place] Start: 12-09-2018 Alcohol intake Yes [facility] Start: 12-01-2018 Alcohol Comment weekend use [facility] [place] [place] Start: 1975 Sex Assigned At Not on file [facility], [place] Tobacco smoking status Never Gener [facility] [place] Start: 1975 Sex Assigned At Female F [facility] Tobacco smoking stat [facility] Unknown if ever smoked [facility] Start: 02-20-2024 Sex Female (finding) [facility] Functional Status Date Assessment Result Facility 02-11-2023 Functional Status N/A [facility] Clinical Notes 06-27-2021 to 09-06-2024 Haylee Morales LPN - 09/06/2024 10:30 AM DIANELYS Garcia - 07/20/2024 9:00 AM EDT Note Date & Type Note Facility 09-06-2024 History of Present illness Narrative Associated Order(s): IUD Removal Post-Procedure Diagnose(s): Encounter for IUD removal Reason for Appointment: Patient ID: Gabriela oRse is a 49 y.o. female who presents [...] nursing note reviewed. Exam conducted with a acid wash operator present. Vitals: Estimated body mass index is [...] to the patient then properly discarded. Discussed [facility] and recommendations. Prescriptions were previously signed and sent to [facility] on 08/20/24 and will be reprinted and sent today after provider signing. Will request that [facility] reach out to patient when medication is ready for pickup or delivery. Will also order follow up labs that are to be done 45 days after starting medication. Follow Up: Patient is to return to the office for annual exam unless needed otherwise. Documented by Haylee Morales LPN on behalf of: Abhi Castellano DO documented in this encounter [facility] 07-20-2024 History of Present illness Narrative Reason for Appointment: Patient ID: Gabriela Rose is a 49 y.o. female who presents for [facility] Visit Patient presents today for Annual [...] nursing note reviewed. Exam conducted with a acid wash operator present. Vitals: Estimated body mass index is [...] in regards to her symptoms & brought [employer] packet to office to discuss. Pap was obtained without difficulty and patient given mammogram order to have scheduled/obtained. Discussed patients current symptoms and once [employer] Packet is returned to office and all lab results obtained then packet and labs will be sent to [employer]. Patient also desires to start GLP therapy and prescription will be sent to [employer] as well. Discussed vaginal estrogen if needed in the future and patient will see if symptoms improve with current plan of care. Discussed compounded Semaglutide with Methyl B12 and Niacinamide added for better absorption. Patient prefers to have Methyl B12 and Niacinamide added to Semaglutide by injection for better absorption. Prescription will be sent to [employer] to be compounded and dispensed to patient. [...] of: DIANELYS Bravo documented in this encounter [facility] 02-11-2023 Note Chief Complaint consultation for screening [...] Recorded SARS-CoV-2 (COVID-19) mRNA-1273 vaccine 04/11/2020 Recorded [facility] Comment on above: Result Comment: Elec tronically Signed By: LEONOR COLON, Claudy Mireles\Date and Time Signed: 02/11/23 14:43 EST 02-05-2023 Evaluation note Encounter Date Diagnosis Assessment Notes Feb, Seasonal affective disorder (ICD-10 - F33.8) [employer] Other [id number] Evaluation note* Encounter Date Diagnosis Assessment Notes [...] She is an asymptomatic, low risk patient [employer] Other 03-23-2022 Evaluation note* Encounter Date Diagnosis [...] Jun, Left elbow pain (ICD-10 - M25.522) [employer] Other Evaluation + Plan note No data available for this section General Surgery [employer] Evaluation noteNo InformationNort [employer] Other Evaluation note* Diagnosis Onset Date Resolution Status Insomnia acute Overweight acute Seasonal affective disorder acute [facility] Work Phone: Evaluation note* Diagnosis Onset Date Resolution Status Admit Date Wellness examination acute Nove mber 2023 2:07pm [facility] Work Phone: Evaluation note* Diagnosis Well woman [...] History tubal ligation Hospitalization History see surgeries [employer] Other Hospital Discharge instructions No data available for this section General Surgery [facility] Progress note No data available for this section General Surgery [facility] Reason for referral (narrative)* Reason Referral for screeni ng colonoscopy Diagnosis 1 Screening for colon cancer (Z12.11) Referral Organization [facility] Amelia aliza Referring Provider First Name Vicente Referring Provider Last Name Bautista Referring Provider Specialty Internal Me dicine Referred Organization [facility] Referred Provider Claudy Schmitz Referred Address [address] [place], [place],[address] Referred Provider Specialty Surgery Referral Priority Routine General Notes Asymptomatic, low ri sk patient. She denies change in appetite, weight or bowel habits. She denies heartburn or dysphagia. She denies abdominal pain, melena or hematochezia. [employer] Other Discharge Instructions * Instructions* Brittney Btaista RN - 12/09/2018 Dr. Hand Discharge Instructions [...] AM EDT CLINICAL PHARMACY NOTE: MEDS TO [facility] Select Patient?: No Total # of Prescriptions Filled: 2 The following medications were delivered to the patient: cephalexin norco Total # of Interventions Completed: 1 Time Spent (min): 0 Additional Documentation: * Jamal Garcia RN - 12/09/2018 6:34 AM EDT Urine test results-negative * Ranjit Zendejas RN - 12/01/2018 1:26 PM EDT DAY OF SURGERY/PROCEDURE GUIDELINES As a patient at the [facility], you can expect quality medical and nursing care that is centered on your individual needs. It is our goal to make your surgical experience as comfortable and excellent as possible. Please arrive at 0600 with an empty stomach. No jewelry or piercings on. Must have a pizza driver home and in the waiting room. 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 Advance Directives and Living Will Power of Paint Spray Tender Advance Directive Response Recorded Date/ Time Advance [...] <10SQCM HEAD LESION EXCISION Darion Hand MD [facility] [place] [address] [facility] Reason Comments Well Women Visit Reason Comments Contraception INFORMATION SOURCE (unrecogn ized section and content) DATE CREATED AUTHOR 12/15/2018 [facility] DATE CREATED AUTHOR AUTHOR'S ORGANIZ ATION 08/18/2020 [facility] DATE CREATED AUTHOR AUTHOR'S ORGANIZ ATION 07/20/2022 [facility] DATE CREATED AUTHOR AUTHOR'S ORGANIZ ATION 03/25/2023 [facility] DATE CREATED AUTHOR AUTHOR'S ORGANIZ ATION 09/06/2024 [facility] d[facility] Specialists EPIC Patient Care team informatio [...] BE BASED ON THE PRIMARY CLINICAL RECORDS. [facility] [employer] [facility]. provides no warranty or guarantee of the accuracy or completeness of information in this document.
== END 2024-11-03 07:38 | disposition home or self-care (01) ==
LOC: LAB 07:37
PROVIDERS: PCP Family Medicine; Visit Provider Obstetrics & Gynecology
DX: E34.9 Endocrine disorder, unspecified (principal)
CPT/HCPCS: 36415; 82306; 82627; 82679; 84140; 84402; 84403

== ENCOUNTER 2024-11-03 07:41 | Outpatient (OUT) | payer BC, SELFPAY ==
--- OUTSIDE RECORDS SUMMARY | 2023-12-16 06:00 | XMS_ITS ---
Author Organization The [facility] in [place] Address [address] [place] [address] Care Team Providers Care Design Inserter Name Role Phone Vicente Baum DO Primary Care Provider Gustavo Cantu Unavailable [phone] Allergies No Known Allergies Reason For Referral Reason evaluation and treat ment -- see attached order Diagnosis 1 Achilles tendinitis, left leg (M76.62) Referral Organization [facility]) Referring Provider First Name Gustavo Referring Provider Last Name Patrice Referring Provider Speciality Podiatry Referred Provider [facility], Physical Therap y Referred Provider Specialty [...] Encounter Location Date Provider Diagnosis [facility]) [address] [place] [address] [place] [address] 12/16/2023 Gustavo Ibrahim Left ankle pain M25.572 [...] treatment -- see attached order, Physical Therapy [facility] Progress Notes * Savage ROSEOB:[birth year] (48 yo F)Acc No.[id number]:12/16/2023 New Patient Patient: Gabriela VALENCIA Provider: Cele Ibrahim DPM, MS :1975 A ge:48 Y S ex:Female Date:12/16/2023 Address:[address] [place], [place] [id number] Pcp:Unknown or None Check In:10:06 AM ESTCheck [...] Date: 12/16/2023 Generated for Carola monroe/Shantal/Juan on: 11/02/2024 07:59 AM EDT History and Physical Notes * [...] Provider Referred Provider Not 12/16/2023 Gustavo Ibrahim [facility], Physical Therapy e valuation and treatment -- see attached order
--- OUTSIDE RECORDS SUMMARY | 2023-12-18 06:03 | XMS_ITS ---
Author Organization [facility] in [place] Address [address] [place] [address] Care Team Providers Care Airport Clerk Name Role Phone Vicente Baum DO Primary Care Provider Gustavo Cantu [phone] REASON FOR VISIT medications Medications Medication SIG (Take, Route, Frequency, Duration) Notes Start Date End Date Status dexAMETHasone Sodium Phosphate 4 MG/ML 1.5ml-2.5ml topically up to 3 times weekly with physical therapy for 30 days 12/17/2023 Active Encounters Encounter Location Date Provider Diagnosis [facility] (PODIATRY) [address] [place] [address] [place] [address] 12/18/2023 Gustavo Ibrahim Achilles tendinitis, left leg M76.62 Assessments Encounter Date Diagnosis (ICD Code) Assessment Notes Treatment Notes Treatment Clinical Notes Section Notes 12/18/2023 Achilles tendinitis, left leg (ICD-10 - M76.62) Plan Of Treatment Medication Medication Name Sig Start Date Stop Date Notes dexAMETHasone Sodium Phospha te 4 MG/ML 1.5ml-2.5ml topically up to 3 times weekly with physical therapy for 30 days 12/17/2023 Progress Notes * Savage ROSEOB:[birth year] (48 yo F)Acc No.[id number]:12/18/2023 Patient: Gabriela VALENCIA :1975 A ge:48 Y S ex:Female Address:[address] [place], [place] [address], [address] * Refills Refill dexAMETHasone Sodium Phosphate Solution, 4 MG/ML, topically, 30 milliliters, 1.5ml-2.5ml, up to 3 times weekly with physical therapy, 30 days, Refills=1 * true * Date: Generated for Carola monroe/Shantal/Conyitting on: 0 11/02/2024 07:59 AM EDT
--- OUTSIDE RECORDS SUMMARY | 2023-12-31 04:49 | XMS_ITS ---
Author Organization [facility] in [place] Address [address] [place] [address] Care Team Providers Care Adjunct Instructor Of Women'S Studies Name Role Phone Vicente Baum DO Primary Care Provider Flasha Lee Panda [phone] REASON FOR VISIT AAT Result Encounters Encounter Location Date Provider Diagnosis Pulmonary Medicine [place] [address] [place] [address] 12/31/2023 Lee Li Plan Of Treatment No Information Progress Notes * Gabriela ROSEDOB:1975 (48 yo F)Acc No.[id number]:12/31/2023 Patient: Micheline Gabriela PRITCHETT :1975 A ge:48 Y S ex:Female Phone: Address:[address] [place] [address] [place], [address] * true * Date: Generated for Printi mabel/Faadelaideg/eTransmitting on: 0 11/02/2024 07:58 AM EDT
--- OUTSIDE RECORDS SUMMARY | 2024-11-02 07:58 | XMS_ITS | Encounter Summary ---
Author Organization [facility] Address [address] [facility] [place] [address] Care Team Providers Care Wheel Alignment Mechanic Name Role Phone Unavailable Primary Care Provider Unavailabl e Encounter Details Date Type Department Care Team (Late st Contact Info) Description 07/29/2024 Orders Only [facility] [address] [place] [address] [place] [address] Melanie Fischer [address] [place] [address] Social History Tobacco Use Types Packs/Day Years Used Date Smoking Tobacco: Never Assessed Comments No Sex and Gender Information Value Date Recorded Sex Assigned at Not on file Legal Sex Female 6:51 PM EDT Gender Identity Not on file Sexual Orientation Not on file documented as of this encounter Plan of Treatment Upcoming Encounters Date Type Department Care Team (Late st Contact Info) Description 07/28/2025 8:30 AM EDT Office Visit [facility] [place] [address] Lucius Castellano DO [address], [place] [address] documented as of this encounter Procedures Procedure Name Priority Date/Time Associated Diagnosis Comments PAP SMEAR Routine 07/20/2024 12:00 AM EDT documented in this encounter Results * Pap Smear (07/20/2024 12:00 AM EDT) Swab Cervical swab / Unknown us Lucius Castellano DO LAB CYTOLOGY ORDERABLES Final Re sult EXTERNAL LAB documented in this encounter Visit Diagnoses Not on filedocumented in this encounter
--- OUTSIDE RECORDS SUMMARY | 2024-11-02 07:58 | XMS_ITS | Encounter Summary ---
Author Organization [facility] Address [address] [place] [address] Care Team Providers Care Telephone Service Representative Name Role Phone Unavailable Primary Care Provider Unavailabl e Encounter Details Date Type Department Care Team (Late st Contact Info) Description 07/30/2024 Abstract [facility] [address] [facility] [place] [address] Haylee Morales LPN Social History Tobacco Use Types Packs/Day Years [...] 8:30 AM EDT Office Visit DARON FRY [facility] [place] [address] Lucius Castellano DO [address], [place] [id number] documented as of this encounter Visit Diagnoses Not on filedocumented in this encounter
--- OUTSIDE RECORDS SUMMARY | 2024-11-02 07:58 | XMS_ITS | Encounter Summary ---
Author Organization [facility] Address [address] [place] [address] Care Team Providers Care Lawn Care Worker Name Role Phone Unavailable Primary Care Provider Unavailabl e Encounter Details Date Type Department Care Team (Late st Contact Info) Description 09/02/2024 Abstract [facility] [place] [address] Lucius Castellano DO [address], [facility] Social History Tobacco Use Types Packs/Day Years [...] 8:30 AM EDT Office Visit DARON FRY [facility] [place] [address] Lucius Castellano DO [address], [facility] documented as of this encounter Visit Diagnoses Not on filedocumented in this encounter
--- OUTSIDE RECORDS SUMMARY | 2024-11-02 07:58 | XMS_ITS | Encounter Summary ---
Author Organization [facility] Address [address] [place] [address] Care Team Providers Care Felt Cutting Machine Operator Name Role Phone Unavailable Primary Care Provider Unavailabl e Encounter Details Date Type Department Care Team (Late st Contact Info) Description 08/17/2024 Abstract [facility] [address] [facility] [place] [address] Haylee Morales LPN Social History Tobacco [...] 8:30 AM EDT Office Visit DARON FR[facility] [place] [address] Lucius Castellano DO [address], [place] [id number] documented as of this encounter Visit Diagnoses Not on filedocumented in this encounter
--- OUTSIDE RECORDS SUMMARY | 2024-11-02 07:59 | XMS_ITS | CCD ---
Author Organization [facility] Care Team Providers Care Measurer Machine Name Role Phone Vicente Baum Primary Care Provider DARION HAND Admitting Unavailab ADRION Jarvis Attending Unavailab VICENTE Napoles Primary Care [...] Unavailable FARZANA, DR LUZ Dyer Attending Unavailable FARZANA, DR LUZ Dyer Consulting Unavailable BAUTISTA, DR ONOFRE Primary Care Unavailable HARPER BANDA Admitting Unavailable HARPER BANDA Attending Unavailable BAUTISTA, DR ONOFRE Primary Care Unavailable MIRACLE .ZAYDA Consulting Unavailable MIRACLE ., ZAYDA Admitting Unavailable ZAYDA GA Attending Unavailable Vicente Baum Unavailable VICENTE BAUM Primary Care Physician Claudy SCHMITZ Attending Unavailable VICENTE BAUM Referring Unavailable Claudy SCHMITZ Attending Unavailable Unavailable Primary Care Provider UnavailZAYDA Doherty Attending Unavailable ABHI CASTELLANO Attending Unavailable Allergies Allergy Classification Reported Allergen(s) [...] 25 mcg FLUoxetine 20 mg oral capsule (15 sources) Serotonin Reuptake Inhibitor Start: 07-30-2023 End: [...] 12-09-2018 HYDROmorphone (DILAUDID) injection 0.5 mg levonorgestrel 0.596597 mg/hr intrauterine system (6 sources) Progestin, Progestin-containing Intrauterine Device Levonorgestrel (Mirena, [...] Active -Hx Entry for 0 *Reorder from [employer] for eRx and Interaction Alerts* Feb, Not-Taking [...] times daily for 7 *Pick strength-form from [employer] for eRX* 10 Apr, 2019 Not-Taking triamcinolone acetonide 40 mg/ml injectable suspension (4 sources) Corticosteroid Start: 06-27-2021 Kenalog-40 Jun, 40 mg Start: 06-27-2021 Kenalog -40 mg Jun, 40 mg Problems Active Problems Problem Classification Problem Date Documented Date Episodic/Chronic Contraceptive and procreative management (1 source) Patient encounter status; Translations: [Encounter for removal of intrauterine contraceptive device] 09-06-2024 Episodic Genitourinary symptoms and ill-defined conditions (4 sources) [...] Test Name Value Interpretation Reference Range Facility IUD Removalon 09-06-2024 Haylee Morales LPN 09/06/2024 1:39 PM IUD Removal Date/Time: 09/06/2024 11:24 AM Performed by: Abhi Castellano DO Authorized by: Abhi Castellano DO Consent: Consent obtained: Written Consent given by: Patient Procedure risks and benefits discussed: yes Patient questions answered: yes Patient agrees, verbalizes understanding, and wants to proceed: yes Educational handouts given: no Instructions and paperwork completed: yes Procedure: Removed with no complications: yes Removal due to mechanical complications of IUD: no Removal due to infection and inflammatory reaction: no Other reason for removal: Hormone management through compound pharmacy. [facility] IGP,APTIMA HPV,AGE GDLNon AGE GDLN ACOG TESTING Note . [facility] Comment on above: TESTS RESULT FLAG UN ITS REF RANGE LAB Clinician Provided Cytology Information Source.............Cervix;Endocervix No. of containers..01 ThinPrep Vial Age Mallory BOTELLO Celina... 31 FLAG LEGEND: L-Low Normal,H-High Normal,LL-Alert Low,HH-Alert High <-Panic Low,>-Panic High,A-Abnormal,AA-Critical Abnormal Performed at: 01 =[address] [address] Charisse Merchant MD, HPV APTIMA Negative Negative [facility] Comment on above: This nucleic acid am plification test detects fourteen high- risk HPV types (16,18,31,33,35,39,45,51,52,56,58,59,66,68) without differentiation. Performed at: =[address] [id number] Lacquer Sizer: Charisse Merchant MD, Phone: [phone] Performed at: [facility] Cyto Histo [address] [place] [id number] [employer] S[employer]: Brian Spencer MD, Phone: [phone] IGP, APTIMA HPV, RFX 16/18,45 Note . [facility] Comment on above: TESTS RESULT FLAG UN ITS REF RANGE LAB DIAGNOSIS: 02 NEGATIVE FOR INTRAEPITHELIAL LESION OR MALIGNANCY. Specimen adequacy: 02 Satisfactory for evaluation. No endocervical component is identified. Performed by: 02 Lucia Rivera, Element Burner (ASCP) . 02 Note: Note 03 The [...] High,A-Abnormal,AA-Critical Abnormal Performed at: 02 K[facility] Cyto Histo [id number] [place] [phone] Brian Spencer MD, 03 WB [facility] [address] [phone] Charisse Merchant MD, BRUSH-SPATULA CERVIX ENDOCERVIX [facility] MLR HEMOGLOBIN A1Con 025 Glucose [Mass/Vol] 108 mg/dL [facility] HbA1c (Bld) [Mass fraction] 5.4 % 4.5 - 6.2 % [facility] Comment on above: ADA RECOMMENDED LIMI T 4.0 - 6.0 ADA THERAPEUTIC TARGET < 7.0 ACTION SUGGESTED > 7.[facility] [place] [facility] Colonoscopyon 2022 Outside Colonoscopy [id number]#1.00T IFF Normal [facility] Reminderson 03-20-2023 Reminders - From: Dolores Lee LPN To: [facility] - Clinical; Sent: 03/20/2023 08:53:50 EST Show up: 02/17/2033 07:00:00 EST Subject: colonoscopy recall Due Date/Time: 03/19/2033 07:00:00 EST Reminder/Recall Patient due for screening colonoscopy 03/19/2033. Normal [facility] Lab Reportson 03-19-2023 Lab Reports [id number]#1.00T IFF [facility] Insurance Correspondenceon 1 04-27-2022 Insurance Correspondence [id number]#1.00 TIFF [facility] Consent for Procedure/Surger yon 02-12-2023 Consent for Procedure/Surgery [id number]#1.00 TIFF [facility] Facesheeton 02-12-2023 Facesheet [id number]#1.00 TIFF [facility] Ambulatory Visit Summaryon 1 04-13-2022 Ambulatory Visit [...] [facility] Phys[facility] Referral[facility] 023 Physician Referral [id number]#1.00T IFF Normal [facility] PAP ACOG PANEL 2: 30 to 65on 07-18-2022 . . Normal [facility] Comment on above: Result Comment: Perf ormed at: WB Performed By: #### [id number] #### [facility] [address] [address] [address] Chloe Wells Age Gdln ACOG Testing 30-65 Normal [facility] Comment on above: Performed By: #### [id number] #### [facility] [address] [address] [address] Chloe Wells DIAGNOSIS: Comment Normal [facility] Comment on above: Result Comment: NEGA TIVE FOR INTRAEPITHELIAL LESION OR MALIGNANCY. Performed at: WB Performed By: #### 4 [id number] #### [facility] [address] [address] [address] Chloe Wells HPV Aptima Positive Abnormal Negative [facility] Comment on above: Result Comment: This nucleic acid amplification test detects fourteen high-risk HPV types (16,18,31,33,35,39,45,51,52,56,58,59,66,68) without differentiation. Performed at: =G Performed By: #### 4 [id number] #### [facility] [address] [address] [address] Chloe Wells HPV Genotype 16 Negative Normal Negative [facility] Comment on above: Performed By: #### 4 [id number] #### [facility] [address] [address] [address] Chloe Wells HPV Genotype 18,45 Negative Normal Negative [facility] Comment on above: Performed By: #### 4 [id number] #### [facility] [address] [place] [address] Dr. Chloe Wells HPV Genotype Reflex Comment Normal [facility] Comment on above: Result Comment: Kira galicia, see HPV Genotype results. Performed at: WB Performed By: #### 4 [id number] #### [facility] [address] [place] [address] Dr. Chloe Wells Methodology: Comment Normal [facility] Comment on above: Result Comment: This liquid based ThinPrep(R) pap test was screened with the use of an image guided system. Performed at: WB Performed By: #### 4 [id number] #### [facility] [address] [place] [address] Dr. Chloe Wells Note: Comment Normal [facility] Comment on above: Result Comment: The Pap smear is a screening test designed to aid in the detection of premalignant and malignant conditions of the uterine cervix. It is not a diagnostic procedure and should not be used as the sole means of detecting cervical cancer. Both false-positive and false-negative reports do occur. . Performed at: WB Performed By: #### 4 [id number] #### [facility] [address] [place] [address] Dr. Chloe Wells Performed by: Comment Normal [facility] Comment on above: Result Comment: Rozina Benitez, Element Burner (ASCP) Performed at: WB Performed By: #### 4 [id number] #### [facility] [address] [place] [address] Dr. Chloe Wells Specimen adequacy: Comment Normal [facility] Comment on above: Result Comment: Sati sfactory for evaluation. Endocervical and/or squamous metaplastic cells (endocervical component) are present. Performed at: WB Performed By: #### 4 [id number] #### [facility] [address] [place] [address] Dr. Chloe Wells CBC AUTO DIFFon 12-19-2021 BASO # 0.0 103/ul Normal 0.0-0.1 [facility] Comment on above: Performed By: #### C BC #### [facility] [address] [address] [address] Chloe Wells Basophils/100 WBC (Bld) 0.3 % Normal 0.2-2.0 [facility] Comment on above: Performed By: #### C BC #### [facility] [address] [address] [address] Chloe Wells EO # 0.2 103/ul Normal 0.0-0.7 [facility] Comment on above: Performed By: #### C BC #### [facility] [address] [place] [address] Dr. Chloe Wells Eosinophils/100 WBC (Bld) 2.9 % Normal 0.9-7.0 [facility] Comment on above: Performed By: #### C BC #### [facility] [address] [place] [address] Dr. Chloe Wells Erythrocyte distribution width (RBC) [Ratio] 12.4 % Normal 11.0-15.0 [facility] Comment on above: Performed By: #### C BC #### [facility] [address] [place] [address] Dr. Chloe Wells Hematocrit (Bld) [Volume fraction] 38.8 % Normal 36.0-48.0 [facility] Comment on above: Performed By: #### C BC #### [facility] [address] [place] [address] Dr. Chloe Wells Hemoglobin (Bld) [Mass/Vol] 13.0 g/dL Normal 12.0-16.0 [facility] Comment on above: Performed By: #### C BC #### [facility] [address] [place] [address] Dr. Chloe Wells IG # 0.01 10e3/ul Normal 0.00-0.03 [facility] Comment on above: Performed By: #### C BC #### [facility] [address] [place] [address] Dr. Chloe Wells IG % 0.2 % Normal 0.0-0.5 [facility] Comment on above: Performed By: #### C BC #### [facility] [address] [place] [address] Dr. Chloe Wells LYMPH # 2.0 103/ul Normal 1.2-3.8 [facility] Comment on above: Performed By: #### C BC #### [facility] [address] [place] [address] Dr. Chloe Wells Lymphocytes/100 WBC (Bld) 33.4 % Normal 20.5-60.0 [facility] Comment on above: Performed By: #### C BC #### [facility] [address] [place] [address] Dr. Chloe Wells MANUAL DIFF REQ NO Normal [facility] Comment on above: Performed By: #### C BC #### [facility] [address] [place] [address] Dr. Chloe Wells MCH (RBC) [Entitic mass] 30.2 pg Normal 26.7-34.0 [facility] Comment on above: Performed By: #### C BC #### [facility] [address] [place] [address] Dr. Chloe Wells MCHC (RBC) [Mass/Vol] 33.5 g/dL Normal 29.9-35.2 [facility] Comment on above: Performed By: #### C BC #### [facility] [address] [place] [address] Dr. Chloe Wells MCV (RBC) [Entitic vol] 90.0 fL Normal 81.0-99.0 [facility] Comment on above: Performed By: #### C BC #### [facility] [address] [place] [address] Dr. Chloe Wells MONO # 0.5 103/ul Normal 0.3-0.8 [facility] Comment on above: Performed By: #### C BC #### [facility] [address] [place] [address] Dr. Chloe Wells Monocytes/100 WBC (Bld) 8.0 % Normal 1.7-12.0 [facility] Comment on above: Performed By: #### C BC #### [facility] [address] [address] [address] Chloe Wells NEUT # 3.2 103/ul Normal 1.4-6.5 [facility] Comment on above: Performed By: #### C BC #### [facility] [address] [address] [address] Chloe Wells Neutrophils/100 WBC (Bld) 55.2 % Normal 43.0-75.0 [facility] Comment on above: Performed By: #### C BC #### [facility] [address] [place] [address] Dr. Chloe Wells Platelet mean volume (Bld) [Entitic vol] 8.9 fL Critically low 9.5-13.5 [facility] Comment on above: Performed By: #### C BC #### [facility] [address] [place] [address] Dr. Chloe Wells PLT 327 103/ul Normal 150-450 [facility] Comment on above: Performed By: #### C BC #### [facility] [address] [place] [address] Dr. Chloe Wells RBC 4.31 106/ul Normal 4.20-5.40 [facility] Comment on above: Performed By: #### C BC #### [facility] [address] [place] [address] Dr. Chloe Wells WBC 5.9 103/ul Normal 4.0-11.0 [facility] Comment on above: Performed By: #### C BC #### [facility] [address] [place] [address] Dr. Chloe Wells GLYCOHEMOGLOBIN A1Con 2021 ADA RECOMMENDATION SEE BELOW Normal [facility] Comment on above: Result Comment: ADA RECOMMENDED LIMIT 4.0 - 6.0 ADA THERAPEUTIC TARGET < 7.0 ACTION SUGGESTED > 7.0 Performed By: #### A 1C #### [facility] [address] [place] [address] Dr. Chloe Wells Glucose [Mass/Vol] 105 mg/dL Normal [facility] Comment on above: Performed By: #### A 1C #### [facility] [address] [address] [address] Chloe Wells HbA1c (Bld) [Mass fraction] 5.3 % Normal 4.5-6.2 [facility] Comment on above: Performed By: #### A 1C #### [facility] [address] [place] [address] Dr. Chloe Wells LIPID PROFILEon 12-19-2021 CHOL-HDL RATIO NORM SEE BELOW Normal [facility] Comment on above: Result Comment: 3.3 - 4.4 LOW RISK 4.4 - 7.1 AVERAGE RISK 7.1 - 11.0 MODERATE RISK >11.0 HIGH RISK Performed By: #### C MP, TSH, LIPID #### [facility] [address] [place] [address] Dr. Chloe Wells Cholesterol [Mass/Vol] 171 mg/dL Normal <=200 [facility] Comment on above: Performed By: #### C MP, TSH, LIPID #### [facility] [address] [address] [address] Chloe Wells Cholesterol in HDL [Mass/Vol] 63 mg/dL Critically high 40-60 [facility] Comment on above: Performed By: #### C MP, TSH, LIPID #### [facility] [address] [place] [address] Dr. Chloe Wells Cholesterol in LDL [Mass/Vol] 99.2 mg/dL Normal [facility] Comment on above: Performed By: #### C MP, TSH, LIPID #### [facility] [address] [address] [address] Chloe Wells Cholesterol.total/Ch olesterol in HDL [Mass ratio] 2.7 {ratio} Normal [facility] Comment on above: Performed By: #### C MP, TSH, LIPID #### [facility] [address] [place] [address] Dr. Chloe Wells HDL NORMAL > or = 60 mg/dl - LO W CARDIOVASCULAR RISK <40 mg/dl - HIGH CARDIOVASCULAR RISK Normal [facility] Comment on above: Performed By: #### C MP, TSH, LIPID #### [facility] [address] [address] [address] Chloe Wells LDL CALC NORMAL SEE BELOW Normal [facility] Comment on above: Result Comment: <100 mg/dl OPTIMAL 100 - 129 mg/dl NEAR OR ABOVE OPTIMAL 130 - 159 mg/dl BORDERLINE HIGH 160 - 189 mg/dl HIGH >190 mg/dl VERY HIGH Performed By: #### C MP, TSH, LIPID #### [facility] [address] [address] [address] Chloe Wells Triglyceride [Mass/Vol] 44 mg/dL Normal <=150 [facility] Comment on above: Performed By: #### C MP, TSH, LIPID #### [facility] [address] [address] [address] Chloe Wells VLDL CALC 8.8 mg/dL Normal [facility] Comment on above: Performed By: #### C MP, TSH, LIPID #### [facility] [address] [place] [address] Dr. Chloe Wells PROF 14(COMP METB)on 022 Albumin [Mass/Vol] 3.8 g/dL Normal 3.4-5.0 [facility] Comment on above: Performed By: #### C MP, TSH, LIPID #### [facility] [address] [place] [address] Dr. Chloe Wells Albumin/Globulin [Mass ratio] 1.3 {ratio} Normal [facility] Comment on above: Performed By: #### C MP, TSH, LIPID #### [facility] [address] [place] [address] Dr. Chloe Wells ALP [Catalytic activity/Vol] 54 U/L Normal 46-116 [facility] Comment on above: Performed By: #### C MP, TSH, LIPID #### [facility] [address] [place] [address] Dr. Chloe Wells ALT [Catalytic activity/Vol] 20 U/L Normal 14-59 [facility] Comment on above: Performed By: #### C MP, TSH, LIPID #### [facility] [address] [place] [address] Dr. Chloe Wells Anion gap [Moles/Vol] 9.9 mmol/L Normal [facility] Comment on above: Performed By: #### C MP, TSH, LIPID #### [facility] [address] [place] [address] Dr. Chloe Wells AST [Catalytic activity/Vol] 14 U/L Critically low 15-37 [facility] Comment on above: Performed By: #### C MP, TSH, LIPID #### [facility] [address] [place] [address] Dr. Chloe Wells Bilirubin [Mass/Vol] 0.6 mg/dL Normal 0.2-1.0 [facility] Comment on above: Performed By: #### C MP, TSH, LIPID #### [facility] [address] [place] [address] Dr. Chloe Wells Calcium [Mass/Vol] 8.5 mg/dL Normal 8.5-10.1 [facility] Comment on above: Performed By: #### C MP, TSH, LIPID #### [facility] [address] [place] [address] Dr. Chloe Wells Chloride [Moles/Vol] 104 mmol/L Normal 98-107 [facility] Comment on above: Performed By: #### C MP, TSH, LIPID #### [facility] [address] [place] [address] Dr. Chloe Wells CO2 [Moles/Vol] 27.3 mmol/L Normal 21.0-32.0 [facility] Comment on above: Performed By: #### C MP, TSH, LIPID #### [facility] [address] [place] [address] Dr. Chloe Wells Creatinine [Mass/Vol] 0.74 mg/dL Normal 0.55-1.02 [facility] Comment on above: Performed By: #### C MP, TSH, LIPID #### [facility] [address] [place] [address] Dr. Chloe Wells EGFR-AF PUERTO RICAN >60 Normal >=60 [facility] Comment on above: Performed By: #### C MP, TSH, LIPID #### [facility] [address] [address] [address] Chloe Wells EGFR-NON AF PUERTO RICAN >60 Normal >=60 [facility] Comment on above: Performed By: #### C MP, TSH, LIPID #### [facility] [address] [address] [address] Chloe Wells Globulin (S) [Mass/Vol] 2.9 g/dL Normal [facility] Comment on above: Performed By: #### C MP, TSH, LIPID #### [facility] [address] [address] [address] Chloe Wells Glucose [Mass/Vol] 110 mg/dL Critically high 74-106 [facility] Comment on above: Performed By: #### C MP, TSH, LIPID #### [facility] [address] [place] [address] Dr. Chloe Wells Potassium [Moles/Vol] 4.2 mmol/L Normal 3.5-5.1 [facility] Comment on above: Performed By: #### C MP, TSH, LIPID #### [facility] [address] [place] [address] Dr. Chloe Wells Protein [Mass/Vol] 6.7 g/dL Normal 6.4-8.2 [facility] Comment on above: Performed By: #### C MP, TSH, LIPID #### [facility] [address] [place] [address] Dr. Chloe Wells Sodium [Moles/Vol] 137 mmol/L Normal 136-145 [facility] Comment on above: Performed By: #### C MP, TSH, LIPID #### [facility] [address] [place] [address] Dr. Chloe Wells Urea nitrogen [Mass/Vol] 18.0 mg/dL Normal 7.0-18.0 [facility] Comment on above: Performed By: #### C MP, TSH, LIPID #### [facility] [address] [place] [address] Dr. Chloe Wells Urea nitrogen/Creatinine [Mass ratio] 24.3 mg/mg Normal [facility] Comment on above: Performed By: #### C MP, TSH, LIPID #### [facility] [address] [place], [place] [address] Dr. Chloe Wells TSHon 12-19-2021 TSH 1.733 uIU/mL Normal 0.358-3.740 [facility] Comment on above: Performed By: #### C MP, TSH, LIPID #### [facility] [address] [place], [place] [address] Dr. Chloe Wells SURGICAL PATH REPORTon 07-31 SURGICAL PATH REPORT [facility] Department of Pathology [address] [place], [place] [id number] Name: GABRIELA ROSE : 1975 [facility] [id number] Number: Gender: Female Location: [facility] Admit 45 years Attending JAMAL SWAN Age: Provider: Ordering MICHAEL HERNÁNDEZ Provider: Consulting: Surgical Pathology Report ACCESSION: COLLECTED DATE/TIME: RECEIVED DATE/TIME: PATHOLOGIST: [id number] 07/26/2020 11:13 EDT 07/26/2020 14:42 EDT KENDELL COLON, BRANT WEBER Final Diagnosis Report for [facility] [place] [place] LEFT BREAST, UPPER OUTER QUADRANT, MICROCALCIFICATIONS, [...] 07/31/2020 14:04 EDT Number: Time: [facility] Department of Pathology [address] [place], [place] [id number] Name: GABRIELA ROSE : 1975 [facility] [id number] Number: Gender: Female Location: [facility] Admit 45 years Attending JAMAL SWAN Age: Provider: Ordering MICHAEL HERNÁNDEZ Provider: Consulting: Surgical Pathology Report ACCESSION: COLLECTED DATE/TIME: RECEIVED DATE/TIME: PATHOLOGIST: [id number] 07/26/2020 11:13 EDT 07/26/2020 14:42 EDT KENDELL [...] MP:saul 07/26/2020 Tissue pathology report for: [facility] [place], [address] [place] [address]; [facility] [employer] (CLIA #[id number]) in cooperation with [facility] at [address] [place] [address] (CLIA #[id number]) Codes CPT CODE: 45958 ____ Print Date07/31/2020 14:04 EDT Number: Time: [facility] Comment on above: Performed By: #### [id number] #### [facility] Services [address] [place] [address] Adviser Sales: Jim Treadwell MD OPERATIVE REPORTon 9 OPERATIVE REPORT [address] [address] OPERATIVE REPORT PATIENT NAME: GABRIELA ROSE : 1975 MED REC NO: [id number] ROOM: ACCOUNT NO: [id number] ADMIT DATE: 12/09/2018 PROVIDER: Darion Hand DATE [...] sponge counts correct. DARION HAND JERMAINE/[email or web address] Doc#: [id number] CC: [facility] Surgical Pathologyon 019 Surgical Pathology (NOTE) [id number] [facility] ANATOMIC PATHOLOGY [address] [place], [place] [address] SURGICAL PATHOLOGY CONSULTATION Patient Name: GABRIELA ROSE [facility] Rec: [id number] Path Number: [id number] Collected: 12/09/2018 Received: 12/09/2018 Reported: 12/10/2018 13:49 [...] periphery, consistent with a benign lipoma. [facility] Comment on above: Performed By: #### P PPVDP #### [email or web address] [address] [place] [address] [employer]: Chris Michaels MD Vital Signs Date Time Vital Sign Value Performing Clinician Facility 09-06-2024 10:48-0400 Body mass index (BMI) [Ratio] 30.29 kg/m2 Ticket Mavrix DO Work Phone: [facility] 09-06-2024 10:48-0400 Body weight 82.56 kg Ticket Mavrix DO Work Phone: [facility] 09-06-2024 10:48-0400 Diastolic blood pressure 72 mm[Hg] Ticket Mavrix DO Work Phone: [facility] 09-06-2024 10:48-0400 Systolic blood pressure 116 mm[Hg] [employer] Work Phone: [facility] 07-20-2024 09:17-0400 Body mass index (BMI) [Ratio] 30.49 kg/m2 Zayda Rausch PA Work Phone: [facility] 07-20-2024 09:17-0400 Body weight 83.12 kg Zayda Rausch PA Work Phone: [facility] 07-20-2024 09:17-0400 Diastolic blood pressure 84 mm[Hg] Zayda Rausch PA Work Phone: [facility] 07-20-2024 09:17-0400 Systolic blood pressure 108 mm[Hg] Zayda Rausch PA Work Phone: [facility] 02-20-2024 14:21-0500 Body height 165.[address] [facility] 02-20-2024 14:21-0500 Body mass index (BMI) [Ratio] 29.6 kg/m2 [facility] 02-20-2024 14:21-0500 Body weight 80.[address] [facility] 02-20-2024 14:21-0500 Diastolic blood pressure 79 mm[Hg] [facility] 02-20-2024 14:21-0500 Heart rate 102 /min [facility] 02-20-2024 14:21-0500 Systolic blood pressure 115 mm[Hg] [facility] 10-28-2023 15:18-0400 Body height 165.[address] [facility] 10-28-2023 15:18-0400 Body mass index (BMI) [Ratio] 29.1 kg/m2 [facility] 10-28-2023 15:18-0400 Body weight 79.[address] [facility] 10-28-2023 15:18-0400 Diastolic blood pressure 86 mm[Hg] [facility] 10-28-2023 15:18-0400 Heart rate 78 /min [facility] 10-28-2023 15:18-0400 Respiratory rate 12 /min [place] 10-28-2023 15:18-0400 Systolic blood pressure 124 mm[Hg] [facility] 02-11-2023 14:18-0500 Blood Pressure Location Claudy SCHMITZ [facility] [place] 02-11-2023 14:18-0500 Diastolic blood pressure 80 mm[Hg] Claudy NILL [facility] [place] 02-11-2023 14:18-0500 Heart rate 70 /min Claudy NILL [facility] [place] 02-11-2023 14:18-0500 Respiratory rate 16 /min Claudy NILL [facility] [place] 02-11-2023 14:18-0500 Systolic blood pressure 124 mm[Hg] Claudy NILL [facility] [place] 01-14-2023 14:30-0400 Body height 165.1 cm Vicente Ball Other [facility] 01-14-2023 14:30-0400 Body mass index (BMI) [Ratio] 29.88 kg/m2 Vicente Ball Other [facility] Other 01-14-2023 14:30-0400 Body weight 81.47 kg Vicente Ball Other [facility] Other 01-14-2023 14:30-0400 Diastolic blood pressure 79 mm[Hg] Vicente Ball Other [facility] Other 01-14-2023 14:30-0400 Respiratory rate 12 /min Vicente Ball Other [facility] Other 01-14-2023 14:30-0400 Systolic blood pressure 111 mm[Hg] Vicente Ball Other [facility] Other 06-27-2021 14:00-0400 Body height 165.1 cm Harper Banda Other [facility] Other 06-27-2021 14:00-0400 Body mass index (BMI) [Ratio] 26.62 kg/m2 Harper Banda Other [facility] Other 06-27-2021 14:00-0400 Body weight 72.58 kg Harper Banda Other [facility] Other 12-09-2018 08:41-0400 Body Temperature 97.3 [degF] Darion [place] 12-09-2018 08:41-0400 BP Diastolic 76 mm[Hg] Darion [place] , [place] 12-09-2018 08:41-0400 BP Systolic 117 mm[Hg] Darion [place] 12-09-2018 08:41-0400 Pulse (Heart Rate) 72 /min Darion [place] 12-09-2018 08:41-0400 Pulse Oximetry 99 % Darion [place] 12-09-2018 08:41-0400 Respiratory Rate 14 /min Darion [place] 12-09-2018 06:14-0400 BMI (Body Mass Index) 30.35 kg/m2 Darion [place] 12-09-2018 06:14-0400 Body weight 82.72 kg Darion [place] 12-09-2018 06:14-0400 Height 165.1 cm Darion [place] Encounters Encounter Date Encounter Type Care Provider Facility Start: 09-06-2024 End: 09-06-2024 Patient encounter procedure Abhi Gray DO Work Phone: [facility] Comment on above: Encounter for IUD re moval Start: 09-06-2024 End: 09-06-2024 ambulatory ABHI GRAY Not Available Start: 07-21-2024 End: 07-21-2024 Clinisync Result Encounter Zayda IVORY Work Phone: [facility] Unsolicited Start: 07-21-2024 End: 07-21-2024 Clinisync Result Encounter Zayda IVORY Work Phone: [facility] Unsolicited Start: 07-20-2024 End: 07-20-2024 Bamboo flowsheet Zadya IVORY Work Phone: [facility] Start: 07-20-2024 End: 07-23-2024 Bamboo flowsheet Zayda IVORY Work Phone: [facility] Start: 07-20-2024 End: 07-23-2024 Clinisync Result Encounter Zayda Miracle IVORY Work Phone: [facility] Unsolicited Start: 07-20-2024 End: 07-20-2024 Patient encounter procedure Zayda IVORY Work Phone: [facility] Start: 07-20-2024 End: 07-20-2024 Periodic preventive med est patient 40-64yrs Zayda IVORY Work Phone: [facility] Comment on above: Well woman exam with routine gynecological exam; Encounter for screening mammogram for malignant neoplasm of breast; Hormone disorder; Stress incontinence; Generalized body aches Start: 07-20-2024 End: 07-20-2024 ambulatory ZAYDA RAUSCH Not Available Start: 02-20-2024 Patient encounter status [facility] Start: 02-20-2024 End: 02-20-2024 ambulatory [facility] Work Phone: Start: 02-20-2024 End: 02-20-2024 Encounter for general adult medical examination without abnormal findings [facility] Start: 02-20-2024 End: 02-20-2024 Patient encounter procedure [facility] Work Phone: Start: 10-28-2023 End: 10-28-2023 ambulatory [facility] Work Phone: Start: 10-28-2023 End: 10-28-2023 Patient encounter procedure [facility] Work Phone: Start: 07-30-2023 Non-patient / Non-visit [facility] Work Phone: Start: 03-19-2023 End: 03-20-2023 ambulatory Claudy JOL Facility:[id number] Start: 02-11-2023 End: 02-12-2023 ambulatory Claudy R NILL Facility:[facility] Start: 02-11-2023 End: 02-11-2023 Patient encounter procedure Claudy De Anda NILL [facility] Start: 02-05-2023 End: 02-05-2023 ambulatory Vicente Baum Other [facility] Start: 02-05-2023 Telephone encounter Vicente CHAO [facility] Start: 01-17-2023 End: 01-17-2023 ambulatory Vicente Baum Other [facility] Other Start: 01-17-2023 Telephone encounter Vicente CHAO [facility] Start: 01-16-2023 ambulatory Claudy SCHMITZ Facility:[facility] Start: 01-14-2023 End: 01-14-2023 ambulatory Vicente Baum Other [facility] Other Start: 01-14-2023 Encounter for genera l adult medical examination without abnormal findings Vicente Baum [facility] Start: 01-14-2023 Periodic preventive med est patient 40-64yrs Vicente Baum [facility] Start: 07-11-2022 End: 07-11-[address] VICENTE BAUM Facility:[facility] Start: 06-28-[address] LUZ YANES Facilit y:[facility] Start: 12-23-2021 Encounter for genera l adult medical examination without abnormal findings DR VICENTE BAUM [facility] Start: 12-19-2021 End: 12-20-[address] VICENTE BAUM Facility:[facility] Start: 12-19-2021 End: 12-20-2021 Encounter for general adult medical examination without abnormal findings DR VICENTE BAUM Facility:[facility] Start: 10-18-2021 End: 04-26-[address] LUZ YANES Facility:[facility] Start: 08-10-2021 End: 08-25-[address] VICENTE BAUM Facility: Start: 06-27-2021 End: 06-27-2021 ambulatory Harper Banda Other [facility] Other Start: 06-27-2021 Office outpatient ne w 30 minutes Harper Banda [facility] Start: 12-09-2018 End: 12-09-2018 Patient encounter procedure DARION HAND [facility] Start: 12-09-2018 End: 12-09-2018 Subsequent hospital visit by physician Darion Hand Work Phone: [facility] [place] Comment on above: Post-op pain (Primar y Dx) Procedures Date Procedure Procedure Detail Performing Clinician Start: 09-06-2024 IUD REMOVAL Abhi edwards DO Work Phone: Start: 07-21-2024 MLR HEMOGLOBIN A1C Zayda IVORY Work Phone: Start: 07-20-2024 IGP,APTIMA HPV,AGE GDLN Zayda IVORY Work Phone: Start: 07-20-2024 Microscopic observat ion [Identifier] in Cervix by Cyto stain Abhi Venturao DO Work Phone: Start: 07-11-2022 Microscopic observat ion [...] DARION HAND Start: 12-09-2018 NURSING COMMUNICATION C MARGARITOL FELICE Start: 12-09-2018 VITAL SIGNS DARION De Anda Start: 12-09-2018 Gluc bld gluc mntr d ev cleared fda spec home use DARION HAND Start: 12-09-2018 Urine test visual color cmprsn meths DARION HAND Start: 12-09-2018 VITAL SIGNS DARION De Anda Start: 09-30-2018 Cystourethroscopy wi th dilation of urethral stricture Claudy SCHMITZ section Claudy Parker Ligation of fallopian tube Chelsie ichnaomi SCHMITZ Tonsillectomy Claudy SCHMITZ Plan of Treatment Date Care Activity Detail Author Start: 07-20-2029 Screening for malign ant neoplasm of cervix [facility] Start: 07-12-2027 Screening for malign ant neoplasm of cervix [facility] Start: 07-28-2025 End: 07-28-2025 Patient encounter procedure 07/28/2025 8:30 AM EDT Office Visit [facility] [address] [place] [id number] Abhi Castellano, DO [address] [place] [address] [facility] Start: 12-06-2024 Influenza vaccination Influenz a Vaccine (Season Ended) [facility] Start: 07-20-2024 End: 07-20-2025 C-peptide C-peptide Lab Routine Hormone disorder Expected: 07/20/2024, Expires: 07/20/2025 [facility] Comment on above: Expected: 07/20/2024 , Expires: 07/20/2025 Start: 07-20-2024 End: 07-20-2025 Cortisol free Cortisol, free Lab Routine Hormone disorder Expected: 07/20/2024, Expires: 07/20/2025 [facility] Comment on above: Expected: 07/20/2024 , Expires: 07/20/2025 Start: 07-20-2024 End: 07-20-2025 DHEA-sulfate DHEA-sulfate Lab Routine Hormone disorder Expected: 07/20/2024 (Approximate), Expires: 07/20/2025 [facility] Comment on above: Expected: 07/20/2024 (Approximate), Expires: 07/20/2025 Start: 07-20-2024 End: 07-20-2025 Estradiol Estradiol Lab Routine Hormone disorder Expected: 07/20/2024 (Approximate), Expires: 07/20/2025 [facility] Comment on above: Expected: 07/20/2024 (Approximate), Expires: 07/20/2025 Start: 07-20-2024 End: 07-20-2025 Estrone Estrone Lab Routine Hormone disorder Expected: 07/20/2024 (Approximate), Expires: 07/20/2025 [facility] Comment on above: Expected: 07/20/2024 (Approximate), Expires: 07/20/2025 Start: 07-20-2024 End: 07-20-2025 Ferritin [Mass/volume] in Serum or Plasma Ferritin Lab Routine Hormone disorder Expected: 07/20/2024 (Approximate), Expires: 07/20/2025 [facility] Comment on above: Expected: 07/20/2024 (Approximate), Expires: 07/20/2025 Start: 07-20-2024 End: 07-20-2025 Glucose [Mass/volume] in Serum or Plasma Glucose, random Lab Routine Hormone disorder Expected: 07/20/2024, Expires: 07/20/2025 [facility] Comment on above: Expected: 07/20/2024 , Expires: 07/20/2025 Start: 07-20-2024 End: 07-20-2025 Hemoglobin A1c/Hemoglobin.total in Blood Hemoglobin A1c Lab Routine Hormone disorder Expected: 07/20/2024 (Approximate), Expires: 07/20/2025 [facility] Comment on above: Expected: 07/20/2024 (Approximate), Expires: 07/20/2025 Start: 07-20-2024 End: 07-20-2025 Insulin, total Insulin, total Lab Routine Hormone disorder Expected: 07/20/2024, Expires: 07/20/2025 [facility] Comment on above: Expected: 07/20/2024 , Expires: 07/20/2025 Start: 07-20-2024 End: 09-19-2025 MG Breast - bilateral Screening Bilateral screening mammogram Imaging Routine Encounter for screening mammogram for malignant neoplasm of breast Expected: 07/20/2024 (Approximate), Expires: 09/19/2025 [facility] Work Phone: Comment on above: Expected: 07/20/2024 (Approximate), Expires: 09/19/2025 Start: 07-20-2024 End: 07-20-2025 Progesterone Progesterone Lab Routine Hormone disorder Expected: 07/20/2024 (Approximate), Expires: 07/20/2025 [facility] Comment on above: Expected: 07/20/2024 (Approximate), Expires: 07/20/2025 Start: 07-20-2024 End: 07-20-2025 Serotonin serum Serotonin serum Lab Routine Hormone disorder Expected: 07/20/2024, Expires: 07/20/2025 [facility] Comment on above: Expected: 07/20/2024 , Expires: 07/20/2025 Start: 07-20-2024 End: 07-20-2025 Sex hormone binding globulin Sex hormone binding globulin Lab Routine Hormone disorder Expected: 07/20/2024 (Approximate), Expires: 07/20/2025 [facility] Comment on above: Expected: 07/20/2024 (Approximate), Expires: 07/20/2025 Start: 07-20-2024 End: 07-20-2025 T3, reverse T3, reverse Lab Routine Hormone disorder Expected: 07/20/2024 (Approximate), Expires: 07/20/2025 [facility] Comment on above: Expected: 07/20/2024 (Approximate), Expires: 07/20/2025 Start: 07-20-2024 End: 07-20-2025 TESTOSTERONE, FREE TESTOSTERONE, FREE Lab Routine Hormone disorder Expected: 07/20/2024 (Approximate), Expires: 07/20/2025 [facility] Comment on above: Expected: 07/20/2024 (Approximate), Expires: 07/20/2025 Start: 07-20-2024 End: 07-20-2025 Testosterone, free, total Testosterone, free, total Lab Routine Hormone disorder Expected: 07/20/2024 (Approximate), Expires: 07/20/2025 [facility] Comment on above: Expected: 07/20/2024 (Approximate), Expires: 07/20/2025 Start: 07-20-2024 End: 07-20-2025 Thyroglobulin Thyroglobulin Lab Routine Hormone disorder Expected: 07/20/2024, Expires: 07/20/2025 [facility] Comment on above: Expected: 07/20/2024 , Expires: 07/20/2025 Start: 07-20-2024 End: 07-20-2025 Thyroglobulin Antibody Thyroglobulin Antibody Lab Routine Hormone disorder Expected: 07/20/2024, Expires: 07/20/2025 [facility] Comment on above: Expected: 07/20/2024 , Expires: 07/20/2025 Start: 07-20-2024 End: 07-20-2025 Thyroid peroxidase antibody Thyroid peroxidase antibody Lab Routine Hormone disorder Expected: 07/20/2024 (Approximate), Expires: 07/20/2025 [facility] Comment on above: Expected: 07/20/2024 (Approximate), Expires: 07/20/2025 Start: 07-20-2024 End: 07-20-2025 Thyrotropin [Units/volume] in Serum or Plasma [facility] Comment on above: Expected: 07/20/2024 (Approximate), Expires: 07/20/2025 Expected: 07/20/2024 , Expires: 07/20/2025 Start: 07-20-2024 End: 07-20-2025 Thyroxine (T4) free [Mass/volume] in Serum or Plasma T4, free Lab Routine Hormone disorder Expected: 07/20/2024 (Approximate), Expires: 07/20/2025 [facility] Comment on above: Expected: 07/20/2024 (Approximate), Expires: 07/20/2025 Start: 07-20-2024 End: 07-20-2025 Triiodothyronine (T3) Free [Mass/volume] in Serum or Plasma T3, free Lab Routine Hormone disorder Expected: 07/20/2024 (Approximate), Expires: 07/20/2025 [facility] Comment on above: Expected: 07/20/2024 (Approximate), Expires: 07/20/2025 Start: 07-20-2024 End: 07-20-2025 Vitamin D 1,25 dihydroxy Vitamin D 1,25 dihydroxy Lab Routine Hormone disorder Expected: 07/20/2024 (Approximate), Expires: 07/20/2025 [facility] Comment on above: Expected: 07/20/2024 (Approximate), Expires: 07/20/2025 Start: 07-20-2024 End: 07-20-2024 Patient encounter procedure 07/20/2024 9:00 AM EDT Office Visit [facility] [address] [place] [id number] Zayda Rausch PA [address] [place] [address] Arrived [facility] Comment on above: Arrived Start: 12-16-2018 End: 12-16-2018 Office Visit 12/16/2018 Office Visit Plastic Surgery Darion Hand MD [address] [place] [address] [phone] [facility] Sur[facility] Start: 12-06-2018 Influenza vaccination Flu vaccine (# 1) [place], [place] Start: 2016 Diabetes screen Diabetes screen [place], [place] Start: 2016 Lipid screen Lipid screen [place], [place] Start: 2016 Screening for malign ant neoplasm of breast Mammogram [facility] Start: 1997 Cervical cancer screen Cervical canc er screen [place], [place] Start: 06-09-1995 DTaP/Tdap/Td vaccine (1 - Tdap) DTaP/Tdap/Td vaccine (1 - Tdap) [place], [place] Start: 06-09-1991 HIV screen HIV screen [place], [place] Start: 1976 Screening for malign ant neoplasm of colon [facility] End: 12-09-2018 Blood glucose - POCT Blood glucose - POCT Point of Care Testing Routine One Time for 1 Occurrences starting 12/09/2018 until 12/09/2018 [place], [place] Comment on above: One Time for 1 Occur rences starting 12/09/2018 until 12/09/2018 Comprehensive metabo lic 2000 panel - Serum or Plasma [facility] Initiate Oxygen Ther apy Protocol Initiate Oxygen Therapy Protocol Respiratory Care Routine Daily until discontinued starting 12/09/2018 [facility] Comment on above: Daily until disconti nued starting 12/09/2018 MG Breast - bilatera l Screening [facility] Phase I & II - meter ed glucose Phase I & II - metered glucose Point of Care Testing Routine As Needed until discontinued starting 12/09/2018 [facility] Comment on above: As Needed until disc ontinued starting 12/09/2018 End: 12-09-2018 , urine POCT , urine POCT Point of Care Testing Routine One Time for 1 Occurrences starting 12/09/2018 until 12/09/2018 [facility] Comment on above: One Time for 1 Occur rences starting 12/09/2018 until 12/09/2018 Surgical Pathology Surgical Path ology Lab Routine ONE TIME for 1 Occurrences starting 12/09/2018 [facility] [place] Comment on above: ONE TIME for 1 Occur rences starting 12/09/2018 THIN PREP TIS PAP AN D HR HPV DNA THIN PREP TIS PAP AND HR HPV DNA Pathology and Cytology Routine Well woman exam with routine gynecological exam Ordered: 07/20/2024 [facility] Comment on above: Ordered: 07/20/2024 [place] Immunizations Immunization Date Immunization Notes Care Provider Jorge wilkerson 01-07-2024 influenza virus vaccine, unspecified formulation Zayda IVORY Work Phone: [facility] 01-05-2023 influenza virus vaccine, unspecified formulation Claudy SCHMITZ [facility] [place] 01-26-2021 SARS-CoV-2 (COVID-19 ) mRNA-1273 vaccine Claudy NILL [facility] 05-10-2020 SARS-CoV-2 (COVID-19 ) mRNA-1273 vaccine Claudy NILL [facility] [place] 04-11-2020 SARS-CoV-2 (COVID-19 ) mRNA-1273 vaccine Claudy NILL [facility] [place] Payers Date Payer Category [facility] [id number] 2022 Unknown [id number] 2019 Unknown [id number] 2018 Unknown [employer] [address] xxxxxxxxx 2018-Present [phone] [address] [place] [address] xxxxxxxxx [id number] 2018 Unknown [id number] 1975 Unknown [id number]. 175 1975 Unknown [id number] 2.16.840.1.008253.3.579.2. 593 1975 Unknown [id number] 2.16.840.1.766572.3.579.2. 593 1975 Unknown [id number] [id number]. 593 1975 Unknown [id number] 2.16.840.1.153604.3.579.2. 593 1975 Unknown [id number] [id number]. 593 1975 Unknown [id number] [id number]. 727 1975 Unknown [id number] 2.16.840.1.672589.3.579.2. 727 1975 Unknown [id number] 2.16.840.1.150942.3.579.2. 1259 1975 Unknown [id number] [id number]. 1259 1959 Self-pay [id number] Social History Date Type Detail Facility Start: 12-09-2018 End: 02-11-2023 Tobacco smoking status NHIS Never smoker [facility] [place] Start: 12-09-2018 Alcohol intake Yes [facility] Start: 12-01-2018 Alcohol Comment weekend use [facility] [place], [place] Start: 1975 Sex Assigned At Not on file M [facility], [place] Tobacco smoking status Never [facility] [place] Start: 1975 Sex Assigned At Female F [facility] Tobacco smoking stat [facility] Unknown if ever smoked [facility] Start: 02-20-2024 Sex Female (finding) [facility] Functional Status Date Assessment Result Facility 02-11-2023 Functional Status N/A [facility] Clinical Notes 06-27-2021 to 09-06-2024 Haylee Morales LPN - 09/06/2024 10:30 AM DIANELYS Garcia - 07/20/2024 9:00 AM EDT Note Date & Type Note Facility 09-06-2024 History of Present illness Narrative Associated Order(s): IUD Removal Post-Procedure Diagnose(s): Encounter for IUD removal Reason for Appointment: Patient ID: Gabriela Rose is a 49 y.o. female who presents for Contraception Patient presents today for a IUD Removal appointment. MEDICATIONS Current Outpatient Medications Medication Instructions FLUoxetine [...] SYSTEMS Review of Systems: Review of Systems All other systems reviewed and are negative. OBJECTIVE Objective: Physical Exam Constitutional: Appearance: Normal appearance. She is well-developed. Genitourinary: Vulva normal. Cardiovascular: Rate and Rhythm: Normal rate and regular rhythm. Pulmonary: Effort: Pulmonary effort is normal. Breath sounds: Normal breath sounds. Abdominal: General: Bowel sounds are normal. There is no distension. Palpations: Abdomen is soft. Tenderness: There is no abdominal tenderness. There is no guarding or rebound. Musculoskeletal: General: No swelling. Normal range of motion. Right lower leg: No edema. Left lower leg: No edema. Neurological: Mental Status: She is alert and oriented to person, place, and time. Skin: General: Skin is warm and dry. Psychiatric: Mood and Affect: Mood normal. Behavior: Behavior normal. Vitals and nursing note reviewed. Exam conducted with a ring spinner present. Vitals: Estimated body mass index is 30.29 kg/m as calculated from the following: Height as of 07/15/23: 5' 5 . Weight as of this encounter: 182 lb. BP: 116/72 No LMP recorded. Patient has had an implant. ASSESSMENT & PLAN Assessment/Plan Encounter Diagnosis: ICD-10-CM 1. Encounter for IUD removal Z30.432 IUD Removal Date/Time: 09/06/2024 11:24 AM Performed by: Abhi Castellano DO Authorized by: Abhi Castellano DO Consent: Consent obtained: Written Consent given by: Patient Procedure risks and benefits discussed: yes Patient questions answered: yes Patient agrees, verbalizes understanding, and wants to proceed: yes Educational handouts given: no Instructions and paperwork completed: yes Procedure: Removed with no complications: yes Removal due to mechanical complications of IUD: no Removal due to infection and inflammatory reaction: no Other reason for removal: Hormone management through compound pharmacy. IUD Removal: Patient presents today for removal of IUD. Written consent was obtained and patient was placed in dorsal lithotomy position with feet in stirrups. A sterile speculum was inserted into the vagina and the cervix was visualized. The IUD strings were grasped gently with forceps and the IUD was removed in its entirety without difficulty. The IUD was shown to the patient then properly discarded. Discussed [facility] and recommendations. Prescriptions were previously signed and sent to [facility] on 08/20/24 and will be reprinted and sent today after provider signing. Will request that [facility] [employer] reach out to patient when medication is ready for pickup or delivery. Will also order follow up labs that are to be done 45 days after starting medication. Follow Up: Patient is to return to the office for annual exam unless needed otherwise. Documented by Haylee Morales LPN on behalf of: Abhi Castellano DO documented in this encounter [facility] 07-20-2024 History of Present illness Narrative Reason for Appointment: Patient ID: Gabriela Rose is a 49 y.o. female who presents for [facility] Women Visit Patient presents today for Annual [...] nursing note reviewed. Exam conducted with a ring spinner present. Vitals: Estimated body mass index is [...] in regards to her symptoms & brought [facility] packet to office to discuss. Pap was obtained without difficulty and patient given mammogram order to have scheduled/obtained. Discussed patients current symptoms and once [facility] Packet is returned to office and all lab results obtained then packet and labs will be sent to [facility]. Patient also desires to start GLP therapy and prescription will be sent to [facility] as well. Discussed vaginal estrogen if needed in the future and patient will see if symptoms improve with current plan of care. Discussed compounded Semaglutide with Methyl B12 and Niacinamide added for better absorption. Patient prefers to have Methyl B12 and Niacinamide added to Semaglutide by injection for better absorption. Prescription will be sent to [facility] to be compounded and dispensed to patient. [...] of: DIANELYS Bravo documented in this encounter [facility] 02-11-2023 Note Chief Complaint consultation for screening [...] Feb, Seasonal affective disorder (ICD-10 - F33.8) [facility] Other [id number] Evaluation note* Encounter Date Diagnosis Assessment Notes [...] She is an asymptomatic, low risk patient [facility] 03-23-2022 Evaluation note* Encounter Date Diagnosis [...] Jun, Left elbow pain (ICD-10 - M25.522) [facility] Other Evaluation + Plan note No data available for this section General Surgery [facility] Evaluation noteNo InformationNort [employer] Other Evaluation note* Diagnosis Onset Date Resolution Status Insomnia acute Overweight acute Seasonal affective disorder acute [facility] Work Phone: Evaluation note* Diagnosis Onset Date Resolution Status Admit Date Wellness examination acute Nove mber 2023 2:07pm [facility] Work Phone: Evaluation note* Diagnosis Well woman exam with routine gynecological exam Routine gynecological examination Encounter for screening mammogram for malignant neoplasm of breast Hormone disorder Unspecified endocrine disorder Stress incontinence Female stress incontinence Generalized body aches [facility] Diagnosis Encounter for IUD removal documented [facility] this [facility] N[facility]ative - Reported* Type Description Date Medical History Seasonal Affective Disorder Surgical History x 2 Surgical History tonsilectomy Surgical History tubal ligation Hospitalization History see surgeries [facility] Other Hospital Discharge instructions No data available for this section General Surgery [facility] Progress note No data available for this section General Surgery [facility] Reason for referral (narrative)* Reason Referral for screeni ng colonoscopy Diagnosis 1 Screening for colon cancer (Z12.11) Referral Organization [facility] Amelia aliza Referring Provider First Name Vicente Referring Provider Last Name Bautista Referring Provider Specialty Internal Me dicine Referred Organization [facility] Referred Provider Claudy Schmitz Referred Address [address] [place], [place],[address] Referred Provider Specialty Surgery Referral Priority Routine General Notes Asymptomatic, low ri sk patient. She denies change in appetite, weight or bowel habits. She denies heartburn or dysphagia. She denies abdominal pain, melena or hematochezia. [facility] Other Discharge Instructions * Instructions* Brittney Batista [...] AM EDT CLINICAL PHARMACY NOTE: MEDS TO [facility] Select Patient?: No Total # of Prescriptions Filled: 2 The following medications were delivered to the patient: cephalexin norco Total # of Interventions Completed: 1 Time Spent (min): 0 Additional Documentation: * Jamal Garcia RN - 12/09/2018 6:34 AM EDT Urine test results-negative * Ranjit Zendejas RN - 12/01/2018 1:26 PM EDT DAY OF SURGERY/PROCEDURE GUIDELINES As a patient at the [facility], you can expect quality medical and nursing care that is centered on your individual needs. It is our goal to make your surgical experience as comfortable and excellent as possible. Please arrive at 0600 with an empty stomach. No jewelry or piercings on. Must have a freight delivery driver home and in the waiting room. [...] morning of your surgery/procedure (Hibiclens if directed) [place] your teeth, but do not swallow any [...] your Living Will or Durable Power of Utilities Service Investigator DO NOT take anticoagulants (blood thinners, aspirin [...] are recovering, the surgery family waiting room customer service receptionist can answer many of your family's [...] Primary Other acute postoperative pain Advance Directives No Advanced Directives Records FoundDocuments on File Type Date Recorded Patient Brand Advisor Expl anation Advance Directives and Living Will Power of Utilities Service Investigator Advance Directive Response Recorded Date/ Time Advance Directives No October 27 2:50pm Advance Directive Response Recorded Date/ Time Advance Directives No October 27 1:50pm Summary Purpose Family History No Family History Records Found Relationship Condition Age at Onset Recorded Date/T [...] mass and lump, unspecified MASS FOREHEAD Procedures NV EXCISION TUMOR SOFT TISS FACE/SCALP SUBQ 2+CM NV EXC SKIN MALIG 2.1-3CM FACE,FACIAL NV EXC SKIN BENIG 2.1-3CM FACE,FACIAL NV ADJ TISS XFER HEAD,FAC,HAND <10SQCM HEAD LESION EXCISION Darion Hand MD [facility] [place] [address] [facility] Reason Comments Well Women Visit Reason Comments Contraception INFORMATION SOURCE (unrecogn ized section and content) DATE CREATED AUTHOR 12/15/2018 [facility] DATE CREATED AUTHOR AUTHOR'S ORGANIZ ATION 08/18/2020 [facility] DATE CREATED AUTHOR AUTHOR'S ORGANIZ ATION 07/20/2022 [facility] DATE CREATED AUTHOR AUTHOR'S ORGANIZ ATION 03/25/2023 [facility] DATE CREATED AUTHOR AUTHOR'S ORGANIZ ATION 09/06/2024 [facility] d[facility] Specialists EPIC Patient Care team [...] BE BASED ON THE PRIMARY CLINICAL RECORDS. [facility] [employer] [facility]. provides no warranty or guarantee of the accuracy or completeness of information in this document.
--- OUTSIDE RECORDS SUMMARY | 2024-11-02 07:59 | XMS_ITS | Patient Health Record ---
Author Organization [facility] [place] Address [address] [place] [address] Care Team Providers Care Home Demonstrator Name Role Phone Vicente Baum DO Primary Care Provider Gustavo Cantu Unavailable [phone] [employer] Unavailable [phone] Allergies No Known Allergies Results Component Value Reference Range Notes XR ankle CHANI min 3V (Not yet reviewed by provider) Interpretation: Performing Lab: Notes/Report: Source Facility: [place] [address] XRay Report Signed Patient: GABRIELA ROSE MR#: [id number] : 1975 Acct:[id number] Age/Sex: 48 / F ADM Date: 12/16/23 Loc: EC Attending Dr: Gustavo Ibrahim D.P.M. Ordering Physician: Gustavo Ibrahim D.P.M. Date of Service: 12/16/23 Procedure(s): XR ankle CHANI min 3V Accession Number(s): [id number] cc: Rachel Kennedy M.D.; Gustavo Ibrahim D.P.M. [place] [address] Patient Name: GABRIELA ROSE MRN: [facility]:[id number] date: 1975 Sex: F Assigned Patient Location: EC Current Patient Location: Accession/Order Number: [id number] Exam Date: 12/16/2023 10:15 Report Date: 12/17/2023 07:15 At the request of: GUSTAVO IBRAHIM Procedure: XR ankle CHANI min 3V EXAMINATION: XR ankle CHANI min 3V HISTORY: BILATERAL ANKLE PAIN COMPARISON: No relevant comparison available. FINDINGS: RIGHT FINDINGS: BONES: 3 mm corticated calcific density identified along the inferior medial malleolus, remote injury is favored. No acute fracture or dislocation. SOFT TISSUES: Negative. No visible soft tissue swelling. OTHER: Negative. LEFT FINDINGS: BONES: Corticated calcific density inferior to the lateral malleolus, a remote injury is favored SOFT TISSUES: Negative. No visible soft tissue swelling. OTHER: Negative. XR/XR ankle CHANI min 3V IMPRESSION: No acute abnormality of the ankles Electronically authenticated by: LUZ YANES Date: 12/17/2023 07:15 Dictated By: Luz Yanes M.D. Signed By: 12/17/23716 DD/ 4 TD/TT: Seasoner: [place] [address] XRay Report Signed Patient: TOMASA ROSE MR#: [id number] : 1975 Acct:[id number] Age/Sex: 48 / F ADM Date: 12/16/23 Loc: EC Attending Dr: Gustavo Ibrahim D.P.M. Ordering Physician: Gustavo Ibrahim D.P.M. Date of Service: 12/16/23 Procedure(s): XR ank le CHANI min 3V Accession Number(s): [id number] cc: Rachel Kennedy; Gustavo Ibrahim D.P.M. The [place] [address] Patient Name: GABRIELA ROSE MRN: [facility]:[id number] date: 1975 Sex: F Assigned Patient Location: Current Patient Location: Accession/Order Numb er: [id number] Exam Date: 12/16/2023 10:15 Report Date: 12/17/2023 07:15 At the request of: GUSTAVO IBRAHIM Procedure: XR ankle CHANI min 3V EXAMINATION: XR ankle CHANI min 3V HISTORY: BILATERAL ANKLE PAIN COMPARISON: No relev ant comparison available. FINDINGS: RIGHT FINDINGS: BONES: 3 mm corticat ed calcific density identified along the inferior medial malleolus, remote in jury is favored. No acute fracture or dislocation. SOFT TISSUES: Negati ve. No visible soft tissue swelling. OTHER: Negative. LEFT FINDINGS: BONES: Corticated ca lcific density inferior to the lateral malleolus, a remote injury is favored SOFT TISSUES: Negati ve. No visible soft tissue swelling. OTHER: Negative. X R/XR ankle CHANI min 3V IMPRESSION: No acute abnormality of the ankles Electronically authe nticated by: LUZ YANES Date: 12/17/2023 07:15 Dictated By: Luz Yanes M.D. Signed By: 12/17/23716 DD/ 4 TD/TT: Seasoner: Reason For Referral Reason evaluation and treat ment -- see attached order Diagnosis 1 Achilles tendinitis, left leg (M76.62) Referral Organization [facility] Referring Provider First Name Gustavo Referring Provider Last Name Patrice Referring Provider Speciality Podiatry Referred Provider [facility], Physical Therap y Referred Provider Specialty Physical Med icine and Rehabilitation Referral Priority Routine Medications Medication SIG (Take, Route, Frequency, Duration) Notes Start Date End Date Status PROzac 20 MG 1 capsule Orally Onc e a day Active dexAMETHasone Sodium Phosphate 4 MG/ML 1.5ml-2.5ml topically up to 3 times weekly with physical therapy for 30 days 12/17/2023 Active Meloxicam 15 MG 1 tablet Orally Once a day for 30 day(s) 12/16/2023 Active Social History Tobacco Use: Social History Observation Description Date Details (start date - stop date) Never Smoker NA - NA Tobacco Control (Standard) Question Answer Notes Tobacco use: Nonsmoker Problems Problem Type SNOMED Code ICD Code Onset Dates Problem Status W/U Status Risk Notes Problem 82594318 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 Problem Arthralgia of the ankle and/or foot (045590111) Right ankle pain (M25.571) Active confirmed Problem Arthralgia of the ankle and/or foot (445464492) Left ankle pain (M25.572) Active confirmed Vital Signs Heart Rate 68 /min 12/16/2023 Temperature 97.5 degrees Fahrenheit 12/16/2023 Oximetry 99 % 12/16/2023 Height 64 in 12/16/2023 Weight 170 lbs 12/16/2023 BMI 29.18 kg/m2 12/16/2023 Encounters Encounter Location Date Provider Diagnosis [facility] [address] [place] [address] [place] [address] 12/16/2023 Gustavo Ibrahim Left ankle pain M25.572 ; Achilles tendinitis, left leg M76.62 ; Achilles tendinitis, right leg M76.61 and Right ankle pain M25.571 [facility]) [address] [place] [address] 12/15/2023 Gustavo Ibrahim [facility] [address] [facility] [address] [facility] [place] [address] 12/18/2023 Gustavo Ibrahim Achilles tendinitis, left leg M76.62 [facility] [place] [address] [place] [address] 12/31/2023 Lee Li Assessments Encounter Date Diagnosis (ICD Code) Assessment Notes Treatment Notes Treatment Clinical Notes Section Notes 12/16/2023 Achilles tendinitis, left leg (ICD-10 - [...] how her symptoms persist or resolve 12/16/2023 Left ankle pain (ICD-10 - M25.572) 12/18/2023 Achilles tendinitis, left leg (ICD-10 - M76.62) 12/16/2023 Achilles tendinitis, right leg (ICD-10 - M76.61) 12/16/2023 Right ankle pain (ICD-10 - M25.571) Plan Of Treatment Pending Test Test Name Order Date XR Ankle LT (3 views) * (164) 12/16/2023 XR Ankle RT (3 views) * (161) 12/16/2023 XR ankle CHANI min 3V 12/17/2023 Insurance Providers Payer Name Payer Address Payer Phone Subscriber Number Group Number Insured Name Patient Relationship to Insured Coverage Start Date Coverage End Date BCBS OUT OF STATE [address] [place] [address] [id number] Gabriela Rose Self - patient is the insured Medical (General) History Surgical History Surgery Date(Month/Year) x2 tubal ligation tonsillectomy and adenoidectomy
--- OUTSIDE RECORDS SUMMARY | 2024-11-02 07:59 | XMS_ITS | Encounter Summary ---
Author Organization [facility] Address [address] [place] [address] Care Team Providers Care Medical Records Supervisor Name Role Phone Unavailable Primary Care Provider Unavailabl e Encounter Details Date Type Department Care Team (Late st Contact Info) Description 09/10/2024 Abstract [facility] [place] [address] Lucius Castellano DO [address], [facility] Social History Tobacco Use Types Packs/Day Years [...] 8:30 AM EDT Office Visit [facility] [place] [address] Lucius Castellano DO [address], [facility] documented as of this encounter Visit Diagnoses Not on filedocumented in this encounter
--- OUTSIDE RECORDS SUMMARY | 2024-11-02 07:59 | XMS_ITS | Encounter Summary ---
Author Organization [facility] Address [address] [place] [address] Care Team Providers Care Imagery Intelligence Name Role Phone Unavailable Primary Care Provider Unavailabl e Encounter Details Date Type Department Care Team (Late st Contact Info) Description 10/05/2024 Abstract [facility] [address] [facility] [place] [address] Haylee Morales LPN Social History Tobacco [...] 8:30 AM EDT Office Visit [facility] [place] [address] Lucius Castellano DO [address], [place] [id number] documented as of this encounter Visit Diagnoses Not on filedocumented in this encounter
--- OUTSIDE RECORDS SUMMARY | 2024-11-02 07:59 | XMS_ITS | Patient Health Record ---
Author Organization [facility] Address [address] [place] [address] Care Team Providers Care Net Software Architect Name Role Phone Mo Villavicencio Unavailable [phone] tesfayeLisa López Unavailable [phone] Allergies No Known Allergies Results Component Value Reference Range Notes SCC- HAND 3 VIEW LEFT 48994 Reviewed date:09/07/2024 09:38:49 AM Interpretation: Performing Lab: Notes/Report: SCC- HAND 3 VIEW LEFT 89168 Reviewed date:08/16/2024 01:24:19 PM Interpretation: Performing Lab: Notes/Report: Reason For Referral No Information Medications Medication SIG (Take, Route, Frequency, Duration) Notes Start Date End Date Status multivitamin Active PROzac Active Social History Tobacco Use: Social History Observation Description Date Details (start date - stop date) Never Smoker NA - NA AUDIT-C (Standard) Question Answer Notes Did you have a drink contain ing alcohol in the past year? Yes How often did you have a dri nk containing alcohol in the past year? Declined to specify (0 point) How many drinks did you have on a typical day when you were drinking in the past year? Declined to specify (0 point) How often did you have six o r more drinks on one occasion in the past year? Declined to specify (0 point) Points 0 Interpretation Negative Tobacco Control (Standard) Question Answer Notes Tobacco use: Nonsmoker Problems Problem Type SNOMED Code ICD Code Onset Dates Problem Status W/U Status Risk Notes Problem 683460043 Other fracture of fifth metacarpal bone, left hand, subsequent encounter for fracture with routine healing (S62.397D) Active confirmed Vital Signs Height 5'4 in 09/06/2024 Weight 170 lbs 09/06/2024 BMI 29.18 09/06/2024 Encounters Encounter Location Date Provider Diagnosis [facility] [address] [place] [facility] [place] [address] [place] [address] 07/12/2024 Lisa Ambrocio Pain of left hand M79.642 and Closed nondisplaced fracture of other part of fifth metacarpal bone of left hand, initial encounter S62.397A [facility] [address] [facility] [place] [address] 07/19/2024 Lisa Ambrocio Other fracture of fifth metacarpal bone, left hand, subsequent encounter for fracture with routine healing S62.397D [facility] [address] [facility] [place] [address] 07/26/2024 Mo Villavicencio Other fracture of fifth metacarpal bone, left hand, subsequent encounter for fracture with routine healing S62.397D [facility] [address] [facility] [place] [address] 08/09/2024 Lisa Ambrocio Other fracture of fifth metacarpal bone, left hand, subsequent encounter for fracture with routine healing S62.397D [facility] [address] [place] [facility] [place] [address] 09/06/2024 Mo Villavicencio Other fracture of fifth metacarpal bone, left hand, subsequent encounter for fracture with routine healing S62.397D Assessments Encounter Date Diagnosis (ICD Code) Assessment Notes Treatment Notes Treatment Clinical Notes Section Notes 07/12/2024 Pain of left hand (ICD-10 - M79.642) 07/12/2024 Closed nondisplaced fracture of other part of fifth metacarpal bone of left hand, initial encounter (ICD-10 - S62.397A) 07/19/2024 Other fracture of fifth metacarpal bone, left hand, subsequent encounter for fracture with routine healing (ICD-10 - S62.397D) 07/26/2024 Other fracture of fifth metacarpal bone, left hand, subsequent encounter for fracture with routine healing (ICD-10 - S62.397D) 08/09/2024 Other fracture of fifth metacarpal bone, left hand, subsequent encounter for fracture with routine healing (ICD-10 - S62.397D) 09/06/2024 Other fracture of fifth metacarpal bone, left hand, subsequent encounter for fracture with routine healing (ICD-10 - S62.397D) 07/12/2024 Other Patient evaluat ed by myself and Dr. Villavicencio today. I am going to treat this nonoperatively and place her in a ulnar gutter cast. We will see her back in 1 week to repeat x-rays in the cast and evaluate for any further displacement. 07/19/2024 Other Patient is doin g well and we will see her back in 1 week to repeat x-rays in the cast and check her cast fit. 07/26/2024 Other Patient is doing well. She will follow-up in 2 weeks to remove the cast and repeat x-rays. Import medication 08/09/2024 Other Patient is doin g well and is 4 weeks out from her left fifth metacarpal neck fracture. We did remove the cast today and we will discontinue casting. 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 I did give her a 5 pound push/pull/lift limit with this hand. She can make a full fist with effort, she will work on ROM. We will see her back in 4 weeks to repeat x-rays and reassess her progress. 09/06/2024 Other Patient is doing well. Fracture is healing nicely. She will gradually increase activities over the next month. She will follow-up here on an as-needed basis. Import medication Plan Of Treatment Pending Test Test Name Order Date SCC- HAND 3 VIEW LEFT 97830 07/26/2024 SCC- HAND 3 VIEW LEFT 10817 07/12/2024 SCC- HAND 3 VIEW LEFT 27563 07/19/2024 Insurance Providers Payer Name Payer Address Payer Phone Subscriber Number Group Number Insured Name Patient Relationship to Insured Coverage Start Date Coverage End Date [facility] [address] [place] [address] [id number] FATMATA SCHULTZ Self - patient is the insured
--- OUTSIDE RECORDS SUMMARY | 2024-11-02 08:00 | XMS_ITS | Encounter Summary ---
Author Organization [facility] Address [address] [place] [address] Care Team Providers Care Technology Education Instructor Name Role Phone Unavailable Primary Care Provider Unavailabl e Encounter Details Date Type Department Care Team (Late st Contact Info) Description 09/07/2024 Abstract [facility] [address] [facility] [address] Haylee Morales LPN Social History Tobacco [...] [facility] [place] [address] Lucius Castellano DO [address], [place] [id number] documented as of this encounter Visit Diagnoses Not on filedocumented in this encounter
--- OUTSIDE RECORDS SUMMARY | 2024-11-02 08:00 | XMS_ITS | Clinical Summary ---
Author Organization [employer] [facility] Address [id number] [address] [place] [address] Care Team Providers Care Res Habilitation Assistant Name Role Phone Unavailable Primary Care Provider Unavailabl e Social History Tobacco Use Types Packs/Day Years Used Date Smoking Tobacco: Never Assessed Childcare Answer Date Recorded Childcare Unknown 11/09/2019 Employment Answer Date Recorded Employment Unknown 11/09/2019 Purpose - Life Answer Date Recorded Purpose and direction in life Unknown Comments Unknown Sex and Gender Information Value Date Recorded Sex Assigned at Not on file Legal Sex Female 9:34 AM EDT Gender Identity Not on file Sexual Orientation Not on file Plan of Treatment Health Maintenance Due Date Last Done Comments Depression Screening 1988 Tobacco Screening 1988 Adult BMI Screening 1994 DTaP,Tdap and Td Vaccines (1 - Tdap) 06/09/1995 Pap Smear 1997 Influenza Vaccine 12/06/2024 Medical Devices Not on file
--- OUTSIDE RECORDS SUMMARY | 2024-11-02 08:00 | XMS_ITS | Clinical Summary ---
Author Organization [facility] Address [address] [facility] [address] Care Team Providers Care Real Estate Officer Name Role Phone Unavailable Primary Care Provider Unavailabl e Allergies No known active allergies Medications FLUoxetine (PROzac) 20 MG capsule Take 20 mg by mouth Daily Active Levonorgestrel (Mirena, 52 MG,) 20 MCG/DAY intrauterine device 52 mg by Intrauterine route if needed (when due) Active Encounters Date Type Department Care Team Description 10/05/2024 Abstract [facility] [address] [place] [address] Haylee Morales LPN 10/05/2024 Orders Only [facility] [place] [address] Zayda Soto PA Encounter for long-term (current) use of medications 09/10/2024 Abstract [facility] [address] [place] [address] Lucius Castellano DO 09/07/2024 Abstract [facility] [address] [place] [address] Haylee Morales LPN 09/07/2024 [place] [address] Haylee Morales LPN 09/06/2024 10:30 AM EDT [place] [id number] Lucius Castellano, DO Encounter for IUD removal 09/06/2024 Telephone [facility] [address] [facility] [place] [address] Haylee Morales, SAP BOBJ DEVELOPER 09/02/2024 Abstract [facility] [address] [facility] [place] [address] Lucius Castellano, 08/20/2024 Abstract [facility] [address] [facility] [place] [address] Abdelrahman [place], [place] 08/20/2024 Telephone [facility] [address] [facility] [place] [address] Abdelrahman [place], [place] 08/17/2024 Abstract [facility] [address] [facility] [place] [address] Haylee Morales, SAP BOBJ DEVELOPER 08/17/2024 Telephone [facility] [address] [facility] [place] [address] Zayda Soto PA from Last 3 Months Social History Tobacco Use Types Packs/Day Years Used Date Smoking Tobacco: Never Assessed Comments No Sex and Gender Information Value Date Recorded Sex Assigned at Not on file Legal Sex Female 6:51 PM EDT Gender Identity Not on file Sexual Orientation Not on file Last Filed Vital Signs Vital Sign Reading Time Taken Comments Blood Pressure 116/72 09/06/2024 10:48 AM EDT Pulse - - Temperature - - Respiratory Rate - - Oxygen Saturation - - Inhaled Oxygen Concentration - - Weight 82.6 kg (182 lb) 09/06/2024 10:48 AM EDT Height 165.1 cm (5' 5 ) 07/15/2023 8:37 AM EDT Body Mass Index 30.29 07/15/2023 8:37 AM EDT Plan of Treatment Upcoming Encounters Date Type Department Care Team (Late st Contact Info) Description 07/28/2025 8:30 AM EDT Office Visit [facility] [address] [facility] [place] [phone] Lucius Castellano DO [address] [facility] [place] [address] Health Maintenance Due Date Last Done Comments CT Colonography 1975 Colonoscopy 1975 Colorectal Cancer Screening 1975 FIT-DNA 1975 FIT 1975 FOBT 1975 Sigmoidoscopy 1975 Mammogram 2016 Influenza Vaccine (#1) 2024 01/07/2024 Cervical Cancer Screening 07/20/2029 HPV/Cotest 07/20/2029 Pap Smear 07/20/2029 07/20/2024, 07/11/2022 Procedures Procedure Name Priority Date/Time Associated Diagnosis Comments IUD REMOVAL Routine 09/06/2024 11:24 AM EDT Encounter for IUD removal PAP SMEAR Routine 07/20/2024 12:00 AM EDT from Last 3 Months or Most Recently Relevant to Health Maintenance Results * IUD Removal (09/06/2024 11:24 AM EDT) Haylee Mcdowell LPN - 09/06/2024 11:24 AM EDT Haylee Morales LPN 09/06/2024 1:39 PM IUD Removal Date/Time: 09/06/2024 11:24 AM Performed by: Lucius Castellano DO Authorized by: Lucius Castellano DO Consent: Consent obtained: Written Consent [...] for removal: Hormone management through compound pharmacy. Lucius Castellano DO IN CLINIC/BEDSIDE ORDERABLES Fin al Result * Pap Smear (07/20/2024 12:00 AM EDT) Swab Cervical swab / Unknown us Lucius Castellano DO LAB CYTOLOGY ORDERABLES Final Re sult EXTERNAL LAB from Last 3 Months or Most Recently Relevant to Health Maintenance Insurance [facility]
--- OUTSIDE RECORDS SUMMARY | 2024-11-02 08:00 | XMS_ITS | Clinical Summary ---
Author Organization [facility] Address [address], [address] [place] [address] Care Team Providers Care Operating Room Coordinator Name Role Phone Vicente Baum DO Primary Care Provider [phone] Allergies Active Allergy Reactions Criticality Noted Date Comments No Known Allergies 10/21/2007 Medications No known medications Active Problems No known active problems Social History Tobacco Use Types Packs/Day Years Used Date Smoking Tobacco: Never Smokeless Tobacco: Never Alcohol Use Standard Drinks/Week Comments Yes 2 (1 standard drink = 0.6 oz pur e alcohol) weekend use Comments No Sex and Gender Information Value Date Recorded Sex Assigned at Not on file Legal Sex Female 9:39 AM EDT Gender Identity Not on file Sexual Orientation Not on file Last Filed Vital Signs Vital Sign Reading Time Taken Comments Blood Pressure 117/76 12/09/2018 8:41 AM EDT Pulse 72 12/09/2018 8:41 AM EDT Temperature 36.3 C (97.3 F) 12/09/2018 8:41 AM EDT Respiratory Rate 15 12/16/2018 3:00 PM EDT Oxygen Saturation 99% 12/09/2018 8:41 AM EDT Inhaled Oxygen Concentration - - Weight 81.6 kg (180 lb) 12/16/2018 3:00 PM EDT s tated Height 165.1 cm (5' 5 ) 12/16/2018 3:00 PM EDT s tated Body Mass Index 29.95 12/16/2018 3:00 PM EDT Plan of Treatment Not on file Insurance [employer] Care Teams Operating Room Coordinator Relationship Specialty Start Date End Date Vicente Baum DO PCP - General Internal Medicine 10/13/18
--- OUTSIDE RECORDS SUMMARY | 2024-11-03 07:43 | XMS_ITS | CCD ---
Author Organization [facility] Care Team Providers Care Unclaimed Property Officer Name Role Phone Vicente Baum Primary Care [...] Baum Unavailable VICENTE BAUM Primary Care Physician [phone] Claudy SCHMITZ Attending Unavailable VICENTE BAUM Referring Unavailable Claudy SCHMITZ Attending Unavailable Unavailable Primary Care Provider UnavailZAYDA Doherty Attending Unavailable ABHI CASTELLANO Attending Unavailable Allergies Allergy Classification Reported Allergen(s) Allergy Type Date of Onset Reaction(s) Facility (1 source) No Known Medication Allergies; Translations: [No Known Medication Allergies] Propensity to adverse reactions (disorder) [facility] Repository Medications Current Medications Medication Drug [...] 12-09-2018 HYDROmorphone (DILAUDID) injection 0.5 mg levonorgestrel 0.646014 mg/hr intrauterine system (6 sources) Progestin, Progestin-containing [...] Active -Hx Entry for 0 *Reorder from [employer] for eRx and Interaction Alerts* Feb, Not-Taking [...] times daily for 7 *Pick strength-form from [employer] for eRX* 10 Apr, 2019 Not-Taking triamcinolone [...] for removal: Hormone management through compound pharmacy. [facility] IGP,APTIMA HPV,AGE GDLNon AGE GDLN ACOG TESTING Note . [facility] Comment on above: TESTS RESULT FLAG UN ITS REF RANGE LAB Clinician Provided Cytology Information Source.............Cervix;Endocervix No. of containers..01 ThinPrep Vial Age Mallory BOTELLO Celina... 31 FLAG LEGEND: L-Low Normal,H-High Normal,LL-Alert Low,HH-Alert High <-Panic Low,>-Panic High,A-Abnormal,AA-Critical Abnormal Performed at: 01 =[address] [address] Charisse Merchant MD, HPV APTIMA Negative Negative [facility] Comment on above: This nucleic acid am plification test detects fourteen high- risk HPV types (16,18,31,33,35,39,45,51,52,56,58,59,66,68) without differentiation. Performed at: =[address] [id number] Hotel Assistant Manager: Charisse Merchant MD, Phone: [phone] Performed at: [facility] [address] [place] [id number] Hotel Assistant Manager: Brian Spencer MD, Phone: [phone] IGP, APTIMA HPV, RFX 16/18,45 Note . [facility] Comment on above: TESTS RESULT FLAG UN ITS REF RANGE LAB DIAGNOSIS: 02 NEGATIVE FOR INTRAEPITHELIAL LESION OR MALIGNANCY. Specimen adequacy: 02 Satisfactory for evaluation. No endocervical component is identified. Performed by: 02 Lucia Rivera, Contact Lens Curve Grinder (ASCP) . 02 Note: Note 03 The [...] High,A-Abnormal,AA-Critical Abnormal Performed at: 02 [facility] [id number] [place] [id number] Brina Spencer MD, 03 WB [facility] [address] [address] Charisse Merchant MD, BRUSH-SPATULA CERVIX ENDOCERVIX [facility] MLR HEMOGLOBIN A1Con 025 Glucose [Mass/Vol] 108 mg/dL [facility] HbA1c (Bld) [Mass fraction] 5.4 % 4.5 - 6.2 % [facility] Comment on above: ADA RECOMMENDED LIMI T 4.0 - 6.0 ADA THERAPEUTIC TARGET < 7.0 ACTION SUGGESTED > 7.0 [facility] 2022 Outside Colonoscopy [id number]#1.00T IFF Normal [facility] Reminderson 03-20-2023 Reminders - From: Dolores Lee LPN To: [facility]; Sent: 03/20/2023 08:53:50 EST Show up: 02/17/2033 07:00:00 EST Subject: colonoscopy recall Due Date/Time: 03/19/2033 07:00:00 EST Reminder/Recall Patient due for screening colonoscopy 03/19/2033. Normal [facility] Lab Reportson 03-19-2023 Lab Reports [id number]#1.00T IFF [facility] Insurance Correspondenceon 1 04-27-2022 Insurance Correspondence [id number]#1.00 TIFF [facility] Consent for Procedure/Surger yon 02-12-2023 Consent for Procedure/Surgery [id number]#1.00 TIFF [facility] Facesheeton 02-12-2023 Facesheet [id number]#1.00 TIFF [facility] Ambulatory Visit Summaryon 1 04-13-2022 Ambulatory [...] for choosing us for your care. Normal [facility] Physician Referralon 023 Physician Referral [id number]#1.00T IFF Normal [facility] PAP ACOG PANEL 2: 30 to 65on 07-18-2022 . . Normal [facility] Comment on above: Result Comment: Perf ormed at: WB Performed By: #### 4 [id number] #### [facility] [address] [address] [address] Chloe Wells Age Gdln ACOG Testing 30-65 Normal [facility] Comment on above: Performed By: #### 4 [id number] #### [facility] [address] [address] [address] Chloe Wells DIAGNOSIS: Comment Normal [facility] Comment on above: Result Comment: NEGA TIVE FOR INTRAEPITHELIAL LESION OR MALIGNANCY. Performed at: WB Performed By: #### 4 [id number] #### [facility] [address] [address] [address] Chloe Wells HPV Aptima Positive Abnormal Negative [facility] Comment on above: Result Comment: This nucleic acid amplification test detects fourteen high-risk HPV types (16,18,31,33,35,39,45,51,52,56,58,59,66,68) without differentiation. Performed at: =G Performed By: #### 4 [id number] #### [facility] [address] [address] [address] Chloe Wells HPV Genotype 16 Negative Normal Negative [facility] Comment on above: Performed By: #### 4 [id number] #### [facility] [address] [address] [address] Chloe Wells HPV Genotype 18,45 Negative Normal Negative [facility] Comment on above: Performed By: #### 4 [id number] #### [facility] [address] [place] [address] Dr. Chloe Wells HPV Genotype Reflex Comment Normal [facility] Comment on above: Result Comment: Kira galicia, see HPV Genotype results. Performed at: WB Performed By: #### 4 [id number] #### [facility] [address] [place] [address] Dr. Chloe Wells Methodology: Comment Normal [facility] Comment on above: Result Comment: This liquid based ThinPrep(R) pap test was screened with the use of an image guided system. Performed at: WB Performed By: #### 4 [id number] #### [facility] [address] [place] [address] Dr. Chloe Wells Note: Comment Normal [facility] Comment on above: Result Comment: The Pap smear is a screening test designed to aid in the detection of premalignant and malignant conditions of the uterine cervix. It is not a diagnostic procedure and should not be used as the sole means of detecting cervical cancer. Both false-positive and false-negative reports do occur. . Performed at: WB Performed By: #### 4 [id number] #### [facility] [address] [place] [address] Dr. Chloe Wells Performed by: Comment Normal [facility] Comment on above: Result Comment: Rozina Benitez, Contact Lens Curve Grinder (ASCP) Performed at: WB Performed By: #### 4 [id number] #### [facility] [address] [place] [address] Dr. Chloe Wells Specimen adequacy: Comment Normal [facility] Comment on above: Result Comment: Sati sfactory for evaluation. Endocervical and/or squamous metaplastic cells (endocervical component) are present. Performed at: WB Performed By: #### 4 [id number] #### [facility] [address] [place] [address] Dr. Chloe Wells CBC AUTO DIFFon 12-19-2021 BASO # 0.0 103/ul Normal 0.0-0.1 [facility] Comment on above: Performed By: #### C BC #### [facility] [address] [address] [address] Chloe Wells Basophils/100 WBC (Bld) 0.3 % Normal 0.2-2.0 [facility] Comment on above: Performed By: #### C BC #### [facility] [address] [address] [address] Chloe Wells EO # 0.2 103/ul Normal 0.0-0.7 [facility] Comment on above: Performed By: #### C BC #### [facility] [address] [place] [address] Dr. Chloe Wells Eosinophils/100 WBC (Bld) 2.9 % Normal 0.9-7.0 [facility] Comment on above: Performed By: #### C BC #### [facility] [address] [place] [address] Dr. Chloe Wells Erythrocyte distribution width (RBC) [Ratio] 12.4 % Normal 11.0-15.0 [facility] Comment on above: Performed By: #### C BC #### [facility] [address] [place] [address] Dr. Chloe Wells Hematocrit (Bld) [Volume fraction] 38.8 % Normal 36.0-48.0 [facility] Comment on above: Performed By: #### C BC #### [facility] [address] [place] [address] Dr. Chloe Wells Hemoglobin (Bld) [Mass/Vol] 13.0 g/dL Normal 12.0-16.0 [facility] Comment on above: Performed By: #### C BC #### [facility] [address] [place] [address] Dr. Chloe Wells IG # 0.01 10e3/ul Normal 0.00-0.03 [facility] Comment on above: Performed By: #### C BC #### [facility] [address] [place] [address] Dr. Chloe Wells IG % 0.2 % Normal 0.0-0.5 [facility] Comment on above: Performed By: #### C BC #### [facility] [address] [place] [address] Dr. Chloe Wells LYMPH # 2.0 103/ul Normal 1.2-3.8 [facility] Comment on above: Performed By: #### C BC #### [facility] [address] [place] [address] Dr. Chloe Wells Lymphocytes/100 WBC (Bld) 33.4 % Normal 20.5-60.0 [facility] Comment on above: Performed By: #### C BC #### [facility] [address] [place] [address] Dr. Chloe Wells MANUAL DIFF REQ NO Normal [facility] Comment on above: Performed By: #### C BC #### [facility] [address] [place] [address] Dr. Chloe Wells MCH (RBC) [Entitic mass] 30.2 pg Normal 26.7-34.0 [facility] Comment on above: Performed By: #### C BC #### [facility] [address] [place] [address] Dr. Chloe Wells MCHC (RBC) [Mass/Vol] 33.5 g/dL Normal 29.9-35.2 [facility] Comment on above: Performed By: #### C BC #### [facility] [address] [place] [address] Dr. Chloe Wells MCV (RBC) [Entitic vol] 90.0 fL Normal 81.0-99.0 [facility] Comment on above: Performed By: #### C BC #### [facility] [address] [place] [address] Dr. Chloe Wells MONO # 0.5 103/ul Normal 0.3-0.8 [facility] Comment on above: Performed By: #### C BC #### [facility] [address] [place] [address] Dr. Chloe Wells Monocytes/100 WBC (Bld) 8.0 % Normal 1.7-12.0 [facility] Comment on above: Performed By: #### C BC #### [facility] [address] [address] [address] Chloe Wells NEUT # 3.2 103/ul Normal 1.4-6.5 [facility] Comment on above: Performed By: #### C BC #### [facility] [address] [address] [address] Chloe Wells Neutrophils/100 WBC (Bld) 55.2 % Normal 43.0-75.0 [facility] Comment on above: Performed By: #### C BC #### [facility] [address] [place] [address] Dr. Chloe Wells Platelet mean volume (Bld) [Entitic vol] 8.9 fL Critically low 9.5-13.5 [facility] Comment on above: Performed By: #### C BC #### [facility] [address] [place] [address] Dr. Chloe Wells PLT 327 103/ul Normal 150-450 [facility] Comment on above: Performed By: #### C BC #### [facility] [address] [place] [address] Dr. Chloe Wells RBC 4.31 106/ul Normal 4.20-5.40 [facility] Comment on above: Performed By: #### C BC #### [facility] [address] [place] [address] Dr. Chloe Wells WBC 5.9 103/ul Normal 4.0-11.0 [facility] Comment on above: Performed By: #### C BC #### [facility] [address] [place] [address] Dr. Chloe Wells GLYCOHEMOGLOBIN A1Con 2021 ADA RECOMMENDATION SEE BELOW Normal [facility] Comment on above: Result Comment: ADA RECOMMENDED LIMIT 4.0 - 6.0 ADA THERAPEUTIC TARGET < 7.0 ACTION SUGGESTED > 7.0 Performed By: #### A 1C #### [facility] [address] [place] [address] Dr. Chloe Wells Glucose [Mass/Vol] 105 mg/dL Normal [facility] Comment on above: Performed By: #### A 1C #### [facility] [address] [address] [address] Chloe Wells HbA1c (Bld) [Mass fraction] 5.3 % Normal 4.5-6.2 [facility] Comment on above: Performed By: #### A 1C #### [facility] [address] [place] [address] Dr. Chloe Wells LIPID PROFILEon 12-19-2021 CHOL-HDL RATIO NORM SEE BELOW Normal [facility] Comment on above: Result Comment: 3.3 - 4.4 LOW RISK 4.4 - 7.1 AVERAGE RISK 7.1 - 11.0 MODERATE RISK >11.0 HIGH RISK Performed By: #### C MP, TSH, LIPID #### [facility] [address] [place] [address] Dr. Chloe Wells Cholesterol [Mass/Vol] 171 mg/dL Normal <=200 [facility] Comment on above: Performed By: #### C MP, TSH, LIPID #### [facility] [address] [address] [address] Chloe Wells Cholesterol in HDL [Mass/Vol] 63 mg/dL Critically high 40-60 [facility] Comment on above: Performed By: #### C MP, TSH, LIPID #### [facility] [address] [place] [address] Dr. Chloe Wells Cholesterol in LDL [Mass/Vol] 99.2 mg/dL Normal [facility] Comment on above: Performed By: #### C MP, TSH, LIPID #### [facility] [address] [address] [address] Chloe Wells Cholesterol.total/Ch olesterol in HDL [Mass ratio] 2.7 {ratio} Normal [facility] Comment on above: Performed By: #### C MP, TSH, LIPID #### [facility] [address] [place] [address] Dr. Chloe Wells HDL NORMAL > or = 60 mg/dl - LO W CARDIOVASCULAR RISK <40 mg/dl - HIGH CARDIOVASCULAR RISK Normal [facility] Comment on above: Performed By: #### C MP, TSH, LIPID #### [facility] [address] [address] [address] Chloe Wells LDL CALC NORMAL SEE BELOW Normal [facility] Comment on above: Result Comment: <100 mg/dl OPTIMAL 100 - 129 mg/dl NEAR OR ABOVE OPTIMAL 130 - 159 mg/dl BORDERLINE HIGH 160 - 189 mg/dl HIGH >190 mg/dl VERY HIGH Performed By: #### C MP, TSH, LIPID #### [facility] [address] [address] [address] Chloe Wells Triglyceride [Mass/Vol] 44 mg/dL Normal <=150 [facility] Comment on above: Performed By: #### C MP, TSH, LIPID #### [facility] [address] [address] [address] Chloe Wells VLDL CALC 8.8 mg/dL Normal [facility] Comment on above: Performed By: #### C MP, TSH, LIPID #### [facility] [address] [place] [address] Dr. Chloe Wells PROF 14(COMP METB)on 022 Albumin [Mass/Vol] 3.8 g/dL Normal 3.4-5.0 [facility] Comment on above: Performed By: #### C MP, TSH, LIPID #### [facility] [address] [place] [address] Dr. Chloe Wells Albumin/Globulin [Mass ratio] 1.3 {ratio} Normal [facility] Comment on above: Performed By: #### C MP, TSH, LIPID #### [facility] [address] [place] [address] Dr. Chloe Wells ALP [Catalytic activity/Vol] 54 U/L Normal 46-116 [facility] Comment on above: Performed By: #### C MP, TSH, LIPID #### [facility] [address] [place] [address] Dr. Chloe Wells ALT [Catalytic activity/Vol] 20 U/L Normal 14-59 [facility] Comment on above: Performed By: #### C MP, TSH, LIPID #### [facility] [address] [place] [address] Dr. Chloe Wells Anion gap [Moles/Vol] 9.9 mmol/L Normal [facility] Comment on above: Performed By: #### C MP, TSH, LIPID #### [facility] [address] [place] [address] Dr. Chloe Wells AST [Catalytic activity/Vol] 14 U/L Critically low 15-37 [facility] Comment on above: Performed By: #### C MP, TSH, LIPID #### [facility] [address] [place] [address] Dr. Chloe Wells Bilirubin [Mass/Vol] 0.6 mg/dL Normal 0.2-1.0 [facility] Comment on above: Performed By: #### C MP, TSH, LIPID #### [facility] [address] [place] [address] Dr. Chloe Wells Calcium [Mass/Vol] 8.5 mg/dL Normal 8.5-10.1 [facility] Comment on above: Performed By: #### C MP, TSH, LIPID #### [facility] [address] [place] [address] Dr. Chloe eWlls Chloride [Moles/Vol] 104 mmol/L Normal 98-107 [facility] Comment on above: Performed By: #### C MP, TSH, LIPID #### [facility] [address] [place] [address] Dr. Chloe Wells CO2 [Moles/Vol] 27.3 mmol/L Normal 21.0-32.0 [facility] Comment on above: Performed By: #### C MP, TSH, LIPID #### [facility] [address] [place] [address] Dr. Chloe Wells Creatinine [Mass/Vol] 0.74 mg/dL Normal 0.55-1.02 [facility] Comment on above: Performed By: #### C MP, TSH, LIPID #### [facility] [address] [place] [address] Dr. Chloe Wells EGFR-AF SOUTH [place]OREAN >60 Normal >=60 [facility] Comment on above: Performed By: #### C MP, TSH, LIPID #### [facility] [address] [address] [address] Chloe Wells EGFR-NON AF [place]OUTH [place]OREAN >60 Normal >=60 [facility] Comment on above: Performed By: #### C MP, TSH, LIPID #### [facility] [address] [address] [address] Chloe Wells Globulin (S) [Mass/Vol] 2.9 g/dL Normal [facility] Comment on above: Performed By: #### C MP, TSH, LIPID #### [facility] [address] [address] [address] Chloe Wells Glucose [Mass/Vol] 110 mg/dL Critically high 74-106 [facility] Comment on above: Performed By: #### C MP, TSH, LIPID #### [facility] [address] [place] [address] Dr. Chloe Wells Potassium [Moles/Vol] 4.2 mmol/L Normal 3.5-5.1 [facility] Comment on above: Performed By: #### C MP, TSH, LIPID #### [facility] [address] [place] [address] Dr. Chloe Wells Protein [Mass/Vol] 6.7 g/dL Normal 6.4-8.2 [facility] Comment on above: Performed By: #### C MP, TSH, LIPID #### [facility] [address] [place] [address] Dr. Chloe Wells Sodium [Moles/Vol] 137 mmol/L Normal 136-145 [facility] Comment on above: Performed By: #### C MP, TSH, LIPID #### [facility] [address] [place] [address] Dr. Chloe Wells Urea nitrogen [Mass/Vol] 18.0 mg/dL Normal 7.0-18.0 [facility] Comment on above: Performed By: #### C MP, TSH, LIPID #### [facility] [address] [place] [address] Dr. Chloe Wells Urea nitrogen/Creatinine [Mass ratio] 24.3 mg/mg Normal [facility] Comment on above: Performed By: #### C MP, TSH, LIPID #### [facility] [address] [place], [place] [address] Dr. Chloe Wells TSHon 12-19-2021 TSH 1.733 uIU/mL Normal 0.358-3.740 [facility] Comment on above: Performed By: #### C MP, TSH, LIPID #### [facility] [address] [place], [place] [address] Dr. Chloe Wells SURGICAL PATH REPORTon 07-31 SURGICAL PATH REPORT [facility] Department of Pathology [address] [place], [place] [id number] Name: GABRIELA ROSE : 1975 [facility] [id number] Number: Gender: Female Location: [facility] Admit 45 years Attending JAMAL SWAN Age: Provider: Ordering MICHAEL HERNÁNDEZ Provider: Consulting: Surgical Pathology Report ACCESSION: COLLECTED DATE/TIME: RECEIVED DATE/TIME: PATHOLOGIST: [id number] 07/26/2020 11:13 EDT 07/26/2020 14:42 EDT KENDELL COLON, BRANT WEBER Final Diagnosis Report for [facility] [place], [place] LEFT BREAST, UPPER OUTER QUADRANT, MICROCALCIFICATIONS, [...] Print Date/ 07/31/2020 14:04 EDT Number: Time: [facility] Department of Pathology [address] [place], [place] [id number] Name: GABRIELA ROSE : 1975 [facility] [id number] Number: Gender: Female Location: [facility] Admit 45 years Attending JAMAL SWAN Age: Provider: Ordering MICHAEL HERNÁNDEZ Provider: Consulting: Surgical Pathology Report ACCESSION: COLLECTED DATE/TIME: RECEIVED DATE/TIME: PATHOLOGIST: [id number] 07/26/2020 11:13 EDT 07/26/2020 14:42 EDT KENDELL [...] MP:saul 07/26/2020 Tissue pathology report for: [facility], [address] [place] [address]; PATHOLOGY SERVICES PROVIDED BY [facility] (CLIA #[id number]) in cooperation with [facility] at [address] [place] [address] (CLIA #[id number]) Codes CPT CODE: 25862 ____ Print Date07/31/2020 14:04 EDT Number: Time: [facility] Comment on above: Performed By: #### 9 [id number] #### [facility] [address] [place] [address] General Counselor: Jim Treadwell MD OPERATIVE REPORTon 9 OPERATIVE REPORT [address] [address] OPERATIVE REPORT PATIENT NAME: GABRIELA ROSE : 1975 MED REC NO: [id number] ROOM: ACCOUNT NO: [id number] ADMIT DATE: 12/09/2018 PROVIDER: Darion Hand DATE [...] sponge counts correct. DARION HAND JERMAINE/[email or web address] Doc#: [id number] CC: Normal [facility] Surgical Pathologyon 019 Surgical Pathology (NOTE) [id number] [facility] ANATOMIC PATHOLOGY [address] [place], [place] [address] SURGICAL PATHOLOGY CONSULTATION Patient Name: GABRIELA ROSE [facility] Rec: [id number] Path Number: [id number] Collected: 12/09/2018 Received: 12/09/2018 Reported: 12/10/2018 13:49 [...] periphery, consistent with a benign lipoma. Normal [facility] Comment on above: Performed By: #### P PPVDP #### [facility] [address] [place] [address] Hotel Assistant Manager: Chris Michaels MD Vital Signs Date Time Vital Sign Value Performing Clinician Facility 09-06-2024 10:48-0400 Body mass index (BMI) [Ratio] 30.29 kg/m2 [employer] DO Work Phone: [facility] 09-06-2024 10:48-0400 Body weight 82.56 kg [employer] DO Work Phone: [facility] 09-06-2024 10:48-0400 Diastolic blood pressure 72 mm[Hg] [employer] DO Work Phone: [facility] 09-06-2024 10:48-0400 Systolic blood pressure 116 mm[Hg] [employer] Work Phone: [facility] 07-20-2024 09:17-0400 Body mass index (BMI) [Ratio] 30.49 kg/m2 Zayda Rausch PA Work Phone: [facility] 07-20-2024 09:17-0400 Body weight 83.12 kg Zayda Rausch PA Work Phone: [facility] 07-20-2024 09:17-0400 Diastolic blood pressure 84 mm[Hg] Zayda Rausch PA Work Phone: [facility] 07-20-2024 09:17-0400 Systolic blood pressure 108 mm[Hg] Zayda Rausch PA Work Phone: [facility] 02-20-2024 14:21-0500 Body height 165.1 cm [facility] 02-20-2024 14:21-0500 Body mass index (BMI) [Ratio] 29.6 kg/m2 [facility] 02-20-2024 14:21-0500 Body weight 80.73 kg [facility] 02-20-2024 14:21-0500 Diastolic blood pressure 79 mm[Hg] [facility] 02-20-2024 14:21-0500 Heart rate 102 /min [facility] 02-20-2024 14:21-0500 Systolic blood pressure 115 mm[Hg] [facility] 10-28-2023 15:18-0400 Body height 165.1 cm [facility] 10-28-2023 15:18-0400 Body mass index (BMI) [Ratio] 29.1 kg/m2 [facility] 10-28-2023 15:18-0400 Body weight 79.49 kg [facility] 10-28-2023 15:18-0400 Diastolic blood pressure 86 mm[Hg] [facility] 10-28-2023 15:18-0400 Heart rate 78 /min [facility] 10-28-2023 15:18-0400 Respiratory rate 12 /min [facility] 10-28-2023 15:18-0400 Systolic blood pressure 124 mm[Hg] [facility] 02-11-2023 14:18-0500 Blood Pressure Location Claudy SCHMITZ General Surgery [facility] 02-11-2023 14:18-0500 Diastolic blood pressure 80 mm[Hg] Claudy NILL General Surgery [facility] 02-11-2023 14:18-0500 Heart rate 70 /min Claudy NILL General Surgery [facility] 02-11-2023 14:18-0500 Respiratory rate 16 /min Claudy NILL General Surgery [facility] 02-11-2023 14:18-0500 Systolic blood pressure 124 mm[Hg] Claudy NILL [facility] 01-14-2023 14:30-0400 Body height 165.1 cm Vicente Ball Other [facility] Other 01-14-2023 14:30-0400 Body mass index (BMI) [Ratio] 29.88 kg/m2 Vicente Ball Other [facility] Other 01-14-2023 14:30-0400 Body weight 81.47 kg Vicente Ball Other [facility] Other 01-14-2023 14:30-0400 Diastolic blood pressure 79 mm[Hg] Vicente Ball Other [facility] Other 01-14-2023 14:30-0400 Respiratory rate 12 /min Vicente Ball Other [facility] Other 01-14-2023 14:30-0400 Systolic blood pressure 111 mm[Hg] Vicente Ball Other [facility] Other 06-27-2021 14:00-0400 Body height 165.1 cm Harper Banda Other [facility] Other 06-27-2021 14:00-0400 Body mass index (BMI) [Ratio] 26.62 kg/m2 Harper Banda Other [facility] Other 06-27-2021 14:00-0400 Body weight 72.58 kg Harper Banda Other [facility] Other 12-09-2018 08:41-0400 Body Temperature 97.3 [degF] Darion [employer] 12-09-2018 08:41-0400 BP Diastolic 76 mm[Hg] Darion [employer] , [place] 12-09-2018 08:41-0400 BP Systolic 117 mm[Hg] Darion [employer] [place] , [place] 12-09-2018 08:41-0400 Pulse (Heart Rate) 72 /min Darion [facility] [place] 12-09-2018 08:41-0400 Pulse Oximetry 99 % Darion [employer] [place] , [place] 12-09-2018 08:41-0400 Respiratory Rate 14 /min Darion [employer] 12-09-2018 06:14-0400 BMI (Body Mass Index) 30.35 kg/m2 Darion [employer] [place], [place] 12-09-2018 06:14-0400 Body weight 82.72 kg [place] 12-09-2018 06:14-0400 Height 165.1 cm [place] Encounters Encounter Date Encounter Type Care [...] Not Available Start: 02-20-2024 Patient encounter status [facility] Start: 02-20-2024 End: 02-20-2024 ambulatory [facility] Work Phone: Start: 02-20-2024 End: 02-20-2024 Encounter for general adult medical examination without abnormal findings [facility] Start: 02-20-2024 End: 02-20-2024 Patient encounter procedure [facility] Phys[facility] Work Phone: Start: 10-28-2023 End: 10-28-2023 ambulatory [facility] Work Phone: Start: 10-28-2023 End: 10-28-2023 Patient encounter procedure [facility] Phys[facility] Work Phone: Start: 07-30-2023 Non-patient / Non-visit [facility] Phys[facility] Work Phone: Start: 03-19-2023 End: 03-20-2023 ambulatory Claudy JOL Facility:CD:[id number] Start: 02-11-2023 End: 02-12-2023 ambulatory Claudy R NILL Facility:[facility] Start: 02-11-2023 End: 02-11-2023 Patient encounter procedure Claudy De Anda NILL General Surgery [facility] Start: 02-05-2023 End: 02-05-2023 ambulatory Vicente Baum Other [facility] Other Start: 02-05-2023 Telephone encounter Vicente CHAO [facility] Start: 01-17-2023 End: 01-17-2023 ambulatory Vicente Baum Other [facility] Other Start: 01-17-2023 Telephone encounter Vicente CHAO [facility] Start: 01-16-2023 ambulatory Claudy SCHMITZ Facility:[facility] Start: 01-14-2023 End: 01-14-2023 ambulatory Vicente Baum Other [facility] Other Start: 01-14-2023 Encounter for genera l adult medical examination without abnormal findings Vicente Baum [facility] Start: 01-14-2023 Periodic preventive med est patient 40-64yrs Vicente Baum [facility] Start: 07-11-2022 End: 07-11-[address] VICENTE BAUM Facility:[facility] Start: 06-28-[address] LUZ YANES Facilit y:[facility] Start: 12-23-2021 Encounter for genera l adult medical examination without abnormal findings DR VICENTE BAUM [facility] Start: 12-19-2021 End: 12-20-[address] VICENTE BAUM Facility:[facility] Start: 12-19-2021 End: 12-20-2021 Encounter for general adult medical examination without abnormal findings DR VICENTE BAUM Facility:[facility] Start: 10-18-2021 End: 04-26-[address] LUZ YANES Facility:[facility] Start: 08-10-2021 End: 08-25-[address] VICENTE BAUM Facility: Start: 06-27-2021 End: 06-27-2021 ambulatory Harper Banda Other [facility] Other Start: 06-27-2021 Office outpatient ne w 30 minutes Harper Banda [facility] Start: 12-09-2018 End: 12-09-2018 Patient encounter procedure DARION HAND [facility] Start: 12-09-2018 End: 12-09-2018 Subsequent hospital visit by physician Darion Hand Work Phone: [facility] [place] Comment on above: Post-op pain (Primar [...] Screening for malign ant neoplasm of cervix [facility] Start: 07-12-2027 Screening for malign ant neoplasm of cervix [facility] Start: 07-28-2025 End: 07-28-2025 Patient encounter procedure 07/28/2025 8:30 AM EDT Office Visit [facility] [address] [place] [id number] Abhi Castellano, DO [address] [place] [address] [facility] Start: 12-06-2024 Influenza vaccination Influenz a Vaccine (Season Ended) [facility] Start: 07-20-2024 End: 07-20-2025 C-peptide C-peptide Lab Routine Hormone disorder Expected: 07/20/2024, Expires: 07/20/2025 [facility] Comment on above: Expected: 07/20/2024 , Expires: 07/20/2025 Start: 07-20-2024 End: 07-20-2025 Cortisol free Cortisol, free Lab Routine Hormone disorder Expected: 07/20/2024, Expires: 07/20/2025 [facility] Comment on above: Expected: 07/20/2024 , Expires: 07/20/2025 Start: 07-20-2024 End: 07-20-2025 DHEA-sulfate DHEA-sulfate Lab Routine Hormone disorder Expected: 07/20/2024 (Approximate), Expires: 07/20/2025 [facility] Comment on above: Expected: 07/20/2024 (Approximate), Expires: 07/20/2025 Start: 07-20-2024 End: 07-20-2025 Estradiol Estradiol Lab Routine Hormone disorder Expected: 07/20/2024 (Approximate), Expires: 07/20/2025 [facility] Comment on above: Expected: 07/20/2024 (Approximate), Expires: 07/20/2025 Start: 07-20-2024 End: 07-20-2025 Estrone Estrone Lab Routine Hormone disorder Expected: 07/20/2024 (Approximate), Expires: 07/20/2025 [facility] Comment on above: Expected: 07/20/2024 (Approximate), Expires: 07/20/2025 Start: 07-20-2024 End: 07-20-2025 Ferritin [Mass/volume] in Serum or Plasma Ferritin Lab Routine Hormone disorder Expected: 07/20/2024 (Approximate), Expires: 07/20/2025 [facility] Comment on above: Expected: 07/20/2024 (Approximate), Expires: 07/20/2025 Start: 07-20-2024 End: 07-20-2025 Glucose [Mass/volume] in Serum or Plasma Glucose, random Lab Routine Hormone disorder Expected: 07/20/2024, Expires: 07/20/2025 [facility] Comment on above: Expected: 07/20/2024 , Expires: 07/20/2025 Start: 07-20-2024 End: 07-20-2025 Hemoglobin A1c/Hemoglobin.total in Blood Hemoglobin A1c Lab Routine Hormone disorder Expected: 07/20/2024 (Approximate), Expires: 07/20/2025 [facility] Comment on above: Expected: 07/20/2024 (Approximate), Expires: 07/20/2025 Start: 07-20-2024 End: 07-20-2025 Insulin, total Insulin, total Lab Routine Hormone disorder Expected: 07/20/2024, Expires: 07/20/2025 [facility] Comment on above: Expected: 07/20/2024 , Expires: 07/20/2025 Start: 07-20-2024 End: 09-19-2025 MG Breast - bilateral Screening Bilateral screening mammogram Imaging Routine Encounter for screening mammogram for malignant neoplasm of breast Expected: 07/20/2024 (Approximate), Expires: 09/19/2025 [facility] Work Phone: Comment on above: Expected: 07/20/2024 (Approximate), Expires: 09/19/2025 Start: 07-20-2024 End: 07-20-2025 Progesterone Progesterone Lab Routine Hormone disorder Expected: 07/20/2024 (Approximate), Expires: 07/20/2025 [facility] Comment on above: Expected: 07/20/2024 (Approximate), Expires: 07/20/2025 Start: 07-20-2024 End: 07-20-2025 Serotonin serum Serotonin serum Lab Routine Hormone disorder Expected: 07/20/2024, Expires: 07/20/2025 [facility] Comment on above: Expected: 07/20/2024 , Expires: 07/20/2025 Start: 07-20-2024 End: 07-20-2025 Sex hormone binding globulin Sex hormone binding globulin Lab Routine Hormone disorder Expected: 07/20/2024 (Approximate), Expires: 07/20/2025 [facility] Comment on above: Expected: 07/20/2024 (Approximate), Expires: 07/20/2025 Start: 07-20-2024 End: 07-20-2025 T3, reverse T3, reverse Lab Routine Hormone disorder Expected: 07/20/2024 (Approximate), Expires: 07/20/2025 [facility] Comment on above: Expected: 07/20/2024 (Approximate), Expires: 07/20/2025 Start: 07-20-2024 End: 07-20-2025 TESTOSTERONE, FREE TESTOSTERONE, FREE Lab Routine Hormone disorder Expected: 07/20/2024 (Approximate), Expires: 07/20/2025 [facility] Comment on above: Expected: 07/20/2024 (Approximate), Expires: 07/20/2025 Start: 07-20-2024 End: 07-20-2025 Testosterone, free, total Testosterone, free, total Lab Routine Hormone disorder Expected: 07/20/2024 (Approximate), Expires: 07/20/2025 [facility] Comment on above: Expected: 07/20/2024 (Approximate), Expires: 07/20/2025 Start: 07-20-2024 End: 07-20-2025 Thyroglobulin Thyroglobulin Lab Routine Hormone disorder Expected: 07/20/2024, Expires: 07/20/2025 [facility] Comment on above: Expected: 07/20/2024 , Expires: 07/20/2025 Start: 07-20-2024 End: 07-20-2025 Thyroglobulin Antibody Thyroglobulin Antibody Lab Routine Hormone disorder Expected: 07/20/2024, Expires: 07/20/2025 [facility] Comment on above: Expected: 07/20/2024 , Expires: 07/20/2025 Start: 07-20-2024 End: 07-20-2025 Thyroid peroxidase antibody Thyroid peroxidase antibody Lab Routine Hormone disorder Expected: 07/20/2024 (Approximate), Expires: 07/20/2025 [facility] Comment on above: Expected: 07/20/2024 (Approximate), Expires: 07/20/2025 Start: 07-20-2024 End: 07-20-2025 Thyrotropin [Units/volume] in Serum or Plasma [facility] Comment on above: Expected: 07/20/2024 (Approximate), Expires: 07/20/2025 Expected: 07/20/2024 , Expires: 07/20/2025 Start: 07-20-2024 End: 07-20-2025 Thyroxine (T4) free [Mass/volume] in Serum or Plasma T4, free Lab Routine Hormone disorder Expected: 07/20/2024 (Approximate), Expires: 07/20/2025 [facility] Comment on above: Expected: 07/20/2024 (Approximate), Expires: 07/20/2025 Start: 07-20-2024 End: 07-20-2025 Triiodothyronine (T3) Free [Mass/volume] in Serum or Plasma T3, free Lab Routine Hormone disorder Expected: 07/20/2024 (Approximate), Expires: 07/20/2025 [facility] Comment on above: Expected: 07/20/2024 (Approximate), Expires: 07/20/2025 Start: 07-20-2024 End: 07-20-2025 Vitamin D 1,25 dihydroxy Vitamin D 1,25 dihydroxy Lab Routine Hormone disorder Expected: 07/20/2024 (Approximate), Expires: 07/20/2025 [facility] Comment on above: Expected: 07/20/2024 (Approximate), Expires: 07/20/2025 Start: 07-20-2024 End: 07-20-2024 Patient encounter procedure 07/20/2024 9:00 AM EDT Office Visit [facility] [address] [place] [id number] Zayda Rausch PA [address] [address] Arrived [facility] Comment on above: Arrived Start: 12-16-2018 End: 12-16-2018 Office Visit 12/16/2018 Office Visit Plastic Surgery Darion Hand MD [address] [place] [address] [phone] [facility] Plastic Surgeons [facility] Start: 12-06-2018 Influenza vaccination Flu vaccine (# 1) [place], [place] Start: 2016 Diabetes screen Diabetes screen [place], [place] Start: 2016 Lipid screen Lipid screen [place], [place] Start: 2016 Screening for malign ant neoplasm of breast Mammogram [facility] Start: 1997 Cervical cancer screen Cervical canc er screen [place], [place] Start: 06-09-1995 DTaP/Tdap/Td vaccine (1 - Tdap) DTaP/Tdap/Td vaccine (1 - Tdap) [place], [place] Start: 06-09-1991 HIV screen HIV screen [place], [place] Start: 1976 Screening for malign ant neoplasm of colon [facility] End: 12-09-2018 Blood glucose - POCT Blood glucose - POCT Point of Care Testing Routine One Time for 1 Occurrences starting 12/09/2018 until 12/09/2018 [place], [place] Comment on above: One Time for 1 Occur rences starting 12/09/2018 until 12/09/2018 Comprehensive metabo lic 2000 panel - Serum or Plasma [facility] Initiate Oxygen Ther apy Protocol Initiate Oxygen Therapy Protocol Respiratory Care Routine Daily until discontinued starting 12/09/2018 [facility] Comment on above: Daily until disconti nued starting 12/09/2018 MG Breast - bilatera l Screening [facility] Phase I & II - meter ed glucose Phase I & II - metered glucose Point of Care Testing Routine As Needed until discontinued starting 12/09/2018 [facility] Comment on above: As Needed until disc ontinued starting 12/09/2018 End: 12-09-2018 , urine POCT , urine POCT Point of Care Testing Routine One Time for 1 Occurrences starting 12/09/2018 until 12/09/2018 [facility] Comment on above: One Time for 1 Occur rences starting 12/09/2018 until 12/09/2018 Surgical Pathology Surgical Path ology Lab Routine ONE TIME for 1 Occurrences starting 12/09/2018 [facility] [place] Comment on above: ONE TIME for 1 Occur rences starting 12/09/2018 THIN PREP TIS PAP AN D HR HPV DNA THIN PREP TIS PAP AND HR HPV DNA Pathology and Cytology Routine Well woman exam with routine gynecological exam Ordered: 07/20/2024 [facility] Comment on above: Ordered: 07/20/2024 [facility] Immunizations Immunization Date Immunization Notes Care Provider Jorge wilkerson 01-07-2024 influenza virus vaccine, unspecified formulation Zayda IVORY Work Phone: [facility] 01-05-2023 influenza virus vaccine, unspecified formulation Claudy SCHMITZ General Surgery [facility] 01-26-2021 SARS-CoV-2 (COVID-19 ) mRNA-1273 vaccine Claudy NILL [facility] 05-10-2020 SARS-CoV-2 (COVID-19 ) mRNA-1273 vaccine Claudy NILL General Surgery [facility] 04-11-2020 SARS-CoV-2 (COVID-19 ) mRNA-1273 vaccine Claudy NILL [facility] Payers Date Payer Category [facility] [id number] 2022 Unknown [id number] 2019 Unknown [id number] 2018 Unknown [employer] [address] xxxxxxxxx 2018-Present [phone] [address] [place] [address] xxxxxxxxx [id number] 2018 Unknown [id number] 1976 Unknown [id number] 175 1976 Unknown [id number] 593 1976 Unknown [id number]. 593 1976 Unknown [id number] 593 1976 Unknown [id number] 593 1976 Unknown [id number]. 593 1976 Unknown [id number] 727 1976 Unknown [id number]. 727 1976 Unknown [id number]. 1259 1976 Unknown [id number] [id number] 1959 Self-pay [id number] Social History Date Type Detail Facility Start: 12-09-2018 End: 02-11-2023 Tobacco smoking status NHIS Never smoker General Surgery [facility] Start: 12-09-2018 Alcohol intake Yes [facility] Start: 12-01-2018 Alcohol Comment weekend use [facility] [place], [place] Start: 1975 Sex Assigned At Not on file [facility], [place] Tobacco smoking status Never Gener al Surgery [facility] Start: 1975 Sex Assigned At Female F [facility] Tobacco smoking stat [facility] Unknown if ever smoked [facility] Start: 02-20-2024 Sex Female (finding) [facility] Functional Status Date Assessment Result Facility 02-11-2023 Functional Status N/A [facility] Clinical Notes 06-27-2021 to 09-06-2024 Haylee [...] nursing note reviewed. Exam conducted with a development technologist present. Vitals: Estimated body mass index is [...] to the patient then properly discarded. Discussed [facility] and recommendations. Prescriptions were previously signed and sent to [facility] on 08/20/24 and will be reprinted and sent today after provider signing. Will request that [facility] reach out to patient when medication is ready for pickup or delivery. Will also order follow up labs that are to be done 45 days after starting medication. Follow Up: Patient is to return to the office for annual exam unless needed otherwise. Documented by Haylee Morales LPN on behalf of: Abhi Castellano DO documented in this encounter [facility] 07-20-2024 History of Present illness Narrative Reason for Appointment: Patient ID: Gabriela Rose is a 49 y.o. female who presents for [facility] Visit Patient presents today for Annual [...] nursing note reviewed. Exam conducted with a development technologist present. Vitals: Estimated body mass index is [...] in regards to her symptoms & brought [facility] packet to office to discuss. Pap was obtained without difficulty and patient given mammogram order to have scheduled/obtained. Discussed patients current symptoms and once [facility] Packet is returned to office and all lab results obtained then packet and labs will be sent to [facility]. Patient also desires to start GLP therapy and prescription will be sent to [facility] as well. Discussed vaginal estrogen if needed in the future and patient will see if symptoms improve with current plan of care. Discussed compounded Semaglutide with Methyl B12 and Niacinamide added for better absorption. Patient prefers to have Methyl B12 and Niacinamide added to Semaglutide by injection for better absorption. Prescription will be sent to [facility] to be compounded and dispensed to patient. [...] of: DIANELYS Bravo documented in this encounter [facility] 02-11-2023 Note Chief Complaint consultation for screening [...] Recorded SARS-CoV-2 (COVID-19) mRNA-1273 vaccine 04/11/2020 Recorded [facility] Comment on above: Result Comment: Elec tronically Signed By: LEONOR COLON, Claudy Mireles\Date and Time Signed: 02/11/23 14:43 EST 02-05-2023 Evaluation note Encounter Date Diagnosis Assessment Notes Feb, Seasonal affective disorder (ICD-10 - F33.8) [facility] Other [id number] Evaluation note* Encounter Date Diagnosis Assessment Notes [...] She is an asymptomatic, low risk patient [facility] Other 03-23-2022 Evaluation note* Encounter Date Diagnosis [...] Jun, Left elbow pain (ICD-10 - M25.522) [facility] Other Evaluation + Plan note No data available for this section General Surgery [facility] Evaluation noteNo InformationNort [facility] Other Evaluation note* Diagnosis Onset Date Resolution Status Insomnia acute Overweight acute Seasonal affective disorder acute [facility] Work Phone: Evaluation note* Diagnosis Onset Date Resolution Status Admit Date Wellness examination acute Nove mber 2023 2:07pm [facility] Work Phone: Evaluation note* Diagnosis Well [...] History tubal ligation Hospitalization History see surgeries [facility] Other Hospital Discharge instructions No data available for this section General Surgery [employer] Progress note No data available for this section General Surgery [employer] Reason for referral (narrative)* Reason Referral for screeni ng colonoscopy Diagnosis 1 Screening for colon cancer (Z12.11) Referral Organization [facility] Amelia aliza Referring Provider First Name Vicente Referring Provider Last Name Bautista Referring Provider Specialty Internal Me dicine Referred Organization [facility] Referred Provider Claudy Schmitz Referred Address [address], [place],[address] Referred Provider Specialty Surgery Referral Priority Routine General Notes Asymptomatic, low ri sk patient. She denies change in appetite, weight or bowel habits. She denies heartburn or dysphagia. She denies abdominal pain, melena or hematochezia. [facility] Other Discharge Instructions * Instructions* Brittney Batista [...] AM EDT CLINICAL PHARMACY NOTE: MEDS TO [facility] Select Patient?: No Total # of Prescriptions Filled: 2 The following medications were delivered to the patient: cephalexin norco Total # of Interventions Completed: 1 Time Spent (min): 0 Additional Documentation: * Jamal Garcia RN - 12/09/2018 6:34 AM EDT Urine test results-negative * Ranjit Zendejas RN - 12/01/2018 1:26 PM EDT DAY OF SURGERY/PROCEDURE GUIDELINES As a patient at the [facility], you can expect quality medical and nursing care that is centered on your individual needs. It is our goal to make your surgical experience as comfortable and excellent as possible. Please arrive at 0600 with an empty stomach. No jewelry or piercings on. Must have a motor bus driver home and in the waiting room. [...] morning of your surgery/procedure (Hibiclens if directed) [place] your teeth, but do not swallow any [...] your Living Will or Durable Power of Damage Inside Adjuster DO NOT take anticoagulants (blood thinners, aspirin [...] are recovering, the surgery family waiting room director global intelligence can answer many of your family's questions. 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 Advance Directives and Living Will Power of Damage Inside Adjuster Advance Directive Response Recorded Date/ Time Advance [...] mass and lump, unspecified MASS FOREHEAD Procedures FL EXCISION TUMOR SOFT TISS FACE/SCALP SUBQ 2+CM FL EXC SKIN MALIG 2.1-3CM FACE,FACIAL FL EXC SKIN BENIG 2.1-3CM FACE,FACIAL FL ADJ TISS XFER HEAD,FAC,HAND <10SQCM HEAD LESION EXCISION Darion Hand MD [facility] [place] [address] [facility] Reason Comments Well Women Visit Reason Comments Contraception INFORMATION SOURCE (unrecogn ized section and content) DATE CREATED AUTHOR 12/15/2018 [facility] DATE CREATED AUTHOR AUTHOR'S ORGANIZ ATION 08/18/2020 [facility] DATE CREATED AUTHOR AUTHOR'S ORGANIZ ATION 07/20/2022 [facility] DATE CREATED AUTHOR AUTHOR'S ORGANIZ ATION 03/25/2023 [facility] DATE CREATED AUTHOR AUTHOR'S ORGANIZ ATION 09/06/2024 [facility] dical Specialists EPIC Patient Care team [...] BE BASED ON THE PRIMARY CLINICAL RECORDS. [facility] [employer] [facility]. provides no warranty or guarantee of the accuracy or completeness of information in this document.
[2024-11-03 08:27] LABS: Alanine Aminotransferase 25 U/L (14-59); Albumin Globulin Ratio 1.1; Albumin Level 3.9 g/dL (3.4-5.0); Alkaline Phosphatase 66 U/L (46-116); Anion Gap 11.0; Aspartate Amino Transferase 15 U/L (15-37); Blood Urea Nitrogen 17.0 mg/dL (7.0-18.0); Calcium 8.9 mg/dL (8.5-10.1); Carbon Dioxide 29.3 mmol/L (21.0-32.0); Chloride 104 mmol/L (98-107); Estimated GFR (African America >60 (>=60 mL/min/1.73m^2); Estimated GFR (Non-African Ame >60 (>=60 mL/min/1.73m^2); Globulin 3.4 g/dL; Glucose 96 mg/dL (74-106); Potassium 4.3 mmol/L (3.5-5.1); Sodium 140 mmol/L (136-145); Total Protein 7.3 g/dL (6.4-8.2)
== END 2024-11-03 07:42 | disposition home or self-care (01) ==
PROVIDERS: PCP Family Medicine; Visit Provider Physician Assistant
DX: E34.9 Endocrine disorder, unspecified (principal); Z79.899 Other long term (current) drug therapy
CPT/HCPCS: 36415; 80053; 82306; 82627; 82679; 84140; 84402; 84403

== ENCOUNTER 2025-02-28 07:55 | Outpatient (OUT) | payer BC, SELFPAY ==
--- OUTSIDE RECORDS SUMMARY | 2025-02-28 07:58 | XMS_ITS | Patient Health Record ---
Author Organization [facility] Address [address] [place] [address] Care Team Providers Care Funeral Director/Embalmer/Owner Name Role Phone Mo Villavicencio Unavailable [phone] tesfayeLisa López Unavailable Allergies No Known Allergies Results Component Value Reference Range Notes SCC- HAND 3 VIEW LEFT 00030 Reviewed date:09/07/2024 09:38:49 AM Interpretation: Performing Lab: Notes/Report: SCC- HAND 3 VIEW LEFT [id number] Reviewed date:08/16/2024 01:24:19 PM Interpretation: Performing Lab: Notes/Report: Reason For Referral No Information Medications Medication SIG (Take, Route, Frequency, Duration) Notes Start Date End Date Status multivitamin ActivePROzacActive Social History Tobacco Use: Social History Observation Description Date Details (start date - stop date) Never Smoker NA - NA AUDIT-C (Standard) Question Answer Notes Did you have a drink containing alcohol in the p ast year? Yes How often did you have a drink containing alcohol in the past year?Declined to specify (0 point)How many drinks did you have on a typical day when you were drinking in the past year?Declined to specify (0 point)How often did you have six or more drinks on one occasion in the past year?Declined to specify (0 point)Xydyck6KworacuqjmzsjfVbujdlwpStirlkh Control (Standard) Question Answer Notes Tobacco use: Nonsmoker Problems Problem Type SNOMED Code ICD Code Onset Dates Problem Status W/U Status Risk Notes Problem Other fracture of fifth metacarpal bone, left hand, subsequent encounter for fracture with routine healing (S62.397D)Activeconfirmed Vital Signs Height 5'4 in 09/06/2024 Feaghd211 lbs09/06/2024BMI29.18009/06/2024 Encounters Encounter Location Date Provider Diagnosis [facility] [address] [place] [address] [place] [address] 07/12/2024 Lisa Ambrocio Pain of left hand M79.642 and Closed nondisplaced fracture of other part of fifth metacarpal bone of left hand, initial encounter S62.397A [facility] [address] [place] [address] 07/19/2024 Lisa Ambrocio Other fracture of fifth metacarpal bone, left hand, subsequent encounter for fracture with routine healing S62.397D [facility] [address] [place] [address] 07/26/2024 Mo Villavicencio Other fracture of fifth metacarpal bone, left hand, subsequent encounter for fracture with routine healing S62.397D [facility] [address] [place] [address] 08/09/2024 Lisa Ambrocio Other fracture of fifth metacarpal bone, left hand, subsequent encounter for fracture with routine healing S62.397D [facility] [address] [place] [address] 09/06/2024 Mo Villavicencio Other fracture of fifth metacarpal bone, left hand, subsequent encounter for fracture with routine healing S62.397D Assessments Encounter Date Diagnosis (ICD Code) Assessment Notes Treatment Notes Treatment Clinical Notes Section Notes 07/12/2024 Pain of left hand (ICD-10 - M79. 642) 07/12/2024losed nondisplaced fracture of other part of fifth metacarpal bone of left hand, initial encounter(ICD-10 - S62.397A)07/19/2024Other fracture of fifth metacarpal bone, left hand, subsequent encounter for fracture with routine h ealing (ICD-10 - S62.397D)07/26/2024Other fracture of fifth metacarpal bone, left hand, subsequent encounter for fracture with routine healing (ICD-10 - S62.397D)08/09/2024Other fracture of fifth metacarpal bone, left hand, subsequent encounter for fracture with routine healing (ICD-10 - S62.397D) 09/06/2024Other fracture of fifth metacarpal bone, left hand, subsequent encounter for fracture with routine healing (ICD-10 - S62.397D)07/12/2024Other Patient evaluated by myself and Dr. Villavicencio today. I am going to treat this nonoperatively and place her in a ulnar gutter cast. We will see her back in 1 week to repeat x-rays in the cast and evaluate for any further displacement. 07/19/2024OtherPatient is doing well and we will see her back in 1 week to repeat x-rays in the cast and check hercast fit.07/26/2024Other Patient is doing well. She will follow-up in 2 weeks to remove the cast and repeat x-rays. Import medication 08/09/2024OtherPatient is doing well and is 4 weeks out from her left fifth metacarpal neck fracture. We did remove the cast today and we will discontinue casting. 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 I did give her a 5 pound push/pull/lift limit with this hand. She can make a full fist with effort, she will work on ROM. We will see her back in 4 weeks to repeat x-rays and reassess her progress.09/06/2024 Other Patient is doing well. Fracture is healing nicely. She will gradually increase activities over the next month. She will follow-up here on an as-needed basis. Import medication Plan Of Treatment Pending Test Test Name Order Date SCC- HAND 3 VIEW LEFT [id number] 07/26/2024 SCC- HAND 3 VIEW LEFT [id number] 07/12/2024 SCC- HAND 3 VIEW LEFT [id number] 07/19/2024 Insurance Providers Payer Name Payer Address Payer Phone Subscriber Number Group Number Insured Name Patient Relationship to Insured Coverage Start Date Coverage End Date [facility] [address] [place] [address] [id number] BRIDGET SCHULTZelf - patient is the [id number] 2024
--- OUTSIDE RECORDS SUMMARY | 2025-02-28 07:58 | XMS_ITS | Clinical Summary ---
Author Organization [facility] Address [address] [facility] [place] [address] Care Team Providers Care Pnp Name Role Phone Unavailable Primary Care Provider Unavailabl e Source Comments The following information is NOT included in Care Everywhere downloads:Psychiatric notes, ECG results, Cardiac Rehab notes, Pulmonary Function notes, data from SmartForms (includes but not limited toPregnancy data,audiograms, eye exams, pre-surgical evaluation notes, well-child exam data).[facility] Allergies Active AllergyReactionsCriticalityNoted DateCommentsNo Known Drug Allergy 10/21/2007 Social History Tobacco UseTypesPacks/DayYears UsedDateSmoking Tobacco: Never Assessed CommentsNoSex and Gender InformationValueDate RecordedSex Assigned at BirthNot on fileLegal GcfIyzrtt99/04/2012 12:40 PM ESTGender IdentityNot on fileSexual OrientationNot on file Last Filed Vital Signs Vital SignReadingTime TakenCommentsBlood Pressure--Pulse--Qkyhuysumeg25.9 ??C (98.5 ??F)10/21/2007 4:00 PM EDTRespiratory Rate--Oxygen Saturation--Inhaled Oxygen Concentration--Ezahpg25.8 kg (156 lb)10/21/2007 4:00 PM WGXChvisk294.1 cm (5' 5 )10/21/2007 4:00 PM EDTBody Mass Index25.9610/21/2007 4:00 PM EDT Plan of Treatment Health MaintenanceDue DateLast IupyFgfbaoepPeazwhfxvri63/04/1977HIV Test 06/09/1991Hepatitis C Fdujjblk50/04/1995Tdap Ibyhmcg5206/08/1994Hepatitis A (HAV) Vaccine (optional start 19+ years)06/09/1995Hepatitis B (HBV) Vaccine (1 of 3 - 19+ 3-dose series)06/09/1995Tetanus (Td or Tdap) Oulqldc6106/09/1995Pap Smear 06/08/19977720Tdvyszzptbj54/04/2017CRC Txhkjyviy88/04/2147Xxytudfyzsm13/04/2022 Cologuard (Stool DNA)2021FIT2COVID-19 Vaccine ( - 2024- season)2024Influenza Vaccine (#1)2024Shingles (RZV) Vaccine (1 of 2) 2026Pneumococcal Vaccine(s)Aged OutNo longer eligible based on patient's age to complete this topic
--- OUTSIDE RECORDS SUMMARY | 2025-02-28 07:59 | XMS_ITS | Clinical Summary ---
Author Organization [facility] Address [address] [place] [address] Care Team Providers Care Dishwasher Preparer Name Role Phone Unavailable Primary Care Provider Unavailabl e Allergies No known active allergies Medications MedicationSigDispense QuantityRefillsLast FilledStart DateEnd DateStatus FLUoxetine (PROzac) 20 MG capsule Take 40 mg by mouth DailyActive Encounters DateTypeDepartmentCare IrkeAntisvpagae32/04/2025Telephone [facility] [address] [place] [address] [place] [address] Haylee Morales LPN 01/26/2025 9:00 AM EDTClinical Support [facility] [place] [address] Genetic testing of fhfuec1101/26/2025bstract [facility] [address] [facility] [place] [address] Lucius Castellano DO 01/25/2025Travelfrom Last 3 Months Family History Medical HistoryRelationNameCommentsBreast cancerSisterRelationNameStatusComments Sister Social History Tobacco UseTypesPacks/DayYears UsedDateSmoking Tobacco: Never Assessed CommentsNoSex and Gender InformationValueDate RecordedSex Assigned at BirthNot on fileLegal BhpUlzpww30/15/2023 6:51 PM EDTGender IdentityNot on fileSexual OrientationNot on file Last Filed Vital Signs Vital SignReadingTime TakenCommentsBlood Rxmystom510/7001/26/2025 9:09 AM EDT Pulse--Temperature--Respiratory Rate--Oxygen Saturation--Inhaled Oxygen Concentration--Jolydh66.6 kg (166 lb 9.6 oz)01/26/2025 9:09 AM EARNbqlri787.1 cm (5' 5 )07/15/2023 8:37 AM EDTBody Mass Index27.72007/15/2023 8:37 AM EDT Plan of Treatment DateTypeDepartmentCare Team (Latest Contact Info)Rabtpiinohq59/23/2026 8:30 AM EDTOffice Visit [facility] [address] [place] [address] Lucius Castellano DO [address] [place] [address] Insurance
--- OUTSIDE RECORDS SUMMARY | 2025-02-28 07:59 | XMS_ITS | Clinical Summary ---
Author Organization [facility] Address [address], [address] [place] [address] Care Team Providers Care Health Claims Examiner Name Role Phone Vicente Baum DO Primary Care Provider + [phone] Allergies Active AllergyReactionsCriticalityNoted DateCommentsNo Known Cpxbifjuk39/16/2008 Medications No known medications Active Problems No known active problems Social History Tobacco UseTypesPacks/DayYears UsedDateSmoking Tobacco: NeverSmokeless Tobacco: NeverAlcohol UseStandard Drinks/WeekCommentsYes2 (1 standard drink = 0.6 oz pure alcohol)weekend useCommentsNoSex and Gender InformationValueDate RecordedSex Assigned at BirthNot on fileLegal TnxNpqyrv49/02/2019 9:39 AM EDT Gender IdentityNot on fileSexual OrientationNot on file Last Filed Vital Signs Vital SignReadingTime TakenCommentsBlood Tkrsktcf815/7609 8:41 AM EDT Uqztd1423/04/2019 8:41 AM KUHOfiscgvfdxp87.3 ??C (97.3 ??F)12/09/2018 8:41 AM EDTRespiratory Slvz109512/16/2018 3:00 PM EDTOxygen Dfzzujkzth92%12/09/2018 8:41 AM EDTInhaled Oxygen Concentration--Xhphoz40.6 kg (180 lb)12/16/2018 3:00 PM EDT zkwrthFmmihn408.1 cm (5' 5 )12/16/2018 3:00 PM EDTstatedBody Mass Index29.95 12/16/2018 3:00 PM EDT Plan of Treatment Not on file Insurance * Guarantor: Gabriela Rose TypeRelation to PatientDate of BirthPhone Billing AddressPersonal/SbovppUmiq58/04/1976 (Home) [address] [place] [address] Care Teams Team MemberRelationshipSpecialtyStart DateEnd Date Vicente Baum DO PCP - GeneralInternal Medicine10/13/18
--- OUTSIDE RECORDS SUMMARY | 2025-02-28 07:59 | XMS_ITS | Clinical Summary ---
Author Organization [facility] Address [id number] [address] [place] [address] Care Team Providers Care Digital Strategy Director Name Role Phone Unavailable Primary Care Provider Unavailabl e Social History Tobacco UseTypesPacks/DayYears UsedDateSmoking Tobacco: Never AssessedChildcare AnswerDate EnxyvmbvUuehsbvrhYaxbotv15/04/2020EmploymentAnswerDate Recorded AckyrvocseFclxhxn26/04/2020Purpose - LifeAnswerDate RecordedPurpose and direction in khjvDucvpvh07/11/2021CommentsUnknownSex and Gender InformationValueDate RecordedSex Assigned at BirthNot on fileLegal SexFemale 11/09/2019 9:34 AM EDTGender IdentityNot on fileSexual OrientationNot on file Plan of Treatment Health MaintenanceDue DateLast DoneCommentsDepression Iszjefzcu16/04/1989Tobacco Quxihobuv57/04/1989Adult BMI Cfjjkhzuf44/04/1995DTaP,Tdap and Td Vaccines (1 - Tdap)06/09/1995Pap Smear1997Influenza Pvcrfaj3012/06/2024 Medical Devices Not on file
--- OUTSIDE RECORDS SUMMARY | 2025-02-28 07:59 | XMS_ITS | Patient Health Record ---
Author Organization [facility] [place] Address [address] [place] [address] Care Team Providers Care Quality Control Industrial Engineer Name Role Phone Vicente Baum DO Primary Care Provider Unavaila ble Allergies No Known Allergies Reason For Referral No Information Medications Medication SIG (Take, Route, Frequency, Duration) Notes Start Date End Date Status PROzac 20 MG 1 capsule Orally Once a day ActivedexAMETHasone Sodium Phosphate 4 MG/ML1.5ml-2.5ml topically up to 3 times weekly with physical therapy; Duration: 30 days12/17/2023ctiveMeloxicam 15 MG1 tablet Orally Once a day; Duration: 30 day(s)12/16/2023ctive Social History Tobacco Use: Social History Observation Description Date Details (start date - stop date) Never Smoker NA - NA Tobacco Control (Standard) Question Answer Notes Tobacco use: Nonsmoker Problems Problem Type SNOMED Code ICD Code Onset Dates Problem Status W/U Status Risk Notes 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) ActiveconfirmedProblemArthralgia of the ankle and/or foot (452761864)Right ankle pain (M25.571)ActiveconfirmedProblemArthralgia of the ankle and/or foot (333092298)Left ankle pain (M25.572)Activeconfirmed Plan Of Treatment Pending Test Test Name Order Date XR Ankle LT (3 views) * (164) 12/16/2023 XR Ankle RT (3 views) * (161) 12/16/2023 XR ankle CHANI min 3V 12/17/2023 Insurance Providers Payer Name Payer Address Payer Phone Subscriber Number Group Number Insured Name Patient Relationship to Insured Coverage Start Date Coverage End Date BCBS OUT OF STATE [address] [place] [address] [id number] Samson Roseelf - patient is the insured Medical (General) History Surgical History Surgery Date(Month/Year) x2 tubal ligationtonsillectomy and adenoidectomy
--- OUTSIDE RECORDS SUMMARY | 2025-02-28 08:00 | XMS_ITS | CCD ---
Author Organization [facility] Care Team Providers Care Rhia Name Role Phone Vicente Baum Primary Care Provider DARION HAND Admitting Unavailab DARION Jarvis Attending Unavailab VICENTE Napoles Primary Care Unavailable Harper Banda Unavailable KAMI, DR ONOFRE Admitting Unavailable KAMI, DR ONOFRE Attending Unavailable KAMI, DR ONOFRE Consulting Unavailable KAMI, DR ONOFRE Primary Care Unavailable FARZANA, DR LUZ Dyer Attending Unavailable KAMI, DR ONOFRE Primary Care Unavailable FARZANA, DR LUZ Dyer Consulting Unavailable FARZANA, DR LUZ Dyer Admitting Unavailable FARZANA, DR LUZ Dyer Admitting Unavailable KAMI, DR ONOFRE Primary Care Unavailable FARZANA, DR LUZ Dyer Attending Unavailable WEST, DR LUZ Dyer Consulting Unavailable KAMI, DR ONOFRE Primary Care Unavailable HARPER BANDA Admitting Unavailable HARPER BANDA Attending Unavailable KAMI, DR ONOFRE Primary Care Unavailable BRITTANY .ZAYDA Consulting Unavailable BRITTANY .ZAYDA Admitting Unavailable BRITTANY .ZAYDA Attending Unavailable Vicente Baum Unavailable VICENTE BAUM Primary Care Physician Claudy SCHMITZ Attending Unavailable VICENTE BAUM Referring Unavailable Claudy SCHMITZ Attending Unavailable Unavailable Primary Care Provider UnavailVicente Hamilton DO Primary Care Provider Vicente Baum DO Attending Provider ZAYDA RAUSCH Attending Unavailable LUCIUS CASTELLANO Attending Unavailable Allergies Allergy ClassificationReported Allergen(s)Allergy TypeDate of OnsetReaction(s) Facility (1 source)No Known Medication Allergies; Translations: [No Known Medication Allergies]Propensity to adverse reactions (disorder)[facility] Repository Medications Current Medications MedicationDrug Class(es)DatesSig (Normalized)Sig (Original)acetaminophen 325 mg / oxyCODONE hydrochloride 5 mg oral tablet (2 sources)Opioid AgonistStart: 12-09-2018 End: 27-92-9377awip 1 tablet by mouth every six hours as needed for pain, then take 1 tablet by mouth as needed for painoxyCODONE-acetaminophen (PERCOCET) 5- 325 MG per tablet Indications: Post-op pain Take 1 tablet by mouth every 6 hours as needed for Pain for up to 5 days. Intended supply: 5 days. Take lowest dose possible to manage pain 20 tablet 0 12/09/2018 12/14/2018 ActiveStart: 12-09-2018 End: 95-37-1099rziFDYQJL-acetaminophen (PERCOCET) 5-325 MG per tablet 1 tablet calcium chloride 0.0014 meq/ml / potassium chloride 0.004 meq/ml / sodium chloride 0.103 meq/ml / sodium lactate 0.028 meq/ml injectable solution (1 source)Start: 27-32-0263acuikitk ringers infusioncephalexin 500 mg oral capsule (1 source)Cephalosporin AntibacterialStart: 12-09-2018 End: 70-09-3997vfve 1 capsule by mouth three times dailycephALEXin (KEFLEX) 500 MG capsule Take 1 capsule by mouth 3 times daily for 5 days 15 capsule 0 07/201812/14/2018 Activecyclobenzaprine hydrochloride 5 mg oral tablet (3 sources)Muscle RelaxantStart: 64-16-6367Bftxanchyxwfean 5 mg tablet Active 0 PO Daily at bedtime 60 October 28, 2023 12:00am 5-10mg orally daily at bedtime; Complies with drug therapy2 ml fentaNYL 0.05 mg/ml injection (2 sources)Opioid AgonistStart: 27-41-1611tokcbOPF (SUBLIMAZE) injection 50 mcg Start: 13-76-9661ytwlzURH (SUBLIMAZE) injection 25 mcgFLUoxetine 40 mg oral capsule (20 sources)Serotonin Reuptake InhibitorStart: 03-97-7632jnmr 1 capsule by mouth once daily in the morningFluoxetine 40 mg capsule Active 40 MG PO Every morning November 24, 2024 3:35pm Complies withdrug therapyStart: 07-30-2023 End: 26-76-3676mqtx 1 capsule by mouth once dailyFluoxetine 20 mg capsule Discontinued 0 .ROUTE .COMPLEX July 23, 2024 6:44am November 24, 2024 3:36pm TAKE 1 CAPSULE BY MOUTH EVERY DAY FOR 90 DAYSStart: 01-14-2023 End: 83-22-6405tmie 1 capsule by mouth once dailyFluoxetine 20 mg capsule Discontinued 20 MG PO Daily July 30, 2023 12:00am July 30, 2023 2:31pm1 ml hydrALAZINE hydrochloride 20 mg/ml injection (1 source)Arteriolar VasodilatorStart: 37-21-9285jiamYMFLFBV (APRESOLINE) injection 5 mg1 ml HYDROmorphone hydrochloride 1 mg/ml cartridge (2 sources)Opioid AgonistStart: 60-66-3564MPAPExmmivqdk (DILAUDID) injection 0.25 mgStart: 94-74-7689DISEOjxtxehgv (DILAUDID) injection 0.5 mglevonorgestrel 0.593661 mg/hr intrauterine system (7 sources)Progestin, Progestin-containing Intrauterine DeviceLevonorgestrel (Mirena, 52 MG,) 20 MCG/DAY intrauterine device 52 mg by Intrauterine route if needed (when due) Active0.5 ml meperidine hydrochloride 50 mg/ml injection (1 source)Opioid AgonistStart: 85-00-9523nbhdlwzwmn (DEMEROL) injection SOLN 12.5 mg2 ml metoclopramide 5 mg/ml prefilled syringe (1 source)Dopamine-2 Receptor AntagonistStart: 12-09-2018 End: 65-58-3271khuqybzebkhtdr (REGLAN) injection 10 mg2 ml midazolam 1 mg/ml injection (1 source)BenzodiazepineStart: 12-09-2018 End: 44-30-3402mhatzzjzz (VERSED) injection 2 mgMIRENA IUD - this medication is not being screened (3 sources)Start: 89-70-5929WXPBYP IUD - this medication is not being screened MIRENA IUD - this medication is not being screened( ) Active -Hx Entry for 0 *Reorder from Voices for eRx and Interaction Alerts* Feb, Not-Taking2 ml ondansetron 2 mg/ml injection (1 source)Serotonin-3 Receptor AntagonistStart: 12-09-2018 End: 38-60-7788wmjtwmpedfb (ZOFRAN) injection 4 mgphentermine hydrochloride 37.5 mg oral tablet (6 sources)Sympathomimetic Amine AnorecticStart: 07-15-2023 End: 54-39-6286pjtw 1 tablet by mouth before mealtimephentermine (Adipex-P) 37.5 MG tablet Indications: Encounter for weight management Take 1 tablet (37.5 mg) by mouth in the morning. Take before meals. 90 tablet 08/14/2023 07/20/2024 Discontinued3 ml sodium chloride 9 mg/ml injection (3 sources)Start: 90-04-1805lvspaf chloride flush 0.9 % injection 10 mLStart: 12-09-20180.9 % sodium chloride infusionStart: 18-84-8844hkzysw chloride flush 0.9 % injection 10 mL Completed/Discontinued Medications MedicationDrug Class(es)DatesSig (Normalized)Sig (Original)acetaminophen 325 mg / HYDROcodone bitartrate 5 mg oral tablet (1 source)Opioid AgonistStart: 07-12-2018 End: 58-77-5230dvnr 1 tablet by mouth every six hours as needed for pain HYDROcodone-acetaminophen (NORCO) 5-325 MG per tablet TAKE 1 TABLET BY MOUTH EVERY 6 HOURS NEEDED FOR PAIN 0 07/12/2018 12/01/2018 Discontinued (Therapy completed)azithromycin 250 mg oral tablet (1 source)Macrolide AntimicrobialStart: 09-29-2018 End: 50-53-8894rgqpmmpvvmra (ZITHROMAX) 250 MG tablet TAKE 2 TABLETS BY MOUTH TODAY, THEN TAKE 1 TABLET DAILY FOR 4 DAYS 0 09/29/2018 12/01/2018 Discontinued (Therapy completed)24 hr buPROPion hydrochloride 150 mg extended release oral tablet (7 sources)AminoketoneStart: 10-28-2023 End: 74-24-9879lsvm 1 tablet by mouth once dailyBupropion Hcl (Wellbutrin Xl) 150 mg tablet extended release 24 hr Discontinued 150 MG PO Daily October 28, 2023 12:00am October 28, 2023 3:17pmtake 1 tablet by mouth every twenty-four hoursWellbutrin XL 150 MG 1 tablet in the morning Orally Once a day Not-Taking ciprofloxacin 500 mg oral tablet (1 source)Quinolone AntimicrobialStart: 09-08-2018 End: 45-01-3933mcfo 1 tablet by mouth once dailyciprofloxacin (CIPRO) 500 MG tablet TAKE 1 TABLET BY MOUTH THE DAY BEFORE YOUR PROCEDURE THEN 1 TABLET AFTER YOUR PROCEDURE 0 09/08/2018 12/01/2018 Discontinued (Therapy completed) methylPREDNISolone (1 source)CorticosteroidStart: 09-29-2018 End: 43-59-9360sdqlqoAURWWMNmqmal (MEDROL DOSEPACK) 4 MG tablet TAKE 6 TABLETS ON DAY 1 DIRECTED ON PACKAGE ANDDECREASE BY 1 TAB EACH DAY FOR A TOTAL OF 6 DAYS 0 09/29/2018 12/01/2018 Discontinued (Therapy completed)metroNIDAZOLE 500 mg oral tablet (6 sources)Nitroimidazole AntimicrobialStart: 10-28-2023 End: 81-88-5194waew 1 tablet by mouth twice dailyMetronidazole 500 mg tablet Discontinued 500 MG PO Twice daily October 28, 2023 12:00am October 28, 2023 3:17pmStart: 50-68-0708ongu 1 tablet by mouth twice dailymetroNIDAZOLE 500MG metroNIDAZOLE 500MG, 1 (one) Tablet two times daily # 14, 04/16/2019, No Refill. Active Oral two times daily for 7 *Pick strength-form from Voices for eRX* Apr, Not-Takingtriamcinolone acetonide 40 mg/ml injectable suspension (4 sources)CorticosteroidStart: 09-57-1897Rjxsxll-40 Jun, 40 mgStart: 58-97-5741Drjzhzp -40 mg Jun, 40 mg Problems Active Problems Problem ClassificationProblemDateDocumented DateEpisodic/ChronicAnxiety disorders (2 sources)Generalized anxiety disorder; Translations: [Generalized anxiety disorder]80-74-4448XinwbdkFlzjbvkbfpwpj and procreative management (1 source)Patient encounter status; Translations: [Encounter for removal of intrauterine contraceptive device]03-00-2439TssfujuaGcqtvdbahquuj symptoms and ill-defined conditions (4 sources)Genuine stress incontinence; Translations: [Urge incontinence of urine]11-95-2959UnyycolIiotxbqtfyzyv and screening for infectious disease (1 source)Encounter for screening for human papillomavirus (HPV); Translations: [ENC SCREENING HUMAN PAPILLOMAVIRUS]Onset: 62-04-5562WnkdxeuyRsve disorders (10 sources)Seasonal affective disorder; Translations: [Other recurrent depressive disorders]ChronicOther diseases of bladder and urethra (1 source)Traumatic urethral wrepohmkm99-81-9871NltaspyuTnpza endocrine disorders (2 sources)Disorder of endocrine system; Translations: [Endocrine disorder, unspecified]93-82-9055YpnqnvldQskqe nervous system disorders (1 source)Postoperative pain ; Translations: [Post-op pain]EpisodicOther nutritional; endocrine; and metabolic disorders (1 source)Oqhqr-9-mmftywpknsr deficiency; Translations: [Emdpy-8-rtvdtxojhtz deficiency]98-11-1053BbzmnuoFogcf nutritional; endocrine; and metabolic disorders (2 sources)Overweight; Translations: [Overweight]EpisodicOther nutritional; endocrine; and metabolic disorders (5 sources)Overweight; Translations: [Overweight]68-64-7106DupnwoosFxlqr nutritional; endocrine; and metabolic disorders (1 source)Overweight in adulthood with body mass index of 25 or more but less than 8759-40-8235QdwclxfyDuhhb screening for suspected conditions (not mental disorders or infectious disease) (10 sources)Encounter for screening for malignant neoplasm of cervix; Translations: [Encounter for screening mammogram for malignant neoplasm of breast]Onset: 87-94-2621LrlbuejoLcgnhpie codes; unclassified (4 sources)Insomnia; Translations: [Insomnia, unspecified]51-23-4533Yjmacnpw Residual codes; unclassified (1 source)Insomnia, unspecified; Translations: [Insomnia, unspecified]10-28-2023 EpisodicResidual codes; unclassified (2 sources)Generalized aches and pains; Translations: [Pain, unspecified] 53-67-5521NsamchjzQbusoalrocyb (1 source)Finding of sensation of ywrrcvi90-17-6911Konfemcbytts (1 source)Patient encounter aefbcw07-97-0119 Past or Other Problems Problem ClassificationProblemDateDocumented DateEpisodic/ChronicOther connective tissue disease (1 source)Lateral epicondylitis, left elbowOnset: 06-27-2021 Resolved: 64-01-0961NxhudnfhFmsqi non-traumatic joint disorders (1 source)Pain in left elbowOnset: 06-27-2021 Resolved: 28-65-4660OlimbzddZcvnm non-traumatic joint disorders (4 sources)Pain in left shoulder; Translations: [PAIN IN LEFT SHOULDER]Onset: 42-74-7459Mcgvpehs Results Test NameValueInterpretationReference RangeFacilityCCF CMP (CMP) (FOR REMOTE [facility] USE)on 48-34-3184Tmnbpbw [Mass/Vol]3.9 g/dL3.4 - 5.0 g/dLNOMS HealthcareALBUMIN GLOBULIN RATIO1.1NOMS HealthcareALP [Catalytic activity/Vol]66 U/L46 - 116 U/L NOMS HealthcareALT [Catalytic activity/Vol]25 U/L14 - 59 U/LNOMS HealthcareAnion gap [Moles/Vol]11 mmol/LNOMS HealthcareAST [Catalytic activity/Vol]15 U/L15 - 37 U/LNOMS HealthcareBilirubin [Mass/Vol]0.2 mg/dL0.2 - 1.0 mg/dLNOMS Healthcare Calcium [Mass/Vol]8.9 mg/dL8.5 - 10.1 mg/dLNOMS HealthcareChloride [Moles/Vol] 104 mmol/L98 - 107 mmol/LNOMS HealthcareCO2 [Moles/Vol]29.3 mmol/L21.0 - 32.0 mmol/LNOMS HealthcareCreatinine [Mass/Vol]0.77 mg/dL0.55 - 1.02 mg/dLNOOK HealthcareGFR/1.73 sq M.predicted CKD-EPI (S/P/Bld) [Vol rate/Area]>60>=60 mL/min/1.73m 2NOMS HealthcareGlobulin (S) [Mass/Vol]3.4 g/dLNOMS Healthcare Glucose [Mass/Vol]96 mg/dL74 - 106 mg/dLNOMS HealthcarePotassium [Moles/Vol]4.3 mmol/L3.5 - 5.1 mmol/LNOMS HealthcareProtein [Mass/Vol]7.3 g/dL6.4 - 8.2 g/dL [facility] HealthcareSodium [Moles/Vol]140 mmol/L136 - 145 mmol/LNOMS HealthcareTBH EGFR-NON AF [place]>60>=60 mL/min/1.73m 2NOMS HealthcareUrea nitrogen [Mass/Vol]17 mg/dL7.0 - 18.0 mg/dLNOMS HealthcareUrea nitrogen/Creatinine [Mass ratio]22.1 mg/mgNOMS HealthcareCLINISYNCNROGER MILLS [facility] HealthcareFree testosterone measurement by LC-MS/MSOrdered By: Lucius Castellano on 08-27-3265Phjqiwuayjyc Free [Mass/Vol]0.6 pg/mL0.0-4.2FKettering Health HamiltonComment on above: Performed at: CB - [facility] [address] [id number] Director: Luis Campbell PhD, Phone: [phone] at: - [facility] [address] [id number] Director: Bret Cantu MD, Phone: [phone] Calc (S) [Mass/Vol]Ordered By: Vicente Baum on 48-65-7519Vkucwpmc (S) [Mass/Vol]3.4 g/dLOhiohealth Glomerular filtration rate (GFR) estimation in non- AmericanOrdered By: Vicente Baum on 13-96-1395NHM/1.73 sq M.predicted among non-blacks MDRD (S/P/Bld) [Vol rate/Area]mL/min/{1.73_m2}>=60 mL/min/1.73m 2FKettering Health HamiltonLaboratory - Chemistry and Chemistry - challengeOrdered By: Vicente Baum on 63-55-4595Lplqymv [Mass/Vol]3.9 g/dL3.4-5.0OhiohealthALP [Catalytic activity/Vol]66 U/G38-438WelznzeblOhiohealthALT [Catalytic activity/Vol]25 U/Y21-04LhryvpgdhOhiohealth AST [Catalytic activity/Vol]15 U/G95-98JzstrnucvOhiohealth Bilirubin [Mass/Vol]0.2 mg/dL0.2-1.0OhiohealthCalcium [Mass/Vol]8.9 mg/dL8.5-10.1FKettering Health HamiltonChloride [Moles/Vol] 104 mmol/Z28-111YffbnrkhwOhiohealthCO2 [Moles/Vol]29.3 mmol/L 21.0-32.0OhiohealthCreatinine [Mass/Vol]0.77 mg/dL 0.55-1.02OhiohealthGFR/1.73 sq M.predicted MDRD (S/P/Bld) [Vol rate/Area]mL/min/{1.73_m2}>=60 mL/min/1.73m 2FKettering Health HamiltonGlucose [Mass/Vol]96 mg/wA77-257GtdisxsqnOhiohealthPotassium [Moles/Vol]4.3 mmol/L3.5-5.1FKettering Health HamiltonProtein [Mass/Vol] 7.3 g/dL6.4-8.2FTwin City Hospitalodium [Moles/Vol]140 mmol/L 136-145OhiohealthUrea nitrogen [Mass/Vol]17.0 mg/dL 7.0-18.0OhiohealthUrea nitrogen/Creatinine [Mass ratio] 22.1 mg/mgOhiohealthNo Panel InformationOrdered By: Lucius Castellano on 270908-Qefpniq Vitamin D Total78.0 ng/mLOhiohealthComment on above:<20 ng/mL Vit D vcrthopef58-<30 ng/mL Vit D xgfopumbbvha33-443 ng/mL Vit D sufficient>100 ng/mL Potential Toxicity Dehydroepiandrosterone Xnuuxwn795.0 ug/dL41.2-243.7FKettering Health HamiltonComment on above:Performed at: - [facility] [id number] Director: Luis Campbell PhD, Phone: [phone] Testosterone Level9 ng/dL4-50Lancaster Municipal Hospitalerum estrone measurementOrdered By: Lucius Castellano on 08-05-0965O2 [Mass/Vol]74 pg/mL.OhiohealthComment on above:Range Adult (Premenopausal) 27 - 231 Menstrual Cycle (1-10 days) 19 - 149 Menstrual Cycle (11-20 days) 32 - 176 Menstrual Cycle (21-30 days) 37 - 200 Adult (Postmenopausal) 0 - 125Performed at: - [facility] [id number] Director: Bret Cantu MD, Phone: [phone] or plasma albumin/globulin mass ratioOrdered By: Vicente Baum on 93-55-4828Lzkmahh/Globulin [Mass ratio] 1.1 {ratio}L[facility]aster Municipal Hospitalerum or plasma anion gap determinationOrdered By: Vicente Baum on 28-03-1383Nhxsk gap [Moles/Vol]11.0 mmol/LFKettering Health HamiltonIUD Removalon 62-11-8709Kjfio SpitlerALCIDES 09/06/2024 1:39 PM IUD Removal Date/Time: 09/06/2024 [...] reason for removal: Hormone management through compound pharmacy.Christian HospitalNOOK HealthcareIGP,APTIMA HPV,AGE GDLNon 13-29-7885BRP GDLN ACOG TESTINGNote.Christian HospitalComment on above:TESTS RESULT FLAG UNITS REF RANGE LAB Clinician Provided Cytology Information Source.............Cervix;Endocervix No. of containers..01 ThinPrep Vial Age Algo ACOG Celina... 30- 01 FLAG LEGEND: L-Low Normal,H-High Normal,LL-Alert Low,HH-Alert High <-Panic Low,>-Panic High,A-Abnormal,AA-Critical Abnormal Performed at: 01 =G [address] [place] [address] Charisse Merchant MD, HPV APTIMANegativeNegativeNOMS HealthcareComment on above:This nucleic acid amplification test detects fourteen high- risk HPV types (16,18,31,33,35,39,45,51,52,56,58,59,66,68) without differentiation. Performed at: [facility], [place] [id number] Orthotic Practitioner: Charisse Merchnat MD, Phone: [phone] Performed at: [facility] LabJackson [facility] Cyto Histo [address] [facility], [place], [place] [id number] Orthotic Practitioner: Brian Spencer MD, Phone: [phone] IGP, APTIMA HPV, RFX 16/18,45Note.NOMS HealthcareComment on above:TESTS RESULT FLAG UNITS REF RANGE LAB DIAGNOSIS: 02 NEGATIVE FOR INTRAEPITHELIAL LESION OR MALIGNANCY. Specimen adequacy: 02 Satisfactory for evaluation. No endocervical component is identified. Performed by: Bear Rivera, Angular Developer (ASCP) . 02 Note: Note 03 The [...] High,A-Abnormal,AA-Critical Abnormal Performed at: 02 KWCYT [facility] [place] Cyto [address] [address] [place] [address] Brian Spencer MD, 03 WB [facility] [address] [address] Charisse Merchant MD, BRUSH-SPATULA CERVIX ENDOCERVIX CLINISYNCNOOK HealthcareMLR HEMOGLOBIN A1Con 83-37-3880Wqwtdvx [Mass/Vol]108 mg/dLNOGeneral Leonard Wood Army Community HospitalJlntgnpjccVxS3z (Bld) [Mass fraction]5.4 %4.5 - 6.2 %[facility] Comment on above:ADA RECOMMENDED LIMIT 4.0 - 6.0 ADA THERAPEUTIC TARGET < 7.0 ACTION SUGGESTED > 7.0 [facility] [place] HealthOutside Colonoscopyon 17-75-4385Vastroe Colonoscopy [id number]#1.00TIFClinton Memorial HospitalReminderson 50-38-2804Vcdslldqe From: Dolores Lee LPN To: GSN - Clinical; Sent: 03/20/2023 08:53:50 EST Show up: 02/17/2033 07:00:00 EST Subject: colonoscopy recall Due Date/Time: 03/19/2033 07:00:00 EST Reminder/Recall Patient due for screening colonoscopy 03/19/2033.[facility] CenterLab Reportson 54-68-2917Wdh Reports [id number]#1.00TIFClinton Memorial HospitalInsurance Correspondenceon 56-40-5450Ufqkcefwu Correspondence [id number]#1.00TIFFUniversity Hospitals Samaritan Medical CenterConsent for Procedure/Surgeryon 77-25-7583Kdjevkn for Procedure/Surgery [id number]#1.00TIFFUniversity Hospitals Samaritan Medical CenterFacesheeton 52-80-7035Jajmesmoz [id number]#1.00[facility] CenterAmbulatory Visit Summaryon 78-32-2522Ajksuhfxvb Visit Summary FATMATA ROSE :1975 Visit Date:02/11/2023 Ambulatory Visit Instructions Your Diagnosis Screening for malignant neoplasm of colon Your Care Team Attending Physician - LEONOR COLON, Claudy De Anda Primary Care Physician - KAMI VASQUEZ, VICENTE Referring Physician - KAMI VASQUEZ, VICENTE This Is Your Medications List Contact prescribing [...] you for choosing us for your care. [facility] Medical CenterPhysician Referralon 01-16-2023 Physician [id number]#1.00[facility] Medical CenterPAP ACOG PANEL 2: 30 to 65on 07-18-2022..NormalBarnesville HospitalComment on above:Result Comment: Performed at: WBPerformed By: #### [id number] #### [facility] [address] [address] [address] Chloe Martinez Gdln ACOG Pttytig64-25IeuowbAwvProMedica Fostoria Community HospitalComment on above:Performed By: #### [id number] #### [facility] [address] [address] [address] Chloe WellsDIAGNOSIS:CommentUniversity Hospitals Ahuja Medical CenterComharper university hospital on above: Result Comment: NEGATIVE FOR INTRAEPITHELIAL LESION OR MALIGNANCY. Performed at: WBPerformed By: #### [id number] #### [facility] [address] [place] [address] Dr. Chloe Oliva AptimaPositiveAbssm health carealNegWood County HospitalComharper university hospital on above:Result Comment: This nucleic acid amplification test detects fourteen high-risk HPV types (16,18,31,33,35,39,45,51,52,56,58,59,66,68) without differentiation. Performed at: =GPerformed By: #### [id number] #### [facility] [address] [place] [address] Dr. Chloe Oliva Genotype 16NegativeNormalNegativeBarnesville HospitalComment on above:Performed By: #### [id number] #### [facility] [address] [address] [address] Chloe Oliva Genotype 18,45NegativeNormalNegativeBarnesville Hospital Comment on above:Performed By: #### [id number] #### [facility] [address] [address] [address] Chloe Oliva Genotype ReflexCommentUniversity Hospitals Ahuja Medical CenterComment on above:Result Comment: Criteria met, see HPV Genotype results. Performed at: WBPerformed By: #### [id number] #### [facility] [address] [address] [address] Chloe WellsMethodology:CommentKettering Health Miamisburg on above: Result Comment: This liquid based ThinPrep(R) pap test was screened with the use of an image guided system. Performed at: WBPerformed By: #### [id number] #### [facility] [address] [place] [address] Dr. Chloe WellsNote:CommentKettering Health Miamisburg on above:Result Comment: The Pap smear is a screening test designed to aid in the detection of premalignant and malignant conditions of the uterine cervix. It is not a diagnostic procedure and should not be used as the sole means of detecting cervical cancer. Both false-positive and false-negative reports do occur. . Performed at: WBPerformed By: #### [id number] #### [facility] [address] [place] [address] Dr. Chloe WellsPerformed by:CommentKettering Health Miamisburg on above: Result Comment: Muna Benitez, Angular Developer (ASCP) Performed at: WBPerformed By: #### [id number] #### [facility] [address] [place] [address] Dr. Chloe WellsSpecimedelmi adequacy:CommentKettering Health Miamisburg on above:Result Comment: Satisfactory for evaluation. Endocervical and/or squamous metaplastic cells (endocervical component) are present. Performed at: WBPerformed By: #### [id number] #### [facility] [address] [place] [address] Dr. Chloe Salazar AUTO DIFFon 63-10-1515LUXL #0.0 103/ulNormal0.0-0.1The [facility] HospitalComment on above:Performed By: #### CBC #### [facility] [address] [place] [address] Dr. Chloe WellsBasophils/100 WBC (Bld)0.3 %Normal0.2-2.0[facility] Comment on above:Performed By: #### CBC #### [facility] [address] [place] [address] Dr. Corona ChangEO #0.2 103/ulNormal0.0-0.7The [facility] HospitalComment on above: Performed By: #### CBC #### [facility] [address] [place] [address] Dr. Chloe Andersonosinophils/100 WBC (Bld)2.9 %Normal0.9-7.0The [facility] on above:Performed By: #### CBC #### [facility] [address] [place] [address] Dr. Chloe Andersonrythrocyte distribution width (RBC) [Ratio]12.4 %Swhezx97.0-15.0 The [facility] HospitalComment on above:Performed By: #### CBC #### [facility] [address] [place] [address] Dr. Chloe WellsHematocrit (Bld) [Volume fraction]38.8 %Rrkhqc87.0-48.0The [facility] HospitalComment on above:Performed By: #### CBC #### [facility] [address] [place] [address] Dr. Chloe WellsHemoglobin (Bld) [Mass/Vol]13.0 g/wEYkunvw86.0-16.0The [facility] HospitalComment on above:Performed By: #### CBC #### [facility] [address] [place] [address] Dr. Chloe Denis #0.01 10e3/ulNormal0.00-0.03The [facility] HospitalComment on above:Performed By: #### CBC #### [facility] [address] [place] [address] Dr. Chloe Denis %0.2 %Normal0.0-0.5The [facility] HospitalComment on above: Performed By: #### CBC #### [facility] [address] [place] [address] Dr. Chloe ShaferH #2.0 103/ulNormal1.2-3.8The [facility] HospitalComment on above:Performed By: #### CBC #### [facility] [address] [place] [address] Dr. Chloe Cormiermphocytes/100 WBC (Bld)33.4 %Lndfsk87.5-60.0The [facility] HospitalComment on above:Performed By: #### CBC #### [facility] [address] [place] [address] Dr. Chloe Roper DIFF REQNONormalThe [facility] HospitalComment on above: Performed By: #### CBC #### [facility] [address] [place] [address] Dr. Chloe Black (RBC) [Entitic mass]30.2 apKjkxyx12.7-34.0The [facility] HospitalComment on above:Performed By: #### CBC #### [facility] [address] [place] [address] Dr. Chloe Black (RBC) [Mass/Vol]33.5 g/fWLfrxmi85.9-35.2The [facility] HospitalComment on above:Performed By: #### CBC #### [facility] [address] [place] [address] Dr. Chloe Cowan (RBC) [Entitic vol]90.0 qKJayouu74.0-99.0The [facility] HospitalComment on above:Performed By: #### CBC #### [facility] [address] [place] [address] Dr. Chloe Cain #0.5 103/ulNormal0.3-0.8The [facility] HospitalComment on above:Performed By: #### CBC #### [facility] [address] [place] [address] Dr. Chloe Steeleocytes/100 WBC (Bld)8.0 %Normal1.7-12.0The [facility] Comment on above:Performed By: #### CBC #### [facility] [address] [place] [address] Dr. Chloe Guerra #3.2 103/ulNormal1.4-6.5The [facility] HospitalComment on above:Performed By: #### CBC #### [facility] [address] [place] [address] Dr. Yilan ChangNeutrophils/100 WBC (Bld)55.2 %Wetovz11.0-75.0The [facility] HospitalComment on above:Performed By: #### CBC #### [facility] [address] [place] [address] Dr. Chloe Rothmanlet mean volume (Bld) [Entitic vol]8.9 fLCritically low 9.5-13.5The [facility] HospitalComment on above:Performed By: #### CBC #### [facility] [address] [place] [address] Dr. Chloe WellsPLT327 103/xvGxqihe264-731Chd [facility] HospitalComharper university hospital on above: Performed By: #### CBC #### [facility] [address] [place] [address] Dr. Chloe WellsRBC4.31 106/ulNormal4.20-5.40The [facility] HospitalComment on above:Performed By: #### CBC #### [facility] [address] [place] [address] Dr. Chloe WellsWBC5.9 103/ulNormal4.0-11.0The [facility] HospitalComment on above: Performed By: #### CBC #### [facility] [address] [place] [address] Dr. Chloe WellsGLYCOHEMOGLOBIN A1Con 32-59-6733ILC RECOMMENDATIONSEE BELOWNormal The [facility] HospitalComharper university hospital on above:Result Comment: ADA RECOMMENDED LIMIT 4.0 - 6.0 ADA THERAPEUTIC TARGET < 7.0 ACTION SUGGESTED > 7.0Performed By: #### A1C #### [facility] [address] [place] [address] Dr. Chloe WellsGlucose [Mass/Vol]105 mg/dLNormalThBlanchard Valley Health System [facility] HospitalComharper university hospital on above:Performed By: #### A1C #### [facility] [address] [place] [address] Dr. Chloe WellsHbA1c (Bld) [Mass fraction]5.3 %Normal4.5-6.2The [facility] HospitalComharper university hospital on above:Performed By: #### A1C #### [facility] [address] [address] [address] Chloe WilliamsonID PROFILEon 06-32-3908BGCD-HDL RATIO NORMSCleveland Clinic South Pointe HospitalComment on above:Result Comment: 3.3 - 4.4 LOW RISK 4.4 - 7.1 AVERAGE RISK 7.1 - 11.0 MODERATE RISK >11.0 HIGH RISKPerformed By: #### CMP, TSH, LIPID #### [facility] [address] [address] [address] Chloe WellsCholesterol [Mass/Vol]171 mg/dLNormal<=200[facility] Comment on above:Performed By: #### CMP, TSH, LIPID #### [facility] [address] [place] [address] Dr. Chloe WellsCholesterol in HDL [Mass/Vol]63 mg/dLCritically vgup84-43OuhBarnesville HospitalComment on above:Performed By: #### CMP, TSH, LIPID #### [facility] [address] [place] [address] Dr. Chloe WellsCholesterol in LDL [Mass/Vol]99.2 mg/dLUniversity Hospitals Ahuja Medical CenterComment on above:Performed By: #### CMP, TSH, LIPID #### [facility] [address] [place] [address] Dr. Chloe Hernandezestercruz.total/Cholesterol in HDL [Mass ratio]2.7 {ratio} NormalBarnesville HospitalComment on above:Performed By: #### CMP, TSH, LIPID #### [facility] [address] [place] [address] Dr. Chloe WellsHDL NORMAL> or = 60 mg/dl - LOW CARDIOVASCULAR RISK <40 mg/dl - HIGH CARDIOVASCULAR RISKUniversity Hospitals Ahuja Medical CenterComment on above:Performed By: #### CMP, TSH, LIPID #### [facility] [address] [place] [address] Dr. Chloe WellsLDL CALC NORMALSEE Cleveland ClinicComment on above:Result Comment: <100 mg/dl OPTIMAL 100 - 129 mg/dl NEAR OR ABOVE OPTIMAL 130 - 159 mg/dl BORDERLINE HIGH 160 - 189 mg/dl HIGH >190 mg/dl VERY HIGH Performed By: #### CMP, TSH, LIPID #### [facility] [address] [address] [address] Chloe WellsTriglyceride [Mass/Vol]44 mg/dLNormal<=150The [facility] Comment on above:Performed By: #### CMP, TSH, LIPID #### [facility] [address] [address] [address] Chloe WellsVLDL CALC8.8 mg/dLNormalThe [facility] HospitalComment on above: Performed By: #### CMP, TSH, LIPID #### [facility] [address] [place] [address] Dr. Chloe WellsPROSourav 14(COMP METB)on 36-58-8869Mbmmrlo [Mass/Vol]3.8 g/dLNormal 3.4-5.0The [facility] HospitalComment on above:Performed By: #### CMP, TSH, LIPID #### [facility] [address] [place] [address] Dr. Chloe WellsAlbumin/Globulin [Mass ratio]1.3 {ratio}NormalThe [facility] HospitalComment on above:Performed By: #### CMP, TSH, LIPID #### [facility] [address] [place] [address] Dr. Chloe Jesus [Catalytic activity/Vol]54 U/XEfawkr87-363Aej [facility] HospitalComment on above:Performed By: #### CMP, TSH, LIPID #### [facility] [address] [place] [address] Dr. Chloe Sánchez [Catalytic activity/Vol]20 U/HIdxfkk34-13Ujf [facility] HospitalComment on above:Performed By: #### CMP, TSH, LIPID #### [facility] [address] [place] [address] Dr. Chloe Zapata gap [Moles/Vol]9.9 mmol/LNormalThe [facility] HospitalComment on above:Performed By: #### CMP, TSH, LIPID #### [facility] [address] [address] [address] Chloe WellsAST [Catalytic activity/Vol]14 U/LCritically gqe06-39Rlz [facility] HospitalComment on above:Performed By: #### CMP, TSH, LIPID #### [facility] [address] [address] [address] Chloe WellsBilirubin [Mass/Vol]0.6 mg/dLNormal0.2-1.0The [facility] Comment on above:Performed By: #### CMP, TSH, LIPID #### [facility] [address] [address] [address] Chloe WellsCalcium [Mass/Vol]8.5 mg/dLNormal8.5-10.1The [facility] Comment on above:Performed By: #### CMP, TSH, LIPID #### [facility] [address] [address] [address] Chloe WellsChloride [Moles/Vol]104 mmol/CEaxals81-804Ypq [facility] Comment on above:Performed By: #### CMP, TSH, LIPID #### [facility] [address] [address] [address] Chloe WellsCO2 [Moles/Vol]27.3 mmol/TVmhngh87.0-32.0The [facility] Comment on above:Performed By: #### CMP, TSH, LIPID #### [facility] [address] [address] [address] Chloe WellsCreatinine [Mass/Vol]0.74 mg/dLNormal0.55-1.02The [facility] HospitalComment on above:Performed By: #### CMP, TSH, LIPID #### [facility] [address] [address] [address] Chloe AndersonGFR-AF KUWAITI>60Normal>=60The [facility] HospitalComment on above:Performed By: #### CMP, TSH, LIPID #### [facility] [address] [address] [address] Chloe AndersonGFR-NON AF [place]UWAITI>60Normal>=60The [facility] HospitalComment on above:Performed By: #### CMP, TSH, LIPID #### [facility] [address] [address] [address] Chloe WellsGlobulin (S) [Mass/Vol]2.9 g/dLNormMercy Health Kings Mills HospitalComment on above:Performed By: #### CMP, TSH, LIPID #### [facility] [address] [address] [address] Chloe WellsGlucose [Mass/Vol]110 mg/dLCritically llnn23-126Kky [facility] HospitalComment on above:Performed By: #### CMP, TSH, LIPID #### [facility] [address] [place] [address] Dr. Chloe WellsPotassium [Moles/Vol]4.2 mmol/LNormal3.5-5.1The [facility] Comment on above:Performed By: #### CMP, TSH, LIPID #### [facility] [address] [place] [address] Dr. Chloe WellsProtein [Mass/Vol]6.7 g/dLNormal6.4-8.2[facility] Comment on above:Performed By: #### CMP, TSH, LIPID #### [facility] [address] [place] [address] Dr. Chloe WellsSodium [Moles/Vol]137 mmol/ADuyyfu600-042Bbf [facility] Comment on above:Performed By: #### CMP, TSH, LIPID #### [facility] [address] [place] [address] Dr. Chloe WellsUrea nitrogen [Mass/Vol]18.0 mg/dLNormal7.0-18.0The [facility] HospitalComment on above:Performed By: #### CMP, TSH, LIPID #### [facility] [address] [place] [address] Dr. Chloe WellsUrea nitrogen/Creatinine [Mass ratio]24.3 mg/mgNoProMedica Fostoria Community HospitalComment on above:Performed By: #### CMP, TSH, LIPID #### [facility] [address] [place] [address] Dr. Chloe Morrissey 33-15-3196WYX5.733 uIU/mLNormal0.358-3.740The [facility] HospitalComment on above:Performed By: #### CMP, TSH, LIPID #### [facility] [address] [place], [place] [address] Dr. Chloe WellsSURGICAL PATH REPORTon [id number] PATH [facility] Department of Pathology [address] [place] [id number] Name: FAMTATA ROSE : 1975 [facility] [id number] Number: Gender: Female Location: [facility] Admit 45 years Attending [place] SW[place] Age: Provider: Ordering MICHAEL HERNÁNDEZ Provider: Consulting: Surgical Pathology Report ACCESSION: COLLECTED DATE/TIME: RECEIVED DATE/TIME: PATHOLOGIST: [id number] 07/26/2020 11:13 EDT 07/26/2020 14:42 EDT KENDELL COLON, BRANT WEBER Final Diagnosis Report for [place], [place] LEFT BREAST, UPPER OUTER QUADRANT, MICROCALCIFICATIONS, [...] upper outer quad microcalcifications / outpatient services Print Date/ 07/31/2020 14:04 EDT Number: Time: [facility] Department of Pathology [address] [place] [id number] Name: FATMATA ROSE : 1975 [facility] [id number] Number: Gender: Female Location: [facility] Admit 45 years Attending [place] Age: Provider: Ordering MICHAEL HERNÁNDEZ Provider: Consulting: Surgical Pathology Report ACCESSION: COLLECTED DATE/TIME: RECEIVED DATE/TIME: PATHOLOGIST: [id number] 07/26/2020 11:13 EDT 07/26/2020 14:42 EDT KENDELL [...] MP:saul 07/26/2020 Tissue pathology report for: [facility], [address] [place] [address]; PATHOLOGY SERVICES PROVIDED BY [facility] (CLIA #[id number]) in cooperation with at [address] [place], [place] [address] (CLIA #[id number]) Codes CPT CODE: 07411 Print Date07/31/2020 14:04 EDT Number: Time: Medical CenterComment on above:Performed By: #### [id number] #### [facility] Services [address] [place] [address] Treasury Specialist: Jim Treadwell MDOPERATIVE REPORTon [id number] REPORT[address] [id number] OPERATIVE REPORT PATIENT NAME: FATMATA ROSE : 1975 MED REC NO: [id number] ROOM: ACCOUNT NO: [id number] ADMIT DATE: 12/09/2018 PROVIDER: Darion Hand DATE [...] Needle and sponge counts correct. DARION HAND JERMAINE/Tracey_MARYELLENNK_01 Doc#: [id number] CC:[facility] Hospitalurgical Pathologyon [id number] Pathology(NOTE) [id number] [facility] ANATOMIC PATHOLOGY [address] [place] [phone] SURGICAL PATHOLOGY CONSULTATION Patient Name: FATMATA ROSE [facility] Rec: [id number] Path Number: [id number] Collected: 12/09/2018 Received: 12/09/2018 Reported: 12/10/2018 13:49 -- Diagnosis -- FOREHEAD, SUBGALEAL MASS, EXCISION: - BENIGN LIPOMA. Nino Guzman, Electronically Signed Out sls/12/10/2018 Clinical Information Pre-op Diagnosis: MASS FOREHEAD Operative Findings: FOREHEAD SUBGALEAL MASS Operation Performed: HEAD LESION EXCISION MASS FOREHEAD Source of Specimen 1: FOREHEAD SUBGALEAL MASS Gross Description FATMATA ROSE, MASS FOREHEAD Two fibrofatty fragments 1.3 x 0.5 x 0.3 cm. and 1.3 x 0.8 x 0.4 cm. Intact. 1cs dw Microscopic Description The specimen consists of benign, mature adipose tissue with a component of fibrous tissue around its periphery, consistent with a benign lipoma.City HospitalComment on above:Performed By: #### PPPVDP #### [facility] [address] [place] [address] Orthotic Practitioner: Chris Michaels MD Vital Signs Date TimeVital SignValuePerforming MvmwwlxivSwlsvaev93-86-6369 15:17-0400Body qidekk126.1 cmBenjamin Ball DO Work Phone: [facility]08-20-2025 15:17-0400 Body mass index (BMI) [Ratio]28.8 kg/b2Rcdsuody Ball DO Work Phone: [facility]08-20-2025 15:17-0400 Body .58 kgBenjamin Ball DO Work Phone: [facility]08-20-2025 15:17-0400 Diastolic blood fpylqqvh63 mm[Hg]Vicente Ball DO Work Phone: [facility]08-20-2025 15:17-0400 Heart rate98 /minBenjamin Ball DO Work Phone: [facility]08-20-2025 15:17-0400 Respiratory rate12 /minBenjamin Ball DO Work Phone: [facility]08-20-2025 15:17-0400 Systolic blood kytokyfl942 mm[Hg]Vicente Ball DO Work Phone: [facility]06-02-2025 10:48-0400 Body mass index (BMI) [Ratio]30.29 kg/y1Lfmdm Gray DO Work Phone: [facility]Wtnzxojqbv00-48-0674 10:48-0400Body ljqlit11.56 kgCorey Gray DO Work Phone: [facility] HospitalPdhgpxebbw00-20-8669 10:48-0400Diastolic blood awmjgrav90 mm[Hg]Lucius Gray DO Work Phone: [facility] HospitalNgswkznleb67-73-2701 10:48-0400Systolic blood jilkgjmk235 mm[Hg]Lucius Gray DO Work Phone: [facility] HospitalWrubdwdrvf15-62-9750 09:17-0400Body mass index (BMI) [Ratio]30.49 kg/m2Zayda Rausch PA Work Phone: [facility] HospitalCugxnpczki07-61-7944 09:17-0400Body .12 kgZayda IVORY Work Phone: [facility] HospitalSogwnfmxle21-83-5609 09:17-0400Diastolic blood juurarzi44 mm[Hg]Zayda IVORY Work Phone: [place] [address]Sotyfpufzj11-09-5715 09:17-0400Systolic blood tjjadqqo061 mm[Hg]Zayda IVORY Work Phone: [facility] HospitalNfwlxqkrza44-36-6481 14:21-0500Body .1 cmOhiohealth11-15-2024 14:21-0500Body mass index (BMI) [Ratio]29.6 kg/a9UkqjjogrrOhiohealth11-15-2024 14:21-0500Body czputl21.73 kgOhiohealth11-15-2024 14:21-0500Diastolic blood cskgadlv24 mm[Hg][facility]11-15-2024 14:21-0500 Heart agrx083 /[facility]11-15-2024 14:21-0500Systolic blood wkzdobyz223 mm[Hg][facility]07-23-2024 15:18-0400 Body vcgpdo264.1 cmOhiohealth07-23-2024 15:18-0400Body mass index (BMI) [Ratio]29.1 kg/q1FmkdvvumcOhiohealth07-23-2024 15:18-0400Body ktupgl34.49 kgOhiohealth07-23-2024 15:18-0400Diastolic blood rzhutiki33 mm[Hg][facility] 10-28-2023 15:18-0400Heart rate78 /[facility] 10-28-2023 15:18-0400Respiratory rate12 /[facility] 10-28-2023 15:18-0400Systolic blood hkvpoerx979 mm[Hg][facility]11-07-2023 14:18-0500Blood Pressure LocationMichael NILL [facility]11-07-2023 14:18-0500Diastolic blood aoyihjud02 mm[Hg]Claudy NILL [facility] Tnvzopvl34-41-3360 14:18-0500Heart rate 70 /minMichael NILL [facility]11-07-2023 14:18-0500 Respiratory rate16 /minMichael NILL [facility]11-07-2023 14:18-0500Systolic blood btnludnh303 mm[Hg]Claudy NILL [facility]10-10-2023 14:30-0400Body ynwows926.1 cmBenjamin Ball Other [employer] [facility] Other 10-10-2023 14:30-0400Body mass index (BMI) [Ratio] 29.88 kg/s9Gnbdwxgg Ball Other [employer] [facility] Other 10-10-2023 14:30-0400Body qyitpb01.47 kgBenjamin Ball Other [employer] Other 10-10-2023 14:30-0400Diastolic blood odlafxam33 mm[Hg] Vicente Ball Other [employer] Other 10-10-2023 14:30-0400Respiratory rate12 /minBenjamin Ball Other [employer] Other 10-10-2023 14:30-0400Systolic blood jpoxuqkp565 mm[Hg] Vicente Ball Other [employer] [facility] Other 03-23-2022 14:00-0400Body fxhkvu758.1 cmCharbor beach community hospitaldemetria Banda Other [employer] Other 03-23-2022 14:00-0400Body mass index (BMI) [Ratio] 26.62 kg/i6Tpcsnqvrobyn Banda Other [employer] Other 03-23-2022 14:00-0400Body qslizt36.58 kgCorobyn Banda Other [employer] Other 09-04-2019 08:41-0400Body Erzbtikeyzd81.3 [degF]Darion HandKettering Health [facility], EM74-57-8966 08:41-0400BP Mczcewysw66 mm[Hg]Darion Hand [facility], EN21-87-5990 08:41-0400BP Mhvcryeh834 mm[Hg]Darion [facility], SQ50-53-9156 08:41-0400Pulse (Heart Rate)72 /minCarl [facility], WH11-66-0205 08:41-0400Pulse Txuoejnh13 %Darion [facility], FD70-03-7044 08:41-0400Respiratory Rate14 /minCarl [facility], CL87-52-8312 06:14-0400BMI (Body Mass Index)30.35 kg/m2Carl [facility], JO69-48-4108 06:14-0400Body rzdppy47.72 kgCarl [facility], [place] 12-09-2018 06:145001Juncsu127.1 cmCarMetroHealth [facility], [place] Encounters Encounter DateEncounter TypeCare ProviderFacilityStart: 01-26-2025 End: 23-34-1534lxobnlycuiHBO RAMEYNot AvailableStart: 11-24-2024 End: 22-05-0571tvjmmibkbtWekbstig Ball DO Work Phone: [facility] [place] [facility] Work Phone: Start: 11-24-2024 End: 75-96-2176Mxdqdve encounter procedureBenadolfo Ball DO-[facility] Work Phone: Start: 11-03-2024 End: 28-95-1888Tyshfxonn Result EncounterZayda IVORY Work Phone: noms External Department UnsolicitedStart: 11-03-2024 End: 03-99-1090Fcpnuxzjm Result EncounterZayda IVORY Work Phone: noms External Department UnsolicitedStart: 11-03-2024 Non-patient / Non-visitBenkayleymin Ball DO-[facility] [place] Work Phone: Start: 09-06-2024 End: 93-17-9766Caueqcv encounter procedureCorey Gray DO Work Phone: noMS BCP OBComment on above:Encounter for IUD removal Start: 09-06-2024 End: 70-06-6765vhonmfrwvjTBZJR FAZIONot AvailableStart: 07-21-2024 End: 92-84-0257Kcqsefpiw Result EncounterZayda IVORY Work Phone: noMS External Department UnsolicitedStart: 07-21-2024 End: 90-86-9254Hlivgnpts Result EncounterAmy Brittany IVORY Work Phone: noMS External Department UnsolicitedStart: 07-20-2024 End: 18-96-2902Gajdgz flowsheetZayda IVORY Work Phone: NOMS BCP OBStart: 07-20-2024 End: 73-17-8272Svdhzo flowsheetZayda IVORY Work Phone: noms BCP OBStart: 07-20-2024 End: 33-55-6794Wdesnbtzn Result EncounterZayda IVORY Work Phone: noMS External Department UnsolicitedStart: 07-20-2024 End: 81-37-2589Bjxurhf encounter procedureZayda IVORY Work Phone: noMS HealthcareStart: 07-20-2024 End: 88-20-8878Cxqculux preventive med est patient 40-64yrsAmy Brittany IVORY Work Phone: noms BCP OBComment on above:Well woman exam with routine gynecological exam; Encounter for screening mammogram for malignant neoplasm of breast; Hormone disorder; Stress incontinence; Generalized body achesStart: 07-20-2024 End: 76-41-5458beagszveenAWE Germán AvailableStart: 48-60-2005Fzcecxo encounter statusLancaster Municipal Hospitaltart: 02-20-2024 End: 33-30-7700miyglgejyjLmxoaoogm [facility] Work Phone: Start: 02-20-2024 End: 60-08-1367Wgptkunll for general adult medical examination without abnormal findingsLancaster Municipal Hospitaltart: 02-20-2024 End: 06-78-2734Qmplwbm encounter procedureCritical Access Hospital Physician Group-[facility] Work Phone: Start: 10-28-2023 End: 69-26-4517dmaufjjfmdUisukroqwSamaritan [facility] Health Center Work Phone: Start: 10-28-2023 End: 55-72-6204Szhksad encounter procedureCritical Access Hospital Physician Group-[facility] Work Phone: Start: 08-61-4897Oiv-patient / Non-visitFirhospital corporation of america [facility]ician [facility] [employer] Work Phone: Start: 03-19-2023 End: 43-35-5220tuimsivvhiMxgqzsx R NILLFacility:CD:[id number]: 02-11-2023 End: 53-89-5679foekautldpGopmojt R NILLFacility: DorotheaevueStart: 02-11-2023 End: 55-17-4851Vpupaju encounter procedureMichael R NILL General Surgery Nill/Said Steven Start: 02-05-2023 End: 55-88-7311yylasfcdsvYuklewkr Ball Other [employer] Other Start: 77-52-2603Bntvfcfpr encounterBenjamin BallZHANNAG Ball Medical ClinicStart: 01-17-2023 End: 39-08-8223shabnuejutZecxhcas Ball Other [employer] [facility] Other Start: 10-68-0962Wxrfzjmku encounterBenjamin BallFPG Ball Medical ClinicStart: 60-10-3605tmqcircmenAfcshcg NILLFacility:GS Steven Start: 01-14-2023 End: 14-72-6902paxqawnxtkHychkmvd Ball Other [employer] Other Start: 53-42-9940Wbebitfqb for general adult medical examination without abnormal findingsBenadolfo Baum Medical ClinicStart: 29-75-5290Yniozlpc preventive med est patient 40-64yrsBemaximino Baum [facility] ClinicStart: 07-11-2022 End: 95-32-6168rkrlhmtziiTQ BENJAMIN BALLFacility:I6Fanwo: 79-96-3903wiggsueogt DR LUZ YANESFacility:I7Npxgh: 16-25-5350Akeakjyhi for general adult medical examination without abnormal findingsDR VICENTE BAUMAvita Health Systemtart: 12-19-2021 End: 09-80-9241mkgjnhdlleRB BENJAMIN BALLFacility:D0Jfhlt: 12-19-2021 End: 95-50-1643Aghvtavja for general adult medical examination without abnormal findingsDR VICENTE BAUMFacility:X3Getyz: 10-18-2021 End: 64-85-8808tubofhuvipEZ DAVID V WESTFacility:Y7Cbaba: 08-10-2021 End: 73-15-8702qjhwutglirXB BENJAMIN BALLFacility:R3Dqlgy: 06-27-2021 End: 90-36-6834ujnlwdoptyYvrxzby [place] Other Leetonia Wayin Other Start: 99-44-7295Cbegzs outpatient new 30 minutes Harperdawit BandaZHANNAMicheline Cooper OrthopedicsStart: 12-09-2018 End: 46-54-4255Kxzzdxj encounter procedureCARL LAURENT HANDProtestant Hospitaltart: 12-09-2018 End: 40-65-0926Mmsqgsbmws hospital visit by physicianCarl Laurent Hand Work Phone: stvz [place] ORComment on above:Post-op pain (Primary Dx) Procedures DateProcedureProcedure DetailPerforming ClinicianStart: 70-65-1117CHK CMP (CMP) (FOR REMOTE FORMERLY [facility], [facility] USE)Zayda IVORY Work Phone: Start: 65-04-5398CNH Barry Castellano DO Work Phone: Start: 29-95-7966HHH HEMOGLOBIN A1CZayda Geigerdorota IVORY Work Phone: Start: 99-90-7366MCW,APTIMA HPV,AGE GDLNZayda Geigerdorota IVORY Work Phone: Start: 00-29-7548Ocyiardyhnf observation [Identifier] in Cervix by Cyto stainCorey Gray DO Work Phone: Start: 02-22-9676Pzihnptciyj observation [Identifier] in Cervix by Cyto stainZayda Gastonia PA Work Phone: Start: 70-99-0745GPPOEQCFA PATIENTCARL KESLERStart: 50-70-2911Foemu iv surg pathology gross&microscopic examCARL KESLERStart: 79-00-1085Ovmmjsnjvj pulse oximetryCARL KESLERStart: 01-79-9494ZOADFKNNAOX KESLERStart: 57-73-4405AHRQVVMGS DEEP BREATHING AND COUGHINGCARL KESLERStart: 62-03-2065UURUOUES OXYGEN THERAPY PROTOCOLCARL KESLERStart: 53-90-5615OZTZJD PHYSICIAN (SPECIFY)DARION KESLERStart: 72-18-4322HFAATFI COMMUNICATIONCARL FELICE Start: 10-73-9254OZEDA SIGNSCARL KESLERStart: 03-08-5328Vogs bld gluc mntr dev cleared fda spec home useCARL KESLERStart: 30-80-0464Sfgvq test visual color cmprsn methsCARL KESLERStart: 42-89-7804PUECP SIGNSCARL KESLERStart: 31-07-6229Idgxmlabjqwfcxgal with dilation of urethral strictureMichael NILL Cesarean sectionMichael NILL Ligation of fallopian tubeMichael NILL TonsillectomyMichael NILL Plan of Treatment DateCare ActivityDetailAuthorStart: 23-63-3580Jqlxdgwmv for malignant neoplasm of cervixNOMS HealthcareStart: 32-12-8716Euarxkror for malignant neoplasm of cervixNOMS HealthcareStart: 07-28-2025 End: 40-56-4801Wzqrtwb encounter procedureNOMS BCP OBStart: 43-67-5134Zrcxlnfwg vaccinationNOMS HealthcareStart: 07-20-2024 End: 17-48-7993X-peptideC-peptide Lab Routine Hormone disorder Expected: 07/20/2024, Expires: 07/20/2025NOMS HealthcareComment on above:Expected: 07/20/2024, Expires: 07/20/2025Start: 07-20-2024 End: 72-78-1884Itrchqfk freeCortisol, free Lab Routine Hormone disorder Expected: 07/20/2024, Expires: 07/20/2025NOOK HealthcareComment on above: Expected: 07/20/2024, Expires: 07/20/2025Start: 07-20-2024 End: 48-04-8345YUIT-sulfateDHEA-sulfate Lab Routine Hormone disorder Expected: 07/20/2024 (Approximate), Expires: 07/20/2025NOOK HealthcareComment on above: Expected: 07/20/2024 (Approximate), Expires: 07/20/2025Start: 07-20-2024 End: 64-60-7808QzacvshesDvfnohwmp Lab Routine Hormone disorder Expected: 07/20/2024 (Approximate), Expires: 07/20/2025NOOK HealthcareComment on above: Expected: 07/20/2024 (Approximate), Expires: 07/20/2025Start: 07-20-2024 End: 29-02-0707XnimvgcFmaqjiz Lab Routine Hormone disorder Expected: 07/20/2024 (Approximate), Expires: 07/20/2025NOOK HealthcareComment on above:Expected: 07/20/2024 (Approximate), Expires: 07/20/2025Start: 07-20-2024 End: 04-02-8891Nsrozdgl [Mass/volume] in Serum or PlasmaFerritin Lab Routine Hormone disorder Expected: 07/20/2024 (Approximate), Expires: 07/20/2025NOOK HealthcareComment on above:Expected: 07/20/2024 (Approximate), Expires: 07/20/2025Start: 07-20-2024 End: 68-02-6675Lpnexas [Mass/volume] in Serum or PlasmaGlucose, random Lab Routine Hormone disorder Expected: 07/20/2024, Expires: 07/20/2025NOMS HealthcareComment on above:Expected: 07/20/2024, Expires: 07/20/2025Start: 07-20-2024 End: 70-20-0751Fgvqyvoybf A1c/Hemoglobin.total in BloodHemoglobin A1c Lab Routine Hormone disorder Expected: 07/20/2024 (Approximate), Expires: 07/20/2025 NOMS HealthcareComment on above:Expected: 07/20/2024 (Approximate), Expires: 07/20/2025Start: 07-20-2024 End: 06-06-6666Vbmnoxn, totalInsulin, total Lab Routine Hormone disorder Expected: 07/20/2024, Expires: 07/20/2025NOMS HealthcareComment on above: Expected: 07/20/2024, Expires: 07/20/2025Start: 07-20-2024 End: 29-92-9380YG Breast - bilateral ScreeningBilateral screening mammogram Imaging Routine Encounter for screening mammogram for malignant neoplasm of breast Expected: 07/20/2024 (Approximate), Expires: 09/19/2025[facility] Work Phone: comment on above:Expected: 07/20/2024 (Approximate), Expires: 09/19/2025Start: 07-20-2024 End: 17-44-7632RbeysvprnjisWmjpzgmrlhns Lab Routine Hormone disorder Expected: 07/20/2024 (Approximate), Expires: 07/20/2025NOOK HealthcareComment on above: Expected: 07/20/2024 (Approximate), Expires: 07/20/2025Start: 07-20-2024 End: 83-26-6215Rtyxbkqrz serumSerotonin serum Lab Routine Hormone disorder Expected: 07/20/2024, Expires: 07/20/2025NOOK HealthcareComment on above: Expected: 07/20/2024, Expires: 07/20/2025Start: 07-20-2024 End: 90-62-6240Axv hormone binding globulinSex hormone binding globulin Lab Routine Hormone disorder Expected: 07/20/2024 (Approximate), Expires: 07/20/2025 NOMS HealthcareComment on above:Expected: 07/20/2024 (Approximate), Expires: 07/20/2025Start: 07-20-2024 End: 71-18-0518K4, reverseT3, reverse Lab Routine Hormone disorder Expected: 07/20/2024 (Approximate), Expires: 07/20/2025[facility] HealthcareComment on above: Expected: 07/20/2024 (Approximate), Expires: 07/20/2025Start: 07-20-2024 End: 30-78-5725OCNFDWEIUWNI, FREETESTOSTERONE, FREE Lab Routine Hormone disorder Expected: 07/20/2024 (Approximate), Expires: 07/20/2025[facility] HealthcareComment on above:Expected: 07/20/2024 (Approximate), Expires: 07/20/2025Start: 07-20-2024 End: 39-22-1600Rlhtxytdjmfk, free, totalTestosterone, free, total Lab Routine Hormone disorder Expected: 07/20/2024 (Approximate), Expires:07/20/2025[facility] HealthcareComment on above:Expected: 07/20/2024 (Approximate), Expires: 07/20/2025Start: 07-20-2024 End: 83-15-5635SmswzbbsuoochLaxyhteeuenrs Lab Routine Hormone disorder Expected: 07/20/2024, Expires: 07/20/2025[facility] HealthcareComment on above:Expected: 07/20/2024, Expires: 07/20/2025Start: 07-20-2024 End: 33-89-9328Cxokzgtgzisth AntibodyThyroglobulin Antibody Lab Routine Hormone disorder Expected: 07/20/2024, Expires: 07/20/2025NOOK HealthcareComment on above:Expected: 07/20/2024, Expires: 07/20/2025Start: 07-20-2024 End: 68-25-9305Masgjhz peroxidase antibodyThyroid peroxidase antibody Lab Routine Hormone disorder Expected: 07/20/2024 (Approximate), Expires: 07/20/2025 [facility]S HealthcareComment on above:Expected: 07/20/2024 (Approximate), Expires: 07/20/2025Start: 07-20-2024 End: 92-44-0226Odzqbhuuoqr [Units/volume] in Serum or PlasmaNOMS Healthcare Comment on above:Expected: 07/20/2024 (Approximate), Expires: 07/20/2025 Expected: 07/20/2024, Expires: 07/20/2025Start: 07-20-2024 End: 38-13-9584Ogdqvigea (T4) free [Mass/volume] in Serum or PlasmaT4, free Lab Routine Hormone disorder Expected: 07/20/2024 (Approximate), Expires: 07/20/2025 NOMS HealthcareComment on above:Expected: 07/20/2024 (Approximate), Expires: 07/20/2025Start: 07-20-2024 End: 63-44-1447Znzrysiibkskvqzw (T3) Free [Mass/volume] in Serum or PlasmaT3, free Lab Routine Hormone disorder Expected: 07/20/2024 (Approximate), Expires: 07/20/2025NOMS HealthcareComment on above:Expected: 07/20/2024 (Approximate), Expires: 07/20/2025Start: 07-20-2024 End: 12-31-0441Gjopqxg D 1,25 dihydroxyVitamin D 1,25 dihydroxy Lab Routine Hormone disorder Expected: 07/20/2024 (Approximate), Expires: 07/20/2025NOMS HealthcareComment on above:Expected: 07/20/2024 (Approximate), Expires: 07/20/2025Start: 07-20-2024 End: 21-76-5358Vcnpfbj encounter /15/2025 9:00 AM EDT Office Visit [facility] [address] [facility] [place] [place] [id number] Zayda Rausch PA [address] [place] [address] ArrivedNOMS BCP OBComment on above:ArrivedStart: 12-16-2018 End: 25-42-2719Cusqcn Visit12/16/2018 Office Visit Plastic Surgery Darion Hand MD [address] [place] [address] [phone] [facility] IncStart: 51-89-5070Kblvrngqk vaccinationFlu vaccine (#1)[facility], [place]Start: 94-80-4331Zealmdzk screenDiabetes screen [facility], [place]Start: 08-45-1514Hcvwp screenLipid screenK[facility], [place]Start: 06-40-4541Ttfeaakos for malignant neoplasm of breastMammogramNOMS HealthcareStart: 85-73-9663Yzwyfumk cancer screenCervical cancer screenK[facility], MIStart: 12-46-1616AAkQ/Tdap/Td vaccine (1 - Tdap)DTaP/Tdap/Td vaccine (1 - Tdap)[facility], [place]Start: 41-53-4295TBU screenHIV screenK[facility], KYStart: 62-98-3109Pnagbppxm for malignant neoplasm of colonNOMS Healthcare End: 57-44-6186Avttj glucose - POCTBlood glucose - POCT Point of Care Testing Routine One Time for 1 Occurrences starting 12/09/2018 until 12/09/2018[facility]rement on above:One Time for 1 Occurrences starting 12/09/2018 until 12/09/2018Comprehensive metabolic 2000 panel - Serum or PlasmaOhiohealthInitiate Oxygen Therapy ProtocolInitiate Oxygen Therapy Protocol Respiratory Care Routine Daily until discontinued starting 12/09/2018 [facility] on above:Daily until discontinued starting 12/09/2018MG Breast - bilateral ScreeningOhiohealthPhase I & II - metered glucosePhase I & II - metered glucose Point of Care Testing Routine As Needed until discontinued starting 12/09/2018[facility]bleJUVENAL Comment on above:As Needed until discontinued starting 12/09/2018 End: 63-96-8898Yfniribjr, urine POCTPregnancy, urine POCT Point of Care Testing Routine One Time for 1 Occurrences starting 12/09/2018 until 12/09/2018[facility], [place]Comment on above:One Time for 1 Occurrences starting 12/09/2018 until 12/09/2018Surgical PathologySurgical Pathology Lab Routine ONE TIME for 1 Occurrences starting 12/09/2018[facility], KYComment on above:ONE TIME for 1 Occurrences starting 12/09/2018THIN PREP TIS PAP AND HR HPV DNATHIN PREP TIS PAP AND HR HPV DNA Pathology and Cytology Routine Well woman exam with routine gynecological exam Ordered: 07/20/2024Christian HospitalComment on above:Ordered: 07/20/2024[facility] Immunizations Immunization DateImmunizationNotesCare OtyicyrxAkpovwnv94-92-0530qhbnjjmyq virus vaccine, unspecified formulationAmy Brittany IVORY Work Phone: NOGeneral [facility] Army [facility] HospitalVtpgaeznxf24-02-7804ypxzcsbjm virus vaccine, unspecified formulationMichael NILL General Surgery Bwfbxfib50-41-3826HNRG-UlY-4 (COVID-19) mRNA-1273 vaccineMichael NILL General Surgery Hyzyhmsb48-02-8387ITPF-MqJ-6 (COVID-19) mRNA-1273 vaccineMichael NILL General Surgery Zfuiavuf25-90-8033XFEB-JbE-0 (COVID-19) mRNA-1273 vaccineMichael NILL General Surgery Steven Payers DatePayer CategoryPayerPolicy [id number] [id number] [id number] 2..2.114362.92511431-46-4577QndgsgrGVXGWHE [facility] [address] xxxxxxxxx 2018-Present [phone] [address] [place] [address]uhkrkixvo [id number] [id number] 2..1.273140.3.57[id number] 2..1.066855.3.579.[id number] 2..1.737376.3.579.2.65316-98-3025Kevqgbx1397994 2..1.575947.3.579.2.38325-47-3920Skcorsa7500614 2..1.054731.3.57[id number] 2..1.472064.3.579.[id number] 2.0.1.273847.3.579.2.[id number] 2.0.1.814303.3.579.2.[id number] 2.0.1.913656.3.579.2.091861-86-5004Klwyukm0702184 2..1.143163.3.579.2.[id number] 2.0.1.304063.3.579.2.455481-03-3893Pmot-[id number] Social History DateTypeDetailFacilityStart: 12-09-2018 End: 51-15-8126Acehvpn smoking status NHISNever smokerGeneral Surgery Steven Start: 18-57-0614Ezyocpi intakeYeCleveland Clinic Medina Hospital CenterStart: 12-01-2018 Alcohol Commentweekend useKettering Health [facility], KYStart: 49-52-7342Uif Assigned At BirthNot on [facility], MITobagriffin memorial hospital [facility] smoking statusNeverGeneral Surgery BellEast Liverpool City Hospitaltart: 33-40-4600Iuu Assigned At BirthFeRegency Hospital Cleveland WestTobagriffin memorial hospital [facility] smoking status NHISUnknown if ever smokedVALLEY VIEW MED[facility]ENTER HealthcareStart: 07-31-4919DrfHxjrko (finding)[facility] Functional Status ErwwVxbserucmfMckpznOjwqaqxt72-53-1299Sbsymyelvx StatusN/AGeneral Surgery [place] Clinical Notes 06-27-2021 to 09-06-2024 Note Date & IlqyTavhUmthjcmp01-32-1945 History of Present illness Narrative* Haylee Morales LPN - 09/06/2024 10:30 AM EDTAssociated Order(s): IUD Removal Post-Procedure Diagnose(s): Encounter for IUD removal Reason for Appointment: Patient ID: Fatmata Rose is a 49 y.o. female who [...] nursing note reviewed. Exam conducted with a spot welder line present. Vitals: Estimated body mass index is [...] to the patient then properly discarded. Discussed [facility] and recommendations. Prescriptions were previously signed and sent to [facility] on 08/20/24 and will be reprinted and sent today after provider signing. Will request that [facility] reach out to patient when medication is ready for pickup or delivery. Will also order follow up labs that are to be done 45 days after starting medication. Follow Up: Patient is to return to the office for annual exam unless needed otherwise. Documented by Haylee Morales LPN on behalf of: Lucius Castellano DO documented in this encounterChristian HospitalCkrxjkbzbt18-39-1316 History of Present illness Narrative* DIANELYS Bravo - 07/20/2024 9:00 AM EDT Reason for Appointment: Patient ID: Fatmata Rose is a 49 y.o. female who presents for [facility] Women Visit Patient presents today for Annual [...] nursing note reviewed. Exam conducted with a spot welder line present. Vitals: Estimated body mass index is [...] well and has complaints possible hormonal changes/body aches/fatigue/insomnia/increased cholesterol levels/incontinence. Patienthas done some research in regards to her symptoms & brought [employer] packet to office to discuss. Pap was obtained without difficulty and patient given mammogram order to have schedule d/obtained. Discussed patients current symptoms and once [employer] Packet is returned to office and all lab results obtained then packet and labs will be sent to [employer]. Patient also desires to start GLP therapy and prescription will be sent to [employer] as well. Discussed vaginal estrogen if needed in the future and patient will see if symptoms improve with current plan of care. Discussed compounded Semaglutide with Methyl B12 and Niacinamide added for better absorption. Patient prefers to have Methyl B12 and Niacinamide added to Semaglutide by injection for better absorption. Prescription will be sent to [facility] to be compounded and dispensed to patient. Patient is aware that she will need to have follow up labs drawn every 3 months in order to be compliantwith medication therapy. Discussed IUD removal as patient has had Mirena in for at least 7-8 years. Orders Placed This Encounter Procedures Bilateral screening mammogram Follow Up: Patient is to return in one year for annual unless needed otherwise. Documented by Haylee Morales LPN on behalf of: DIANELYS Bravo documented in this encounterChristian HospitalFuvkecdcvq51-65-6171 NoteChief Complaint consultation for screening colonoscopy HPI Staff [...] swallowing difficulties, no hearing loss, no ear infection(s),no nose bleeds. Cardiovascular: normal blood pressure, no [...] 05/10/2020 Recorded SARS-CoV-2 (COVID-19) mRNA-1273 vaccine 04/11/2020 RecordedSt. Francis HospitalComment on above:Result Comment: Electronically Signed By: LEONOR COLON, Claudy Mireles\Date and Time Signed: 02/11/23 14:43 [id number] Evaluation note * Encounter Date Diagnosis Assessment Notes Treatment Notes Treatment Clinical Notes Feb, Seasonal affective disorder (ICD -10 - F33.8) [employer] Other 10-10-2023 Evaluation note* Encounter Date Diagnosis Assessment Notes Treatment Notes Treatment Clinical Notes Jan, Wellness examination (ICD-10 - Z 00.00) Healthy diet and exercise. Reviewed age-appropriate preventive testing recommended. Jan,Seasonal affective disorder (ICD-10 - F33.8)Healthy diet, exercise and keep active. Initiate Fluoxetine (preferred to avoid weight gain w/ SSRI) Jan,Overweight (ICD-10 - E66.3)This patient has been instructed on a low-fat, high-fiber diet. They are instructed to reduce calories, portion sizes and snacks. It is recommended that they exercise for 30 minutes, 3-5 times weekly. Jan,Screening mammogram for breast cancer (ICD-10 - Z12.31)Instructed patient on monthly SBE and yearly mammograms. Jan,Screening for colon cancer (ICD-10 - Z12.11)Due for screening colonoscopy. Refer to General Surgery to schedule exam. She is an asymptomatic, low risk patient [facility] ROKT Other 03-23-2022 Evaluation note* Encounter Date Diagnosis Assessment Notes Treatment Notes Treatment Clinical Notes Jun, Lateral epicondylitis, left elbo w (ICD-10 - M77.12) Options discussed with patient [...] on the use of topical Voltaren Gel Jun,Left elbow pain (ICD-10 - M25.522) [place]et[place] Wayin Other Evaluation + Plan note No data available for this section General Surgery Steven Evaluation noteNo InformationNortBryn Mawr Hospital ROKT Other Evaluation note* Diagnosis Onset Date Resolution Status Insomnia acuteOverweightacuteSeasonal affective disorderacute [facility] Work Phone: Evaluation note* Diagnosis Onset Date Resolution Status Admit Date Wellness examination acuteNovember 2023 2:07pm [facility] Work Phone: Evaluation note* Diagnosis Well woman exam with routine gynecological exam Routine gynecological examination Encounter for screening mammogram for malignant neoplasm of breast Hormone disorder Unspecified endocrine disorder Stress incontinence Female stress incontinence Generalized body aches documented in this encounter [facility] HealthcareEvaluation note* Diagnosis Encounter for IUD removal documented in this encounter [facility] HealthcareEvaluation note* Diagnosis Onset Date Resolution Status Admit Date MARY (generalized anxiety disorder) acuteAugust 2024 3:13pmInsomniaacuteAugust 2024 3:13pmOverweight acuteAugust 2024 3:13pm [facility] Work Phone: History general Narrative - Reported* Type Description Date Medical History Seasonal Affective Disorder Surgical Historyc-section x 2Surgical HistorytonsilectomySurgical Historytubal ligationHospitalization Historysee surgeries [facility]OKT Other Hospital Discharge instructions No data available for this section General Surgery [place] Progress note No data available for this section General Surgery [place] Reason for referral (narrative)* Reason Referral for screeni ng colonoscopy Diagnosis 1 Screening for colon cancer (Z12.11) Referral Organization [facility] Amelia abrams Referring Provider First Name Vicente Referring Provider Last Name Kami Referring Provider Specialty Internal Me dicine Referred Organization [facility] Referred Provider Claudy Schmitz Referred Address [address],[place], [place],[address] Referred Provider Specialty Surgery Referral Priority Routine General Notes Asymptomatic, low ri sk patient. She denies change in appetite, weight or bowel habits. She denies heartburn or dysphagia. She denies abdominal pain, melena or hematochezia. [employer] Other Reason for referral (narrative)No reason for referral information availableSouthern [facility] Center Work Phone: Discharge Instructions * Instructions* Brittney Batista RN [...] AM EDT CLINICAL PHARMACY NOTE: MEDS TO BEDS [facility] Select Patient?: No Total # of Prescriptions Filled: 2 The following medications were delivered to the patient: cephalexin norco Total # of Interventions Completed: 1 Time Spent (min): 0 Additional Documentation: * Clinton Garcia RN - 12/09/2018 6:34 AM EDT Urine test results-negative * Ranjit Zendejas RN - 12/01/2018 1:26 PM EDT DAY OF SURGERY/PROCEDURE GUIDELINES As a patient at the [facility], you can expect quality medical and nursing care that is centered on your individual needs. It is our goal to make your surgical experience as comfortable and excellent as possible. Please arrive at 0600 with an empty stomach. No jewelry or piercings on. Must have a sulky driver home and in the waiting room. [...] morning of your surgery/procedure (Hibiclens if directed) [place] your teeth, but do not swallow any [...] your Living Will or Durable Power of Vegetable Trimmer DO NOT take anticoagulants (blood thinners, aspirin [...] are recovering, the surgery family waiting room wet pan operator can answer many of your family's [...] No Advanced Directives Records FoundDocuments on File TypeDate RecordedPatient RepresentativeExplanationAdvance Directives and Living WillPower of Vegetable Trimmer Advance Directive Response Recorded Date/ Time Advance Directives No October 27 2:50pm Advance Directive Response Recorded Date/ Time Advance Directives No October 27 1:50pm Summary Purpose Family History No Family History Records Found Relationship Condition Age at Onset Recorded Date/T mirna father Unknown Chief Complaint and Reason for Visit Chief Complaint Amb Documentation difficulty sleepingReason for VisitInsomnia Overweight Seasonal affective disorder Chief Complaint Admit Date Discuss Lab Results February 20, 2024 2:07pm Reason for Visit Admit Date Wellness examination February 20, 2024 2:07pm Chief Complaint Admit Date Trouble Sleeping/Stress November 24 3:13pm Reason for Visit Admit Date MARY (generalized anxiety disorder) Augus 2024 3:13pm Insomnia November 24, 2024 3: 13pm Overweight November 24, 2024 3: 13pm Additional Source Comments Reason for Visit (unrecogniz ed section and content) StatusReasonSpecialtyDiagnoses / ProceduresReferred By ContactReferred To Contact Diagnoses Localized swelling, mass and lump, unspecified MASS FOREHEAD Procedures GA EXCISION TUMOR SOFT TISS FACE/SCALP SUBQ 2+CM GA EXC SKIN MALIG 2.1-3CM FACE,FACIAL GA EXC SKIN BENIG 2.1-3CM FACE,FACIAL GA ADJ TISS XFER HEAD,FAC,HAND <10SQCM HEAD LESION EXCISION Darion Hand MD [address] [place] [address] [facility] ReasonCommentsWell Women VisitReasonCommentsContraception INFORMATION SOURCE (unrecogn ized section and content) DATE CREATED AUTHOR 12/15/2018 [facility] DATE CREATED AUTHOR AUTHOR'S ORGANIZ ATION 08/18/2020 DATE CREATED AUTHOR AUTHOR'S ORGANIZ ATION 07/20/2022 [facility] DATE CREATED AUTHOR AUTHOR'S ORGANIZ ATION 03/25/2023 [facility] DATE CREATED AUTHOR AUTHOR'S ORGANIZ ATION 01/27/2025 [facility] EPIC Patient Care team informatio n (unrecognized section and content) Team Status: Active Member Role Status Dates Vicente Baum , DO Primary Care Provider Active Team Status: Active Member Role Status Dates Vicente Baum , DO Primary Care Provider Active Start: November 03, 2024 Vicente Baum , Attending ProviderActiveStart: November 03, 2024 Team Status: Inactive Member Role Status Dates Vicente Baum , Primary Care Provider Active Start: November 24, 2024 End: November 24erinallen Baum , Attending ProviderActiveStart: November 24, 2024 End: November 24, 2024 Team Status: Inactive Member Role Status Dates Vicente Baum Primary Care Provide r, Attending Provider Active Start: February 20, 2024 End: February 20, 2024 Team Status: Active Member Role Status Dates Vicente Baum , Primary Care Provider Active Start: July 30, 2023 Radha Boone [place] ProviderActiveStart: July 30, 2023 Team Status: Inactive Member Role Status Dates Vicente Baum Primary Care Provide r, Attending Provider Active [...] BE BASED ON THE PRIMARY CLINICAL RECORDS. [facility]. provides no warranty or guarantee of the accuracy or completeness of information in this document.
[2025-02-28 08:56] LABS: Alanine Aminotransferase 24 U/L (14-59); Albumin Globulin Ratio 1.1; Albumin Level 3.5 g/dL (3.4-5.0); Alkaline Phosphatase 75 U/L (46-116); Anion Gap 11.7; Aspartate Amino Transferase 20 U/L (15-37); Blood Urea Nitrogen 13.0 mg/dL (7.0-18.0); Calcium 8.5 mg/dL (8.5-10.1); Carbon Dioxide 27.5 mmol/L (21.0-32.0); Chloride 104 mmol/L (98-107); Estimated GFR (African America >60 (>=60 mL/min/1.73m^2); Estimated GFR (Non-African Ame >60 (>=60 mL/min/1.73m^2); Globulin 3.1 g/dL; Glucose 108 mg/dL (74-106); Potassium 4.2 mmol/L (3.5-5.1); Sodium 139 mmol/L (136-145); Total Protein 6.6 g/dL (6.4-8.2)
== END 2025-02-28 07:56 | disposition home or self-care (01) ==
PROVIDERS: PCP Family Medicine; Visit Provider Physician Assistant
DX: Z79.899 Other long term (current) drug therapy (principal)
CPT/HCPCS: 36415; 80053

== ENCOUNTER 2025-03-18 06:49 | Outpatient (OUT) | payer BC, SELFPAY ==
--- OUTSIDE RECORDS SUMMARY | 2025-03-18 06:53 | XMS_ITS | Clinical Summary ---
Author Organization [facility] Address [address], [address] [place] [address] Care Team Providers Care Plow Shaker Name Role Phone Vicente Baum DO Primary Care Provider + [phone] Allergies Active AllergyReactionsCriticalityNoted DateCommentsNo Known Fydmtkjgc26/16/2008 Medications No known medications Active Problems No known active problems Social History Tobacco UseTypesPacks/DayYears UsedDateSmoking Tobacco: NeverSmokeless Tobacco: NeverAlcohol UseStandard Drinks/WeekCommentsYes2 (1 standard drink = 0.6 oz pure alcohol)weekend useCommentsNoSex and Gender InformationValueDate RecordedSex Assigned at BirthNot on fileLegal ZyeCejowy81/02/2019 9:39 AM EDT Gender IdentityNot on fileSexual OrientationNot on file Last Filed Vital Signs Vital SignReadingTime TakenCommentsBlood Ufxpymej075/7609 8:41 AM EDT Yeysd7620/04/2019 8:41 AM XIQDweywfbtjdz78.3 ??C (97.3 ??F)12/09/2018 8:41 AM EDTRespiratory Xlyz381112/16/2018 3:00 PM EDTOxygen Vhdppmlepz44%12/09/2018 8:41 AM EDTInhaled Oxygen Concentration--Nzfzbo34.6 kg (180 lb)12/16/2018 3:00 PM EDT evlosvIdhsny152.1 cm (5' 5 )12/16/2018 3:00 PM EDTstatedBody Mass Index29.95 12/16/2018 3:00 PM EDT Plan of Treatment Not on file Insurance * Guarantor: Gabriela Rose TypeRelation to PatientDate of BirthPhone Billing AddressPersonal/NmomamQgwu77/04/1976 (Home) [address] [place] [address] Care Teams Team MemberRelationshipSpecialtyStart DateEnd Date Vicente Baum DO PCP - GeneralInternal Medicine10/13/18
--- OUTSIDE RECORDS SUMMARY | 2025-03-18 06:53 | XMS_ITS | Clinical Summary ---
Author Organization [facility] Address [address] [place] [address] Care Team Providers Care Silver Steward Name Role Phone Unavailable Primary Care Provider Unavailabl e Allergies No known active allergies Medications MedicationSigDispense QuantityRefillsLast FilledStart DateEnd DateStatus FLUoxetine (PROzac) 20 MG capsule Take 40 mg by mouth DailyActive Encounters DateTypeDepartmentCare WlxaLdouqnesmbc73/24/2025linisync Result Encounter [facility] Unsolicited Zayda Soto PA 02/08/2025Telephone [facility] [address] [place] [address] [place] [address] Haylee Morales LPN 01/26/2025 9:00 AM EDTClinical [place] [address] Genetic testing of bkyooq3701/26/2025bstract [facility] [address] [place] [address] [place] [address] Lucius Castellano DO 01/25/2025Travelfrom Last 3 Months Family History Medical HistoryRelationNameCommentsBreast cancerSisterRelationNameStatusComments Sister Social History Tobacco UseTypesPacks/DayYears UsedDateSmoking Tobacco: Never Assessed CommentsNoSex and Gender InformationValueDate RecordedSex Assigned at BirthNot on fileLegal HexFxbrsl53/15/2023 6:51 PM EDTGender IdentityNot on fileSexual OrientationNot on file Last Filed Vital Signs Vital SignReadingTime TakenCommentsBlood Rqkihkpr413/7001/26/2025 9:09 AM EDT Pulse--Temperature--Respiratory Rate--Oxygen Saturation--Inhaled Oxygen Concentration--Vymrfb60.6 kg (166 lb 9.6 oz)01/26/2025 9:09 AM CCBJolpkf287.1 cm (5' 5 )07/15/2023 8:37 AM EDTBody Mass Index27.72007/15/2023 8:37 AM EDT Plan of Treatment DateTypeDepartmentCare Team (Latest Contact Info)Rsxubagspkw48/23/2026 8:30 AM EDTOffice Visit [facility] [address] [place] [address] Lucius Castellano DO [address] [place] [address] Procedures Procedure NamePriorityDate/TimeAssociated DiagnosisCommentsCCF CMP (CMP) (FOR REMOTE [facility] USE)Tuoomrg6102/28/2025 8:02 AM EST from Last 3 Months Results * (ABNORMAL) [facility] CMP (CMP) (FOR REMOTE [facility] USE) (02/28/2025 8:02 AM EST) ComponentValueRef RangeTest MethodAnalysis TimePerformed AtPathologist VgqtbrekhUONGBE747591 - 145 mmol/LTBHPOTASSIUM4.23.5 - 5.1 mmol/LTBHCHLORIDE 67902 - 107 mmol/LTBHCARBON CIXCCSJ06.521.0 - 32.0 mmol/LTBHANION GAP11.7TBH XJPILVZ286(H)74 - 106 mg/dLTBHBLOOD UREA GHVLDOIP84.07.0 - 18.0 mg/dLTBH CREATININE0.870.55 - 1.02 mg/dLTBHTBH EGFR-AF CHILEAN>60>=60 mL/min/1.73m 2 TBHTBH EGFR-NON AF CHILEAN>60>=60 mL/min/1.73m 2TBHBUN CREATININE RATIO14.9 TBHCALCIUM8.58.5 - 10.1 mg/dLTBHBILIRUBIN TOTAL0.30.2 - 1.0 mg/dLTBHASPARTATE AMINO EUXYAWYCBXF2763 - 37 U/LTBHALANINE WQGKTLXPXCHXDEPT8081 - 59 U/LTBH ALKALINE VBGXYKPLRNW0653 - 116 U/LTBHTOTAL PROTEIN6.66.4 - 8.2 g/dLTBHALBUMIN LEVEL3.53.4 - 5.0 g/dLTBHGLOBULIN3.1g/dLTBHALBUMIN GLOBULIN RATIO1.1TBH Specimen (Source)Anatomical Location / LateralityCollection Method / Volume Collection TimeReceived Time02/28/2025 8:02 AM EST02/28/2025 8:03 AM EST Narrative [facility] - 02/28/2025 8:59 AM EST Authorizing ProviderResult TypeResult StatusAmy Dallas PACLINISYNCFinal Result Performing OrganizationAddressCity/State/ZIP CodePhone Number [facility] from Last 3 Months Insurance
--- OUTSIDE RECORDS SUMMARY | 2025-03-18 06:53 | XMS_ITS | Patient Health Record ---
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
--- OUTSIDE RECORDS SUMMARY | 2025-03-18 06:53 | XMS_ITS | Clinical Summary ---
Author Organization [facility] Address [address] [place] [address] Care Team Providers Care Commercial Marketing Specialist Name Role Phone Unavailable Primary Care Provider Unavailabl e Source Comments The following information is NOT included in Care Everywhere downloads:Psychiatric notes, ECG results, Cardiac Rehab notes, Pulmonary Function notes, data from SmartForms (includes but not limited toPregnancy data,audiograms, eye exams, pre-surgical evaluation notes, well-child exam data).[facility] Allergies Active AllergyReactionsCriticalityNoted DateCommentsNo Known Drug Allergy 10/21/2007 Social History Tobacco UseTypesPacks/DayYears UsedDateSmoking Tobacco: Never Assessed CommentsNoSex and Gender InformationValueDate RecordedSex Assigned at BirthNot on fileLegal XwlCbmnnv58/04/2012 12:40 PM ESTGender IdentityNot on fileSexual OrientationNot on file Last Filed Vital Signs Vital SignReadingTime TakenCommentsBlood Pressure--Pulse--Hvoglfcusqh71.9 ??C (98.5 ??F)10/21/2007 4:00 PM EDTRespiratory Rate--Oxygen Saturation--Inhaled Oxygen Concentration--Ufvuxn66.8 kg (156 lb)10/21/2007 4:00 PM ZBLQpcggh880.1 cm (5' 5 )10/21/2007 4:00 PM EDTBody Mass Index25.9610/21/2007 4:00 PM EDT Plan of Treatment Health MaintenanceDue DateLast NuxeQnyklydeLhxqbuhipvr70/04/1977HIV Test 06/09/1991Hepatitis C Gczvnsjc87/04/1995Tdap Xshtbia9606/08/1994Hepatitis A (HAV) Vaccine (optional start 19+ years)06/09/1995Hepatitis B (HBV) Vaccine (1 of 3 - 19+ 3-dose series)06/09/1995Tetanus (Td or Tdap) Etkxafp3906/09/1995Pap Smear 06/08/19977649Iwkmeaylows78/04/2017CRC Tjdyzbawr82/04/7901Uhkbnufpszq09/04/2022 Cologuard (Stool DNA)2021FIT2COVID-19 Vaccine ( - 2024- season)2024Influenza Vaccine (#1)2024Shingles (RZV) Vaccine (1 of 2) 2026Pneumococcal Vaccine(s)Aged OutNo longer eligible based on patient's age to complete this topic
--- OUTSIDE RECORDS SUMMARY | 2025-03-18 06:53 | XMS_ITS | CCD ---
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 Name Role Phone Vicente Baum Primary Care Provider [phone] DARION HAND Admitting Unavailab DARION Jarvis Attending [...] Baum Unavailable VICENTE BAUM Primary Care Physician [phone] Claudy SCHMITZ Attending Unavailable VICENTE BAUM Referring Unavailable Claudy SCHMITZ Attending Unavailable Unavailable Primary Care Provider UnavailVicente Hamilton DO Primary Care Provider Vicente Baum DO Attending Provider ZAYDA RAUSCH Attending Unavailable LUCIUS CASTELLANO Attending Unavailable Allergies Allergy ClassificationReported Allergen(s)Allergy TypeDate of OnsetReaction(s) Facility (1 source)No Known Medication Allergies; Translations: [No Known Medication Allergies]Propensity to adverse reactions (disorder)[facility] Repository Medications Current Medications MedicationDrug Class(es)DatesSig (Normalized)Sig (Original)acetaminophen 325 mg / oxyCODONE hydrochloride 5 mg oral tablet (2 sources)Opioid AgonistStart: 12-09-2018 End: 16-21-4366azhk 1 tablet by mouth every six hours [...] tablet 0 12/09/2018 12/14/2018 ActiveStart: 12-09-2018 End: 66-41-8422ulcAYCVGY-acetaminophen (PERCOCET) 5-325 MG per tablet 1 tablet calcium chloride 0.0014 meq/ml / potassium chloride 0.004 meq/ml / sodium chloride 0.103 meq/ml / sodium lactate 0.028 meq/ml injectable solution (1 source)Start: 56-13-8010ubtnmqgq ringers infusioncephalexin 500 mg oral capsule (1 source)Cephalosporin AntibacterialStart: 12-09-2018 End: 84-92-5288bxec 1 capsule by mouth three times dailycephALEXin (KEFLEX) 500 MG capsule Take 1 capsule by mouth 3 times daily for 5 days 15 capsule 0 07/201812/14/2018 Activecyclobenzaprine hydrochloride 5 mg oral tablet (3 sources)Muscle RelaxantStart: 29-53-0802Ktklfocbozhqfon 5 mg tablet Active 0 PO Daily at bedtime 60 October 28, 2023 12:00am 5-10mg orally daily at bedtime; Complies with drug therapy2 ml fentaNYL 0.05 mg/ml injection (2 sources)Opioid AgonistStart: 61-94-9850yzmdwJCE (SUBLIMAZE) injection 50 mcg Start: 01-19-8807lfjifEWT (SUBLIMAZE) injection 25 mcgFLUoxetine 40 mg oral capsule (20 sources)Serotonin Reuptake InhibitorStart: 54-08-9038lpbd 1 capsule by mouth once daily in the morningFluoxetine 40 mg capsule Active 40 MG PO Every morning November 24, 2024 3:35pm Complies withdrug therapyStart: 07-30-2023 End: 45-38-7150jcsb 1 capsule by mouth once dailyFluoxetine 20 mg capsule Discontinued 0 .ROUTE .COMPLEX July 23, 2024 6:44am November 24, 2024 3:36pm TAKE 1 CAPSULE BY MOUTH EVERY DAY FOR 90 DAYSStart: 01-14-2023 End: 59-35-5247xjud 1 capsule by mouth once dailyFluoxetine 20 mg capsule Discontinued 20 MG PO Daily July 30, 2023 12:00am July 30, 2023 2:31pm1 ml hydrALAZINE hydrochloride 20 mg/ml injection (1 source)Arteriolar VasodilatorStart: 40-70-6584ofyrDUGVMUE (APRESOLINE) injection 5 mg1 ml HYDROmorphone hydrochloride 1 mg/ml cartridge (2 sources)Opioid AgonistStart: 56-94-8990EPKYBaxdegsay (DILAUDID) injection 0.25 mgStart: 05-84-2212KILVUrezckffz (DILAUDID) injection 0.5 mglevonorgestrel 0.628007 mg/hr intrauterine system (7 sources)Progestin, Progestin-containing Intrauterine DeviceLevonorgestrel (Mirena, 52 MG,) 20 MCG/DAY intrauterine device 52 mg by Intrauterine route if needed (when due) Active0.5 ml meperidine hydrochloride 50 mg/ml injection (1 source)Opioid AgonistStart: 27-60-1834cfwmdlysqv (DEMEROL) injection SOLN 12.5 mg2 ml metoclopramide 5 mg/ml prefilled syringe (1 source)Dopamine-2 Receptor AntagonistStart: 12-09-2018 End: 79-18-7361zrtfsthuhbhcyc (REGLAN) injection 10 mg2 ml midazolam 1 mg/ml injection (1 source)BenzodiazepineStart: 12-09-2018 End: 44-03-7818xmxicdwth (VERSED) injection 2 mgMIRENA IUD - this medication is not being screened (3 sources)Start: 31-14-3139CWAEMY IUD - this medication is not being screened MIRENA IUD - this medication is not being screened( ) Active -Hx Entry for 0 *Reorder from P[employer]nap for eRx and Interaction Alerts* Feb, Not-Taking2 ml ondansetron 2 mg/ml injection (1 source)Serotonin-3 Receptor AntagonistStart: 12-09-2018 End: 89-84-1406fwqqnujqnzm (ZOFRAN) injection 4 mgphentermine hydrochloride 37.5 mg oral tablet (6 sources)Sympathomimetic Amine AnorecticStart: 07-15-2023 End: 17-05-1268nkcg 1 tablet by mouth before mealtimephentermine (Adipex-P) 37.5 MG tablet Indications: Encounter for weight management Take 1 tablet (37.5 mg) by mouth in the morning. Take before meals. 90 tablet 08/14/2023 07/20/2024 Discontinued3 ml sodium chloride 9 mg/ml injection (3 sources)Start: 39-30-8918czyusf chloride flush 0.9 % injection 10 mLStart: 12-09-20180.9 % sodium chloride infusionStart: 38-16-5121bliepo chloride flush 0.9 % injection 10 mL Completed/Discontinued Medications MedicationDrug Class(es)DatesSig (Normalized)Sig (Original)acetaminophen 325 mg / HYDROcodone bitartrate 5 mg oral tablet (1 source)Opioid AgonistStart: 07-12-2018 End: 95-25-8232czgk 1 tablet by mouth every six hours as needed for pain HYDROcodone-acetaminophen (NORCO) 5-325 MG per tablet TAKE 1 TABLET BY MOUTH EVERY 6 HOURS NEEDED FOR PAIN 0 07/12/2018 12/01/2018 Discontinued (Therapy completed)azithromycin 250 mg oral tablet (1 source)Macrolide AntimicrobialStart: 09-29-2018 End: 11-04-7605jkggyfvvjnlg (ZITHROMAX) 250 MG tablet TAKE 2 TABLETS BY MOUTH TODAY, THEN TAKE 1 TABLET DAILY FOR 4 DAYS 0 09/29/2018 12/01/2018 Discontinued (Therapy completed)24 hr buPROPion hydrochloride 150 mg extended release oral tablet (7 sources)AminoketoneStart: 10-28-2023 End: 13-68-6461nths 1 tablet by mouth once dailyBupropion Hcl (Wellbutrin Xl) 150 mg tablet extended release 24 hr Discontinued 150 MG PO Daily October 28, 2023 12:00am October 28, 2023 3:17pmtake 1 tablet by mouth every twenty-four hoursWellbutrin XL 150 MG 1 tablet in the morning Orally Once a day Not-Taking ciprofloxacin 500 mg oral tablet (1 source)Quinolone AntimicrobialStart: 09-08-2018 End: 86-40-2075dsvk 1 tablet by mouth once dailyciprofloxacin (CIPRO) 500 MG tablet TAKE 1 TABLET BY MOUTH THE DAY BEFORE YOUR PROCEDURE THEN 1 TABLET AFTER YOUR PROCEDURE 0 09/08/2018 12/01/2018 Discontinued (Therapy completed) methylPREDNISolone (1 source)CorticosteroidStart: 09-29-2018 End: 30-78-3190pqfzgzQNBJKHUyxzsg (MEDROL DOSEPACK) 4 MG tablet TAKE 6 TABLETS ON DAY 1 DIRECTED ON PACKAGE ANDDECREASE BY 1 TAB EACH DAY FOR A TOTAL OF 6 DAYS 0 09/29/2018 12/01/2018 Discontinued (Therapy completed)metroNIDAZOLE 500 mg oral tablet (6 sources)Nitroimidazole AntimicrobialStart: 10-28-2023 End: 85-88-0521kymf 1 tablet by mouth twice dailyMetronidazole 500 mg tablet Discontinued 500 MG PO Twice daily October 28, 2023 12:00am October 28, 2023 3:17pmStart: 88-83-6069zbuu 1 tablet by mouth twice dailymetroNIDAZOLE 500MG metroNIDAZOLE 500MG, 1 (one) Tablet two times daily # 14, 04/16/2019, No Refill. Active Oral two times daily for 7 *Pick strength-form from Patsnap for eRX* Apr, Not-Takingtriamcinolone acetonide 40 mg/ml injectable suspension (4 sources)CorticosteroidStart: 77-62-3614Loygsjj-40 Jun, 40 mgStart: 50-34-9362Tcgacnm -40 mg Jun, 40 mg Problems Active Problems Problem ClassificationProblemDateDocumented DateEpisodic/ChronicAnxiety disorders (2 sources)Generalized anxiety disorder; Translations: [Generalized anxiety disorder]28-99-3880EusceibEvcdsrkiplqbu and procreative management (1 source)Patient encounter status; Translations: [Encounter for removal of intrauterine contraceptive device]94-33-6776UgvlabgrTzfwcotrwaefw symptoms and ill-defined conditions (4 sources)Genuine stress incontinence; Translations: [Urge incontinence of urine]57-29-1869ZdgenmcOjtuxejvmrhxw and screening for infectious disease (1 source)Encounter for screening for human papillomavirus (HPV); Translations: [ENC SCREENING HUMAN PAPILLOMAVIRUS]Onset: 09-93-8517PjerjvyyQnxz disorders (10 sources)Seasonal affective disorder; Translations: [Other recurrent depressive disorders]ChronicOther diseases of bladder and urethra (1 source)Traumatic urethral hllsdghja74-58-7287MjtfgyzpOnldk endocrine disorders (2 sources)Disorder of endocrine system; Translations: [Endocrine disorder, unspecified]59-32-8872SbtomkumTtqdy nervous system disorders (1 source)Postoperative pain ; Translations: [Post-op pain]EpisodicOther nutritional; endocrine; and metabolic disorders (1 source)Lkzun-3-qtqjjzwtmfr deficiency; Translations: [Xmjtu-8-wdcpzeoaput deficiency]38-78-0024RssolfvIlvyz nutritional; endocrine; and metabolic disorders (2 sources)Overweight; Translations: [Overweight]EpisodicOther nutritional; endocrine; and metabolic disorders (5 sources)Overweight; Translations: [Overweight]82-69-0984PhksatrcLeqhz nutritional; endocrine; and metabolic disorders (1 source)Overweight in adulthood with body mass index of 25 or more but less than 4705-81-5216DldtmyujTssqn screening for suspected conditions (not mental disorders or infectious disease) (10 sources)Encounter for screening for malignant neoplasm of cervix; Translations: [Encounter for screening mammogram for malignant neoplasm of breast]Onset: 80-01-3036RsixdjjlCfcmwmic codes; unclassified (4 sources)Insomnia; Translations: [Insomnia, unspecified]47-22-3148Odykkljr Residual codes; unclassified (1 source)Insomnia, unspecified; Translations: [Insomnia, unspecified]10-28-2023 EpisodicResidual codes; unclassified (2 sources)Generalized aches and pains; Translations: [Pain, unspecified] 58-86-8316GaqywsmrJhupdbsoiopg (1 source)Finding of sensation of jyjnpdo12-81-8966Sbvtidrkoygu (1 source)Patient encounter ittdco79-74-1819 Past or Other Problems Problem ClassificationProblemDateDocumented DateEpisodic/ChronicOther connective tissue disease (1 source)Lateral epicondylitis, left elbowOnset: 06-27-2021 Resolved: 60-98-8740SxpqltxeVfyig non-traumatic joint disorders (1 source)Pain in left elbowOnset: 06-27-2021 Resolved: 88-01-4177EqvwdyjtJgdha non-traumatic joint disorders (4 sources)Pain in left shoulder; Translations: [PAIN IN LEFT SHOULDER]Onset: 10-34-6105Sgdajtqq Results Test NameValueInterpretationReference RangeFacilityCCF CMP (CMP) (FOR REMOTE [facility] USE)on 77-39-4941Dfcmgar [Mass/Vol]3.9 g/dL3.4 - 5.0 g/dLNOMS HealthcareALBUMIN GLOBULIN [...] 32.0 mmol/LNOMS HealthcareCreatinine [Mass/Vol]0.77 mg/dL0.55 - 1.02 mg/dLNOIN HealthcareGFR/1.73 sq M.predicted CKD-EPI (S/P/Bld) [Vol rate/Area]>60>=60 mL/min/1.73m 2NOMS HealthcareGlobulin (S) [Mass/Vol]3.4 g/dLNOMS Healthcare Glucose [Mass/Vol]96 mg/dL74 - 106 mg/dLNOMS HealthcarePotassium [Moles/Vol]4.3 mmol/L3.5 - 5.1 mmol/LNOMS HealthcareProtein [Mass/Vol]7.3 g/dL6.4 - 8.2 g/dL [facility] HealthcareSodium [Moles/Vol]140 mmol/L136 - 145 mmol/LNOMS HealthcareTBH EGFR-NON AF BRAZILIAN>60>=60 mL/min/1.73m 2NOMS HealthcareUrea nitrogen [Mass/Vol]17 mg/dL7.0 - 18.0 mg/dLNOMS HealthcareUrea nitrogen/Creatinine [Mass ratio]22.1 mg/mgNOMS HealthcareCLINISYNCNROLLING HILLS HOSPITAL – ADA HealthcareFree testosterone measurement by LC-MS/MSOrdered By: Lucius Castellano on 38-47-3580Vwkqfzcnzzos Free [Mass/Vol]0.6 pg/mL0.0-4.2FCleveland Clinic Mercy HospitalComment on above: Performed at: CB - [facility] [address] [id number] Director: Luis Campbell PhD, Phone: [phone] at: - [facility] [address] [id number] Director: Bret Cantu MD, Phone: [phone] Calc (S) [Mass/Vol]Ordered By: Vicente Baum on 16-32-8823Kzlojvzo (S) [Mass/Vol]3.4 g/dLCleveland Clinic Hillcrest Hospital Glomerular filtration rate (GFR) estimation in non- AmericanOrdered By: Vicente Baum on 56-62-2250HZF/1.73 sq M.predicted among non-blacks MDRD (S/P/Bld) [Vol rate/Area]mL/min/{1.73_m2}>=60 mL/min/1.73m 2FCleveland Clinic Mercy HospitalLaboratory - Chemistry and Chemistry - challengeOrdered By: Vicente Baum on 04-24-4553Qaplfmf [Mass/Vol]3.9 g/dL3.4-5.0C[facility] HospitalALP [Catalytic activity/Vol]66 U/V60-022BcnazgrmaCleveland Clinic Hillcrest HospitalALT [Catalytic activity/Vol]25 U/Y64-92SwftgucatCleveland Clinic Hillcrest Hospital AST [Catalytic activity/Vol]15 U/E26-02ArmeedxcuCleveland Clinic Hillcrest Hospital Bilirubin [Mass/Vol]0.2 mg/dL0.2-1.0C[facility] Hill[facility] HospitalCalcium [Mass/Vol]8.9 mg/dL8.5-10.1FCleveland Clinic Mercy HospitalChloride [Moles/Vol] 104 mmol/V05-512TzbvtjycaCleveland Clinic Hillcrest HospitalCO2 [Moles/Vol]29.3 mmol/L 21.0-32.0[facility] HospitalCreatinine [Mass/Vol]0.77 mg/dL 0.55-1.02C[facility] HospitalGFR/1.73 sq M.predicted MDRD (S/P/Bld) [Vol rate/Area]mL/min/{1.73_m2}>=60 mL/min/1.73m 2FCleveland Clinic Mercy HospitalGlucose [Mass/Vol]96 mg/lP15-578AncimzmajCleveland Clinic Hillcrest HospitalPotassium [Moles/Vol]4.3 mmol/L3.5-5.1FCleveland Clinic Mercy HospitalProtein [Mass/Vol] 7.3 g/dL6.4-8.2FMercy Health Anderson Hospitalodium [Moles/Vol]140 mmol/L 136-145C[facility] Hill[facility] HospitalUrea nitrogen [Mass/Vol]17.0 mg/dL 7.0-18.0[facility] HospitalUrea nitrogen/Creatinine [Mass ratio] 22.1 mg/mgCleveland Clinic Hillcrest HospitalNo Panel InformationOrdered By: Lucius Castellano on 278889-Smxqyry Vitamin D Total78.0 ng/mLCleveland Clinic Hillcrest HospitalComment on above:<20 ng/mL Vit D czkfgazhv70-<30 ng/mL Vit D nbsduhesnwaf55-911 ng/mL Vit D sufficient>100 ng/mL Potential Toxicity Dehydroepiandrosterone Kwsfbxj244.0 ug/dL41.2-243.7FCleveland Clinic Mercy HospitalComment on above:Performed at: - [facility] [id number] Director: Luis Campbell PhD, Phone: [phone] Testosterone Level9 ng/dL4-50Samaritan Hospitalerum estrone measurementOrdered By: Lucius Castellano on 94-58-5179M2 [Mass/Vol]74 pg/mL.[facility] Hill[facility]st HospitalComment on above:Range Adult (Premenopausal) 27 - 231 Menstrual Cycle (1-10 days) 19 - 149 Menstrual Cycle (11-20 days) 32 - 176 Menstrual Cycle (21-30 days) 37 - 200 Adult (Postmenopausal) 0 - 125Performed at: - [facility] [id number] Director: Bret Cantu MD, Phone: [phone] or plasma albumin/globulin mass ratioOrdered By: Vicente Baum on 57-82-4120Exexxub/Globulin [Mass ratio] 1.1 {ratio}Samaritan Hospitalerum or plasma anion gap determinationOrdered By: Vicente Baum on 93-11-0249Fgmyi gap [Moles/Vol]11.0 mmol/LFCleveland Clinic Mercy HospitalIUD Removalon 99-54-2132Pozxi SpitlerALCIDES 09/06/2024 1:39 PM IUD Removal Date/Time: [...] reason for removal: Hormone management through compound pharmacy.[facility] CenterNOIN HealthcareIGP,APTIMA HPV,AGE GDLNon 16-78-9577ZCZ GDLN ACOG TESTINGNote.[facility] CenterComment on above:TESTS RESULT FLAG UNITS REF RANGE LAB Clinician Provided Cytology Information Source.............Cervix;Endocervix No. of containers..01 ThinPrep Vial Age Algo ACOG Celina... 30- 01 FLAG LEGEND: L-Low Normal,H-High Normal,LL-Alert Low,HH-Alert High <-Panic Low,>-Panic High,A-Abnormal,AA-Critical Abnormal Performed at: 01 =G [address] [place] [address] Charisse Merchant MD, HPV APTIMANegativeNegativeNOMS HealthcareComment on above:This nucleic acid amplification test detects fourteen high- risk HPV types (16,18,31,33,35,39,45,51,52,56,58,59,66,68) without differentiation. Performed at: =[facility], [place] [id number] Clinical Safety Specialist: Charisse Merchant MD, Phone: [phone] Performed at: [facility] LabB[facility] Cyto Histo [address] [facility], [place], [place] [id number] Clinical Safety Specialist: Brian Spencer MD, Phone: [phone] IGP, APTIMA HPV, RFX 16/18,45Note.NOMS HealthcareComment on above:TESTS RESULT FLAG UNITS REF RANGE LAB DIAGNOSIS: 02 NEGATIVE FOR INTRAEPITHELIAL LESION OR MALIGNANCY. Specimen adequacy: 02 Satisfactory for evaluation. No endocervical component is identified. Performed by: Bear Rivera, Tools Developer (ASCP) . 02 Note: Note 03 [...] High,A-Abnormal,AA-Critical Abnormal Performed at: 02 KWCYT [facility] Cyto Histo [address] [place] [address] Brian Spencer MD, 03 WB [facility] [address] [address] Charisse Merchant MD, BRUSH-SPATULA CERVIX ENDOCERVIX CLINISYNCNOIN HealthcareMLR HEMOGLOBIN A1Con 08-83-5703Lhvubik [Mass/Vol]108 mg/dLNOSainte Genevieve County Memorial HospitalFouhyzvsxsAnK7a (Bld) [Mass fraction]5.4 %4.5 - 6.2 %[facility] Comment on above:ADA RECOMMENDED LIMIT 4.0 - 6.0 ADA THERAPEUTIC TARGET < 7.0 ACTION SUGGESTED > 7.0 CLINISYMethodist South HospitalOutside Colonoscopyon 63-48-5357Wvbpukq Colonoscopy [id number]#1.00TIFOhioHealth Mansfield HospitalReminderson 03-36-1823Gsphmorui From: Dolores Lee LPN To: GSN - Clinical; Sent: 03/20/2023 08:53:50 EST Show up: 02/17/2033 07:00:00 EST Subject: colonoscopy recall Due Date/Time: 03/19/2033 07:00:00 EST Reminder/Recall Patient due for screening colonoscopy 03/19/2033.[facility] HospitalLab Reportson 68-89-0221Ecw Reports [id number]#1.00TIFOhioHealth Mansfield HospitalInsurance Correspondenceon 95-08-8741Gxhgfwwtj Correspondence [id number]#1.00TIFFUC West [facility] HospitalConsent for Procedure/Surgeryon 17-34-8418Bmobgho for Procedure/Surgery [id number]#1.00TIFFUC [facility] HospitalFacesheeton 33-95-6648Mfyeqkshp [id number]#1.00[facility] Hospital at SouthwoodsAmbulatory Visit Summaryon 52-86-5304Rllrsdyrpm Visit Summary FATMATA ROSE :1975 Visit Date:02/11/2023 [...] you for choosing us for your care. [facility] HospitalPhysician Referralon 01-16-2023 Physician [id number]#1.00[facility] Hospital at SouthwoodsPAP ACOG PANEL 2: 30 to 65on 07-18-2022..NormalOhio State Health SystemComment on above:Result Comment: Performed at: WBPerformed By: #### [id number] #### [facility] [address] [address] [address] Chloe Martinez Gdln ACOG Iodkyfq70-39MlybeeWetKettering Health – Soin Medical CenterComment on above:Performed By: #### [id number] #### [facility] [address] [address] [address] Chloe WellsDIAGNOSIS:CommentMemorial HospitalComhealthsource saginaw on above: Result Comment: NEGATIVE FOR INTRAEPITHELIAL LESION OR MALIGNANCY. Performed at: WBPerformed By: #### [id number] #### [facility] [address] [place] [address] Dr. Chloe Oliva AptimaPositiveAbfitzgibbon hospitalalNegMercy Health Fairfield HospitalComhealthsource saginaw on above:Result Comment: This nucleic acid amplification test detects fourteen high-risk HPV types (16,18,31,33,35,39,45,51,52,56,58,59,66,68) without differentiation. Performed at: =GPerformed By: #### [id number] #### [facility] [address] [place] [address] Dr. Chloe Oliva Genotype 16NegativeNormalNegativeOhio State Health SystemComment on above:Performed By: #### [id number] #### [facility] [address] [address] [address] Chloe Oliva Genotype 18,45NegativeNormalNegativeOhio State Health System Comment on above:Performed By: #### [id number] #### [facility] [address] [address] [address] Chloe Oliva Genotype ReflexCommentMemorial HospitalComment on above:Result Comment: Criteria met, see HPV Genotype results. Performed at: WBPerformed By: #### [id number] #### [facility] [address] [address] [address] Chloe WellsMethodology:CommentUniversity Hospitals Geauga Medical Center on above: Result Comment: This liquid based ThinPrep(R) pap test was screened with the use of an image guided system. Performed at: WBPerformed By: #### [id number] #### [facility] [address] [place] [address] Dr. Chloe WellsNote:CommentUniversity Hospitals Geauga Medical Center on above:Result Comment: The Pap smear is a screening test designed to aid in the detection of premalignant and malignant conditions of the uterine cervix. It is not a diagnostic procedure and should not be used as the sole means of detecting cervical cancer. Both false-positive and false-negative reports do occur. . Performed at: WBPerformed By: #### [id number] #### [facility] [address] [place] [address] Dr. Chloe WellsPerformed by:CommentUniversity Hospitals Geauga Medical Center on above: Result Comment: Muna Benitez, Tools Developer (ASCP) Performed at: WBPerformed By: #### [id number] #### [facility] [address] [place] [address] Dr. Chloe WellsSpecimedelmi adequacy:CommentUniversity Hospitals Geauga Medical Center on above:Result Comment: Satisfactory for evaluation. Endocervical and/or squamous metaplastic cells (endocervical component) are present. Performed at: WBPerformed By: #### [id number] #### [facility] [address] [place] [address] Dr. Chloe Salazar AUTO DIFFon 06-14-4768NISA #0.0 103/ulNormal0.0-0.1The [facility] HospitalComment on above:Performed By: #### CBC #### [facility] [address] [place] [address] Dr. Chloe WellsBasophils/100 WBC (Bld)0.3 %Normal0.2-2.0[facility] Comment on above:Performed By: #### CBC #### [facility] [address] [place] [address] Dr. Corona ChangEO #0.2 103/ulNormal0.0-0.7The [facility] HospitalComment on above: Performed By: #### CBC #### [facility] [address] [place] [address] Dr. Chloe Andersonosinophils/100 WBC (Bld)2.9 %Normal0.9-7.0[facility] on above:Performed By: #### CBC #### [facility] [address] [place] [address] Dr. Chloe Andersonrythrocyte distribution width (RBC) [Ratio]12.4 %Pcvnbd41.0-15.0 The [facility] HospitalComment on above:Performed By: #### CBC #### [facility] [address] [place] [address] Dr. Chloe WellsHematocrit (Bld) [Volume fraction]38.8 %[place]57.0-48.0The [facility] HospitalComment on above:Performed By: #### CBC #### [facility] [address] [place] [address] Dr. Chloe WellsHemoglobin (Bld) [Mass/Vol]13.0 g/xGEaxmia26.0-16.0The [facility] HospitalComment on above:Performed By: #### CBC #### [facility] [address] [place] [address] Dr. Chloe Denis #0.01 10e3/ulNormal0.00-0.03The [facility] HospitalComment on above:Performed By: #### CBC #### [facility] [address] [place] [address] Dr. Chloe Denis %0.2 %Normal0.0-0.5The [facility] HospitalComment on above: Performed By: #### CBC #### [facility] [address] [place] [address] Dr. Chloe ShaferH #2.0 103/ulNormal1.2-3.8The [facility] HospitalComment on above:Performed By: #### CBC #### [facility] [address] [place] [address] Dr. Chloe Cormiermphocytes/100 WBC (Bld)33.4 %Hhvybr45.5-60.0The [facility] HospitalComment on above:Performed By: #### CBC #### [facility] [address] [place] [address] Dr. Chloe Roper DIFF REQNONormalThe [facility] Cross HospitalComment on above: Performed By: #### CBC #### [facility] [address] [place] [address] Dr. Chloe Black (RBC) [Entitic mass]30.2 nnRfntkv58.7-34.0The [facility] HospitalComment on above:Performed By: #### CBC #### [facility] [address] [place] [address] Dr. Chloe Black (RBC) [Mass/Vol]33.5 g/vBAwiulz64.9-35.2The [facility] HospitalComment on above:Performed By: #### CBC #### [facility] [address] [place] [address] Dr. Chloe Cowan (RBC) [Entitic vol]90.0 aHVumjyv75.0-99.0The [facility] HospitalComment on above:Performed By: #### CBC #### [facility] [address] [place] [address] Dr. Chloe Cain #0.5 103/ulNormal0.3-0.8The [facility] HospitalComment on above:Performed By: #### CBC #### [facility] [address] [place] [address] Dr. Chloe Steeleocytes/100 WBC (Bld)8.0 %Normal1.7-12.0[facility] Comment on above:Performed By: #### CBC #### [facility] [address] [place] [address] Dr. Chloe Guerra #3.2 103/ulNormal1.4-6.5The Green Cross HospitalComment on above:Performed By: #### CBC #### [facility] [address] [place] [address] Dr. Yilan ChangNeutrophils/100 WBC (Bld)55.2 %Bbotkf56.0-75.0The [facility] Cross HospitalComment on above:Performed By: #### CBC #### [facility] [address] [place] [address] Dr. Chloe Rothmanlet mean volume (Bld) [Entitic vol]8.9 fLCritically low 9.5-13.5The [facility] Cross HospitalComment on above:Performed By: #### CBC #### [facility] [address] [place] [address] Dr. Chloe WellsPLT327 103/xtOuieoq612-750Elj [facility] HospitalComhealthsource [place] on above: Performed By: #### CBC #### [facility] [address] [place] [address] Dr. Chloe WellsRBC4.31 106/ulNormal4.20-5.40The [facility] Cross HospitalComment on above:Performed By: #### CBC #### [facility] [address] [place] [address] Dr. Chloe WellsWBC5.9 103/ulNormal4.0-11.0The [facility] Cross HospitalComment on above: Performed By: #### CBC #### [facility] [address] [place] [address] Dr. Chloe WellsGLYCOHEMOGLOBIN A1Con 54-68-9663HVK RECOMMENDATIONSEE BELOWNormal The [facility] HospitalComhealthsource [place] on above:Result Comment: ADA RECOMMENDED LIMIT 4.0 - 6.0 ADA THERAPEUTIC TARGET < 7.0 ACTION SUGGESTED > 7.0Performed By: #### A1C #### [facility] [address] [place] [address] Dr. Chloe WellsGlucose [Mass/Vol]105 mg/dLNormalThHocking Valley Community HospitalComhealthsource [place] on above:Performed By: #### A1C #### [facility] [address] [place] [address] Dr. Chloe WellsHbA1c (Bld) [Mass fraction]5.3 %Normal4.5-6.2The [facility] HospitalComhealthsource [place] on above:Performed By: #### A1C #### [facility] [address] [address] [address] Chloe WilliamsonID PROFILEon 99-82-1342ZEAA-HDL RATIO NORMSCoshocton Regional Medical CenterComment on above:Result Comment: 3.3 - 4.4 LOW RISK 4.4 - 7.1 AVERAGE RISK 7.1 - 11.0 MODERATE RISK >11.0 HIGH RISKPerformed By: #### CMP, TSH, LIPID #### [facility] [address] [address] [address] Chloe WellsCholesterol [Mass/Vol]171 mg/dLNormal<=200[facility] Comment on above:Performed By: #### CMP, TSH, LIPID #### [facility] [address] [place] [address] Dr. Chloe WellsCholesterol in HDL [Mass/Vol]63 mg/dLCritically qqvf69-95KahOhio State Health SystemComment on above:Performed By: #### CMP, TSH, LIPID #### [facility] [address] [place] [address] Dr. Chloe WellsCholesterol in LDL [Mass/Vol]99.2 mg/dLMemorial HospitalComment on above:Performed By: #### CMP, TSH, LIPID #### [facility] [address] [place] [address] Dr. Chloe Hernandezestercruz.total/Cholesterol in HDL [Mass ratio]2.7 {ratio} NormalOhio State Health SystemComment on above:Performed By: #### CMP, TSH, LIPID #### [facility] [address] [place] [address] Dr. Chloe WellsHDL NORMAL> or = 60 mg/dl - LOW CARDIOVASCULAR RISK <40 mg/dl - HIGH CARDIOVASCULAR RISKMemorial HospitalComment on above:Performed By: #### CMP, TSH, LIPID #### [facility] [address] [place] [address] Dr. Chloe WellsLDL CALC NORMALSEE [facility] NorthComment on above:Result Comment: <100 mg/dl OPTIMAL 100 - 129 mg/dl NEAR OR ABOVE OPTIMAL 130 - 159 mg/dl BORDERLINE HIGH 160 - 189 mg/dl HIGH >190 mg/dl VERY HIGH Performed By: #### CMP, TSH, LIPID #### [facility] [address] [address] [address] Chloe WellsTriglyceride [Mass/Vol]44 mg/dLNormal<=150[facility] Comment on above:Performed By: #### CMP, TSH, LIPID #### [facility] [address] [address] [address] Chloe WellsVLDL CALC8.8 mg/dLNormalThe [facility] Cross HospitalComment on above: Performed By: #### CMP, TSH, LIPID #### [facility] [address] [place] [address] Dr. Chloe WellsPROSourav 14(COMP METB)on 21-47-0042Rindcti [Mass/Vol]3.8 g/dLNormal 3.4-5.0The [facility] Cross HospitalComment on above:Performed By: #### CMP, TSH, LIPID #### [facility] [address] [place] [address] Dr. Chloe WellsAlbumin/Globulin [Mass ratio]1.3 {ratio}NormalThe [facility] Cross HospitalComment on above:Performed By: #### CMP, TSH, LIPID #### [facility] [address] [place] [address] Dr. Chloe Jesus [Catalytic activity/Vol]54 U/YJntjug12-435Yvg [facility] Cross HospitalComment on above:Performed By: #### CMP, TSH, LIPID #### [facility] [address] [place] [address] Dr. Chloe Sánchez [Catalytic activity/Vol]20 U/XYnpizb33-33Eyn [facility] HospitalComment on above:Performed By: #### CMP, TSH, LIPID #### [facility] [address] [place] [address] Dr. Chloe Zapata gap [Moles/Vol]9.9 mmol/LNormalThe [facility] Cross HospitalComment on above:Performed By: #### CMP, TSH, LIPID #### [facility] [address] [address] [address] Chloe WellsAST [Catalytic activity/Vol]14 U/LCritically xhp53-54Hly [facility] HospitalComment on above:Performed By: #### CMP, TSH, LIPID #### [facility] [address] [address] [address] Chloe WellsBilirubin [Mass/Vol]0.6 mg/dLNormal0.2-1.0[facility] Comment on above:Performed By: #### CMP, TSH, LIPID #### [facility] [address] [address] [address] Chloe WellsCalcium [Mass/Vol]8.5 mg/dLNormal8.5-10.1[facility] Comment on above:Performed By: #### CMP, TSH, LIPID #### [facility] [address] [address] [address] Chloe WellsChloride [Moles/Vol]104 mmol/ENkhoqp14-518Yme [facility] Comment on above:Performed By: #### CMP, TSH, LIPID #### [facility] [address] [address] [address] Chloe WellsCO2 [Moles/Vol]27.3 mmol/QHqlbcq33.0-32.0[facility] Comment on above:Performed By: #### CMP, TSH, LIPID #### [facility] [address] [address] [address] Chloe WellsCreatinine [Mass/Vol]0.74 mg/dLNormal0.55-1.02The [facility] Cross HospitalComment on above:Performed By: #### CMP, TSH, LIPID #### [facility] [address] [address] [address] Chloe AndersonGFR-AF BRAZILIAN>60Normal>=60The [facility] Cross HospitalComment on above:Performed By: #### CMP, TSH, LIPID #### [facility] [address] [address] [address] Chloe AndersonGFR-NON AF BRAZILIAN>60Normal>=60The [facility] Cross HospitalComment on above:Performed By: #### CMP, TSH, LIPID #### [facility] [address] [address] [address] Chloe WellsGlobulin (S) [Mass/Vol]2.9 g/dLNormMercy Health St. Elizabeth Boardman HospitalComment on above:Performed By: #### CMP, TSH, LIPID #### [facility] [address] [address] [address] Chloe WellsGlucose [Mass/Vol]110 mg/dLCritically zwkw57-554Wcr [facility] HospitalComment on above:Performed By: #### CMP, TSH, LIPID #### [facility] [address] [place] [address] Dr. Chloe WellsPotassium [Moles/Vol]4.2 mmol/LNormal3.5-5.1[facility] Comment on above:Performed By: #### CMP, TSH, LIPID #### [facility] [address] [place] [address] Dr. Chloe WellsProtein [Mass/Vol]6.7 g/dLNormal6.4-8.2[facility] Comment on above:Performed By: #### CMP, TSH, LIPID #### [facility] [address] [place] [address] Dr. Chloe WellsSodium [Moles/Vol]137 mmol/WDfmsep415-763Ljd [facility] Comment on above:Performed By: #### CMP, TSH, LIPID #### [facility] [address] [place] [address] Dr. Clhoe WellsUrea nitrogen [Mass/Vol]18.0 mg/dLNormal7.0-18.0The [facility] HospitalComment on above:Performed By: #### CMP, TSH, LIPID #### [facility] [address] [place] [address] Dr. Chloe WellsUrea nitrogen/Creatinine [Mass ratio]24.3 mg/mgNoKettering Health – Soin Medical CenterComment on above:Performed By: #### CMP, TSH, LIPID #### [facility] [address] [place] [address] Dr. Chloe Morrissey 19-34-2850WMS5.733 uIU/mLNormal0.358-3.740The [facility] Cross HospitalComment on above:Performed By: #### CMP, TSH, LIPID #### [facility] [address] [place], [place] [address] Dr[address] Chleo WellsSURGICAL PATH REPORTon 25-61-0973QFLGKDUE PATH [facility] Department of Pathology [address] [place] [id number] Name: FATMATA ROSE : 1975 [facility] [id number] Number: Gender: Female [facility] Admit 45 years Attending [place] SW[employer] Age: Provider: Ordering MICHAEL HRENÁNDEZ Provider: Consulting: Surgical Pathology Report ACCESSION: COLLECTED DATE/TIME: RECEIVED DATE/TIME: PATHOLOGIST: [id number] 07/26/2020 11:13 EDT 07/26/2020 14:42 EDT KENDELL COLON, BRANT WEBER Final Diagnosis Report for [place], [place] LEFT BREAST, UPPER OUTER QUADRANT, MICROCALCIFICATIONS, [...] Print Date/ 07/31/2020 14:04 EDT Number: Time: [facility] Department of Pathology [address] [place] [id number] Name: FATMATA ROSE : 1975 [facility] [id number] Number: Gender: Female Location: [facility] Admit 45 years Attending [place] Age: Provider: Ordering MICHAEL HERNÁNDEZ Provider: Consulting: Surgical Pathology Report ACCESSION: COLLECTED DATE/TIME: RECEIVED DATE/TIME: PATHOLOGIST: [id number] 07/26/2020 11:13 EDT 07/26/2020 14:42 EDT KENDELL [...] MP:saul 07/26/2020 Tissue pathology report for: [facility], [address] [place] [address]; PATHOLOGY SERVICES PROVIDED BY [facility] (CLIA #[id number]) in cooperation with [facility] at [address] [place], [place] [address] (CLIA #[id number]) Codes CPT CODE: 25280 Print Date07/31/2020 14:04 EDT Number: Time: . [facility] HospitalComment on above:Performed By: #### [id number] #### [facility] Laboratory Services [address] [place] [address] Plant Clerk: Jim Treadwell MDOPERATIVE REPORTon [id number] REPORT[address] [id number] OPERATIVE REPORT PATIENT NAME: FATMATA ROSE : 1975 MED REC NO: [id number] ROOM: ACCOUNT NO: [id number] ADMIT DATE: 12/09/2018 PROVIDER: Darion Hand DATE [...] sponge counts correct. DARION HAND JERMAINE/Tracey_[id number]_01 Doc#: [id number] CC:[facility] Hospitalurgical Pathologyon 67-47-0736Wkacqpko Pathology(NOTE) [id number] [facility] ANATOMIC PATHOLOGY [address] [place] [id number] SURGICAL PATHOLOGY CONSULTATION Patient Name: FATMATA ROSE [facility] Rec: [id number] Path Number: [id number] Collected: 12/09/2018 Received: 12/09/2018 Reported: 12/10/2018 13:49 [...] around its periphery, consistent with a benign lipoma.[facility] CompanyComment on above:Performed By: #### PPPVDP #### [facility] [address] [place] [address] Clinical Safety Specialist: Chris Michaels MD Vital Signs Date TimeVital SignValuePerforming DtxajezdhDucteios38-55-8913 15:17-0400Body qcpirg347.1 cmBenjamin Ball DO Work Phone: [facility]08-20-2025 15:17-0400 Body mass index (BMI) [Ratio]28.8 kg/p2Gkkgqjcu Ball DO Work Phone: [facility]08-20-2025 15:17-0400 Body xdjvxe08.58 kgBenjamin Ball DO Work Phone: [facility]08-20-2025 15:17-0400 Diastolic blood soghcuka57 mm[Hg]Vicente Ball DO Work Phone: [facility]08-20-2025 15:17-0400 Heart rate98 /minBenjamin Ball DO Work Phone: [facility]08-20-2025 15:17-0400 Respiratory rate12 /minBenjamin Ball DO Work Phone: [facility]08-20-2025 15:17-0400 Systolic blood vioaftvt033 mm[Hg]Vicente Ball DO Work Phone: [facility]06-02-2025 10:48-0400 Body mass index (BMI) [Ratio]30.29 kg/o2Rjrxb Gray DO Work Phone: [facility] CenterDamntumapd09-12-9135 10:48-0400Body dtwywe06.56 kgCorey Gray DO Work Phone: [facility] CenterDliuxglafd44-34-8592 10:48-0400Diastolic blood mm[Hg]Lucius Gray DO Work Phone: [facility] CenterSasaghjjzk48-29-7330 10:48-0400Systolic blood pdobcjow342 mm[Hg]Lucius Gray DO Work Phone: [facility] CenterTenedtjdhs06-76-9062 09:17-0400Body mass index (BMI) [Ratio]30.49 kg/m2Zayda Rausch PA Work Phone: [facility] CenterYhsnlkepir50-73-5199 09:17-0400Body .12 kgZayda IVORY Work Phone: [facility] CenterPfyucxobzr75-77-1933 09:17-0400Diastolic blood rrfufver08 mm[Hg]Zayda IVORY Work Phone: [place] [address]Nmsftfanmh21-44-9164 09:17-0400Systolic blood jxwjobtl794 mm[Hg]Zayda IVORY Work Phone: [facility] CenterSmqusjkity10-06-6327 14:21-0500Body zqgkak045.1 cmC[facility]11-15-2024 14:21-0500Body mass index (BMI) [Ratio]29.6 kg/m5HsrwgelyqC[facility] Clinic [facility]11-15-2024 14:21-0500Body .73 kgC[facility]11-15-2024 14:21-0500Diastolic blood gngpokof47 mm[Hg][facility]11-15-2024 14:21-0500 Heart hqgz440 /[facility]11-15-2024 14:21-0500Systolic blood rrhppdni567 mm[Hg][facility]07-23-2024 15:18-0400 Body agcdtt207.1 cmC[facility]07-23-2024 15:18-0400Body mass index (BMI) [Ratio]29.1 kg/q3XmpbnzupbC[facility] Clinic [facility]07-23-2024 15:18-0400Body saidzp64.49 kgC[facility]07-23-2024 15:18-0400Diastolic blood pzmebnzi64 mm[Hg][facility] 10-28-2023 15:18-0400Heart rate78 /[facility] 10-28-2023 15:18-0400Respiratory rate12 /[facility] 10-28-2023 15:18-0400Systolic blood mm[Hg][facility]11-07-2023 14:18-0500Blood Pressure LocationMichael NILL [facility]11-07-2023 14:18-0500Diastolic blood preyzlov62 mm[Hg]Claudy NILL [facility] Rymktpdx53-26-5709 14:18-0500Heart rate 70 /minMichael NILL [facility]11-07-2023 14:18-0500 Respiratory rate16 /minMichael NILL [facility]11-07-2023 14:18-0500Systolic blood jeirwaag006 mm[Hg]Claudy NILL [facility]10-10-2023 14:30-0400Body .1 cmBenjamin Ball Other [employer] Other 10-10-2023 14:30-0400Body mass index (BMI) [Ratio] 29.88 kg/t2Hljtzxej Ball Other [employer] Other 10-10-2023 14:30-0400Body lidrlu53.47 kgBenjamin Ball Other [employer] Other 10-10-2023 14:30-0400Diastolic blood lnudijwj88 mm[Hg] Vicente Ball Other [employer] Other 10-10-2023 14:30-0400Respiratory rate12 /minBenjamin Ball Other [employer] Other 10-10-2023 14:30-0400Systolic blood itnybllw165 mm[Hg] Vicnete Ball Other [employer] Other 03-23-2022 14:00-0400Body zksazj955.1 cmCcorewell health pennock hospitaldemetria Banda Other [employer] Other 03-23-2022 14:00-0400Body mass index (BMI) [Ratio] 26.62 kg/f9Xcmbnvbrobyn Banda Other [employer] Other 03-23-2022 14:00-0400Body djahrj25.58 kgCorobyn Banda Other [employer] Other 09-04-2019 08:41-0400Body Jiobivcrhwg66.3 [degF]Darion HandAshtabula [facility], ID63-41-9323 08:41-0400BP Qxazbicls54 mm[Hg]Darion Hand [facility], PM71-38-9241 08:41-0400BP Ahgvrcqv751 mm[Hg]Darion [facility], ZD21-26-8979 08:41-0400Pulse (Heart Rate)72 /minCarl [facility], NC85-69-0988 08:41-0400Pulse Urvnnryw86 %Darion [facility], PJ55-64-9277 08:41-0400Respiratory Rate14 /minCarl [facility], JH85-65-5311 06:14-0400BMI (Body Mass Index)30.35 kg/m2Carl [facility], JY64-72-0248 06:14-0400Body ptlelp54.72 kgCarl [facility], [place] 12-09-2018 06:147279Afbqxz952.1 cmCarUK Healthcare, [place] Encounters Encounter DateEncounter TypeCare ProviderFacilityStart: 01-26-2025 End: 57-21-8315ijmnjxdofjASX RAMEYNot AvailableStart: 11-24-2024 End: 59-22-3223zwntjrolyeUlmyxoah Ball DO Work Phone: [facility] Work Phone: Start: 11-24-2024 End: 83-28-1562Ulwidaw encounter procedureBenadolfo Ball DO-[facility] Work Phone: Start: 11-03-2024 End: 30-52-2889Cjbckvoay Result EncounterZayda IVORY Work Phone: noms External Department UnsolicitedStart: 11-03-2024 End: 47-75-0680Bxykyzeqw Result EncounterZayda IVORY Work Phone: noms External Department UnsolicitedStart: 11-03-2024 Non-patient / Non-visitBenkayleymin Ball DO-[facility] Work Phone: Start: 09-06-2024 End: 58-80-8789Oumnplr encounter procedureCorey Gray DO Work Phone: noMS BCP OBComment on above:Encounter for IUD removal Start: 09-06-2024 End: 96-28-0428jrhogasfvwCECLN FAZIONot AvailableStart: 07-21-2024 End: 42-87-3358Ejgczsfhn Result EncounterZayda IVORY Work Phone: noMS External Department UnsolicitedStart: 07-21-2024 End: 25-86-7577Hajexhgqj Result EncounterAmy Brittany IVORY Work Phone: noMS External Department UnsolicitedStart: 07-20-2024 End: 80-28-5003Zgehkq flowsheetZayda IVORY Work Phone: NOMS BCP OBStart: 07-20-2024 End: 68-54-6285Ebeqio flowsheetZayda IVORY Work Phone: noms BCP OBStart: 07-20-2024 End: 61-98-2735Usagwhedz Result EncounterZayda IVORY Work Phone: noMS External Department UnsolicitedStart: 07-20-2024 End: 93-22-0746Glurqlh encounter procedureZayda IVORY Work Phone: noMS HealthcareStart: 07-20-2024 End: 37-34-0836Pxaxifxu preventive med est patient 40-64yrsAmy Brittany IVORY Work Phone: noms BCP OBComment on above:Well woman exam with routine gynecological exam; Encounter for screening mammogram for malignant neoplasm of breast; Hormone disorder; Stress incontinence; Generalized body achesStart: 07-20-2024 End: 92-08-8753wdxdmkfwkfZXX Germán AvailableStart: 24-08-8669Ihkhaev encounter statusSamaritan Hospitaltart: 02-20-2024 End: 96-14-0283ujrbwgttaqVkgfpbata [facility] Work Phone: Start: 02-20-2024 End: 63-33-0384Akjlhetbu for general adult medical examination without abnormal findingsSamaritan Hospitaltart: 02-20-2024 End: 95-97-2971Spuojrp encounter procedureE[facility] Health [facility] Work Phone: Start: 10-28-2023 End: 00-06-3552esltylixorBcxcmwlbpZanesville City Hospital Work Phone: Start: 10-28-2023 End: 93-66-2183Jhjldrj encounter procedureEcu Health Physician Group-[facility] Work Phone: Start: 52-03-4257Ibj-patient / Non-visitFirbon secours [facility] Physician [facility] [employer] Work Phone: Start: 03-19-2023 End: 29-22-7024ujzlqgjwkeDmbajpe R NILLFacility:CD:[id number]: 02-11-2023 End: 96-55-3748uwxhyoaptmNtpmibo R NILLFacility: DorotheaevueStart: 02-11-2023 End: 47-55-0481Rmtfsgj encounter procedureMichael R NILL General Surgery Nill/Said Steven Start: 02-05-2023 End: 57-43-0119vztlklsogkYwisfsyu Ball Other [employer] Other Start: 80-01-4798Jidxcibqh encounterBenjamin BallZHANNAG [facility] Medical ClinicStart: 01-17-2023 End: 92-22-5782mpzunpevvxLtyysxis Ball Other [employer] Other Start: 23-12-2555Ykhvqgmnn encounterBenjamin BallFPG Ball Medical ClinicStart: 52-66-2078auryndmgzaGncqrsm NILLFacility:GS Steven Start: 01-14-2023 End: 74-43-9112gkhfjxteozZxttvvid Ball Other [employer] Other Start: 95-28-3455Sjsbkvevd for general adult medical examination without abnormal findingsBenadolfo Baum Medical ClinicStart: 95-69-4947Uwjcfjnx preventive med est patient 40-64yrsBemaximino [facility] ClinicStart: 07-11-2022 End: 47-70-8367jsfftqphjqSG BENJAMIN BALLFacility:R5Xeaya: 89-93-8239qdpoxmqlbd DR LUZ YANESFacility:W4Psfoq: 91-22-8201Tyspueurf for general adult medical examination without abnormal findingsDR VICENTE BAUMOhioHealth Mansfield Hospitaltart: 12-19-2021 End: 42-12-3316xltoklheyeXZ BENJAMIN BALLFacility:K3Pdnfp: 12-19-2021 End: 84-36-2982Wuiwrnwzt for general adult medical examination without abnormal findingsDR VICENTE BAUMFacility:N9Omsim: 10-18-2021 End: 31-09-6117khywybfcqhMA DAVID V WESTFacility:Z0Qlgxz: 08-10-2021 End: 61-20-9342iqafmfjzvyAD BENJAMIN BALLFacility:Q2Leemx: 06-27-2021 End: 57-08-8501rrswmedbyhWccdort [place] Other [employer] Other Start: 21-66-8368Fzlsbn outpatient new 30 minutes Harperdawit BandaZHANNAMicheline Cooper OrthopedicsStart: 12-09-2018 End: 84-94-9846Dfpcsai encounter procedureCARL LAURENT HANDSalem City Hospitaltart: 12-09-2018 End: 59-61-2039Suwiezlaqx hospital visit by physicianCarl Laurent Hand Work Phone: stvz Artemus ORComment on above:Post-op pain (Primary Dx) Procedures DateProcedureProcedure DetailPerforming ClinicianStart: 94-57-2592FGQ CMP (CMP) (FOR REMOTE [facility] USE)Zayda IVORY Work Phone: Start: 88-45-9065KMA Barry Castellano DO Work Phone: Start: 84-27-0261AWF HEMOGLOBIN A1CZayda Geigerdorota IVORY Work Phone: Start: 71-87-5023FHH,APTIMA HPV,AGE GDLNZayda Geigerdorota IVORY Work Phone: Start: 03-73-5467Xdnmzyoevln observation [Identifier] in Cervix by Cyto stainCorey Gray DO Work Phone: Start: 73-17-3778Tzxnfxvygmz observation [Identifier] in Cervix by Cyto stainZayda [place] PA Work Phone: Start: 88-00-4546BZYSSDKWU PATIENTCARL KESLERStart: 17-96-4950Dvpki iv surg pathology gross&microscopic examCARL KESLERStart: 87-79-6997Tjwvuhrpky pulse oximetryCARL KESLERStart: 96-20-1114LKTMVWLVPWP KESLERStart: 41-89-5818HCQJDSWSD DEEP BREATHING AND COUGHINGCARL KESLERStart: 11-72-7050CXJSYTDM OXYGEN THERAPY PROTOCOLCARL KESLERStart: 23-37-5006NFGIIV PHYSICIAN (SPECIFY)DARION KESLERStart: 81-19-7755CMIBBMK COMMUNICATIONCARL FELICE Start: 98-00-4701PGCQI SIGNSCARL KESLERStart: 07-23-1222Dmnn bld gluc mntr dev cleared fda spec home useCARL KESLERStart: 42-37-4611Sfjbe test visual color cmprsn methsCARL KESLERStart: 26-39-5958GAYNU SIGNSCARL KESLERStart: 71-46-3384Arhjaryvgtddgusre with dilation of urethral strictureMichael NILL Cesarean sectionMichael NILL Ligation of fallopian tubeMichael NILL TonsillectomyMichael NILL Plan of Treatment DateCare ActivityDetailAuthorStart: 15-54-5156Ytrqsqkbu for malignant neoplasm of cervixNOMS HealthcareStart: 63-65-0100Ipiyyjtni for malignant neoplasm of cervixNOMS HealthcareStart: 07-28-2025 End: 26-02-3387Swlbefy encounter procedureNOMS BCP OBStart: 85-98-1193Abuocilvj vaccinationNOMS HealthcareStart: 07-20-2024 End: 00-32-7573C-peptideC-peptide Lab Routine Hormone disorder Expected: 07/20/2024, Expires: 07/20/2025NOMS HealthcareComment on above:Expected: 07/20/2024, Expires: 07/20/2025Start: 07-20-2024 End: 61-51-6506Mozgvsde freeCortisol, free Lab Routine Hormone disorder Expected: 07/20/2024, Expires: 07/20/2025NOIN HealthcareComment on above: Expected: 07/20/2024, Expires: 07/20/2025Start: 07-20-2024 End: 74-17-0120ZTPX-sulfateDHEA-sulfate Lab Routine Hormone disorder Expected: 07/20/2024 (Approximate), Expires: 07/20/2025NOIN HealthcareComment on above: Expected: 07/20/2024 (Approximate), Expires: 07/20/2025Start: 07-20-2024 End: 74-97-6307XyajgqnozKamzmpvzq Lab Routine Hormone disorder Expected: 07/20/2024 (Approximate), Expires: 07/20/2025NOIN HealthcareComment on above: Expected: 07/20/2024 (Approximate), Expires: 07/20/2025Start: 07-20-2024 End: 54-46-3368QumzqeeUtmusmy Lab Routine Hormone disorder Expected: 07/20/2024 (Approximate), Expires: 07/20/2025NOIN HealthcareComment on above:Expected: 07/20/2024 (Approximate), Expires: 07/20/2025Start: 07-20-2024 End: 07-23-1735Qsrfwpwi [Mass/volume] in Serum or PlasmaFerritin Lab Routine Hormone disorder Expected: 07/20/2024 (Approximate), Expires: 07/20/2025NOIN HealthcareComment on above:Expected: 07/20/2024 (Approximate), Expires: 07/20/2025Start: 07-20-2024 End: 74-74-6950Cbnqumi [Mass/volume] in Serum or PlasmaGlucose, random Lab Routine Hormone disorder Expected: 07/20/2024, Expires: 07/20/2025NOMS HealthcareComment on above:Expected: 07/20/2024, Expires: 07/20/2025Start: 07-20-2024 End: 56-24-7181Noriynfkdf A1c/Hemoglobin.total in BloodHemoglobin A1c Lab Routine Hormone disorder Expected: 07/20/2024 (Approximate), Expires: 07/20/2025 [facility] HealthcareComment on above:Expected: 07/20/2024 (Approximate), Expires: 07/20/2025Start: 07-20-2024 End: 77-58-2129Xlctudj, totalInsulin, total Lab Routine Hormone disorder Expected: 07/20/2024, Expires: 07/20/2025[facility] HealthcareComment on above: Expected: 07/20/2024, Expires: 07/20/2025Start: 07-20-2024 End: 46-70-9956UR Breast - bilateral ScreeningBilateral screening mammogram Imaging Routine Encounter for screening mammogram for malignant neoplasm of breast Expected: 07/20/2024 (Approximate), Expires: 09/19/2025[facility] Work Phone: comment on above:Expected: 07/20/2024 (Approximate), Expires: 09/19/2025Start: 07-20-2024 End: 12-72-4201KwhfnjufxbqnPuzavgyhcvso Lab Routine Hormone disorder Expected: 07/20/2024 (Approximate), Expires: 07/20/2025[facility] HealthcareComment on above: Expected: 07/20/2024 (Approximate), Expires: 07/20/2025Start: 07-20-2024 End: 47-44-6718Pyhyuwjjz serumSerotonin serum Lab Routine Hormone disorder Expected: 07/20/2024, Expires: 07/20/2025[facility] HealthcareComment on above: Expected: 07/20/2024, Expires: 07/20/2025Start: 07-20-2024 End: 55-65-7548Xjy hormone binding globulinSex hormone binding globulin Lab Routine Hormone disorder Expected: 07/20/2024 (Approximate), Expires: 07/20/2025 [facility] HealthcareComment on above:Expected: 07/20/2024 (Approximate), Expires: 07/20/2025Start: 07-20-2024 End: 84-20-9068F6, reverseT3, reverse Lab Routine Hormone disorder Expected: 07/20/2024 (Approximate), Expires: 07/20/2025[facility] HealthcareComment on above: Expected: 07/20/2024 (Approximate), Expires: 07/20/2025Start: 07-20-2024 End: 62-67-5226XPQMUFNYSQGH, FREETESTOSTERONE, FREE Lab Routine Hormone disorder Expected: 07/20/2024 (Approximate), Expires: 07/20/2025[facility] HealthcareComment on above:Expected: 07/20/2024 (Approximate), Expires: 07/20/2025Start: 07-20-2024 End: 22-96-9485Ixtcjzrtvyfx, free, totalTestosterone, free, total Lab Routine Hormone disorder Expected: 07/20/2024 (Approximate), Expires:07/20/2025[facility] HealthcareComment on above:Expected: 07/20/2024 (Approximate), Expires: 07/20/2025Start: 07-20-2024 End: 23-42-7175AavxayurskptqUcqjwwqsizgre Lab Routine Hormone disorder Expected: 07/20/2024, Expires: 07/20/2025[facility] HealthcareComment on above:Expected: 07/20/2024, Expires: 07/20/2025Start: 07-20-2024 End: 81-63-5095Imiagdwpfnrmv AntibodyThyroglobulin Antibody Lab Routine Hormone disorder Expected: 07/20/2024, Expires: 07/20/2025[facility] HealthcareComment on above:Expected: 07/20/2024, Expires: 07/20/2025Start: 07-20-2024 End: 92-44-4529Finydll peroxidase antibodyThyroid peroxidase antibody Lab Routine Hormone disorder Expected: 07/20/2024 (Approximate), Expires: 07/20/2025 [facility] HealthcareComment on above:Expected: 07/20/2024 (Approximate), Expires: 07/20/2025Start: 07-20-2024 End: 29-44-2941Vnjcihskkmn [Units/volume] in Serum or PlasmaNOMS Healthcare Comment on above:Expected: 07/20/2024 (Approximate), Expires: 07/20/2025 Expected: 07/20/2024, Expires: 07/20/2025Start: 07-20-2024 End: 12-14-6314Ngkgbypgq (T4) free [Mass/volume] in Serum or PlasmaT4, free Lab Routine Hormone disorder Expected: 07/20/2024 (Approximate), Expires: 07/20/2025 [facility] HealthcareComment on above:Expected: 07/20/2024 (Approximate), Expires: 07/20/2025Start: 07-20-2024 End: 43-42-9839Oaxkoukkdwwhaafb (T3) Free [Mass/volume] in Serum or PlasmaT3, free Lab Routine Hormone disorder Expected: 07/20/2024 (Approximate), Expires: 07/20/2025[facility] HealthcareComment on above:Expected: 07/20/2024 (Approximate), Expires: 07/20/2025Start: 07-20-2024 End: 66-36-8966Umjnziq D 1,25 dihydroxyVitamin D 1,25 dihydroxy Lab Routine Hormone disorder Expected: 07/20/2024 (Approximate), Expires: 07/20/2025[facility] HealthcareComment on above:Expected: 07/20/2024 (Approximate), Expires: 07/20/2025Start: 07-20-2024 End: 64-03-8521Znjlgpu encounter jegdfyskh72/15/2025 9:00 AM EDT Office Visit [facility] [address] [facility] [place] [id number] Zayda Rausch PA [address] [place] [address] ArrivedNOMS BCP OBComment on above:ArrivedStart: 12-16-2018 End: 37-86-1594Sjrdvc Visit12/16/2018 Office Visit Plastic Surgery Darion Hand MD [address] [place] [address] [phone] [facility] IncStart: 29-74-1872Rqkffvvcm vaccinationFlu vaccine (#1)[facility], [place]Start: 70-07-8808Lksvkfmd screenDiabetes screen [facility], KYStart: 08-66-0974Emmau screenLipid screenAshtabula County Medical Center, KYStart: 62-47-9579Zlkjqrmjv for malignant neoplasm of breastMammogramNOMS HealthcareStart: 62-19-9098Hdbhftyz cancer screenCervical cancer screenAshtabula County [facility], NJStart: 13-18-7407ECrD/Tdap/Td vaccine (1 - Tdap)DTaP/Tdap/Td vaccine (1 - Tdap)[facility], [place]Start: 34-81-8657SWA screenHIV screenAshtabula County Medical Center, KYStart: 30-32-1703Fcbekxbaw for malignant neoplasm of colonNOMS Healthcare End: 96-10-5622Rxxzw glucose - POCTBlood glucose - POCT Point of Care Testing Routine One Time for 1 Occurrences starting 12/09/2018 until 12/09/2018[facility] CenterDeirdrement on above:One Time for 1 Occurrences starting 12/09/2018 until 12/09/2018Comprehensive metabolic 2000 panel - Serum or PlasmaCleveland Clinic Hillcrest HospitalInitiate Oxygen Therapy ProtocolInitiate Oxygen Therapy Protocol Respiratory Care Routine Daily until discontinued starting 12/09/2018 [facility] CenterDeirdrement on above:Daily until discontinued starting 12/09/2018MG Breast - bilateral ScreeningCleveland Clinic Hillcrest HospitalPhase I & II - metered glucosePhase I & II - metered glucose Point of Care Testing Routine As Needed until discontinued starting 12/09/2018[facility] CenterJUVENAL Comment on above:As Needed until discontinued starting 12/09/2018 End: 39-99-2996Jnwbnjykd, urine POCTPregnancy, urine POCT Point of Care Testing Routine One Time for 1 Occurrences starting 12/09/2018 until 12/09/2018[facility], KYComment on above:One Time for 1 Occurrences starting 12/09/2018 until 12/09/2018Surgical PathologySurgical Pathology Lab Routine ONE TIME for 1 Occurrences starting 12/09/2018[facility], KYComment on above:ONE TIME for 1 Occurrences starting 12/09/2018THIN PREP TIS PAP AND HR HPV DNATHIN PREP TIS PAP AND HR HPV DNA Pathology and Cytology Routine Well woman exam with routine gynecological exam Ordered: 07/20/2024[facility] CenterComment on above:Ordered: 07/20/2024[facility] Immunizations Immunization DateImmunizationNotesCare ZppnnwuxVxfomeel35-59-2898jqyxszpru virus vaccine, unspecified formulationAmy Brittany IVORY Work Phone: NOSainte Genevieve County Memorial HospitalDyqivgdwsh66-17-8200jffszhkwu virus vaccine, unspecified formulationMichael NILL General Surgery Azmavgoc66-70-3191BXOJ-UqY-9 (COVID-19) mRNA-1273 vaccineMichael NILL General Surgery Omxargvw67-54-3552NTLK-ZbE-0 (COVID-19) mRNA-1273 vaccineMichael NILL General Surgery Xeldbujd40-62-9531CJQQ-OnT-2 (COVID-19) mRNA-1273 vaccineMichael NILL General Surgery Steven Payers DatePayer CategoryPayerPolicy [id number] [id number] [id number] 2..4.957545.13858270-92-0282YjstakxJESDIEE [facility] [address] xxxxxxxxx 2018-Present [phone] [address] [place] [address]ljfrxytap [id number] [id number] 2..1.250212.3.579.[id number] 2..1.036448.3.579.[id number] 2..1.104596.3.579.2.97101-80-1493Mymiidv4945573 2..1.184770.3.579.2.77910-40-0260Nkgjkel9516415 2..1.889708.3.579.2.16882-10-0594Mclxvxx9700805 2..1.913194.3.579.[id number] 2.0.1.676166.3.57[id number] 2.0.1.052503.3.579.2.77371-05-8608Cmfiyxj80993104 2.0.1.839431.3.579.2.066109-14-7287Wkczfkz0494666 2..1.602336.3.579.2.768927-93-3253Bpdulvl9354782 2.0.1.107702.3.579.2.971438-43-3863Emft-[id number] Social History DateTypeDetailFacilityStart: 12-09-2018 End: 93-08-3851Gosofpk smoking status NHISNever smokerGeneral Surgery Steven Start: 14-04-9490Odsakec intakeYeLancaster Municipal Hospital CenterStart: 12-01-2018 Alcohol Commentweekend useAshtabula County Medical Center, KYStart: 14-73-7039Uak Assigned At BirthNot on [facility], NJTobatulsa center for [facility] [place] smoking statusNeverGeneral Surgery BellCincinnati Children's Hospital Medical Centertart: 82-33-0469Ryc Assigned At BirthFeFairfield Medical CenterTobatulsa center for behavioral health – [place] smoking status NHISUnknown if ever smokedGARFIELD MEMORIAL HOSPITAL HealthcareStart: 13-40-9049RbkXhfhum (finding)[facility] Functional Status YmpnHxgkgfocejQfgrdmRakkxuwn04-67-2182Gbrbcsphck StatusN/AGeneral Surgery [place] Clinical Notes 06-27-2021 to 09-06-2024 Note Date & DllvQxxuZoltyvws79-22-3463 History of Present illness Narrative* Haylee Morales [...] nursing note reviewed. Exam conducted with a oil well cable tool driller present. Vitals: Estimated body mass index is [...] to the patient then properly discarded. Discussed [facility] and recommendations. Prescriptions were previously signed and sent to [facility] on 08/20/24 and will be reprinted and sent today after provider signing. Will request that [facility] reach out to patient when medication is ready for pickup or delivery. Will also order follow up labs that are to be done 45 days after starting medication. Follow Up: Patient is to return to the office for annual exam unless needed otherwise. Documented by Haylee Morales LPN on behalf of: Lucius Castellano DO documented in this encounterSaint Mary's Health CenterHlaxzcgbfr83-00-5608 History of Present illness Narrative* DIANELYS Bravo - 07/20/2024 9:00 AM EDT Reason for Appointment: Patient ID: Fatmata Rose is a 49 y.o. female who presents for [facility] Patient presents today for Annual [...] nursing note reviewed. Exam conducted with a oil well cable tool driller present. Vitals: Estimated body mass index is [...] in regards to her symptoms & brought [employer] packet to office to discuss. Pap was obtained without difficulty and patient given mammogram order to have schedule d/obtained. Discussed patients current symptoms and once [employer] Packet is returned to office and all lab results obtained then packet and labs will be sent to [employer]. Patient also desires to start GLP therapy and prescription will be sent to [employer] as well. Discussed vaginal estrogen if needed in the future and patient will see if symptoms improve with current plan of care. Discussed compounded Semaglutide with Methyl B12 and Niacinamide added for better absorption. Patient prefers to have Methyl B12 and Niacinamide added to Semaglutide by injection for better absorption. Prescription will be sent to [employer] to be compounded and dispensed to patient. [...] behalf of: DIANELYS Bravo documented in this encounterSaint Mary's Health CenterNlmnppwefb40-41-4399 NoteChief Complaint consultation for screening colonoscopy HPI [...] 05/10/2020 Recorded SARS-CoV-2 (COVID-19) mRNA-1273 vaccine 04/11/2020 RecordedWestern Reserve HospitalComment on above:Result Comment: Electronically Signed By: LEONOR COLON, Claudy Mireles\Date and Time Signed: 02/11/23 14:43 IUR26-00-3713 Evaluation note * Encounter Date Diagnosis Assessment Notes Treatment Notes Treatment Clinical Notes Feb, Seasonal affective disorder (ICD -10 - F33.8) [employer] Other 10-10-2023 Evaluation note* Encounter Date Diagnosis [...] She is an asymptomatic, low risk patient [facility] [employer] Other 03-23-2022 Evaluation note* Encounter Date Diagnosis [...] Gel Jun,Left elbow pain (ICD-10 - M25.522) [facility] [employer] Other Evaluation + Plan note No data available for this section General Surgery Steven Evaluation noteNo InformationNortChan [facility] Other Evaluation note* Diagnosis Onset Date Resolution Status Insomnia acuteOverweightacuteSeasonal affective disorderacute [facility] Work Phone: Evaluation note* Diagnosis Onset Date Resolution Status Admit Date Wellness examination acuteNovember 2023 2:07pm [facility] Work Phone: Evaluation note* Diagnosis [...] 2024 3:13pmInsomniaacuteAugust 2024 3:13pmOverweight acuteAugust 2024 3:13pm [facility] Work Phone: History general Narrative - Reported* Type Description Date Medical History Seasonal Affective Disorder Surgical Historyc-section x 2Surgical HistorytonsilectomySurgical Historytubal ligationHospitalization Historysee surgeries [facility] [employer] Other Hospital Discharge instructions No data available for this section General Surgery [place] Progress note No data available for this section General Surgery [place] Reason for referral (narrative)* Reason Referral for screeni ng colonoscopy Diagnosis 1 Screening for colon cancer (Z12.11) Referral Organization [facility] Amelia abrams Referring Provider First Name Vicente Referring Provider Last Name Kami Referring Provider Specialty Internal Me dicine Referred Organization [facility] Referred Provider Claudy Schmitz Referred Address [address],[place], [place],[address] Referred Provider Specialty Surgery Referral Priority Routine General Notes Asymptomatic, low ri sk patient. She denies change in appetite, weight or bowel habits. She denies heartburn or dysphagia. She denies abdominal pain, melena or hematochezia. [employer] Other Reason for referral (narrative)No reason for referral information availableFirelands Regional Medical Center Work Phone: Discharge Instructions * [...] EDT CLINICAL PHARMACY NOTE: MEDS TO BEDS [facility] Patient?: No Total # of Prescriptions Filled: 2 The following medications were delivered to the patient: cephalexin norco Total # of Interventions Completed: 1 Time Spent (min): 0 Additional Documentation: * Clinton Garcia RN - 12/09/2018 6:34 AM EDT Urine test results-negative * Ranjit Zendejas RN - 12/01/2018 1:26 PM EDT DAY OF SURGERY/PROCEDURE GUIDELINES As a patient at the [facility], you can expect quality medical and nursing [...] morning of your surgery/procedure (Hibiclens if directed) [place] your teeth, but do not swallow any [...] your Living Will or Durable Power of [employer] DO NOT take anticoagulants (blood thinners, aspirin [...] are recovering, the surgery family waiting room telephone operator receptionist can answer many of your family's [...] RecordedPatient RepresentativeExplanationAdvance Directives and Living WillPower of [employer] [place] Advance Directive Response Recorded Date/ Time Advance [...] mass and lump, unspecified MASS FOREHEAD Procedures DC EXCISION TUMOR SOFT TISS FACE/SCALP SUBQ 2+CM DC EXC SKIN MALIG 2.1-3CM FACE,FACIAL DC EXC SKIN BENIG 2.1-3CM FACE,FACIAL DC ADJ TISS XFER HEAD,FAC,HAND <10SQCM HEAD LESION EXCISION Darion Hand MD [address] [place] [address] [facility] ReasonCommentsWell Women VisitReasonCommentsContraception INFORMATION SOURCE (unrecogn ized section and content) DATE CREATED AUTHOR 12/15/[address] [facility] DATE CREATED AUTHOR AUTHOR'S ORGANIZ ATION 08/18/2020 [facility] DATE CREATED AUTHOR AUTHOR'S ORGANIZ ATION 07/20/2022 [facility] DATE CREATED AUTHOR AUTHOR'S ORGANIZ ATION 03/25/2023 [facility] DATE CREATED AUTHOR AUTHOR'S ORGANIZ ATION 01/27/2025 [facility] EPIC Patient Care team [...] BE BASED ON THE PRIMARY CLINICAL RECORDS. [employer] [facility]. provides no warranty or guarantee of the accuracy or completeness of information in this document.
--- OUTSIDE RECORDS SUMMARY | 2025-03-18 06:53 | XMS_ITS | Patient Health Record ---
Author Organization [facility] Address [address] [place] [address] Care Team Providers Care Fabrication Department Supervisor Name Role Phone Mo Villavicencio Unavailable [phone] tesfayeLisa López Unavailable Allergies No Known Allergies Results Component Value Reference Range Notes SCC- HAND 3 VIEW LEFT [id number] Reviewed date:08/16/2024 01:24:19 PM Interpretation: Performing Lab: Notes/Report: SCC- HAND 3 VIEW LEFT [id number] Reviewed date:09/07/2024 09:38:49 AM Interpretation: Performing Lab: Notes/Report: Reason For Referral [...] in the past year?Declined to specify (0 point)Ehzmqr1EepzsyqrlbphodLdoztiurAeaadql Control (Standard) Question Answer Notes Tobacco use: Nonsmoker Problems Problem Type SNOMED Code ICD Code Onset Dates Problem Status W/U Status Risk Notes Problem Other fracture of fifth metacarpal bone, left hand, subsequent encounter for fracture with routine healing (S62.397D)Activeconfirmed Vital Signs Height 5'4 in 09/06/2024 Ccgrej081 lbs09/06/2024BMI29.18009/06/2024 Encounters Encounter Location Date Provider Diagnosis [facility] [address] [place] [address] 07/12/2024 Lisa Ambrocio Pain of left hand M79.642 and Closed nondisplaced fracture of other part of fifth metacarpal bone of left hand, initial encounter S62.397A [facility] [address] [place] [address] 07/19/2024 Lisa Ambrocio Other fracture of fifth metacarpal bone, left hand, subsequent encounter for fracture with routine healing S62.397D [facility] [address] [place] [address] 07/26/2024 Mo Villavicencio Other fracture of fifth metacarpal bone, left hand, subsequent encounter for fracture with routine healing S62.397D [facility] [address] [place] [address] 08/09/2024 Lisa Ambrocio Other fracture of fifth metacarpal bone, left hand, subsequent encounter for fracture with routine healing S62.397D [facility] [address] [place] [address] 09/06/2024 Mo Villavicencio Other fracture of fifth [...] we will discontinue casting. 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
--- OUTSIDE RECORDS SUMMARY | 2025-03-18 06:53 | XMS_ITS | Clinical Summary ---
Author Organization [employer] Address [facility] [address] [place] [address] Care Team Providers Care Traffic Workforce Representative Name Role Phone Unavailable Primary Care Provider Unavailabl e Social History Tobacco UseTypesPacks/DayYears UsedDateSmoking Tobacco: Never AssessedChildcare AnswerDate IvscpgoxUxngghoyoEjbwgcc22/04/2020EmploymentAnswerDate Recorded AmwroegoljAvsynsm46/04/2020Purpose - LifeAnswerDate RecordedPurpose and direction in iwmbRtexjjd34/11/2021CommentsUnknownSex and Gender InformationValueDate RecordedSex Assigned at BirthNot on fileLegal SexFemale 11/09/2019 9:34 AM EDTGender IdentityNot on fileSexual OrientationNot on file Plan of Treatment Health MaintenanceDue DateLast DoneCommentsDepression Rgdcfytun72/04/1989Tobacco Tfroyatrk68/04/1989Adult BMI Hwlyoupkh00/04/1995DTaP,Tdap and Td Vaccines (1 - Tdap)06/09/1995Pap Smear1997Influenza Sqbhqeu9012/06/2024 Medical Devices Not on file
--- NOTE | 2025-03-18 07:20 | MM_ITS ---
Patient Name: FATMATA SCHULTZ MR#: [id number] : 1975 Exam Date: 03/18/2025 Ordering Doctor: DIANELYS RAUSCH . RADIOLOGY REPORT PROCEDURE: MM TOMOSYNTHESIS SCREENING BI COMPARISON: MM TOMOSYNTHESIS SCREENING BI, 03/02/2024. MM TOMOSYNTHESIS SCREENING BI, 10/21/2022. MG STEREO CORE NDL W CLIP LT, 07/26/2020. MG MAMM CHANI SCRN W CAD DIG, 01/28/2008. INDICATIONS: Screening for neoplasm of breast Calculator Name [facility] Breast Cancer Risk Assessment Tool 5 Year Breast Cancer Risk 3.70% Lifetime Breast Cancer Risk 26.80% Personal Breast Cancer No Personal Ovarian Cancer No Treatments None Family Cancers Sister with breast cancer at age 43. LOCATION: [facility] BREAST COMPOSITION: The breasts are heterogeneously dense, which may obscure small masses. FINDINGS: RIGHT BREAST: No significant suspicious finding. There is a breast implant which is intact and unchanged. LEFT BREAST: No significant suspicious finding. There is a breast implant which is intact and unchanged. There is a biopsy clip on the left which is unchanged. DIAGNOSTIC CATEGORY 2--BENIGN FINDING. NO CHANGE FROM COMPARISON. RECOMMENDATIONS: ROUTINE MAMMOGRAM AND CLINICAL EVALUATION IN 12 MONTHS. Dictated by: Nicolás Cruz MD on 03/18/2025 at 11:46 Approved by: Nicolás Cruz MD on 03/18/2025 at 13:15
== END 2025-03-18 06:50 | disposition home or self-care (01) ==
LOC: MAMMO 06:50
PROVIDERS: PCP Internal Medicine; Visit Provider Physician Assistant
DX: Z12.31 Encounter for screening mammogram for malignant neoplasm of breast (principal); Z80.3 Family history of malignant neoplasm of breast
CPT/HCPCS: 77063; 77067